=== PATIENT | female | born 1965 | race Caucasian/White ===

== ENCOUNTER → 2017-06-13 08:25 | Outpatient (CLI) | payer MEDICAID, SELFPAY ==
[2017-06-13 08:32] LABS: Mucous, Urine 0 SEEN /hpf (<or=2+)
[2017-06-13 10:33] LABS: Color, Urine Yellow (Yellow); Glucose, Dipstick Normal (Normal); Ketone-Dipstick Negative (Negative); Leukocyte Esterase-Dipstick 500 /ul (Negative); Nitrite-Dipstick Negative (Negative); Occult Blood-Urine 25 /ul (Negative); Protein-Dipstick Negative (Negative); Specific Gravity, Urine 1.015 (1.002-1.030); Urine Bilirubin Dipstick Negative (Negative); Urine Clarity Sl. Cloudy (Clear); Urine Urobilinogen Normal (Normal)
[2017-06-13 10:43] LABS: Absolute Lymphocyte Count 2.25 X10^3/ul (0.83-4.51); Absolute Neutrophil Count 2.9 X10^3/uL (2.0-7.7); Basophil# 0.07 X10^3/uL; Basophil% 1.2 % (0-1); Eosinophil# 0.21 X10^3/uL; Eosinophils% 3.6 % (0-5); Hematocrit 35.8 % (37-47); Hemoglobin 12.1 g/dl (12.0-15.0); Lymphocyte # 2.25 X10^3/ul (4.0); Lymphocyte % 38.3 % (19-41); Mean Corp Hgb Conc 33.8 g/gl (32-36); Mean Corpuscular Hgb 29.9 pg (27.0-32.0); Mean Corpuscular Volume 88.4 fL (81-99); Mean Platelet Vol. 11.2 fl (6.2-12.0); Monocyte# 0.44 X10^3/uL; Monocyte% 7.5 % (0-10); Neutrophil # 2.91 X10^3/uL (2.7-7.7); Neutrophil % 49.4 % (47-70); Platelet Count 278 K/mm3 (150-450); RBC Distribution Width CV 14.3 % (11.6-14.6); Red Blood Cells-Urine 0-5 SEEN /hpf (0-5); Red Blood Count 4.05 M/mm3 (4.2-5.4); Squamous Epithelial Cells - UA 10-25 SEEN /hpf (5-10); White Blood Cells 25-50 SEEN /hpf (0-5); White Blood Count 5.9 K/mm3 (4.4-11.0)
[2017-06-13 10:44] LABS: Bacteria 1+ /hpf (None Seen)
[2017-06-13 10:46] LABS: Hemoglobin A1c 5.4 % (4.2-6.3)
[2017-06-13 10:47] LABS: POSITIVE COUNT NO; POSITIVE DIFFERENTIAL NO; POSITIVE MORPHOLOGY NO
[2017-06-13 10:52] LABS: ALB/GLOB Ratio 0.9 RATIO (0.9-2.4); AST(SGOT) 18 U/L (15-37); Alanine Aminotransfer ALT/SGPT 22 U/L (13-56); Albumin, Serum 3.7 g/dL (3.2-5.0); Alkaline Phosphatase 131 U/L (45-117); BUN 15 mg/dL (7-18); BUN/Creat Ratio 22.2 RATIO (10-20); Calcium,Total 8.9 mg/dL (8.5-10.1); Cholesterol 195 mg/dL (200); Creatinine, Serum 0.68 mg/dL (0.55-1.02); EST Glomerular Filtration Rate 97 mL/min (>60); Est Glom Filt Rate - Afr Amer 117 mL/min (>60); Glucose 86 mg/dL (70-110); Protein, Total 7.7 g/dL (6.4-8.2)
[2017-06-13 10:53] LABS: Anion Gap 11 (5-15); Chloride 103 mmol/L (98-107); High Density Lipoprotein 48 mg/dL; Potassium 4.2 mmol/L (3.5-5.1); Sodium Level 139 mmol/L (136-145); T4 Free Direct 1.44 ng/dL (0.76-1.46); Thyroid Stim Hormone (TSH) < 0.01 uIU/mL (0.358-3.74); Triglycerides 150 mg/dL; Very Low Density Lipoprotein 30 mg/dL (5-40)
[2017-06-21 10:47] LABS: Anti-Thyroglobulin AB 8.9 IU/mL (0.0-0.9); Thyroglobulin RIA < 2.0 ng/mL (.); Thyroid Peroxidase AB 82 IU/mL (0-34)
== END ==
PROVIDERS: Family Provider Family Medicine; PCP Family Medicine; Visit Provider Family Medicine
DX: E03.9 Hypothyroidism, unspecified (principal); Z83.3 Family history of diabetes mellitus; N39.41 Urge incontinence; Z13.220 Encounter for screening for lipoid disorders; R19.8 Other specified symptoms and signs involving the digestive system and abdomen
CPT/HCPCS: 36415; 80053; 80061; 81001; 83036; 84432; 84439; 84443; 85025; 86376; 86800

== ENCOUNTER → 2017-06-16 10:45 | Outpatient (CLI) | payer MEDICAID, SELFPAY ==
[2016-04-16 13:51] VITALS: BP 95/66
[2016-05-13 10:41] VITALS: BMI 27.4
[2016-05-13 12:23] VITALS: BP 140/60
--- NOTE | 2017-06-16 10:47 | US_ITS ---
US Thyroid (eg thyroid, parathyroid, parotid) INDICATION: NODULE FELT BY DOCTORSTEPHANIE HENDERSON X 20 YEARS COMPARISON: None TECHNIQUE: Ultrasonographic grayscale and limited Doppler investigation of the thyroid gland FINDINGS: The right lobe of the thyroid measures 3.8 x 1.4 x 0.9 cm and demonstrates diffusely heterogenous echotexture. No well-circumscribed nodule is identified. The left lobe of the thyroid measures 3.2 x 1.0 x 0.6 cm and demonstrates diffusely heterogenous echogenicity. No definite nodule identified. The isthmus measures 2 mm. US/Thyroid IMPRESSION: Heterogenous echotexture of the thyroid gland. No circumscribed nodules identified. at 0057 Reported and signed by: Guillermina Hudson MD Electronically Signed: Guillermina Hudson MD at 23:55 EST Tel , Service support ,
== END ==
PROVIDERS: Family Provider Family Medicine; PCP Family Medicine; Visit Provider Family Medicine
DX: E04.1 Nontoxic single thyroid nodule (principal)
CPT/HCPCS: 76536

== ENCOUNTER 2017-07-14 05:18 | Day surgery (SDC) | payer MEDICAID, SELFPAY ==
[2017-07-14] VITALS (7 sets, daily range): BP systolic 77–113; BP diastolic 59–77; PULSE 55–64; RESP 16; TEMP 36.2–36.9; O2SAT 97–100
--- NOTE | 2017-07-14 | COLBX_PTH ---
PATIENT: HECTOR MUNSON LOC: EN U#:[id number] AGE/SX: 51/F ROOM: RE07/14/[address]: Dr. Vincent Rao MD : 1965 BED: DIS: 07/14/2017 SPEC #: [id number] RECD: 07/14/17 11:02 STATUS: BAKARI YIFAN #: [id number] AALIYAH: 07/14/17 00:[address]: Vincent Rao DEPT: SURGICAL PATHOLOGY RECD BY: Lyle Hernandez ENTERED: 07/14/17 11:52 SP TYPE: COLON BX OTHR DR: Dr. Ralph Nava MD Tissues: A - Descending colon B - Sigmoid colon biopsy Procedures: Surgery Specimen Level IV HEADER OPERATION: Colonoscopy PRE-OP DIAGNOSIS: Screening TISSUE SUBMITTED: A ? Distal descending colon polyp, B ? Mid sigmoid polyp biopsy MICROSCOPIC DIAGNOSIS A. Descending colon polyp, biopsy: Tubulovillous adenoma with focal high grade dysplasia. B. Mid sigmoid polyp, biopsy: Fragment of benign colonic mucosa. AM:bhumika 07/15/17 COMMENT Neither hyperplastic nor adenomatous change is seen. Clinical correlation is suggested. Case has been reviewed in consultation with Dr. Linares who concurs with the above diagnosis. IDC:DEVANTE MICROSCOPIC DESCRIPTION Slides are reviewed. GROSS DESCRIPTION A - Received in fixative is one container labeled with the patient's name and designated descending colon polyp. The specimen consists of a pink-red polyp measuring 1.7 x 1.2 x 1 cm. The apparent base is inked. The polyp is serially sectioned. Also present in the container are multiple pieces of johnson soft tissue measuring in aggregate 1.5 x 1 x 0.3 cm. The entire specimen is submitted in two cassettes as follows: 1 ? serially sectioned polyp, 2 ? rest of the specimen. B - Received in fixative is one container labeled with the patient's name and designated mid sigmoid polyp biopsy. The specimen consists of one irregular fragment of light johnson soft tissue that measures 0.3 x 0.3 x 0.1 cm. The specimen is totally submitted in one cassette. / DEVANTE:bhumika 07/14/17 TC:5 CPT: 50794 x2
--- NOTE | 2017-07-14 06:22 | HP.PCM_ITS ---
Problem List (1) Screening for intestinal cancer Status: Acute History of Present Illness Date of Admission: 07/14/17 The patient is a 51 year old F who presents today for screening colonoscopy. She has no family history of colon polyps or colon cancer. She otherwise enjoys good health. No bright red blood per rectum or melena. No abdominal pain. No unexpected weight loss. She has never had a previous screening colonoscopy. Past Medical History Past Medical History (Chronic Problems): Chronic Problems Hypothyroidism (Chronic) Allergies No Known Allergies Allergy (Verified 07/08/17 10:49) Home Medications: Ambulatory Orders Medication Instructions Recorded Levothyroxine [Synthroid] 125 mcg PO DAILY 10/19/15 Cetirizine HCl [Allergy Relief] 10 mg PO QHS 04/16/16 Oxybutynin [Ditropan] 5 mg PO DAILY 07/08/17 Surgical History: no surgical history Smoking Status: Former smoker - *Family History Paternal History Items: Diabetes Offspring History Items: Heart Disease, - - VSD Review of Systems Constitutional: Denies: Weight Change Eyes: Denies: Blurred vision, Vision Change HEENT: Denies: Ear Pain, Eye Pain Cardiovascular: Denies: Chest Pain, Claudication Respiratory: Denies: Cough, Shortness of Breath Gastrointestinal: Denies: Hematemesis, Hematochezia Genitourinary: Denies: Dysuria, Hematuria Musculoskeletal: Denies: Leg Pain Skin: Denies: Jaundice Neurological: Denies: Confusion Psychiatric: Denies: Depression Endocrine: Denies: Change in Body Habitus Hematologic/ Lymphatic: Denies: Easy Bleeding VTE Information - Inpt Only VTE Present on Admission: No Patient Problems: Active and Suspected Problems Screening for intestinal cancer (Acute) - Physical Exam General: Alert, Oriented x3, Cooperative, No apparent distress HEENT: Atraumatic Oral: Moist Mucosa Neck: Supple Lungs: Clear to auscultation Cardiovascular: Regular rate Abdomen: Bowel Sounds Present, Soft, Non Tender, Non-Distended, No Hepato- splenomegaly Extremities: No edema, No Calf Tenderness Skin: No rashes Neurological: Cranial nerves II-XII grossly intact Psych/Mental Status: Normal Affect Vital Signs Temp Pulse Resp BP Pulse Ox 98.5 F 55 L 16 111/62 100 07/14/17 06:07 07/14/17 06:07 07/14/17 06:07 07/14/17 06:07 07/14/17 06:07 Oxygen Delivery Method Room Air Assessment/Plan Active and Suspected Problems Screening for intestinal cancer (Acute) I have discussed with the patient the technique, benefits, risks and alternatives of screening colonoscopy with possible biopsy or polypectomy is indicated. She has had an opportunity to ask and have questions answered. She presents via our open access program. She is referred by Dr. Nava. Vincent Rao M.D., F.A.C.S.
--- NOTE | 2017-07-14 07:13 | OP.PCM_ITS ---
Problem List (1) Screening for intestinal cancer Status: Acute Report of Operation Date of Procedure: 07/14/17 Pre-Operative Diagnosis: Screening for intestinal malignancy Post-Operative Diagnosis: Large pedunculated polyp of the distal descending colon. Small sessile polyp of the mid sigmoid colon. Extensive sigmoid diverticulosis Surgery/Procedure Performed:: Colonoscopy with snare polypectomy with clip placement and colonoscopy with biopsy Description of Surgical Findings:: Timeout and informed consent was obtained. 51-year-old female was taken to the endoscopy suite. She was placed in a left lateral decubitus position. Throughout the procedure in aliquots she received total of 100 mg Demerol and 4.5 mg of Versed is intravenous sedation. Digital rectal exam performed. Some mild internal and external hemorrhoidal changes. No mass lesions. Flexible colonoscope and so the rectum advanced through a somewhat tortuous sigmoid colon then the scope was advanced through the transverse colon with transabdominal pressure the scope was nicely advanced to the cecum. The cecum ileocecal valve was nicely achieved. Bowel prep was very good. The scope was carefully withdrawn from the ascending colon transverse colon into the descending colon at approximately 60 cm and what was felt to be the distal descending colon a sizable pedunculated polyp was identified. Photographs were obtained. Snare cautery blend setting was used to resect this. 2 separate resections were required. A hemostatic clip was then placed at the base. [place] that I had good hemostasis and good closure of that site. The polyp was retrieved with a Bee net. The scope was further withdrawn and there was a 6 mm sessile polyp of the mid sigmoid colon. Photographs obtained. Cold forceps was used to sample and eradicate that lesion. There was extensive sigmoid diverticulosis. I did not see any signs of acute inflammation. The scope was withdrawn to the rectum retroflex the anorectal verge inspected mild hemorrhoidal changes noted. No evidence of active disease. The procedure was completed with patient tolerating it well. Impression Pedunculated polyp of the distal descending colon removed in piecemeal fashion with hemostatic clip placement. Sessile polyp of the mid sigmoid Extensive sigmoid diverticulosis A plain abdominal film will be obtained to identify the clip placement. The patient will be provided pathology results as they become available. Because of the sizable nature of the polyp I anticipate likely follow-up colonoscopy at 1 year. This was the patient's first colonoscopy. Cc: Dr. Schinner Medications were given at 0635. The scope was inserted 0637. The cecum was reached at 0641.42. The procedure was completed at 0706. Vincent Rao M.D., F.A.C.S. Type of Anesthesia:: IV Sedation
--- NOTE | 2017-07-14 07:37 | SUR.PHASEII ---
pt taken to radiology for xray of clip placement
--- NOTE | 2017-07-14 07:40 | RAD_ITS ---
STUDY: X-RAY - ABDOMEN/PELVIS REASON FOR EXAM: Female, 51 years old. Foreign body clip placement TECHNIQUE: Two AP supine views of the abdomen and pelvis. COMPARISON: None. FINDINGS: Normal visualized lung bases. There is an unremarkable bowel gas pattern. There appears to be metallic clip like device within the region of the left hemiabdomen. Currently, likely in small bowel. There is no demonstrated free abdominal air. The visualized liver, spleen and kidneys are grossly normal in size and morphology. Normal soft tissue structures. Normal visualized osseous structures. RAD/Abdomen Single View (Portable) IMPRESSION: Metallic clip like device in the left hemiabdomen as above. Possibly within the small bowel. Consider CT to further evaluate if indicated Electronically Signed: Tray Mixon DO at 7:59 EST Tel , Service support ,
== END 2017-07-14 08:21 | disposition home or self-care (01) ==
LOC: EN 05:18 → AC 05:20
PROVIDERS: Family Provider Family Medicine; PCP Family Medicine; Visit Provider Surgery
PROC: 0DJD8ZZ Inspection of Lower Intestinal Tract, Via Natural or Artificial Opening Endoscopic (ICD-10-PCS; CPT 45378; principal; 2017-07-14 06:25)
DX: Z12.11 Encounter for screening for malignant neoplasm of colon (principal); D12.4 Benign neoplasm of descending colon; K63.5 Polyp of colon; K57.30 Diverticulosis of large intestine without perforation or abscess without bleeding; K64.8 Other hemorrhoids; K64.4 Residual hemorrhoidal skin tags; E03.9 Hypothyroidism, unspecified; Z87.891 Personal history of nicotine dependence; Z79.899 Other long term (current) drug therapy
CPT/HCPCS: 45380; 45385; 74018; 88305; J7120

== ENCOUNTER → 2017-07-24 09:30 | Outpatient (CLI) | payer MEDICAID, SELFPAY ==
[2017-07-25 09:44] LABS: Vitamin B12 464 pg/mL (211-911); Vitamin D,25 Hydroxy 31.3 ng/mL (29.95-100.01)
== END ==
PROVIDERS: Family Provider Family Medicine; PCP Family Medicine; Visit Provider Family Medicine
DX: R53.83 Other fatigue (principal)
CPT/HCPCS: 36415; 82306; 82607

== ENCOUNTER 2017-09-03 18:31 | Emergency (ER) | payer OTHER, SELFPAY ==
[2017-09-03 18:31] VITALS: BP 141/104; PULSE 73; RESP 16; TEMP 36.7; O2SAT 98; BMI 27.4
--- NOTE | 2017-09-03 19:28 | RAD_ITS ---
STUDY: X-RAY - RIGHT FEMUR REASON FOR STUDY: Female, 52 years old. Pain of the leg after falling off a ladder. TECHNIQUE: Radiological exam, femur, minimum 2 views COMPARISON: None. FINDINGS: Normal visualized femur. Substantial soft tissue contusion lateral to the greater trochanter without underlying fracture. Mild hypertrophic degenerative changes. RAD/Femur Min 2 Views IMPRESSION: Contusion of the soft tissues lateral to the greater trochanter with no underlying fracture of the hip or femur. Electronically Signed: Diane Diaz MD at 19:57 EDT , Service support ,
--- NOTE | 2017-09-03 19:28 | RAD_ITS ---
STUDY: X-RAY - PELVIS REASON FOR EXAM: Female, 52 years old. Fell from a ladder. Pelvic pain. TECHNIQUE: One view of the pelvis was obtained. COMPARISON: None. FINDINGS: There is a non-specific bowel gas pattern. Numerous phleboliths of the pelvis. Soft tissue contusion of the right hip area lateral to the greater trochanter. Normal bilateral iliac wings, sacroiliac joints and visualized sacrum. Normal visualized bilateral superior and inferior pubic rami. Normal pubic symphysis. Normal ischial tuberosities. Normal visualized right femoral head. Normal right acetabulum. Normal right hip joint. Normal visualized left femoral head. Normal left acetabulum. Normal left hip joint. RAD/Pelvis 1 or 2 Views IMPRESSION: Negative for fracture of the pelvis. Soft tissue contusion lateral to the right greater trochanter without underlying fracture. Electronically Signed: Diane Diaz MD at 20:03 EDT , Service support ,
--- NOTE | 2017-09-03 19:29 | RAD_ITS ---
STUDY: X-RAY - RIGHT TIBIA AND FIBULA REASON FOR EXAM: Female, 52 years old. Fell off a ladder with pain of the lower leg. TECHNIQUE: 2 view(s) of the tibia and fibula were obtained. COMPARISON: None. FINDINGS: Normal visualized tibia. Acute fracture of the fibular head and neck essentially nondisplaced. Fracture related soft tissue swelling. RAD/Tibia & Fibula 2 Views IMPRESSION: Essentially nondisplaced acute fracture of the right fibular head and neck. Negative for tibial fracture. Electronically Signed: Diane Diaz MD at 20:04 EDT , Service support ,
--- NOTE | 2017-09-03 20:21 | ED.DCSUM_ITS ---
- ER Visit Summary Date of Service: 09/03/17 Chief Complaint: Right leg injury History of Present Illness: The patient is a 52 F who states that today at work she was coming down a ladder missed the last step and fell landing on the right side of her body. She notes pain and swelling over the right hip. She also notes a discomfort behind her right knee. She has been able to ambulate and was able to finish her shift. She denies any other injuries. Physical Examination: Afebrile vital signs are stable Gen: Well-nourished well-developed Head: Normocephalic atraumatic Eyes: Perrl EOMI ENT: TMs clear no rhinorrhea moist mucous membranes Neck: Supple no lymphadenopathy no JVD nontender CVS: Regular rate rhythm no murmurs normal S1-S2 Respiratory: No distress clear to auscultation bilaterally chest nontender Abdomen: Soft nontender nondistended normal bowel sounds no masses Back: Nontender Extremity: Large hematoma over the lateral aspect of the right hip. Slight pain with logroll laterally. She has tenderness over the fibular head. Neurovascularly intact distally. No obvious deformity Skin: Normal color no rash Neuro: alert orientated ?3 CN II-XII intact normal strength sensation reflexes Psych: Normal affect normal mood Test Results: Pelvis femur and tib-fib films were obtained. Hematoma is seen over the greater trochanter. There is a nondisplaced fibular head fracture. Emergency Department Course and Treatment: Patient will use crutches as needed for weightbearing. She will follow-up with orthopedics. Impression: 1. Right hip hematoma 2. Right fibular head fracture This note was generated with eTapest[employer] dictation software. It may contain incorrect words, spelling, and punctuation that were not noted in review of the chart prior to signing ED Disposition - Plan for ED Patient: Disposition: Home or Assisted Living Chief Complaint: Lower Extremity Injury Instructions: ED Fx Lower Ext, ED Hematoma Prescriptions: Hydrocodone Bitart/Apap 5-325 [[place] 5/325] 1 - 2 tab PO Q6H PRN PRN 4 Days #20 tab PRN Reason: Pain Referrals: Nadir Petersen DO [STAFF PHYSICIAN] - As soon as possible [facility]YSICIANS] - As soon as possible
[2017-09-03] MEDS: HYDROcodone Bitartrate/Apap 5/325 Tablet PO (20:52)
--- NOTE | 2017-09-03 20:55 | ED.RN ---
DISCHARGE INSTRUCTIONS GIVEN TO AND REVIEWED WITH PATIENT, PATIENT DENIES QUESTIONS OR CONCERNS AND VOICES UNDERSTANDING OF DISCHARGE INSTRUCTIONS.
== END 2017-09-03 21:09 | disposition home or self-care (01) ==
PROVIDERS: Emergency Provider Emergency Medicine; Family Provider Family Medicine; PCP Family Medicine
DX: S70.01XA Contusion of right hip, initial encounter (principal); S82.831A Other fracture of upper and lower end of right fibula, initial encounter for closed fracture; W11.XXXA Fall on and from ladder, initial encounter; Y93.9 Activity, unspecified; Y92.9 Unspecified place or not applicable; E03.9 Hypothyroidism, unspecified; Z87.891 Personal history of nicotine dependence; Z79.899 Other long term (current) drug therapy
CPT/HCPCS: 72170; 73552; 73590; 99284; A4216

== ENCOUNTER 2017-10-03 09:00 | Outpatient (RCR) | payer MEDICAID, SELFPAY | END 2017-10-03 23:59 | LOC: NS 09:00 | PROVIDERS: Family Provider Family Medicine; PCP Family Medicine; Visit Provider Family Medicine | DX: E66.3 Overweight (principal); Z68.27 Body mass index [BMI] 27.0-27.9, adult; Z71.3 Dietary counseling and surveillance | CPT/HCPCS: 97802; 97803 ==

== ENCOUNTER → 2017-10-21 09:33 | Outpatient (CLI) | payer MEDICAID, SELFPAY ==
[2017-10-21 12:46] LABS: T4 Free Direct 1.43 ng/dL (0.76-1.46); Thyroid Stim Hormone (TSH) 0.07 uIU/mL (0.358-3.74)
[2017-10-22 08:35] LABS: Vitamin D,25 Hydroxy 28.4 ng/mL (29.95-100.01)
== END ==
PROVIDERS: Family Provider Family Medicine; PCP Family Medicine; Visit Provider Family Medicine
DX: E55.9 Vitamin D deficiency, unspecified (principal); E03.8 Other specified hypothyroidism
CPT/HCPCS: 36415; 82306; 84439; 84443

== ENCOUNTER 2017-10-28 09:00 | Outpatient (RCR) | payer OTHER, SELFPAY ==
--- NOTE | 2017-09-19 10:52 | HP.PTEVAL_ITS ---
Patient's Visit Information HECTOR MUNSON is a 52 year old F referred to Physical Therapy by Nadir Petersen DO with a diagnosis of fx of upper and lower R fibula, contusion of R hip. Date of Evaluation: 09/19/17 Physical Therapist: An Clark - Visit Plan Frequency: 3x /Week Duration: 4 Weeks Plan: 3X/ week for 4 weeks for gait training, R hip, knee, and ankle strengthening, stretching with HEP and modalities of needed. - Subjective Subjective: Pt was coming down a set of steps and missed bottom step or two and landed on R side on concrete.. has a large hematoma on her hip and broke fibula. The accident happend September 03, 2017. She is WBAT with crutches or a walker. Not horrible walking on it but it is sitting and moving and trying to lift anything. Her brusie feels like a stinging sunburn all the time (the burning into the knee and lateral calf just strted) Last couple of nights she had cramping on the front part of her thigh. Not allowed to drive. Still working doing a sitting job....as much as she can. She sits mostly on the L side cause cant sit on the R. Stairs: they are rough and she has to do step 2 pattern with railing. She uses the rollator at work. She can not roll onto her R side. She returns to October 16..... Not sleeping well between the cramps - Pain R hip pain Pain Intensity (Out of 10): 8 R fibula pain Pain Intensity (Out of 10): 6 - Objective Gait: Walks with 2 crutches with decreased stance time on the R leg but heel to toe gait pattern with approx 50-75% WB. LE MMT: hip flex R 3+/5 and L 4/5, knee ext R 3-/5 and L 4+/5, R knee flex 3+/5 and L 4+/5, R hip abd 3-/5 and L NT due to not being able to lay on R side. Unable to heel and toe raise due to pain and decreased WB. Palpation: very large hematoma felt R lateral hip. R knee AROM 0 degrees to 120 degrees R knee flexion. L knee AROM 0 degrees to 140 degrees L knee flexion. Clam shell (has to have a pillow between knees or pt has too much increase pulling in the hip). ABle to do 2 X 10 but struggled to complete them. Increase pain with R ankle DF near fibula head. R hip PROM able to get to approx 90 degrees on the R. - Goals Goal 1:: I HEP Goal 2:: Increase R knee AROM 0-140 degrees without pain Goal Time Frame: 4-6 Weeks Goal 3:: Increase R LE strength by 1/2 muscle grade to promote increase ability to function with ADL's. (At time of eval:LE MMT: hip flex R 3+/5 and L 4/5, knee ext R 3-/5 and L 4+/5, R knee flex 3+/5 and L 4+/5, R hip abd 3-/5 and L NT due to not being able to lay on R side. Unable to heel and toe raise due to pain and decreased WB) Goal Time Frame: 4-6 Weeks Goal 4:: Be able to walk with a normal gait pattern without AD Goal Time Frame: 4-6 Weeks - Rehabilitation Potential Rehabilitation Potential: Good - Anticipated Interventions Thank you for the opportunity to evaluate your patient. For Medicare and Medicare HMO plans, please review the plan of care and approve it. It will need to be FAXED BACK to us at [phone] for Medicare purposes. Please let me know if there are questions or concerns regarding this plan of care. Physician Signature: Date:
--- NOTE | 2017-10-28 09:30 | HP.PTDCSUM ---
HP - PT D/C Summary It has been my pleasure to treat HECTOR MUNSON under orders from Nadir Petersen DO, for the diagnosis of fx of upper and lower R fibula, contusion of R hip for a total of 10 visit(s). Discharge Date: 10/28/17 Please see the following information for a summary of their discharge status. - Subjective Subjective: Pt reports that she is really sore today for some reason. She reports that she has been up and down ladders alot the last couple of days with carrying stuff at work. 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 She feels that she is ready to be discharged at this time. Pt reports that she is trying to break into her orthotics and she is having trouble wearing them. - Pain R hip pain Pain Intensity (Out of 10): 0 R fibula pain Pain Intensity (Out of 10): 0 - Overall Improvement % Improvement: 100 - Objective Objective/Function: R hip MMT....abd 4/5 and L 4-/5 ( but still painful to lay on R side during testing). R hip ext 4/5. R knee AROM 0-140 degrees. Gait: walks with normal gait pattern with slight decreased R ankle DF. Able to single leg toe raise (DF) X 10 with some fatigue. Able to Single leg heel raise (PF) X 10 without issue - Goals Goal 1:: I HEP Goal Progress: Goal Met Goal 2:: Increase R knee AROM 0-140 degrees without pain Goal Progress: Goal Met Goal 3:: Increase R LE strength by 1/2 muscle grade to promote increase ability to function with ADL's. (At time of eval:LE MMT: hip flex R 3+/5 and L 4/5, knee ext R 3-/5 and L 4+/5, R knee flex 3+/5 and L 4+/5, R hip abd 3-/5 and L NT due to not being able to lay on R side. Unable to heel and toe raise due to pain and decreased WB) Goal Progress: Goal Met Goal 4:: Be able to walk with a normal gait pattern without AD Goal Progress: Goal Met - Plan Plan: DC PT to HEP - D/C Information Discharge Comments: DC PT to HEP If there are questions or concerns regarding this patient's physical therapy, please feel free to call me at [phone]. Thank you for the referral of this patient. Sincerely, An Clark
== END 2017-10-28 19:00 | disposition home or self-care (01) ==
LOC: PT 09:00
PROVIDERS: Family Provider Family Medicine; PCP Family Medicine; Visit Provider Orthopaedic Surgery
DX: S82.831D Other fracture of upper and lower end of right fibula, subsequent encounter for closed fracture with routine healing (principal); S70.01XD Contusion of right hip, subsequent encounter
CPT/HCPCS: 97110; 97116; 97161; 97530

== ENCOUNTER → 2018-03-10 16:22 | Outpatient (CLI) | payer SELFPAY ==
[2018-03-10 18:09] LABS: T4 Free Direct 1.05 ng/dL (0.76-1.46); Thyroid Stim Hormone (TSH) 0.23 uIU/mL (0.358-3.74)
[2018-03-11 11:40] LABS: Vitamin D,25 Hydroxy 21.9 ng/mL (29.95-100.01)
== END ==
LOC: MFPLAB 16:23
PROVIDERS: Family Provider Family Medicine; PCP Family Medicine; Visit Provider Family Medicine
DX: E03.8 Other specified hypothyroidism (principal); E55.9 Vitamin D deficiency, unspecified
CPT/HCPCS: 36415; 82306; 84439; 84443

== ENCOUNTER 2018-03-18 20:24 | Emergency (ER) | payer SELFPAY ==
[2018-03-18 20:25] VITALS: BP 145/85; PULSE 96; RESP 20; TEMP 36.4; O2SAT 97; BMI 26.6
--- NOTE | 2018-03-18 20:35 | RAD_ITS ---
STUDY: X-RAY - LEFT ANKLE REASON FOR EXAM: Female, 52 years old. Pain status post fall. TECHNIQUE: 3 view(s) of the ankle. COMPARISON: None. FINDINGS: Bones are demineralized. There is no fracture or dislocation. Joint spaces are well-maintained. There is a moderate heel spur. Soft tissues and bony structures are otherwise unremarkable. RAD/Ankle min 3 Views IMPRESSION: No acute process. Heel spur. Electronically Signed: Ada Esparza MD at 21:05 EST Tel , Service support ,
--- NOTE | 2018-03-18 21:18 | ED.VIS.GEN ---
History of Present Illness Chief Complaint: Lower Extremity Injury Informant: Patient Onset: Today, Hours - 5 Context: Sudden Onset - trying to flatten boxes, accidentally inverted left ankle in process Timing: Continuous Quality: sore/ache Location: left ankle Current Severity: Moderate Maximum Severity: Moderate Worsened by: dorsiflexing, WBing Relieved by: rest/remaining still Associated Symptoms: none Narrative: Able to ambulate now and initially, but pain has been getting worse. No other injuries. - Past Medical History (1) Seizure Status: Chronic (2) Hypothyroidism Status: Chronic Past Medical History - Allergies and Home Meds Allergies/Adverse Reactions: Allergies No Known Allergies Allergy (Verified 03/18/18 20:28) Primary Care Physician: Ralph Nava MD [Primary Care Provider] - Surgical History: no surgical history Smoking Status: Former smoker - Family History Paternal Family History: Reports: Diabetes Offspring Family History: Reports: Heart Disease, - - VSD Review of Systems Musculoskeletal: Reports: Extremity Pain Skin: Reports: Abrasions. Denies: Rash Neurological: Denies: Weakness, Numbness Physical Exam Vital Signs/Narrative: Vital Signs Temp Pulse Resp BP Pulse Ox 03/18/18 20:25 97.6 F L 96 20 H 145/85 H 97 Inital Vital Signs reviewed: Yes General: Well nourished, Well developed Head: Normocephalic, Atraumatic Extremities: Tenderness - Along with focal swelling and a superficial abrasion without laceration over the left lateral malleolus. More tender in the soft tissues just distal and anterior. No tenderness at the medial malleolus, base of the fifth metatarsal, calcaneus, or proximal fibula. Ankle joint is stable with lateral forces. Limited range of motion secondary to pain especially with dorsiflexion. Skin: Normal color, No rash, Trauma - Superficial abrasion left lateral ankle Neurological: Alert, Oriented x3, Cranial nerves II-XII grossly intact, Normal Strength, Normal Sensation Psychological: Normal affect Diagnostic/Tx/Re-eval Clinical Impression(s) from Imaging Studies Ankle X-Ray 03/18/18 20:35 IMPRESSION: No acute process. Heel spur. Electronically Signed: Ada Esparza MD at 21:05 EST Tel , Service support , - Medical Decision Making No fractures on x-ray. Placed in Aircast, given Susan, she states she has crutches at home and we discussed using those. ED Disposition - Plan for ED Patient: Disposition: Home or Assisted Living Chief Complaint: Lower Extremity Injury Diagnosis: Left ankle sprain Instructions: ED Sprain Ankle W X Ray Referrals: Ralph Nava MD [Primary Care Provider] - 1 Week if not improving
[2018-03-18] MEDS: Naproxen 250 MG Tablet 500 MG PO (21:45)
[2018-03-18 21:48] VITALS: BP 137/80; PULSE 75; RESP 16; O2SAT 97
== END 2018-03-18 21:50 | disposition home or self-care (01) ==
PROVIDERS: Emergency Provider Emergency Medicine; Family Provider Family Medicine; PCP Family Medicine
DX: S93.402A Sprain of unspecified ligament of left ankle, initial encounter (principal); S90.512A Abrasion, left ankle, initial encounter; M77.32 Calcaneal spur, left foot; X50.1XXA Overexertion from prolonged static or awkward postures, initial encounter; Y93.9 Activity, unspecified; Y92.9 Unspecified place or not applicable; G40.909 Epilepsy, unspecified, not intractable, without status epilepticus; E03.9 Hypothyroidism, unspecified; Z79.899 Other long term (current) drug therapy; Z87.891 Personal history of nicotine dependence
CPT/HCPCS: 73610; 99283

== ENCOUNTER → 2018-09-24 | Outpatient (CLI) | payer SELFPAY ==
[2018-09-24 17:21] LABS: Thyroid Stim Hormone (TSH) 0.61 uIU/mL (0.358-3.74)
[2018-09-24 17:23] LABS: Vitamin D,25 Hydroxy 48.1 ng/mL (29.95-100.01)
== END | disposition home or self-care (01) ==
LOC: LAB 15:41
PROVIDERS: Family Provider Family Medicine; PCP Family Medicine; Referring Provider Family Medicine; Visit Provider Family Medicine
DX: E55.9 Vitamin D deficiency, unspecified (principal); E03.8 Other specified hypothyroidism
CPT/HCPCS: 36415; 82306; 84443

== ENCOUNTER 2018-09-26 12:21 | Emergency (ER) | payer SELFPAY ==
[2018-09-26 12:21] VITALS: BP 124/73; PULSE 65; RESP 16; TEMP 36.8; O2SAT 97; BMI 28.6
--- NOTE | 2018-09-26 12:36 | RAD_ITS ---
STUDY: X-RAY - LEFT FOOT CLINICAL: Female, 53 years old. Hyperextended foot TECHNIQUE: 3 view(s) of the foot. COMPARISON: None. FINDINGS: There is no evidence of fracture or dislocation. Plantar calcaneal spurring is present. A remote appearing healed fracture is present at the base of the first distal phalanx. There are no radiodense foreign bodies. RAD/Foot min 3 Views IMPRESSION: No fracture or dislocation. Plantar calcaneal spurring. Electronically Signed: Mike Daniels, at 13:08 EDT Tel , Service support ,
[2018-09-26] MEDS: Diphth,Pertuss(Acell),Tet Vac 0.5 ML Vial IM (12:50)
--- NOTE | 2018-09-26 13:54 | ED.DCSUM_ITS ---
- ER Visit Summary Date of Service: 09/26/18 Chief Complaint: Left great toe injury History of Present Illness: The patient is a 53 F who tripped and caught her left great toe underneath her. She a laceration to the top of her toe. She is unsure of her last tetanus update. Physical Examination: Vital signs unremarkable. Patient sitting upright in bed no acute distress. Left lower extreme examination was a 2 cm laceration across the proximal left great toe. No active bleeding at this time. Normal cap refill is noted. She does have mild bony tenderness. Test Results: Left foot x-rays reveal no evidence of fracture or dislocation. Emergency Department Course and Treatment: Tetanus update is provided. Wound was locally anesthetized with 1 cc of lidocaine. Wound is cleansed and irrigated. 6 simple interrupted sutures of 5-0 nylon are placed with good approximation. Dressing is placed. Treatment Plan: [] Disposition: Discharge Impression: Left great toe laceration status post suture This note was generated with [employer] dictation software. It may contain incorrect words, spelling, and punctuation that were not noted in review of the chart prior to signing ED Disposition - Plan for ED Patient: Disposition: Home or Assisted Living Instructions: ED Laceration Foot Referrals: Ralph Nava MD [Primary Care Provider] - 7 Days for suture removal
== END 2018-09-26 14:00 | disposition home or self-care (01) ==
PROVIDERS: Emergency Provider Emergency Medicine; Family Provider Family Medicine; PCP Family Medicine
DX: S91.112A Laceration without foreign body of left great toe without damage to nail, initial encounter (principal); W18.40XA Slipping, tripping and stumbling without falling, unspecified, initial encounter; Y93.9 Activity, unspecified; Y92.9 Unspecified place or not applicable; E03.9 Hypothyroidism, unspecified; Z79.899 Other long term (current) drug therapy; Z87.891 Personal history of nicotine dependence
CPT/HCPCS: 12001; 73630; 90471; 90715; 99284

== ENCOUNTER → 2018-10-29 | Outpatient (CLI) | payer SELFPAY ==
--- NOTE | 2018-10-29 15:00 | RAD_ITS ---
HISTORY: chronic cough x 3-4 months ADDITIONAL HISTORY: None provided. COMPARISON: None TECHNIQUE: Frontal and lateral chest radiographs. Number of images including paperwork: 2 FINDINGS: LUNGS AND PLEURA: No consolidation, mass or pleural effusion. Peribronchial thickening. CARDIAC SILHOUETTE: Unremarkable. MEDIASTINUM AND YG: Unremarkable. UPPER ABDOMEN: Unremarkable. SKELETON AND SOFT TISSUES: No acute findings. OTHER DEVICES AND HARDWARE: None. RAD/Chest PA and Lateral IMPRESSION: Peribronchial thickening as can be seen with bronchitis and airways disease. at [id number] Reported and signed by: Radha Harvey MD Electronically Signed: Radha Harvey MD at 4:23 EDT Tel , Service support ,
== END | disposition home or self-care (01) ==
LOC: RAD.FUTURE 14:53
PROVIDERS: Family Provider Family Medicine; PCP Family Medicine; Referring Provider Family Medicine; Visit Provider Family Medicine
DX: R05 Cough (principal)
CPT/HCPCS: 71046

== ENCOUNTER → 2019-06-30 14:16 | Outpatient (CLI) | payer SELFPAY ==
[2019-06-30 15:31] LABS: Thyroid Stim Hormone (TSH) 4.96 uIU/mL (0.358-3.74)
== END ==
LOC: LAB 14:18
PROVIDERS: PCP Family Medicine; Referring Provider Family Medicine; Visit Provider Family Medicine
DX: E06.3 Autoimmune thyroiditis (principal)
CPT/HCPCS: 36415; 84443

== ENCOUNTER → 2019-11-03 15:06 | Outpatient (CLI) | payer SELFPAY ==
[2019-11-03 16:24] LABS: Thyroid Stim Hormone (TSH) 0.15 uIU/mL (0.358-3.74)
[2019-11-03 16:35] LABS: Vitamin D,25 Hydroxy 45.8 ng/mL
== END ==
LOC: LAB 15:08
PROVIDERS: PCP Family Medicine; Referring Provider Family Medicine; Visit Provider Family Medicine
DX: E03.8 Other specified hypothyroidism (principal); E55.9 Vitamin D deficiency, unspecified
CPT/HCPCS: 36415; 82306; 84443

== ENCOUNTER 2020-01-10 05:19 | Day surgery (SDC) | payer OTHER, SELFPAY ==
[2020-01-10] VITALS (8 sets, daily range): BP systolic 96–136; BP diastolic 65–89; PULSE 53–59; RESP 16; TEMP 36.6–37.1; O2SAT 95–100
[2020-01-10] MEDS: Lactated Ringers 1,000 ML 100 ML IV (06:16)
--- NOTE | 2020-01-10 06:18 | PCM.HP.STD ---
Problem List (1) Personal history of colonic polyps Status: Acute History of Present Illness Date of Admission: 01/10/20 The patient is a 54 year old F has a personal history of colon polyp. July 2017 she had a colonoscopy with resection of a larger pedunculated polyp of the descending colon which on pathology was a tubulovillous adenoma with high-grade dysplasia. A recommendation was for her to return in 1 year. She returns now at this time. She presents via open access. She states that she has had lifelong constipation. Multiple family members have had diverticular disease. Her previous colonoscopy demonstrated severe diverticulosis. She denies bright red blood per rectum or melena. She either has problems with constipation or if she takes a fiber supplement she will get diarrhea. She has not had a weight loss. She denies chest pain or shortness of breath no cough. Past Medical History Past Medical History (Chronic Problems): Chronic Problems Seizure (Chronic) Hypothyroidism (Chronic) Allergies No Known Allergies Allergy (Verified 09/26/18 12:23) Home Medications: Ambulatory Orders Medication Instructions Recorded Levothyroxine [Synthroid] 75 mcg PO DAILY 10/19/15 Cetirizine HCl [Allergy Relief] 10 mg PO QHS 04/16/16 Oxybutynin [Ditropan] 10 mg PO DAILY 07/08/17 Surgical History: no surgical history Smoking Status: Former smoker - *Family History Paternal History Items: Diabetes Offspring History Items: Heart Disease, - - VSD Review of Systems Constitutional: Denies: Fever Cardiovascular: Denies: Chest Pain Respiratory: Denies: Cough Gastrointestinal: Reports: Constipation, Diarrhea. Denies: Abdominal Pain Endocrine: Denies: Change in Body Habitus VTE Information - Inpt Only VTE Present on Admission: No Patient Problems: Active and Suspected Problems Personal history of colonic polyps (Acute) - Physical Exam Vitals/I&O's: Vital Signs Temp Pulse Resp BP Pulse Ox 97.9 F 59 L 16 107/75 99 01/10/20 05:43 01/10/20 05:43 01/10/20 05:43 01/10/20 05:43 01/10/20 05:43 Oxygen Delivery Method Room Air Weight: 176 lb 5.917 oz Body Mass Index (BMI) 28.6 General: Alert, Oriented x3, Cooperative, No apparent distress HEENT: Atraumatic Oral: Moist Mucosa Lungs: Clear to auscultation, Normal air movement Cardiovascular: Regular rate, Regular Rhythm Abdomen: Bowel Sounds Present, Soft, Non Tender Extremities: No Calf Tenderness Neurological: - - Normal cognition Psych/Mental Status: Normal Affect Current Medications Lactated Ringer's () 1,000 mls @ 100 mls/hr IV .Q10H ROMEO Last Admin: 01/10/20 06:16 Dose: 100 mls/hr Documented by: Assessment/Plan All Active Problems Screening for intestinal cancer (Acute) Personal history of colonic polyps (Acute) Hypotension (Acute) Hypokalemia (Acute) Surveillance colonoscopy with possible biopsy or polypectomy is indicated. She is aware of the technique, benefit, risk and alternatives. She presents via open access. We will proceed as noted. She feels that her bowel prep was appropriate. Vincent Rao M.D., F.A.C.S. Procedure Criteria Procedure Type: Elective COVID Risk Discussion: The surgeon/proceduralist and patient have discussed in detail the risk of exposure to and/or potential harm posed by the COVID-19 virus with having a surgery/procedure at this time versus the risk of delaying the surgery/procedure. It is not possible to know either the risk of delaying the surgery or procedure or chance of getting an infection with perfect accuracy, but a joint decision was made between the patient and the surgeon/proceduralist to proceed at this time with the scheduled surgery/procedure as indicated on the consent form.
--- NOTE | 2020-01-10 06:52 | OP.COLON_ITS ---
Patient Name: Beverly Escobar Procedure Date: 01/10/2020 6:02 AM Date of : 1965 Age: 54 Procedure: Colonoscopy Indications: High risk colon cancer surveillance: Personal history of colonic polyps Providers: Vincent Rao MD Referring MD: Vincent Rao MD Medicines: Midazolam 3 mg IV, Meperidine 100 mg IV Patient Profile: Last Colonoscopy: July 2017. Complications: No immediate complications. Procedure: Pre-Anesthesia Assessment: - Prior to the procedure, a History and Physical was performed, and patient medications and allergies were reviewed. The patient's tolerance of previous anesthesia was also reviewed. The risks and benefits of the procedure and the sedation options and risks were discussed with the patient. All questions were answered, and informed consent was obtained. Prior Anticoagulants: The patient has taken no previous anticoagulant or antiplatelet agents. ASA Grade Assessment: II - A patient with mild systemic disease. After reviewing the risks and benefits, the patient was deemed in satisfactory condition to undergo the procedure. After I obtained informed consent, the scope was passed under direct vision. Throughout the procedure, the patient's blood pressure, pulse, and oxygen saturations were monitored continuously. The colonoscope was introduced through the anus and advanced to the cecum, identified by appendiceal orifice and ileocecal valve. The colonoscopy was somewhat difficult due to a redundant colon. The patient tolerated the procedure well. The quality of the bowel preparation was good. The ileocecal valve and the appendiceal orifice were photographed. Moderate Sedation: Moderate (conscious) sedation was personally administered by the endoscopist. The following parameters were monitored: oxygen saturation, heart rate, blood pressure, and response to care. Total physician intraservice time was 15 minutes. Scope In: 6:31:49 AM Scope Withdrawal Time 0 hours 7 minutes 40 seconds Scope Out: 6:46:39 AM Total Procedure Duration Time 0 hours 14 minutes 50 seconds Findings: Hemorrhoids were found on perianal exam. Multiple diverticula were found in the sigmoid colon and descending colon. The colon (entire examined portion) was moderately redundant. Impression: - Hemorrhoids found on perianal exam. - Diverticulosis in the sigmoid colon and in the descending colon. - Redundant colon. - No specimens collected. Recommendation: - Discharge patient to home. - Resume previous diet. - Continue present medications. - Repeat colonoscopy in 5 years for surveillance. Procedure Code(s): --- Professional --- G0105, Colorectal cancer screening; colonoscopy on individual at high risk 43630, 58, Moderate sedation services provided by the same physician or other qualified health caretaker performing the diagnostic or therapeutic service that the sedation supports, requiring the presence of an independent trained observer to assist in the monitoring of the patient's level of consciousness and physiological status; initial 15 minutes of intraservice time, patient age 5 years or older Diagnosis Code(s): --- Professional --- Z86.010, Personal history of colonic polyps K64.9, Unspecified hemorrhoids K57.30, Diverticulosis of large intestine without perforation or abscess without bleeding Q43.8, Other specified congenital malformations of intestine CPT copyright 2017 [employer]. All rights reserved. The codes documented in this report are preliminary and upon infant nanny review may be revised to meet current compliance requirements. Vincent Rao MD 01/10/2020 6:51:48 AM This report has been signed electronically. Number of Addenda: 0 Note Initiated On: 01/10/2020 6:02 AM
--- NOTE | 2020-01-10 06:52 | OP.CCLET_ITS ---
01/10/2020 Ralph Nava [address] [place] [address] Re : Colonoscopy procedure for Beverly Escobar Dear Dr. Nava This procedure was performed on Friday, January 10, 2020. My impressions and recommendations are as follows: Impressions : - Hemorrhoids found on perianal exam. - Diverticulosis in the sigmoid colon and in the descending colon. - Redundant colon. - No specimens collected. Recommendations : - Discharge patient to home. - Resume previous diet. - Continue present medications. - Repeat colonoscopy in 5 years for surveillance. My findings are described in the full procedure note, which is enclosed. If I can be of further assistance, please feel free to contact me at Doctor phone number(s): Work: . Sincerely, Vincent Rao MD 01/10/2020 6:51:48 AM This report has been signed electronically.
== END 2020-01-10 07:38 | disposition home or self-care (01) ==
LOC: EN 05:20 → AC 05:22
PROVIDERS: PCP Family Medicine; Referring Provider Surgery; Visit Provider Surgery
PROC: 0DJD8ZZ Inspection of Lower Intestinal Tract, Via Natural or Artificial Opening Endoscopic (ICD-10-PCS; CPT 45378; principal; 2020-01-10 06:25)
DX: Z12.11 Encounter for screening for malignant neoplasm of colon (principal); Z86.010 Personal history of colon polyps; K57.30 Diverticulosis of large intestine without perforation or abscess without bleeding; K64.9 Unspecified hemorrhoids; Q43.8 Other specified congenital malformations of intestine; Z11.59 Encounter for screening for other viral diseases; E03.9 Hypothyroidism, unspecified; Z79.899 Other long term (current) drug therapy; Z87.891 Personal history of nicotine dependence
CPT/HCPCS: 45378; 87635; 94799; 99152; 99153; J7120; U0003

== ENCOUNTER → 2020-01-19 16:13 | Outpatient (CLI) | payer OTHER, SELFPAY ==
--- NOTE | 2020-01-19 16:17 | RAD_ITS ---
STUDY: X-RAY CHEST REASON FOR EXAM: Female, 54 years old. SOB UPON EXERTION WITH A COUGH FOR ABOUT 1 MONTH NOW. TECHNIQUE: Frontal and lateral views of the chest. COMPARISON: 10/29/2018. FINDINGS: The lungs are clear and expanded. There is no demonstrated pleural abnormality. Normal size heart. Normal mediastinum and chelsi. Normal visualized pulmonary arteries. Normal visualized aortic arch and descending thoracic aorta. There appears to be moderate retrocardiac hiatal hernia. Normal visualized thoracic spine. Normal visualized ribs, clavicles, and shoulders. There is no demonstrated abnormality of the visualized soft tissue structures of the upper abdomen. RAD/Chest PA and Lateral IMPRESSION: No definite acute or significant abnormality seen. Electronically Signed: Harinder Ma MD at 21:35 EDT , Service support ,
[2020-01-19 19:02] LABS: Absolute Lymphocyte Count 3.06 X10^3/uL (0.83-4.51); Absolute Neutrophil Count 3.3 X10^3/uL (2.0-7.7); Basophil# 0.09 X10^3/uL; Basophil% 1.3 % (0-1); Eosinophil# 0.31 X10^3/uL; Eosinophils% 4.3 % (0-5); Hematocrit 32.9 % (37-47); Hemoglobin 10.1 g/dL (12.0-15.0); Lymphocyte # 3.06 X10^3/ul (4.0); Lymphocyte % 42.9 % (19-41); Mean Corp Hgb Conc 30.7 g/dL (32-36); Mean Corpuscular Hgb 26.1 pg (27.0-32.0); Mean Platelet Vol. 11.2 fl (6.2-12.0); Monocyte# 0.33 X10^3/uL; Monocyte% 4.6 % (0-10); NRBC Flagged by Analyzer 0 % (0-5); Neutrophil # 3.32 X10^3/uL (2.7-7.7); Neutrophil % 46.6 % (47-70); Platelet Count 314 K/mm3 (150-450); RBC Distribution Width CV 14.9 % (11.6-14.6); RBC Distribution Width SD 45.5 fl (35.1-43.9); Red Blood Count 3.87 M/mm3 (4.2-5.4); White Blood Count 7.1 K/mm3 (4.4-11.0)
[2020-01-19 19:12] LABS: Vitamin D,25 Hydroxy 34.7 ng/mL
[2020-01-19 19:47] LABS: AST(SGOT) 24 U/L (15-37); Alanine Aminotransfer ALT/SGPT 26 U/L (13-56); Albumin, Serum 4.1 g/dL (3.2-5.0); Alkaline Phosphatase 134 U/L (45-117); Anion Gap 8 (5-15); BUN 15 mg/dL (7-18); BUN/Creat Ratio 18.2 RATIO (10-20); Calcium,Total 9.2 mg/dL (8.5-10.1); Chloride 105 mmol/L (98-107); Cholesterol 268 mg/dL (200); Creatinine, Serum 0.83 mg/dL (0.55-1.02); EST Glomerular Filtration Rate 76 mL/min (>60); Est Glom Filt Rate - Afr Amer 92 mL/min (>60); Glucose 84 mg/dL (74-106); High Density Lipoprotein 53 mg/dL; Potassium 3.8 mmol/L (3.5-5.1); Protein, Total 8.1 g/dL (6.4-8.2); Sodium Level 139 mmol/L (136-145); T4 Free Direct 1.15 ng/dL (0.76-1.46); Thyroid Stim Hormone (TSH) 1.25 uIU/mL (0.358-3.74); Triglycerides 173 mg/dL; Very Low Density Lipoprotein 35 mg/dL (5-40)
== END ==
LOC: MTLAB 16:15
PROVIDERS: PCP Family Medicine; Referring Provider Family Medicine; Visit Provider Family Medicine
DX: R07.9 Chest pain, unspecified (principal)
CPT/HCPCS: 36415; 71046; 80053; 80061; 82306; 84439; 84443; 85025

== ENCOUNTER 2020-01-27 16:18 | Observation (INO) | payer BC, SELFPAY ==
[2020-01-27] VITALS (12 sets, daily range): BP systolic 103–149; BP diastolic 56–92; PULSE 56–72; RESP 15–17; TEMP 36.4–37.1; O2SAT 97–100; BMI 31.4; BMI 30.3
--- NOTE | 2020-01-27 16:28 | RAD_ITS ---
STUDY: X-RAY CHEST REASON FOR EXAM: Female, 54 years old. Chest pressure for one day. Shortness of breath. Cough. TECHNIQUE: Single AP portable view of the chest. COMPARISON: Chest, 01/19/2020. FINDINGS: The lungs are clear and expanded. There is no demonstrated pleural abnormality. Normal size heart. Normal mediastinum and chelsi. Normal visualized pulmonary arteries. Normal visualized aortic arch and descending thoracic aorta. There are diffuse degenerative changes of the visualized thoracic spine. There is degenerative osteoarthritis of the bilateral shoulders. There is a large retrocardiac hiatal hernia. RAD/Chest 1 View (Portable) IMPRESSION: Stable retrocardiac hiatal hernia. There is no acute cardiopulmonary disease. Electronically Signed: Dat Huang DO at 17:14 EDT Tel [phone], Service support ,
--- NOTE | 2020-01-27 16:28 | EKG12_ITS ---
Test Reason : CP Blood Pressure : / mmHG Vent. Rate : 065 BPM Atrial Rate : 065 BPM P-R Int : 166 ms QRS Dur : 078 ms QT Int : 430 ms P-R-T Axes : 037 009 023 degrees QTc Int : 447 ms Normal sinus rhythm Normal ECG Confirmed by KERLINE CANALES, TETE ([id number]), department editor JACK CACERES ([id number]) on 01/31/2020 1:34:14 PM Referred By: Confirmed By:TETE CHURCHILL MD
--- NOTE | 2020-01-27 16:38 | ED.VIS.GEN ---
History of Present Illness Chief Complaint: Chest Pain Informant: Patient Onset: Today Narrative: Waxing waning chest pressure with left arm pain since 10 AM this morning 6 hours ago. Reports yesterday was not feeling well today morning feeling nauseated. Dry cough since yesterday. Headache. No loss of taste or smell. No diarrhea. No sick contacts. History of hypercholesterolemia remote tobacco family history mother sides with MIs. Stress test years ago. Denies diabetes history. 2 weeks ago had pain between her shoulder blades it was transient saw her PCP has a stress test pending this Friday. No history of heart caths. Currently complains of pressure at a 5. Status post aspirin by EMS. Reviewed EMS EKG with no acute changes. Prior similar symptoms: No Past Medical History - Allergies and Home Meds Allergies/Adverse Reactions: Allergies No Known Allergies Allergy (Verified 09/26/18 12:23) Primary Care Physician: Ralph Nava MD [Primary Care Provider] - Past Medical History: - - Hypercholesterolemia, hypothyroidism Surgical History: no surgical history Smoking Status: Former smoker - Family History Paternal Family History: Reports: Diabetes Offspring Family History: Reports: Heart Disease, - - VSD Review of Systems General: Denies: Chills, Fever, Sweats Eyes: Denies: Visual changes - bilaterally, Diplopia ENT: Denies: Rhinorrhea, Sore throat Cardiovascular: Reports: Chest pain. Denies: Palpitations Respiratory: Reports: Cough. Denies: Dyspnea, Dyspnea on exertion Gastrointestinal: Denies: Abdominal pain, Nausea, Vomiting, Diarrhea, Melena, Hematochezia Genitourinary: Denies: Dysuria, Hematuria, Frequency Musculoskeletal: Denies: Back pain, Extremity Pain Skin: Denies: Rash, Wounds Neurological: Denies: Headache, Weakness, Numbness Physical Exam Vital Signs/Narrative: Vital Signs Temp Pulse Resp BP Pulse Ox 01/27/20 16:33 98.8 F 66 17 130/87 H 100 01/27/20 16:21 98.8 F 66 17 130/87 H 100 Inital Vital Signs reviewed: Yes General: Well nourished, Well developed, No Acute Distress Head: Normocephalic, Atraumatic Eyes: Perrl, EOMI ENT: Moist mucous membranes, No rhinorrhea Neck: Supple, Nontender Cardiovascular: Regular rate, Regular rhythm, No murmurs Respiratory: No distress, CTA bilaterally, Chest nontender Abdomen: Soft, Nontender, Nondistended, Normal bowel sounds Back: Nontender, Normal Inspection Extremities: Nontender, No edema Skin: Normal color, No rash Neurological: Alert, Oriented x3, Cranial nerves II-XII grossly intact, Normal Strength, Normal Sensation Psychological: Normal affect, Normal Mood Diagnostic/Tx/Re-eval Clinical Impression(s) from Imaging Studies Chest X-Ray 01/27/20 16:28 IMPRESSION: Stable retrocardiac hiatal hernia. There is no acute cardiopulmonary disease. Electronically Signed: Dat ReinaDO at 17:14 EDT Tel [phone], Service support , Abnormal Lab Results 01/27/20 01/27/20 01/27/20 16:34 16:34 16:34 WBC 7.6 RBC 3.91 L Hgb 10.1 L Hct 32.5 L MCV 83.1 MCH 25.8 L MCHC 31.1 L RDW Std Deviation 44.0 H RDW Coeff of Natalie 14.6 Plt Count 327 MPV 10.8 Immature Gran % (Auto) 0.000 Neut % (Auto) 52.5 Lymph % (Auto) 35.4 [place] % (Auto) 7.8 Eos % (Auto) 3.4 Baso % (Auto) 0.9 Absolute Neuts (auto) 4.0 Absolute Lymphs (auto) 2.68 Nucleated RBC % 0 PT 12.9 INR 1.0 APTT 26.7 Sodium 143 Potassium 3.8 Chloride 109 H Carbon Dioxide 29.0 Anion Gap 5 BUN 14 Creatinine 0.84 Estim Creat Clear Calc 65.35 Est GFR (MDRD) Af Amer 91 Est GFR (MDRD) Non-Af 75 BUN/Creatinine Ratio 16.7 Glucose 95 Calcium 9.1 Troponin I < 0.015 - EKG Initial EKG Interpretation: Sinus Rhythm - Sinus rate of 65, no ST changes. Isolated T wave inversion in leads III. Nonspecific. - Medical Decision Making Patient EKG nonspecific T wave inversion in leads III. Cardiac work-up initiated. Aspirin given by EMS. Pain-free after second nitro. Cardiac work-up with initial troponin negative. Heart score is a 4. Discussed with hospitalist Dr. Pham for admission. ED Disposition - Plan for ED Patient: Disposition: Acute Care Hospital [facility] Diagnosis: Chest pain Referrals: Ralph Nava MD [Primary Care Provider] -
[2020-01-27] MEDS: Nitroglycerin SL (ED/IMG/CATH) 0.4 MG TABLET SUBLINGUAL ×2 (16:46→16:51)
[2020-01-27] MEDS: Ondansetron 4 MG/2 ML Vial IV (16:47)
[2020-01-27] MEDS: Acetaminophen 500 MG Tablet 1000 MG PO (16:59)
[2020-01-27 17:14] LABS: Anion Gap 5 (5-15); BUN 14 mg/dL (7-18); BUN/Creat Ratio 16.7 RATIO (10-20); Calcium,Total 9.1 mg/dL (8.5-10.1); Chloride 109 mmol/L (98-107); Creatinine, Serum 0.84 mg/dL (0.55-1.02); EST Glomerular Filtration Rate 75 mL/min (>60); Est Glom Filt Rate - Afr Amer 91 mL/min (>60); Estimated Creatinine Clearance 65.35 ml/min; Glucose 95 mg/dL (74-106); Potassium 3.8 mmol/L (3.5-5.1); Sodium Level 143 mmol/L (136-145)
[2020-01-27 17:16] LABS: Absolute Lymphocyte Count 2.68 X10^3/uL (0.83-4.51); Basophil# 0.07 X10^3/uL; Basophil% 0.9 % (0-1); Eosinophil# 0.26 X10^3/uL; Eosinophils% 3.4 % (0-5); Hematocrit 32.5 % (37-47); Hemoglobin 10.1 g/dL (12.0-15.0); Lymphocyte # 2.68 X10^3/ul (4.0); Lymphocyte % 35.4 % (19-41); Mean Corp Hgb Conc 31.1 g/dL (32-36); Mean Corpuscular Hgb 25.8 pg (27.0-32.0); Mean Corpuscular Volume 83.1 fL (81-99); Mean Platelet Vol. 10.8 fl (6.2-12.0); Monocyte# 0.59 X10^3/uL; Monocyte% 7.8 % (0-10); NRBC Flagged by Analyzer 0 % (0-5); Neutrophil # 3.97 X10^3/uL (2.7-7.7); Neutrophil % 52.5 % (47-70); Platelet Count 327 K/mm3 (150-450); RBC Distribution Width CV 14.6 % (11.6-14.6); Red Blood Count 3.91 M/mm3 (4.2-5.4); White Blood Count 7.6 K/mm3 (4.4-11.0)
[2020-01-27 17:28] LABS: Prothrombin Time (Protime)PT. 12.9 SECONDS (11.7-14.9)
[2020-01-27 17:29] LABS: Partial Thromboplast Time 26.7 Seconds (24.1-36.2)
--- NOTE | 2020-01-27 18:40 | HP.PCM_ITS ---
Problem List (1) Hyperlipidemia Status: Acute (2) Anemia Status: Acute (3) Screening for intestinal cancer Status: Inactive (4) Personal history of colonic polyps Status: Chronic (5) Chest pain Status: Acute (6) Hypotension Status: Inactive (7) Hypokalemia Status: Inactive (8) Seizure Status: Inactive (9) Hypothyroidism Status: Chronic History of Present Illness Date of Admission: 01/27/20 The patient is a 54 year old F with a PMH of HPL, Hypothyroidism, Hypokalemia, Urinary Incontinence and seasonal allergies presented to the ED on 01/26 with CP. She states that she started not feeling well about a week ago and saw her PCP. An EKG and lab work were obtained an she was started on Crestor for new HPL. A stress test was also ordered for next Friday. She states she has in general not been feeling well in the last week with CP/Pressure but awoke this am with worsening CP. She went to work and called her doctor who instructed her to stop the Crestor as she thought maybe her sx were from the new med, but she persisted feeling badly and has had CP since 10 am that has been associated with fatigue, sob, and nausea. She also did have some L sided arm pain when she arrived to the ED. She was given nitro and her sx resolved. She also states that since yesterday she has had a dry cough and increased fatigue levels. She denies fever or loss of smell. She has had no known sick contacts. Her VSS. Her EKG show some non-specific t wave inversions in lead III. Her initial troponin was negative. Her Chol was done 01/18 and she has a markedly elevated LDL at 180 and Tchol of 268. TSH on that date was WNL. CXR was neg. Past Medical History Past Medical History (Chronic Problems): Chronic Problems Personal history of colonic polyps (Chronic) Hypothyroidism (Chronic) Allergies No Known Allergies Allergy (Verified 09/26/18 12:23) Home Medications: Ambulatory Orders Medication Instructions Recorded Oxybutynin [Ditropan] 10 mg PO DAILY 07/08/17 Cetirizine HCl [Zyrtec] 10 mg PO DAILY 01/27/20 Levothyroxine Sodium [Euthyrox] 88 mcg PO DAILY 01/27/20 Potassium (Otc) [Potassium Otc] 99 mg PO DAILY 01/27/20 Rosuvastatin Calcium [Crestor] 20 mg PO QHS 01/27/20 Surgical History: noncontributory Lives: Spouse/ Significant Other Smoking Status: Former smoker Tobacco Use: Cigarettes Alcohol: None Drugs: None - *Family History Paternal History Items: Diabetes Offspring History Items: Heart Disease, - - VSD Review of Systems Constitutional: Reports: Malaise, Weakness, Fatigue. Denies: Anorexia, Chills, Fever, Night Sweats, Weight Change Eyes: Denies: Blurred vision, Cataracts, Conjunctivae Inflammation, Double vision, Drainage, Eyelid Inflammation, Pain, Redness, Vision Change HEENT: Reports: Sinus Drainage. Denies: Difficulty Hearing, Difficulty Swallowing, Head Aches, Hearing Changes, Nasal bleeding, Nasal Congestion, Post Nasal Drip, Sinus Congestion, Sore Throat, Visual Changes Cardiovascular: Reports: Chest Pain, Chest Pressure, Chest Tightness. Denies: Claudication, Edema, Heaviness, Light Headedness, Orthopnea, Palpitations, Paroxysmal Noc. Dyspnea, Syncope Respiratory: Reports: Cough, Shortness of Breath, Shortness of breath at rest, Shortness of breath upon exertion. Denies: Hemoptysis, Pleuritic Pain, Sputum production, Wheezing Gastrointestinal: Denies: Abdominal Pain, Constipation, Diarrhea, Dyspepsia, Hematemesis, Hematochezia, Nausea, Melena, Vomiting Genitourinary: Reports: Frequency, Incontinence. Denies: Dysuria, Hematuria, Hesitancy, Nocturia, Retention, Urgency Musculoskeletal: Reports: Back Pain - with CP. Denies: Joint Pain, Joint stiffness, Joint swelling, Joint Tenderness, Neck Pain Skin: Denies: Dryness, Jaundice, Lesions, Pruritis, Rash, Skin Changes, Wounds Neurological: Denies: Balance problems, Blurred vision, Double vision, Change in Speech, Slurred speech, Confusion, Difficulty swallowing, Focal weakness, Headaches, Incoordination, Numbness, Tingling, Tremor, Seizures Psychiatric: Denies: Anxiety, Depression Endocrine: Denies: Change in Body Habitus, Heat/ Cold Intolerance, Polydipsia, Polyuria Hematologic/ Lymphatic: Denies: Adenopathy, Anemia, Easy Bruising, Easy Bleeding, Petechiae, Purpura VTE Information - Inpt Only VTE Present on Admission: No VTE Mechan Device Prophylaxis: None VTE Pharm Prophylaxis ordered?: No Patient Problems: Active and Suspected Problems Chest pain (Acute) Hyperlipidemia (Acute) Anemia (Acute) - Physical Exam Vitals/I&O's: Vital Signs Temp Pulse Resp BP Pulse Ox 98.3 F 56 L 16 117/87 H 99 01/27/20 18:25 01/27/20 18:25 01/27/20 18:25 01/27/20 18:25 01/27/20 18:25 Oxygen Flow Rate (L/min) 2 Oxygen Delivery Method Room Air Weight: 80.1 kg Body Mass Index (BMI) 30.3 General: Alert, Oriented x3, Cooperative, No apparent distress, Well developed, Well nourished, - - middle aged WF who appears as if she doesnt feel well but no n-toxic HEENT: Atraumatic, PERRLA, EOMI, Normocephalic, EAC Clear Oral: Moist Mucosa, No Gingival or Mucosal Lesions/ Ulcerations Neck: Supple, No JVD, Negative Carotid Bruits, Negative Hepatojugular Reflux, No Nodes, No Nuchal Rigidity, Trachea Midline, Thyroid Normal Size and Texture Lungs: Clear to auscultation, Normal air movement, No rhonchi, No wheeze, No rales Cardiovascular: Regular rate, Regular Rhythm, Normal S1, Normal S2, No murmurs, No Ectopic Activity Abdomen: Bowel Sounds Present, Soft, Non Tender, Non-Distended, Obese, No hernias noted Extremities: No clubbing, No cyanosis, No edema, Capillary Refill Less than 3 Seconds, No Calf Tenderness, Peripheral Pulses Normal Skin: No rashes, No breakdown Musculoskeletal: No Tenderness to Palpation of Joints or Extremities, No Muscle Wasting Neurological: Cranial nerves II-XII grossly intact, Deep Tendon Reflexes 2+/4 and Symmetrical, Neuro grossly intact, Motor Exam 5/5 strength throughout, Muscle tone normal, Sensory exam intact to light touch and pain, Coordination normal Psych/Mental Status: Appropriate, Flat Affect Laboratory Results 01/27/20 16:34: WBC 7.6, RBC 3.91 L, Hgb 10.1 L, Hct 32.5 L, MCV 83.1, MCH 25.8 L, MCHC 31.1 L, RDW Std Deviation 44.0 H, RDW Coeff of Natalie 14.6, Plt Count 327, MPV 10.8, Immature Gran % (Auto) 0.000, Neut % (Auto) 52.5, Lymph % (Auto) 35.4, Carson % (Auto) 7.8, Eos % (Auto) 3.4, Baso % (Auto) 0.9, Absolute Neuts (auto) 4.0, Absolute Lymphs (auto) 2.68, Nucleated RBC % 0 01/27/20 16:34: Sodium 143, Potassium 3.8, Chloride 109 H, Carbon Dioxide 29.0, Anion Gap 5, BUN 14, Creatinine 0.84, Estim Creat Clear Calc 65.35, Est GFR (MDRD) Af Amer 91, Est GFR (MDRD) Non-Af 75, BUN/Creatinine Ratio 16.7, Glucose 95, Calcium 9.1, Troponin I < 0.015 01/27/20 16:34: PT 12.9, INR 1.0, APTT 26.7 Current Medications Sodium Chloride () 10 - 40 ml IV UD PRN PRN Reason: SALINE FLUSH Assessment/Plan All Active Problems Chest pain (Acute) Hyperlipidemia (Acute) Anemia (Acute) Chest Pain -initial trop was negative -no specific EKG changes c/w ischemia -cycle enzymes -PRN Nitro -statin high dose -NPO after MN -TM stress test in am Cough/fatigue/malaise -r/o COVID -TSH done recently and WNL -may be related to above -CXR neg HPL -high dose statin -will need to maintain at d/c Anemia-chronic -appears stable -will need further w/u as outpt Hypothyroidism -continue levothyroxine Urinary incontinence -continue ditropan Seasonal Allergies -continue Zyrtec DVT prophylaxis -low risk -early ambulation Code Status -Full Inpatient E&M: 78255 Init Hosp L3
--- NOTE | 2020-01-27 18:42 | EKG12_ITS ---
Test Reason : CP ADMIT Blood Pressure : / mmHG Vent. Rate : 054 BPM Atrial Rate : 054 BPM P-R Int : 168 ms QRS Dur : 072 ms QT Int : 470 ms P-R-T Axes : 030 009 019 degrees QTc Int : 445 ms Sinus bradycardia Otherwise normal ECG When compared with ECG of 27-JAN-2020 16:26, MANUAL COMPARISON REQUIRED, DATA IS UNCONFIRMED Confirmed by KERLINE CANALES, TETE ([id number]), assignment desk editor JACK CACERES ([id number]) on 02/04/2020 1:10:05 PM Referred By: DR VILLELA Confirmed By:TETE CHURCHILL MD
[2020-01-27] MEDS: Lactated Ringers 1,000 ML 75 ML IV (21:08)
[2020-01-27] MEDS: Atorvastatin Calcium 80 MG Tablet PO (21:11)
[2020-01-28 00:19] VITALS: PULSE 58
--- NOTE | 2020-01-28 02:24 | EKG12_ITS ---
Test Reason : AM EKG Blood Pressure : / mmHG Vent. Rate : 053 BPM Atrial Rate : 053 BPM P-R Int : 170 ms QRS Dur : 072 ms QT Int : 462 ms P-R-T Axes : 032 021 025 degrees QTc Int : 433 ms Sinus bradycardia Otherwise normal ECG When compared with ECG of 27-JAN-2020 19:09, MANUAL COMPARISON REQUIRED, DATA IS UNCONFIRMED Confirmed by BOGDAN CANALES, PELON ([id number]), publishing editor JACK CACERES ([id number]) on 02/10/2020 1:08:11 PM Referred By: MANOHAR Confirmed By:RICARDO MCFADDEN MD
[2020-01-28 03:30] VITALS: BP 99/55; PULSE 52; RESP 14; TEMP 36.8; O2SAT 96
[2020-01-28 03:52] LABS: Absolute Lymphocyte Count 2.63 X10^3/uL (0.83-4.51); Absolute Neutrophil Count 3.4 X10^3/uL (2.0-7.7); Basophil# 0.09 X10^3/uL; Basophil% 1.3 % (0-1); Eosinophil# 0.36 X10^3/uL; Eosinophils% 5.3 % (0-5); Hematocrit 29.2 % (37-47); Hemoglobin 9.2 g/dL (12.0-15.0); Lymphocyte # 2.63 X10^3/ul (4.0); Lymphocyte % 38.6 % (19-41); Mean Corp Hgb Conc 31.5 g/dL (32-36); Mean Corpuscular Hgb 25.9 pg (27.0-32.0); Mean Corpuscular Volume 82.3 fL (81-99); Mean Platelet Vol. 10.7 fl (6.2-12.0); Monocyte# 0.38 X10^3/uL; Monocyte% 5.6 % (0-10); NRBC Flagged by Analyzer 0 % (0-5); Neutrophil # 3.35 X10^3/uL (2.7-7.7); Neutrophil % 49.1 % (47-70); Platelet Count 277 K/mm3 (150-450); RBC Distribution Width CV 14.8 % (11.6-14.6); RBC Distribution Width SD 44.2 fl (35.1-43.9); Red Blood Count 3.55 M/mm3 (4.2-5.4); White Blood Count 6.8 K/mm3 (4.4-11.0)
[2020-01-28 04:17] LABS: ALB/GLOB Ratio 0.9 RATIO (0.9-2.4); AST(SGOT) 17 U/L (15-37); Alanine Aminotransfer ALT/SGPT 22 U/L (13-56); Albumin, Serum 3.3 g/dL (3.2-5.0); Alkaline Phosphatase 116 U/L (45-117); Anion Gap 6 (5-15); BUN 12 mg/dL (7-18); BUN/Creat Ratio 15.1 RATIO (10-20); Calcium,Total 8.6 mg/dL (8.5-10.1); Chloride 109 mmol/L (98-107); EST Glomerular Filtration Rate 80 mL/min (>60); Est Glom Filt Rate - Afr Amer 96 mL/min (>60); Estimated Creatinine Clearance 68.61 ml/min; Globulin 3.7 g/dL (2.2-4.2); Glucose 99 mg/dL (74-106); Phosphorus 3.8 mg/dL (2.5-4.9); Potassium 3.7 mmol/L (3.5-5.1); Sodium Level 142 mmol/L (136-145)
[2020-01-28 06:00] VITALS: PULSE 57
[2020-01-28 07:00] VITALS: PULSE 57
--- NOTE | 2020-01-28 12:37 | NURSING ---
Vital signs late, pt off floor for test.
[2020-01-28 12:40] VITALS: BP 107/61; PULSE 65; RESP 18; TEMP 36.4; O2SAT 98
--- NOTE | 2020-01-28 12:50 | STRESSREP_ITS ---
Stress Test Report Exercise myocardial perfusion stress test. 54-year-old lady with a history of hyperlipidemia hypothyroidism. Patient was noted to have chest pain and anemia. Stress protocol: Resting EKG demonstrates normal sinus rhythm with a rate of 55 bpm normal intervals are noted resting blood pressure is 114/80 mmHg. The patient exercised according to regular Benoit protocol for a total duration of 7 minutes and 45 seconds. The maximum heart rate attained was 123 bpm which was 74% of max impacted heart rate the maximum workload was 9.7 metabolic equivalents. At rest there were no ST or T wave changes noted suggest ischemia at peak exercise upsloping ST changes only were noted with no meet the criteria for ischemia. No clinical angina was noted. The test was terminated due to dyspnea. The peak blood pressure was 152/70 mmHg. Myocardial perfusion protocol. 11.8 mCi of technetium 99m sestamibi was injected at rest. The patient exe rcised according to regular Benoit protocol at peak exercise 32.9 mCi of technetium 99m sestamibi was injected stress images were obtained stress and rest images were reconstructed and compared in the short axis vertical long horizontal long axis. Gated images were also obtained P Perfusion SPECT analysis: Review of the images demonstrate normal uptake of tracer noted in all areas of the myocardium the resting images similar demonstrate normal uptake of tracer noted in all areas of the myocardium. No reversibility is noted to suggest ischemia. No previous infarct is noted. Gated SPECT analysis: The gated ejection fraction is 85%. Conclusion: Normal exercise myocardial perfusion stress test at a moderate workload. Preserved ejection fraction.
--- NOTE | 2020-01-28 13:53 | PCM.DC ---
- Discharge Diagnoses Current Active Problems: Current Active and Chronic Problems Chest pain (Acute) Hyperlipidemia (Acute) Anemia (Acute) You will use the following diet at home:: Cardiac Your food should be the consistency of: Regular Your liquids should be the consistency of: Regular/Thin Discharge Activity: Return to Normal Activity Call your doctor if you observe: Fever of 101 or Higher, Shortness of breath, Dizziness, Fainting spells, Swelling in the ankles, Chest pain, Increased palpitations (irregular heartbeat) Allergies/Adverse Reactions: Allergies No Known Allergies Allergy (Verified 09/26/18 12:23) Medications to take at Discharge Oxybutynin [Ditropan] 10 mg PO DAILY 07/08/17 Cetirizine HCl [Zyrtec] 10 mg PO DAILY 01/27/20 Levothyroxine Sodium [Euthyrox] 88 mcg PO DAILY 01/27/20 Potassium (Otc) [Potassium OTC] 99 mg PO DAILY 01/27/20 Rosuvastatin Calcium [Crestor] 20 mg PO QHS 01/27/20 Aspirin E.C. [Ecotrin] 81 mg PO DAILY@0800 #30 tab 01/28/20 The following prescriptions were given: Aspirin E.C. [Ecotrin] 81 mg PO DAILY@0800 #30 tab Transmission Status: Pending to [facility] Primary Care Physician: Ralph Nava MD [Primary Care Provider] - Please follow up with your Primary Care Physician in: 3-5 days Test Results: Test results from this visit will be discussed in further detail at your follow-up appointment, if applicable.
[2020-01-28 13:54] VITALS: BP 107/61; PULSE 65; RESP 18; TEMP 36.4; O2SAT 98
--- NOTE | 2020-01-28 13:57 | PCM.DC.SUM ---
Discharge Date and Diagnosis - Problem List Patient Problems: Active and Suspected Problems Chest pain (Acute) Hyperlipidemia (Acute) Anemia (Acute) Date of Admission: 01/27/20 Date of Discharge: 01/28/20 - Primary Discharge Diagnosis Acute Problems: Active Problems Chest pain (Acute) Hyperlipidemia (Acute) Anemia (Acute) - Secondary Discharge Diagnosis Chronic Problems: Chronic Problems Personal history of colonic polyps (Chronic) Hypothyroidism (Chronic) Hospital Course and Treatment Imaging Results: 01/28/20 05:55 Nuclear Stress Test - Treadmil [NM] AM (NON MEDS) Stress Test Report Exercise myocardial perfusion stress test. 54-year-old lady with a history of hyperlipidemia hypothyroidism. Patient was noted to have chest pain and anemia. Stress protocol: Resting EKG demonstrates normal sinus rhythm with a rate of 55 bpm normal intervals are noted resting blood pressure is 114/80 mmHg. The patient exercised according to regular Benoit protocol for a total duration of 7 minutes and 45 seconds. The maximum heart rate attained was 123 bpm which was 74% of max impacted heart rate the maximum workload was 9.7 metabolic equivalents. At rest there were no ST or T wave changes noted suggest ischemia at peak exercise upsloping ST changes only were noted with no meet the criteria for ischemia. No clinical angina was noted. The test was terminated due to dyspnea. The peak blood pressure was 152/70 mmHg. Myocardial perfusion protocol. 11.8 mCi of technetium 99m sestamibi was injected at rest. The patient exercised according to regular Benoit protocol at peak exercise 32.9 mCi of technetium 99m sestamibi was injected stress images were obtained stress and rest images were reconstructed and compared in the short axis vertical long horizontal long axis. Gated images were also obtained P Perfusion SPECT analysis: Review of the images demonstrate normal uptake of tracer noted in all areas of the myocardium the resting images similar demonstrate normal uptake of tracer noted in all areas of the myocardium. No reversibility is noted to suggest ischemia. No previous infarct is noted. Gated SPECT analysis: The gated ejection fraction is 85%. Conclusion: Normal exercise myocardial perfusion stress test at a moderate workload. Preserved ejection fraction. Operations: None Procedures: Nuclear stress test Summary of Care Provided: Per HPI: The patient is a 54 year old F with a PMH of HPL, Hypothyroidism, Hypokalemia, Urinary Incontinence and seasonal allergies presented to the ED on 01/26 with CP. She states that she started not feeling well about a week ago and saw her PCP. An EKG and lab work were obtained an she was started on Crestor for new HPL. A stress test was also ordered for next Friday. She states she has in general not been feeling well in the last week with CP/Pressure but awoke this am with worsening CP. She went to work and called her doctor who instructed her to stop the Crestor as she thought maybe her sx were from the new med, but she persisted feeling badly and has had CP since 10 am that has been associated with fatigue, sob, and nausea. She also did have some L sided arm pain when she arrived to the ED. She was given nitro and her sx resolved. She also states that since yesterday she has had a dry cough and increased fatigue levels. She denies fever or loss of smell. She has had no known sick contacts. Her VSS. Her EKG show some non-specific t wave inversions in lead III. Her initial troponin was negative. Her Chol was done 01/18 and she has a markedly elevated LDL at 180 and Tchol of 268. TSH on that date was WNL. CXR was neg. Hospital Course: 1. Chest pressure/cough/fatigue/[id number]-[id number]-old female who is been getting gradually more short of breath over the last 2 to 3 months presents with chest pressure that began of the day prior to admission. She had seen her PCP for the shortness of breath and is scheduled for pulmonary function testing next week however because the chest pressure she presented to the hospital. EKG was unremarkable serial enzymes were negative and therefore she underwent a stress test today which was also negative. I did discuss with her the possibility of a pulmonary embolism however based on the Wells criteria she has a score of 0 and she does not want to take the risk of a CTA and would prefer to go home today. She understands the risk and benefits of discharge today and understands that if any symptom changes that she is to come back to the hospital for further evaluation. Because of her cough she did have a COVID down in the ER which was negative. We will continue with her home statin medications and will add an aspirin. She will need to follow-up with her PCP in 3 to 5 days. 2. Chronic anemia of unknown etiology, hypothyroidism, urinary incontinence, seasonal allergies are all chronic medical conditions which complicate her care. Her home medications can be continued where appropriate. Patient Problems: Active and Suspected Problems Chest pain (Acute) Hyperlipidemia (Acute) Anemia (Acute) - Physical Exam Vitals/I&O's: Vital Signs Temp Pulse Resp BP Pulse Ox 97.5 F L 65 18 107/61 98 01/28/20 13:54 01/28/20 13:54 01/28/20 13:54 01/28/20 13:54 01/28/20 13:54 Oxygen Flow Rate (L/min) 2 Oxygen Delivery Method Room Air Weight: 178 lb 9.191 oz Body Mass Index (BMI) 30.3 Intake and Output for Last 24 Hours 01/26/20 01/27/20 01/28/20 23:59 23:59 23:59 Intake Total 1403.75 / 1403.75 Balance 1403.75 / 1403.75 General: Alert, Oriented x3, Cooperative, No apparent distress HEENT: Atraumatic, PERRLA, EOMI, Normocephalic Oral: Moist Mucosa Neck: Supple, No JVD Lungs: Clear to auscultation, Normal air movement, No rhonchi, No wheeze, No rales Cardiovascular: Regular rate, Regular Rhythm, Normal S1, Normal S2, No murmurs Abdomen: Soft, Non Tender, Non-Distended, No Hepato-splenomegaly Extremities: No edema, Capillary Refill Less than 3 Seconds Skin: No rashes, No breakdown Neurological: Neuro grossly intact, Sensory exam intact to light touch and pain Psych/Mental Status: Normal Affect, Appropriate Laboratory Results 01/27/20 16:34: WBC 7.6, RBC 3.91 L, Hgb 10.1 L, Hct 32.5 L, MCV 83.1, MCH 25.8 L, MCHC 31.1 L, RDW Std Deviation 44.0 H, RDW Coeff of Natalie 14.6, Plt Count 327, MPV 10.8, Immature Gran % (Auto) 0.000, Neut % (Auto) 52.5, Lymph % (Auto) 35.4, Bollinger % (Auto) 7.8, Eos % (Auto) 3.4, Baso % (Auto) 0.9, Absolute Neuts (auto) 4.0, Absolute Lymphs (auto) 2.68, Nucleated RBC % 0 01/27/20 16:34: Sodium 143, Potassium 3.8, Chloride 109 H, Carbon Dioxide 29.0, Anion Gap 5, BUN 14, Creatinine 0.84, Estim Creat Clear Calc 65.35, Est GFR (MDRD) Af Amer 91, Est GFR (MDRD) Non-Af 75, BUN/Creatinine Ratio 16.7, Glucose 95, Calcium 9.1, Troponin I < 0.015 01/27/20 16:34: PT 12.9, INR 1.0, APTT 26.7 01/27/20 19:00: COVID-19 (KAILYN) Negative 01/27/20 22:20: Troponin I < 0.015 01/28/20 00:28: Troponin I < 0.015 01/28/20 03:26: WBC 6.8, RBC 3.55 L, Hgb 9.2 L, Hct 29.2 L, MCV 82.3, MCH 25.9 L, MCHC 31.5 L, RDW Std Deviation 44.2 H, RDW Coeff of Natalie 14.8 H, Plt Count 277, MPV 10.7, Immature Gran % (Auto) 0.100, Neut % (Auto) 49.1, Lymph % (Auto) 38.6, Bollinger % (Auto) 5.6, Eos % (Auto) 5.3 H, Baso % (Auto) 1.3 H, Absolute Neuts (auto) 3.4, Absolute Lymphs (auto) 2.63, Nucleated RBC % 0 01/28/20 03:26: Sodium 142, Potassium 3.7, Chloride 109 H, Carbon Dioxide 27.0, Anion Gap 6, BUN 12, Creatinine 0.80, Estim Creat Clear Calc 68.61, Est GFR (MDRD) Af Amer 96, Est GFR (MDRD) Non-Af 80, BUN/Creatinine Ratio 15.1, Glucose 99, Calcium 8.6, Phosphorus 3.8, Magnesium 2.0, Total Bilirubin 0.20, AST 17, ALT 22, Alkaline Phosphatase 116, Troponin I < 0.015, Total Protein 7.0, Albumin 3.3, Globulin 3.7, Albumin/Globulin Ratio 0.9 Current Medications Acetaminophen (Tylenol) 650 mg PO Q6H PRN PRN PRN Reason: Pain Score 1-10/Temp > 100.7 F Al Hydroxide/Mg Hydroxide (Mylanta Ii) 30 ml PO Q6H PRN PRN PRN Reason: Gastric Burning Aspirin (Ecotrin) 81 mg PO DAILY@0800 [facility] Atorvastatin Calcium (Lipitor) 80 mg PO QHS [facility] Last Admin: 01/27/20 21:11 Dose: 80 mg Documented by: Lactated Ringer's () 1,000 mls @ 75 mls/hr IV .[id number] [facility] Last Infusion: 01/28/20 12:43 Dose: 75 mls/hr Documented by: Levothyroxine Sodium (Synthroid) 88 mcg PO DAILY@0600 [facility] Last Admin: 01/28/20 07:00 Dose: Not Given Documented by: Loratadine (Claritin) 10 mg PO DAILY [facility] Melatonin (Melatonin) 3 mg PO QHS PRN PRN PRN Reason: INSOMNIA Morphine Sulfate () 2 mg IV Q3H PRN PRN PRN Reason: Pain Score 6-10/10 Nitroglycerin (Nitrostat) 0.4 mg SUBLINGUAL Q5M PRN PRN Reason: CARDIAC/CHEST PAIN Ondansetron HCl (Zofran) 4 mg IV Q8H PRN PRN PRN Reason: NAUSEA/VOMITING Oxybutynin Chloride (Ditropan) 10 mg PO DAILY [facility] Sodium Chloride () 10 - 40 ml IV UD PRN PRN Reason: SALINE FLUSH Discharge Activity: Return to Normal Activity Call your doctor if you observe: Fever of 101 or Higher, Shortness of breath, Dizziness, Fainting spells, Swelling in the ankles, Chest pain, Increased palpitations (irregular heartbeat) Home Medications: Medications to take at Discharge Oxybutynin [Ditropan] 10 mg PO DAILY 07/08/17 Cetirizine HCl [Zyrtec] 10 mg PO DAILY 01/27/20 Levothyroxine Sodium [Euthyrox] 88 mcg PO DAILY 01/27/20 Potassium (Otc) [Potassium OTC] 99 mg PO DAILY 01/27/20 Rosuvastatin Calcium [Crestor] 20 mg PO QHS 01/27/20 Aspirin E.C. [Ecotrin] 81 mg PO DAILY@0800 #30 tab 01/28/20 Following Prescriptions Were Given to Patient: Aspirin E.C. [Ecotrin] 81 mg PO DAILY@0800 #30 tab Transmission Status: Pending to [facility] Primary Care Physician: Ralph Nava MD [Primary Care Provider] - Please follow up with your Primary Care Physician in: 3-5 days Disposition: Home Minutes spent on discharge:: 35 Patient Condition:: Stable Medical Necessity - Tobacco Use Smoking Status: Former smoker Tobacco Use: Cigarettes Meaningful Use Info Meaningful Use Diagnoses (Choose all that apply): None applicable OBSV E&M: 08063 Observation care discharge
--- NOTE | 2020-01-28 14:25 | PHA.DC.MC ---
Pharmacy Service has performed discharge medication reconciliation and counseling for this patient. 1. ASPIRIN 81MG PO DAILYCM The patient's discharge medication list was reviewed for discrepancies and discrepancies were resolved. Home Medications Oxybutynin [Ditropan] 10 mg PO DAILY 07/08/17 Cetirizine HCl [Zyrtec] 10 mg PO DAILY 01/27/20 Levothyroxine Sodium [Euthyrox] 88 mcg PO DAILY 01/27/20 Potassium (Otc) [Potassium OTC] 99 mg PO DAILY 01/27/20 Rosuvastatin Calcium [Crestor] 20 mg PO QHS 01/27/20 Aspirin E.C. [Ecotrin] 81 mg PO DAILY@0800 #30 tab 01/28/20 The patient was counseled on the following discharge medications and changes in medications for homegoing were reviewed. The Reason for Use, instructions for use, and potential side effects were reviewed for all new medications. The patient's questions regarding all of their medications were answered. The patient was able to verbally demonstrate an understanding of their discharge medications. Patient counseled by hospital pharmacy director, Dominga.
== END 2020-01-28 11:26 | disposition home or self-care (01) ==
LOC: ED 17:50 → PCU 19:04
PROVIDERS: Admitting Provider Internal Medicine; Emergency Provider Emergency Medicine; PCP Family Medicine; Visit Provider Family Medicine
DX: R07.89 Other chest pain (principal); E78.5 Hyperlipidemia, unspecified; D64.9 Anemia, unspecified; E03.9 Hypothyroidism, unspecified; R32 Unspecified urinary incontinence; R06.02 Shortness of breath; Z87.891 Personal history of nicotine dependence; Z79.899 Other long term (current) drug therapy
CPT/HCPCS: 36415; 71045; 78452; 80048; 80053; 83735; 84100; 84484; 85025; 85610; 85730; 87635; 93005; 93017; 96361; 96374; 99218; 99251; 99285; A9500; J7120; A4216; G0378; G0463; J2405; U0003

== ENCOUNTER → 2020-03-06 08:29 | Outpatient (CLI) | payer BC, SELFPAY ==
[2020-01-27 18:24] VITALS: BMI 30.3
--- NOTE | 2020-03-06 08:33 | RAD_ITS ---
STUDY: X-RAY - ESOPHAGUS (BARIUM SWALLOW) WITH FLUOROSCOPY REASON FOR EXAM: Female, 54 years old. FOOD GETTING STUCK UPPER AND MID ESOPH. LIQUIDS COMING BACK UP. ON GOING FOR A FEW YEARS, GETTING WORSE TECHNIQUE: 28 view(s) of the esophagus were obtained following swallowing of barium. FLUOROSCOPY TIME (if supplied): (1:15) minutes/seconds COMPARISON: None. FINDINGS: There is no demonstrated esophageal foreign body. 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 Moderate-sized paraesophageal hiatal hernia without gastroesophageal reflux. Normal visualized aortic arch and descending thoracic aorta. Normal visualized pulmonary parenchyma. Normal visualized osseous structures of the thorax. 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 Moderate sized paraesophageal hiatal hernia without gastroesophageal reflux. Electronically Signed: Erlin Hutchinson, at 9:15 EDT , Service support ,
== END ==
LOC: RAD 08:30
PROVIDERS: PCP Family Medicine; Referring Provider Family Medicine; Visit Provider Family Medicine
DX: R13.10 Dysphagia, unspecified (principal)
CPT/HCPCS: 74220

== ENCOUNTER → 2020-03-14 12:50 | Outpatient (CLI) | payer BC, MEDICAID, SELFPAY ==
[2020-01-27 18:24] VITALS: BMI 30.3
--- NOTE | 2020-03-14 13:15 | SP.MBSS_ITS ---
Modified Barium Swallow - Patient Information Study Date: 03/14/20 Study Time: 13:15 Direct Billable Minutes: 123 Total Minutes procedure & reportin Diagnosis: dysphagia Referring Physician: Ralph Nava Reason for Referral: Evaluation of oropharyngeal/pharyngoesophageal swallow function d/t reported sensation of food sticking/trapping w/in the pharynx and esophagus w/ associated discomfort and retrograde flow of liquids. 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 Moderate sized paraesophageal hiatal hernia without gastroesophageal reflux. Medical History: anemia, chest pain, dysphagia, HLD, hypotension, hypokalemia, hx colonic polyps, hypothyroidism, seizure Surgical History: appendectomy, cholecystectomy, hysterectomy, tonsillectomy Dentition: Upper Dentures, Lower Dentures Mental Status: WNL Respiratory Status: Oxygenating on Room Air - Study Findings Consistencies: Thin Liquid, Pudding, Cookie - Penetration-Aspiration Scale Penetration-Aspiration Scale: OBJECTIVE ASSESSMENT OF SWALLOW FUNCTION (QUANTITATIVE ? PER TRIAL): PENETRATION / ASPIRATION SCALE (PIKE): 1 = does not enter airway 2 = enters airway/above vocal folds/ejected 3 = enters airway/above vocal folds/not ejected 4 = enters airway/contacts vocal folds/ejected 5 = enters airway/contacts vocal folds/not ejected 6 = enters airway/below vocal folds/ejected 7 = enters airway/below vocal folds/not ejected despite effort 8 = enters airway/below vocal folds/no effort - Penetration-Aspiration Scale Score Thin Liquid via teaspoon Result: 1= does not enter airway Thin Liquid via teaspoon Trial 2 Result: 1= does not enter airway Thin Liquid via small single sip from cup Result: 1= does not enter airway Thin Liquid via sequential sips from cup Result: 1= does not enter airway Pudding Result: 1= does not enter airway Cookie Result: 1= does not enter airway Thin Liquid via single sip from straw Result: 1= does not enter airway - Oral Phase Labial Seal: No Labial Escape Tongue Control During Bolus Hold: Posterior escape of less than half of bolus - present w/ 1st trial only Bolus Preparation/Mastication: Slow prolonged chewing/mashing with complete recollection Bolus Transport/Lingual Motion: Slowed tongue motion Oral Residue: Residue collection on oral structures - Pharyngeal Phase Initiation of Pharyngeal Swallow: Bolus head at posterior angle of ramus at first hyoid excursion Soft Palate Elevation: No bolus between soft palate and pharyngeal wall Laryngeal Elevation: Comp. Superior move thyroid cart w/comp. apprx arytenoid cart-epig pet Anterior Hyoid Excursion: Partial anterior movement Epiglottic Movement: Partial inversion Laryngeal Vestibule Closure at Height of Swallow: Complete; no air/contrast in laryngeal vestibule Pharyngeal Stripping Wave: Present - diminished Pharyngoesophageal Segment Opening: Parital distension and partial duration; parital obstruction of flow Tongue Base Retraction: Narrow column of contrast between tongue base & post. pharyngeal wall Pharyngeal Residue: Collection of residue within or on pharyngeal structures - Esophageal Phase Esophageal Clearance: Esophageal retention w/ retrograde flow below pharyngoesophageal seg. - Diagnosis/Impression Diagnosis: oropharyngeal dyspahgia, pharyngoesophageal dysphagia Impression: This patient presents w/ oropharyngeal and pharyngoesophageal dysphagia characterized by: * slowed lingual motion for oral to pharyngeal bolus transfer * oral residue retention post deglutition along the oral and pharyngeal tongue * mild reduction in posterior base of tongue retraction and posterior pharyngeal wall bulging w/ reduced pharyngeal contraction * incomplete anterior hyoid movement resulting in partial epiglottic inversion w/ vallecular residue retention pist deglutition * diminished inferior 1/2 of pharyngeal stripping wave * trace contrast lining the aryepiglottic folds, pyriform sinuses and posterior pharyngeal wall post deglutition * distention of the pharyngoesophageal segment lacked smooth appearance, 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 Mild impairments identified in oropharyngeal swallow function are likely incidental findings. If sensation of pharyngeal trapping/retention persists after esophageal phase impairments have been addressed, then would consider referral for outpatient dysphagia intervention. Images were reviewed w/ the patient immediately following MBS completion to improve comprehension of the deficits identified, importance of adherence to the recommended compensatory strategies/precautions to reduce aspiration risk and the need for follow up w/ Dr. Rao later this date. All education well received w/ the patient verbalizing understanding and agreement w/ the recommended plan of care. - Recommendations Diet: Mechanical Soft Textures, Thin Liquids Comment: moist and minced textures/regular thin liquids with the following recommended compensatory strategies: * small bites * chew thoroughly * follow beach bite w/ a liquid chaser * slow rate of intake w/ increased duration of pause between each bite to facilitate improved esophageal clearance * sit upright w/ hips flexed at 90 degrees during intake to allow for gravitational assist for esophageal clearance * remain seated upright for 30-60 minutes after intake (GERD precautions) to reduce likelihood of retrograde bolus flow through the pharyngoesophageal segment and subsequently reduce the risk for aspiration of refluxed material Recommend Repeat Modified Barium Swallow: TBD Need for Skilled Speech Therapy Services: No Recommended Referrals: GI Consult Education Completed: 1. Described result of evaluation., 2. Pt understands evaluation & agrees with goals and treatment plan. - Image Count: 1,[phone] - Status Active ST Patient: Active - Contact Information [facility] Therapy:: Deepthi Banks M.A., CCC-RUG UNDERLAY MACHINE OPERATOR [facility] Speech-Language Pathiologist [email or web address] [phone]
== END ==
PROVIDERS: PCP Family Medicine; Referring Provider Family Medicine; Visit Provider Family Medicine
DX: R13.10 Dysphagia, unspecified (principal)
CPT/HCPCS: 74230; 92611

== ENCOUNTER 2020-03-20 05:20 | Day surgery (SDC) | payer MEDICAID, SELFPAY ==
[2020-03-14 14:23] VITALS: BMI 31.6
[2020-03-20] VITALS (7 sets, daily range): BP systolic 100–119; BP diastolic 68–75; PULSE 54–60; RESP 16; TEMP 36.2–37.2; O2SAT 97–100; BMI 31.2
--- NOTE | 2020-03-20 05:49 | HP_ITS ---
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 Vincent Rao MD) Esophageal web (Acute) Paraesophageal hiatal hernia (Acute) Dysphagia (Acute) Screening for intestinal cancer (Inactive) Personal history of colonic polyps (Chronic) Chest pain (Acute) Hyperlipidemia (Acute) Anemia (Acute) Hypotension (Inactive) Hypokalemia (Inactive) Seizure (Inactive) Hypothyroidism (Chronic) Dysphagia (Acute) Surgical History (Updated 03/14/20 @ 14:22 by Maria Antonia Maria) History of appendectomy (Acute) History of cholecystectomy (Acute) History of hysterectomy (Acute) History of tonsillectomy (Acute) Family History (Updated 03/14/20 @ 14:23 by Maria Antonia Maria) Sister Cancer Thyroid cancer Daughter Thyroid disorder Mother Hypertension Father Hypertension Social History (Updated 03/14/20 @ 14:[address] Vincent Rao MD) Smoking Status: Former smoker HPI HPI HPI: HECTOR MUNSON, is a 54 F who presents to the office today for surgical discussion regarding esophageal dysphagia. The patient claims that she has food that gets stuck and sometimes regurgitates. This has been ongoing at least for a year. Peanut butter and melted cheese particular cultures trouble. Her body weight is 180 with a BMI of 31.6. December 2019 I assisted her with a colonoscopy. She had no recurrent polyps at that time. She previously July 14, 2017 had a descending colon polyp which was a tubulovillous adenoma with focal high-grade dysplasia. There is no evidence of recurrent disease. On March 06, 2020 the patient had a esophagram. There was a weblike stenosis of the origin of esophagus and there was evidence of trapping of a 12 mm tablet at that site as well as a moderate sized paraesophageal hiatal hernia without reflux. Today she had a modified barium swallow i.e. cookie swallow test. I do not see a comment regarding proximal esophageal web. She has had a previous laparoscopic cholecystectomy and a previous open appendectomy and a previous hysterectomy. She denies fever or chills or cough or shortness of breath. No current abdominal pain. No bright red blood per rectum or melena The patient is referred by Dr Ralph Nava for surgical consultation regarding esophageal dysphagia and possible esophageal web and paraesophageal hiatal hernia. A written copy of my surgical consult recommendations will be returned to him HPI HPI HPI: HECTOR MUNSON, is a 54 F who presents to the office today for ROS General General: No weight change, appetite, fatigue, colon cancer, breast cancer or weakness HEENT HEENT: Yes difficulty swallowing; no eye injury, eye surgery, swollen glands or hoarseness Endo Endocrine: Yes thyroid disease; no diabetes mellitus, thyroid cancer, Hair loss, heat intolerance or cold intolerance Skin Skin: No rash or changing moles Breast Breast: No left breast lump, right breast lump, nipple discharge, breast pain, abnormal mammogram, abnormal US or breast enlargement Musc Musculoskeletal: No back problems, arthritis, rheumatoid arthritis, gout or joint pain Cardio Cardiovascular: No murmur, pacemaker, heart disease, atrial fibrillation, high blood pressure, heart attack, heart stent, palpitations, shortness of breat with exertion or chest pain Psych Psychiatric: No depression, anxiety or hearing voices Resp Respiratory: Yes shortness of breath, No sleep apnea, No cough, No COPD, No asthma, No emphysema, No wheezing Gastro Gastrointestinal: No abdominal pain, No nausea or vomiting, Yes diarrhea, Yes constipation, No blood in stool, No acid reflux, No hemorrhoids, No ulcers, No gallbladder problem, No black,tarry stools Noe Hematologic: No blood thinners, No blood disorders, No bleeding, No anemia, No blood clots Neuro Neurologic: No system reviewed and no additional complaints, except as docu, No as per HPI, No abnormal walking, No abnormal hearing, No abnormal movements, No abnormal speech, No behavioral changes, No burning sensations, No confusion, No seizure-like activity, No unsteadiness, No dizziness, No localized weakness, No frequent falls, No headache(s), No lack of coordination, No loss of vision, No memory loss, No numbness, No other visual disturbances, No radiating pain, No restless legs, No sensory deficit, No fainting, No tingling, No tremor(s), No weakness, No other Exam Const General: cooperative, healthy appearing, comfortable, no acute distress Nutritional Appearance: obese Orientation: alert, awake HENMT Head: normal to inspection Eyes General: appearance normal, both eyes and all related structures Chest Breast Palpation: No nipple discharge Resp Effort & Inspection: normal respiratory effort Auscultation: clear to auscultation bilaterally Cardio Rate: regular rate Rhythm: regular rhythm Heart Sounds: no murmurs GI Palpation: soft, no hepatosplenomegaly Auscultation: normal bowel sounds Other: Well-healed laparoscopic cholecystectomy port sites Musc Cervical Spine: normal cervical lordosis Skin General: no rashes or lesions noted Neuro Cognition: normal cognition Extrem General: no calf tenderness Psych Affect: normal affect Assessment & Plan Problems 1. Esophageal dysphagia R13.10 2. Paraesophageal hiatal hernia K44.9 3. 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 I recommend to her a esophagogastroduodenoscopy with anticipated biopsy as well as esophageal length measurement and if need be proximal esophageal hydrostatic dilatation. Will evaluate for proximal esophageal web as well as evaluate for her paraesophageal hiatal hernia. She is very likely a candidate for a future repair of her paraesophageal hiatal hernia and I have briefly discussed this with her. She has had an opportunity to ask and have questions answered. I anticipate performing this with monitored anesthesia care. She is aware of COVID-19 and its increased incidence. We will schedule and proceed at her discretion. Copy: Dr Ralph Rao M.D., F.A.C.S. 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
--- NOTE | 2020-03-20 05:59 | PCM.HP.BLA ---
Problem List (1) Esophageal web Status: Acute (2) Paraesophageal hiatal hernia Status: Acute History and Physical Date of Admission: 03/20/20 Intake Visit Reasons: Dysphagia Chief Complaint: Dysphagia Grader Marker Required: No Is patient in pain?: No Allergies No Known Allergies Allergy (Verified 03/14/20 14:24) Medications Cetirizine HCl [Zyrtec] 10 mg PO DAILY 01/27/20 [History Confirmed 03/14/20] Levothyroxine Sodium [Euthyrox] 88 mcg PO DAILY 01/27/20 [History Confirmed 03/14/20] oxybutynin chloride 5 mg tablet 10 mg PO BID tab 03/14/20 [History Confirmed 03/14/20] [facility] Medical History (Updated 03/14/20 @ 14:[address] Vincent Rao MD) Esophageal web (Acute) Paraesophageal hiatal hernia (Acute) Dysphagia (Acute) Screening for intestinal cancer (Inactive) Personal history of colonic polyps (Chronic) Chest pain (Acute) Hyperlipidemia (Acute) Anemia (Acute) Hypotension (Inactive) Hypokalemia (Inactive) Seizure (Inactive) Hypothyroidism (Chronic) Dysphagia (Acute) Surgical History (Updated 03/14/20 @ 14:22 by Maria Antonia Maria) History of appendectomy (Acute) History of cholecystectomy (Acute) History of hysterectomy (Acute) History of tonsillectomy (Acute) Family History (Updated 03/14/20 @ 14:23 by Maria Antonia Maria) Sister Cancer Thyroid cancer Daughter Thyroid disorder Mother Hypertension Father Hypertension Social History (Updated 03/14/20 @ 14:[address] Vincent Rao MD) Smoking Status: Former smoker HPI HPI HPI: HECTOR MUNSON, is a 54 F who presents to the office today for surgical discussion regarding esophageal dysphagia. The patient claims that she has food that gets stuck and sometimes regurgitates. This has been ongoing at least for a year. Peanut butter and melted cheese particular cultures trouble. Her body weight is 180 with a BMI of 31.6. December 2019 I assisted her with a colonoscopy. She had no recurrent polyps at that time. She previously July 14, 2017 had a descending colon polyp which was a tubulovillous adenoma with focal high-grade dysplasia. There is no evidence of recurrent disease. On March 06, 2020 the patient had a esophagram. There was a weblike stenosis of the origin of esophagus and there was evidence of trapping of a 12 mm tablet at that site as well as a moderate sized paraesophageal hiatal hernia without reflux. Today she had a modified barium swallow i.e. cookie swallow test. I do not see a comment regarding proximal esophageal web. She has had a previous laparoscopic cholecystectomy and a previous open appendectomy and a previous hysterectomy. She denies fever or chills or cough or shortness of breath. No current abdominal pain. No bright red blood per rectum or melena The patient is referred by Dr Ralph Nava for surgical consultation regarding esophageal dysphagia and possible esophageal web and paraesophageal hiatal hernia. A written copy of my surgical consult recommendations will be returned to him HPI HPI HPI: HECTOR MUNSON, is a 54 F who presents to the office today for ROS General General: No weight change, appetite, fatigue, colon cancer, breast cancer or weakness HEENT HEENT: Yes difficulty swallowing; no eye injury, eye surgery, swollen glands or hoarseness Endo Endocrine: Yes thyroid disease; no diabetes mellitus, thyroid cancer, Hair loss, heat intolerance or cold intolerance Skin Skin: No rash or changing moles Breast Breast: No left breast lump, right breast lump, nipple discharge, breast pain, abnormal mammogram, abnormal US or breast enlargement Musc Musculoskeletal: No back problems, arthritis, rheumatoid arthritis, gout or joint pain Cardio Cardiovascular: No murmur, pacemaker, heart disease, atrial fibrillation, high blood pressure, heart attack, heart stent, palpitations, shortness of breat with exertion or chest pain Psych Psychiatric: No depression, anxiety or hearing voices Resp Respiratory: Yes shortness of breath, No sleep apnea, No cough, No COPD, No asthma, No emphysema, No wheezing Gastro Gastrointestinal: No abdominal pain, No nausea or vomiting, Yes diarrhea, Yes constipation, No blood in stool, No acid reflux, No hemorrhoids, No ulcers, No gallbladder problem, No black,tarry stools Noe Hematologic: No blood thinners, No blood disorders, No bleeding, No anemia, No blood clots Neuro Neurologic: No system reviewed and no additional complaints, except as docu, No as per HPI, No abnormal walking, No abnormal hearing, No abnormal movements, No abnormal speech, No behavioral changes, No burning sensations, No confusion, No seizure-like activity, No unsteadiness, No dizziness, No localized weakness, No frequent falls, No headache(s), No lack of coordination, No loss of vision, No memory loss, No numbness, No other visual disturbances, No radiating pain, No restless legs, No sensory deficit, No fainting, No tingling, No tremor(s), No weakness, No other Exam Const General: cooperative, healthy appearing, comfortable, no acute distress Nutritional Appearance: obese Orientation: alert, awake HENMT Head: normal to inspection Eyes General: appearance normal, both eyes and all related structures Chest Breast Palpation: No nipple discharge Resp Effort & Inspection: normal respiratory effort Auscultation: clear to auscultation bilaterally Cardio Rate: regular rate Rhythm: regular rhythm Heart Sounds: no murmurs GI Palpation: soft, no hepatosplenomegaly Auscultation: normal bowel sounds Other: Well-healed laparoscopic cholecystectomy port sites Musc Cervical Spine: normal cervical lordosis Skin General: no rashes or lesions noted Neuro Cognition: normal cognition Extrem General: no calf tenderness Psych Affect: normal affect Assessment & Plan Problems 1. Esophageal dysphagia R13.10 2. Paraesophageal hiatal hernia K44.9 3. 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 I recommend to her a esophagogastroduodenoscopy with anticipated biopsy as well as esophageal length measurement and if need be proximal esophageal hydrostatic dilatation. Will evaluate for proximal esophageal web as well as evaluate for her paraesophageal hiatal hernia. She is very likely a candidate for a future repair of her paraesophageal hiatal hernia and I have briefly discussed this with her. She has had an opportunity to ask and have questions answered. I anticipate performing this with monitored anesthesia care. She is aware of COVID-19 and its increased incidence. We will schedule and proceed at her discretion. Copy: Dr Ralph Rao M.D., F.A.C.S. 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 It is not possible to know either the risk of delaying the surgery or procedure or chance of getting an infection with perfect accuracy, but a joint decision was made between the patient and the surgeon/proceduralist to proceed at this time with the scheduled surgery/procedure as indicated on the consent form.
[2020-03-20] MEDS: Lactated Ringers 1,000 ML 100 ML IV (06:11)
--- NOTE | 2020-03-20 06:30 | EGD_PTH ---
PATIENT: HECTOR MUNSON LOC: EN U#:[id number] AGE/SX: 54/F ROOM: RE03/20/[address]: Dr. Vincent Rao MD : 1965 BED: DIS: 03/20/2020 SPEC #: [id number] RECD: 03/20/20 09:54 STATUS: BAKARI YIFAN #: [id number] AALIYAH: 03/20/20 06:[address]: Vincent Rao DEPT: SURGICAL PATHOLOGY RECD BY: Farideh Moreno ENTERED: 03/20/20 10:21 SP TYPE: EGD BIOPSY OT DR: Dr. Ralph Nava MD Tissues: A - Duodenum, NOS B - Gastric mucous membrane C - Gastric mucous membrane Procedures: Special Stain Group II Special Stain Group I Surgery Specimen Level IV GMS Stain (control) Alcian Blue/PAS (control) HEADER OPERATION: EGD ([facility]) PRE-OP DIAGNOSIS: Esophageal dysphagia; paraesophageal hiatal hernia TISSUE SUBMITTED: A - Duodenal biopsy, B - Antrum biopsy for histo and H. pylori, C - EG junction biopsy MICROSCOPIC DIAGNOSIS A. Duodenal biopsy: A fragment of duodenal mucosa, no pathologic diagnosis. B. Antrum, biopsy: Mild gastritis. See microscopic description and comment. C. EG junction, biopsy: Fragments of gastroesophageal mucosa with focal ulceration, fibrinous exudation and acute inflammation. Moderate chronic inflammation and changes consistent with gastroesophageal reflux disease. Intestinal metaplasia (goblet cell metaplasia) not identified. Special stain for fungi is negative for organisms; matched control is appropriate. See comment. SJ:rg 03/21/20 COMMENT B. The results of immunohistochemistry for Helicobacter pylori will be reported separately ([id number]). C. Alcian blue/PAS stain with matched control is used in the evaluation of the specimen. MICROSCOPIC DESCRIPTION Slides are reviewed. B. The specimen shows fragments of gastric mucosa with chronic inflammatory cell infiltrates in the lamina propria consisting of lymphocytes and plasma cells, consistent with mild chronic gastritis. GROSS DESCRIPTION A - Received in fixative is one container labeled with the patient's name and designated duodenum biopsy. The specimen consists of one irregular fragment of light johnson soft tissue that measures 0.4 x 0.4 x 0.1 cm. The specimen is totally submitted in one cassette. B - Received in fixative is one container labeled with the patient's name and designated antrum biopsy. The specimen consists of one irregular fragment of light johnson soft tissue that measures 0.4 x 0.2 x 0.1 cm. The specimen is totally submitted in one cassette. C - Received in fixative is one container labeled with the patient's name and designated EG junction biopsy. The specimen consists of multiple irregular fragments of light johnson soft tissue that in aggregate measure 0.5 x 0.5 x 0.1 cm. The specimen is totally submitted in one cassette. / SJ:rg 03/20/20 TC:2 CPT: 84505 x3, 19580, 20627
--- NOTE | 2020-03-20 06:30 | IMM_PTH ---
PATIENT: HECTOR MUNSON LOC: EN U#:[id number] AGE/SX: 54/F ROOM: RE03/20/[address]: Dr. Vincent Rao MD : 1965 BED: DIS: 03/20/2020 SPEC #: [id number] RECD: 03/20/20 13:57 STATUS: BAKARI RELouisa #: [id number] AALIYAH: 03/20/20 06:[address]: Vincent Rao DEPT: IMMUNOHISTOCHEMISTRY RECD BY: Dayna Welsh ENTERED: 03/20/20 13:57 SP TYPE: IMMUNO OTHR DR: Dr. Ralph Nava MD Tissues: B - Stomach, NOS Procedures: H Pylori (initial) PHYSICIAN & INSTITUTION [place] [id number] SPECIMEN INFORMATION: Tissue Source: B - Antrum biopsy Clinical Info: Esophageal dysphagia; paraesophageal hiatal hernia Specimen Number: [id number] CPT code: 92967 METHODOLOGY: Deparaffinized sections of prefer/formalin-fixed tissue or PAP/DQ stained slides are incubated with monoclonal/polyclonal antibodies/oligonucleotide probes. Localization is made via biotin free immunoperoxidase method. Appropriate controls are performed and reacted as expected. Results on target cell population are indicated in the following table: RESULTS: ANTIBODY / CLONE RESULT Block B H Pylori (polyclonal) negative These tests were developed and their performance characteristics determined by [facility]. They may not have been cleared or approved by the U.S. Food and Drug Administration. The FDA has determined that such clearance or approval is not necessary. INTERPRETATION: B. Antrum biopsy: Negative for Helicobacter pylori organisms. SJ:bhumika 03/21/20
--- NOTE | 2020-03-20 06:48 | OP.EGD_ITS ---
Patient Name: Beverly Escobar Procedure Date: 03/20/2020 6:11 AM Date of : 1965 Age: 54 Procedure: Upper GI endoscopy Indications: Suspected gastro-esophageal reflux disease Providers: Vincent Rao MD Referring MD: Ralph Nava Medicines: See the Anesthesia note for documentation of the administered medications Complications: No immediate complications. Procedure: Pre-Anesthesia Assessment: - Prior to the procedure, a History and Physical was performed, and patient medications and allergies were reviewed. The patient's tolerance of previous anesthesia was also reviewed. The risks and benefits of the procedure and the sedation options and risks were discussed with the patient. All questions were answered, and informed consent was obtained. Prior Anticoagulants: The patient has taken no previous anticoagulant or antiplatelet agents. ASA Grade Assessment: II - A patient with mild systemic disease. After reviewing the risks and benefits, the patient was deemed in satisfactory condition to undergo the procedure. After obtaining informed consent, the endoscope was passed under direct vision. Throughout the procedure, the patient's blood pressure, pulse, and oxygen saturations were monitored continuously. The gastroscope was introduced through the mouth, and advanced to the second part of duodenum. The upper GI endoscopy was accomplished without difficulty. The patient tolerated the procedure well. Scope In: 6:35:00 AM Scope Out: 6:41:38 AM Total Procedure Duration Time 0 hours 6 minutes 38 seconds Findings: The Z-line was irregular and was found 35 cm from the incisors. Biopsies were taken with a cold forceps for histology. LA Grade A (one or more mucosal breaks less than 5 mm, not extending between tops of 2 mucosal folds) esophagitis with no bleeding was found 35 cm from the incisors. A large hiatal hernia was present. The entire examined stomach was normal. Biopsies were taken with a cold forceps for histology. The examined duodenum was normal. Biopsies were taken with a cold forceps for histology. Impression: - Z-line irregular, 35 cm from the incisors. Biopsied. Inflammation with minimal narrowing. No dilatation - LA Grade A reflux esophagitis. - Large hiatal hernia. - Normal stomach. Biopsied. Bile reflux noted - Normal examined duodenum. Biopsied. Recommendation: - Discharge patient to home. - Resume previous diet. - Continue present medications. - Use sucralfate tablets 1 gram PO QID. - Return to my office in 2 weeks. Procedure Code(s): --- Professional --- 68409, Esophagogastroduodenoscopy, flexible, transoral; with biopsy, single or multiple Diagnosis Code(s): --- Professional --- K22.8, Other specified diseases of esophagus K21.0, Gastro-esophageal reflux disease with esophagitis K44.9, Diaphragmatic hernia without obstruction or gangrene CPT copyright 2017 [employer]. All rights reserved. The codes documented in this report are preliminary and upon sociology adjunct instructor review may be revised to meet current compliance requirements. Vincent Rao MD 03/20/2020 6:47:27 AM This report has been signed electronically. Number of Addenda: 0 Note Initiated On: 03/20/2020 6:11 AM
--- NOTE | 2020-03-20 06:48 | OP.CCLET_ITS ---
03/20/2020 Ralph Nava [address] [place] [address] Re : Upper GI endoscopy procedure for Beverly Escobar Dear Dr. Nava This procedure was performed on Friday, March 20, 2020. My impressions and recommendations are as follows: Impressions : - Z-line irregular, 35 cm from the incisors. Biopsied. Inflammation with minimal narrowing. No dilatation - LA Grade A reflux esophagitis. - Large hiatal hernia. - Normal stomach. Biopsied. Bile reflux noted - Normal examined duodenum. Biopsied. Recommendations : - Discharge patient to home. - Resume previous diet. - Continue present medications. - Use sucralfate tablets 1 gram PO QID. - Return to my office in 2 weeks. My findings are described in the full procedure note, which is enclosed. If I can be of further assistance, please feel free to contact me at Doctor phone number(s): Work: . Sincerely, Vincent aRo MD 03/20/2020 6:47:27 AM This report has been signed electronically.
== END 2020-03-20 08:14 | disposition home or self-care (01) ==
LOC: EN 05:22 → AC 05:22
PROVIDERS: PCP Family Medicine; Referring Provider Family Medicine; Visit Provider Surgery
PROC: 0DJ08ZZ Inspection of Upper Intestinal Tract, Via Natural or Artificial Opening Endoscopic (ICD-10-PCS; CPT 43235; principal; 2020-03-20 06:25)
DX: K29.70 Gastritis, unspecified, without bleeding (principal); K21.00 Gastro-esophageal reflux disease with esophagitis, without bleeding; K44.9 Diaphragmatic hernia without obstruction or gangrene; Q39.4 Esophageal web; Z11.59 Encounter for screening for other viral diseases; K58.9 Irritable bowel syndrome, unspecified; E78.5 Hyperlipidemia, unspecified; E03.9 Hypothyroidism, unspecified; E78.00 Pure hypercholesterolemia, unspecified; Z78.0 Asymptomatic menopausal state; Z86.2 Personal history of diseases of the blood and blood-forming organs and certain disorders involving the immune mechanism; Z90.49 Acquired absence of other specified parts of digestive tract; Z79.899 Other long term (current) drug therapy; Z87.891 Personal history of nicotine dependence
CPT/HCPCS: 43239; 87426; 88305; 88312; 88313; 88342; C9803; J7120

== ENCOUNTER → 2020-03-23 08:50 | Day surgery (SDC) | payer MEDICAID, SELFPAY ==
[2020-03-14 14:23] VITALS: BMI 31.6
[2020-03-20 05:40] VITALS: BMI 31.2
== END ==
PROVIDERS: PCP Family Medicine; Referring Provider Family Medicine; Visit Provider Surgery
PROC: F00ZJWZ Instrumental Swallowing and Oral Function Assessment using Swallowing Equipment (ICD-10-PCS; CPT 43235; principal; 2020-03-23 08:55)
DX: R13.10 Dysphagia, unspecified (principal)
CPT/HCPCS: 91010; 91013

== ENCOUNTER → 2020-05-15 07:08 | Outpatient (CLI) | payer MEDICAID, SELFPAY ==
[2020-05-15 07:23] LABS: Absolute Lymphocyte Count 2.55 X10^3/uL (0.83-4.51); Absolute Neutrophil Count 3.3 X10^3/uL (2.0-7.7); Basophil% 1.5 % (0-1); Eosinophil# 0.22 X10^3/uL; Eosinophils% 3.3 % (0-5); Hematocrit 33.1 % (37-47); Hemoglobin 9.8 g/dL (12.0-15.0); Lymphocyte # 2.55 X10^3/ul (4.0); Lymphocyte % 38.5 % (19-41); Mean Corp Hgb Conc 29.6 g/dL (32-36); Mean Corpuscular Hgb 23.7 pg (27.0-32.0); Mean Platelet Vol. 10.1 fl (6.2-12.0); Monocyte# 0.41 X10^3/uL; Monocyte% 6.2 % (0-10); NRBC Flagged by Analyzer 0 % (0-5); Neutrophil # 3.33 X10^3/uL (2.7-7.7); Neutrophil % 50.3 % (47-70); Platelet Count 331 K/mm3 (150-450); RBC Distribution Width CV 16.7 % (11.6-14.6); RBC Distribution Width SD 48.1 fl (35.1-43.9); Red Blood Count 4.14 M/mm3 (4.2-5.4); White Blood Count 6.6 K/mm3 (4.4-11.0)
[2020-05-15 07:55] LABS: Vitamin D,25 Hydroxy 23.4 ng/mL
[2020-05-15 08:00] LABS: ALB/GLOB Ratio 0.9 RATIO (0.9-2.4); AST(SGOT) 16 U/L (15-37); Alanine Aminotransfer ALT/SGPT 24 U/L (13-56); Albumin, Serum 3.6 g/dL (3.2-5.0); Alkaline Phosphatase 133 U/L (45-117); Anion Gap 6 (5-15); BUN 14 mg/dL (7-18); BUN/Creat Ratio 15.7 RATIO (10-20); Calcium,Total 8.8 mg/dL (8.5-10.1); Chloride 109 mmol/L (98-107); Creatinine, Serum 0.89 mg/dL (0.55-1.02); EST Glomerular Filtration Rate 70 mL/min (>60); Est Glom Filt Rate - Afr Amer 85 mL/min (>60); Glucose 89 mg/dL (74-106); Potassium 3.9 mmol/L (3.5-5.1); Protein, Total 7.6 g/dL (6.4-8.2); Sodium Level 139 mmol/L (136-145); T4 Free Direct 1.24 ng/dL (0.76-1.46); Thyroid Stim Hormone (TSH) 1.14 uIU/mL (0.358-3.74)
== END ==
PROVIDERS: PCP Family Medicine; Referring Provider Family Medicine; Visit Provider Family Medicine
DX: E03.8 Other specified hypothyroidism (principal); E55.9 Vitamin D deficiency, unspecified
CPT/HCPCS: 36415; 80053; 82306; 84439; 84443; 85025

== ENCOUNTER → 2020-05-16 15:26 | Outpatient (CLI) | payer MEDICAID, SELFPAY ==
--- NOTE | 2020-05-16 15:29 | RAD_ITS ---
HISTORY: left hip pain, getting worseno injury ADDITIONAL HISTORY: None provided. EXAMINATION/TECHNIQUE: XR Hip Unilateral with Pelvis when performed; 2-3 Views Left Number of images including paperwork: 3 COMPARISON: None FINDINGS: BONES: No acute fracture. JOINTS: No subluxation. Degenerative changes of the sacroiliac joints. SOFT TISSUES: No distinct foreign body. RAD/HIP, UNI W/ Pelvis 2-3 Views IMPRESSION: No acute osseous abnormality. at 0721 Reported and signed by: Radha Harvey MD Electronically Signed: Rdaha Harvey MD at 7:21 EST Tel , Service support ,
[2020-05-16 18:23] LABS: Vitamin B12 579 pg/mL (211-911)
[2020-05-16 18:43] LABS: Ferritin 5 ng/mL (8-252); Iron 18 ug/dL (50-170); Iron Binding Capacity,Total 467 ug/dL (250-450)
== END ==
PROVIDERS: PCP Family Medicine; Referring Provider Family Medicine; Visit Provider Family Medicine
DX: M25.552 Pain in left hip (principal); D64.9 Anemia, unspecified
CPT/HCPCS: 36415; 73502; 82607; 82728; 82746; 83540; 83550

== ENCOUNTER 2020-08-01 11:12 | Observation (INO) | payer MEDICAID, SELFPAY ==
[2020-07-24 14:24] VITALS: BMI 31.3
--- NOTE | 2020-07-26 16:20 | EKG12_ITS ---
Test Reason : PREOP Blood Pressure : / mmHG Vent. Rate : 063 BPM Atrial Rate : 063 BPM P-R Int : 160 ms QRS Dur : 072 ms QT Int : 412 ms P-R-T Axes : 027 011 030 degrees QTc Int : 421 ms Normal sinus rhythm Normal ECG Confirmed by KERLINE CANALES, TETE ([id number]), photo editor JACK CACERES ([id number]) on 07/27/2020 12:40:33 PM Referred By: Vincent Rao Confirmed By:TETE CHURCHILL MD
[2020-07-26 17:23] LABS: Hematocrit 32.3 % (37-47); Hemoglobin 10.3 g/dL (12.0-15.0); Mean Corp Hgb Conc 31.9 g/dL (32-36); Mean Corpuscular Hgb 25.7 pg (27.0-32.0); Mean Corpuscular Volume 80.5 fL (81-99); Mean Platelet Vol. 11.1 fl (6.2-12.0); Platelet Count 299 K/mm3 (150-450); RBC Distribution Width CV 17.9 % (11.6-14.6); RBC Distribution Width SD 53.5 fl (35.1-43.9); Red Blood Count 4.01 M/mm3 (4.2-5.4); White Blood Count 7.5 K/mm3 (4.4-11.0)
[2020-07-26 18:03] LABS: Anion Gap 4 (5-15); BUN 16 mg/dL (7-18); Calcium,Total 9.2 mg/dL (8.5-10.1); Chloride 106 mmol/L (98-107); Creatinine, Serum 0.84 mg/dL (0.55-1.02); EST Glomerular Filtration Rate 74 mL/min (>60); Est Glom Filt Rate - Afr Amer 90 mL/min (>60); Glucose 88 mg/dL (74-106); Potassium 3.7 mmol/L (3.5-5.1); Sodium Level 139 mmol/L (136-145)
[2020-07-26 18:41] LABS: Thyroid Stim Hormone (TSH) 2.71 uIU/mL (0.358-3.74)
[2020-08-01] VITALS (15 sets, daily range): BP systolic 118–162; BP diastolic 66–109; PULSE 56–82; RESP 16–22; TEMP 36.2–37.4; O2SAT 90–96; BMI 31.4
--- NOTE | 2020-08-01 06:04 | HP.PCM_ITS ---
Problem List (1) GERD with esophagitis Status: Acute Qualifiers: History and Physical Date of Admission: 08/01/20 Intake Visit Reasons: lap jelani/francy 08/01 Chief Complaint: update H&P for mohit [employer] Required: No Is patient in pain?: No Allergies No Known Allergies Allergy (Verified 07/25/20 10:31) Medications Cetirizine HCl [Zyrtec] 10 mg PO DAILY 01/27/20 [History Confirmed 07/25/20] Levothyroxine Sodium [Euthyrox] 88 mcg PO DAILY 01/27/20 [History Confirmed 07/25/20] oxybutynin chloride 5 mg tablet 5 mg PO BID tab 03/14/20 [History Confirmed 07/25/20] omeprazole 40 mg capsule,delayed release 40 mg PO DAILY #30 cap 04/10/20 [Rx Confirmed 07/25/20] cholecalciferol (vitamin D3) 50 mcg (2,000 unit) capsule 2,000 unit PO DAILY cap 07/24/20 [History Confirmed 07/25/20] soy isoflavone 56 mg-black cohosh ext 40 mg-Cissus ext 300 mg capsule 1 cap PO DAILY 07/24/20 [History Confirmed 07/25/20] Is last menstrual period known: No Post menopausal: Yes Patient : No PFSH Medical History GERD with esophagitis (Acute) Esophageal web (Acute) Paraesophageal hiatal hernia (Acute) Dysphagia (Acute) Screening for intestinal cancer (Inactive) Personal history of colonic polyps (Chronic) Chest pain (Acute) Hyperlipidemia (Acute) Anemia (Acute) Hypotension (Inactive) Hypokalemia (Inactive) Seizure (Inactive) Hypothyroidism (Chronic) Dysphagia (Acute) Surgical History History of appendectomy (Acute) History of cholecystectomy (Acute) History of hysterectomy (Acute) History of tonsillectomy (Acute) Family History Sister Cancer Thyroid cancer Daughter Thyroid disorder Mother Hypertension Father Hypertension Social History (Updated 07/25/20 @ 11:18 by Yanet MCCALL, PA-C) Smoking Status: Former smoker HPI HPI HPI: HECTOR MUNSON, is a 54 F who presents to the office today for HPI HPI Surgical H&P: Yes HPI: HECTOR MUNSON, is a 54 F who presents to the office today for an update history and physical. Patient denies any recent hospitalizations or illnesses. Patient denies current chest pain or shortness of breath. She notes omeprazole is keeping her reflux symptoms at bay right now. She denies any concerns with anesthesia with the exception of constipation. Patient's previous history per Dr. Rao: HECTOR MUNSON, is a 54 F who presents to the office today for surgical follow-up regarding her symptomatic hiatal hernia. As noted below the patient's had a esophagogastroduodenoscopy as well as esophageal manometry. The esophageal manometry demonstrates 40% normal swallows 60% weak swallows but adequate food bolus clearance. Her upper endoscopy demonstrated severe reflux esophagitis with esophageal ulceration. She has a sizable hiatal hernia. A. Duodenal biopsy:A fragment of duodenal mucosa, no pathologic diagnosis. B. Antrum, biopsy:Mild gastritis.See microscopic description and comment. C. EG junction, biopsy:Fragments of gastroesophageal mucosa with focal ulceration, fibrinous exudation and acute inflammation.Moderate chronic inflammation and changes consistent with gastroesophageal reflux disease.Intestinal metaplasia (goblet cell metaplasia) not identified.Special stain for fungi is negative for organisms; matched control is appropriate H. pylori negative [facility] Medical Records Department [address] [place] [id number] EGD Report MR#: [id number]:[id number] Name: HECTOR MUNSON ep #:[id number] : 1965 54From: Vincent Rao MD PCP:Dr. Ralph Nava MD Status:[facility] Patient Name: Hector Munson Procedure Date: 03/20/2020 6:11 AM Date of : 1965 Age: 54 Procedure: Upper GI endoscopy Indications: Suspected gastro-esophageal reflux disease Providers: Vincent Rao MD Referring MD: Ralph Nava Medicines: See the Anesthesia note for documentation of the administered medications Complications: No immediate complications. Procedure: Pre-Anesthesia Assessment: - Prior to the procedure, a History and Physical was performed, and patient medications and allergies were reviewed. The patient's tolerance of previous anesthesia was also reviewed. The risks and benefits of the procedure and the sedation options and risks were discussed with the patient. All questions were answered, and informed consent was obtained. Prior Anticoagulants: The patient has taken no previous anticoagulant or antiplatelet agents. ASA Grade Assessment: II - A patient with mild systemic disease. After reviewing the risks and benefits, the patient was deemed in satisfactory condition to undergo the procedure. After obtaining informed consent, the endoscope was passed under direct vision. Throughout the procedure, the patient's blood pressure, pulse, and oxygen saturations were monitored continuously. The gastroscope was introduced through the mouth, and advanced to the second part of duodenum. The upper GI endoscopy was accomplished without difficulty. The patient tolerated the procedure well. Scope In: 6:35:00 AM Scope Out: 6:41:38 AM Total Procedure Duration Time 0 hours 6 minutes 38 seconds Findings: The Z-line was irregular and was found 35 cm from the incisors. Biopsies were taken with a cold forceps for histology. LA Grade A (one or more mucosal breaks less than 5 mm, not extending between tops of 2 mucosal folds) esophagitis with no bleeding was found 35 cm from the incisors. A large hiatal hernia was present. The entire examined stomach was normal. Biopsies were taken with a cold forceps for histology. The examined duodenum was normal. Biopsies were taken with a cold forceps for histology. Impression: - Z-line irregular, 35 cm from the incisors. Biopsied. Inflammation with minimal narrowing. No dilatation - LA Grade A reflux esophagitis. - Large hiatal hernia. - Normal stomach. Biopsied. Bile reflux noted - Normal examined duodenum. Biopsied. Recommendation: - Discharge patient to home. - Resume previous diet. - Continue present medications. - Use sucralfate tablets 1 gram PO QID. - Return to my office in 2 weeks. Procedure Code(s): --- Professional --- 58239, Esophagogastroduodenoscopy, flexible, transoral; with biopsy, single or multiple Diagnosis Code(s): --- Professional --- K22.8, Other specified diseases of esophagus K21.0, Gastro-esophageal reflux disease with esophagitis K44.9, Diaphragmatic hernia without obstruction or gangrene CPT copyright 2017 [employer]. All rights reserved. The codes documented in this report are preliminary and upon burner shaft review may be revised to meet current compliance requirements. Vincent Rao MD 03/20/2020 6:47:27 AM This report has been signed electronically. Number of Addenda: 0 Note Initiated On: 03/20/2020 6:11 AM 03/20/20 0648 Date Vincent Rao MD ROS General General: No weight change, appetite, fatigue, colon cancer, breast cancer or weakness HEENT HEENT: Yes difficulty swallowing; no eye injury, eye surgery, swollen glands or hoarseness Endo Endocrine: Yes thyroid disease; no diabetes mellitus, thyroid cancer, Hair loss, heat intolerance or cold intolerance Skin Skin: No rash or changing moles Breast Breast: No left breast lump, right breast lump, nipple discharge, breast pain, abnormal mammogram, abnormal US or breast enlargement Musc Musculoskeletal: No back problems, arthritis, rheumatoid arthritis, gout or joint pain Cardio Cardiovascular: No murmur, pacemaker, heart disease, atrial fibrillation, high blood pressure, heart attack, heart stent, palpitations, shortness of breat with exertion or chest pain Psych Psychiatric: No depression, anxiety or hearing voices Resp Respiratory: Yes shortness of breath, No sleep apnea, No cough, No COPD, No asthma, No emphysema, No wheezing Gastro Gastrointestinal: No abdominal pain, No nausea or vomiting, Yes diarrhea, Yes constipation, No blood in stool, No acid reflux, No hemorrhoids, No ulcers, No gallbladder problem, No black,tarry stools Noe Hematologic: No blood thinners, No blood disorders, No bleeding, No anemia, No blood clots Neuro Neurologic: No system reviewed and no additional complaints, except as docu, No as per HPI, No abnormal walking, No abnormal hearing, No abnormal movements, No abnormal speech, No behavioral changes, No burning sensations, No confusion, No seizure-like activity, No unsteadiness, No dizziness, No localized weakness, No frequent falls, No headache(s), No lack of coordination, No loss of vision, No memory loss, No numbness, No other visual disturbances, No radiating pain, No restless legs, No sensory deficit, No fainting, No tingling, No tremor(s), No weakness, No other Exam Const General: cooperative, healthy appearing, comfortable, no acute distress [facility] Head: normal to inspection Eyes General: appearance normal, both eyes and all related structures Neck Neck: normal visual inspection Neck mass: No Chest Breast Palpation: No nipple discharge Resp Effort & Inspection: normal respiratory effort Auscultation: clear to auscultation bilaterally Cardio Rate: regular rate Rhythm: regular rhythm Heart Sounds: no murmurs GI Inspection: normal to inspection Palpation: soft Auscultation: normal bowel sounds Skin General: no rashes or lesions noted Neuro General: no focal motor deficits, CN's II-XI intact bilaterally Extrem General: normal to inspection Psych Appearance: grossly normal Affect: normal affect Assessment & Plan Problems 1. Gastroesophageal reflux disease with esophagitis without hemorrhage K21.00 2. Esophageal web Q39.4 3. Paraesophageal hiatal hernia K44.9 4. Esophageal dysphagia R13.[address] Rao will plan to perform a laparoscopic repair of hiatal hernia with a toupet reflux procedure. Procedures details, risks and benefits have been explained and reviewed with the patient. Patient has had the opportunity to ask and have questions answered. Patient verbally understands and agrees with the plan. Patient has been provided post-operative instructions ans diet recommendations. Coding Level of Care Code No Charge Diagnoses Gastroesophageal reflux disease with esophagitis without hemorrhage K21.00 ??Esophagitis bleeding: without hemorrhage Esophageal web Q39.4 Paraesophageal hiatal hernia K44.9 Esophageal dysphagia R13.10 ??Dysphagia type: esophageal phase I have re-examined the patient. There are no clinical changes since date of exam. Procedure Criteria Procedure Type: Elective COVID Risk Discussion: The surgeon/proceduralist and patient have discussed in detail the risk of exposure to and/or potential harm posed by the COVID-19 virus with having a surgery/procedure at this time versus the risk of delaying the surgery/procedure. It is not possible to know either the risk of delaying the surgery or procedure or chance of getting an infection with perfect accuracy, but a joint decision was made between the patient and the surgeon/proceduralist to proceed at this time with the scheduled surgery/procedure as indicated on the consent form.
[2020-08-01] MEDS: Lactated Ringers 1,000 ML 100 ML IV (06:25)
--- NOTE | 2020-08-01 07:10 | PCM.DC.GS ---
Discharge Diet: - - Diet as per preprinted [facility] postoperative instruction sheet Allergies/Adverse Reactions: Allergies No Known Allergies Allergy (Verified 07/25/20 10:31) Medications to take at Discharge Cetirizine HCl [Zyrtec] 10 mg PO DAILY 01/27/20 Levothyroxine Sodium [Euthyrox] 88 mcg PO DAILY 01/27/20 oxybutynin chloride 5 mg tablet 5 mg PO BID tab 03/14/20 omeprazole 40 mg capsule,delayed release 40 mg PO DAILY #30 cap 04/10/20 cholecalciferol (vitamin D3) 50 mcg (2,000 unit) capsule 2,000 unit PO DAILY cap 07/24/20 soy isoflavone 56 mg-black cohosh ext 40 mg-Cissus ext 300 mg capsule 1 cap PO DAILY 07/24/20 Primary Care Physician: Ralph Nava MD [Primary Care Provider] - Test Results: Test results from this visit will be discussed in further detail at your follow-up appointment, if applicable. Please Follow Up With: Vincent Rao MD - [phone] When: Call to make an appointment to be seen in about 10 days.
[2020-08-01] MEDS: Cefazolin 2 GM in 0.9% Normal Saline 100 ML IV (07:16)
--- NOTE | 2020-08-01 07:30 | HERN_PTH ---
PATIENT: HECTOR MUNSON LOC: MS3 U#:[id number] AGE/SX: 54/F ROOM: [facility] RE08/01/[address]: Dr. Vincent Rao MD : 1965 BED: 1 DIS: 08/02/2020 SPEC #: [id number] RECD: 08/01/20 12:29 STATUS: BAKARI SAHA #: [id number] AALIYAH: 08/01/20 07:[address]: Vincent Rao DEPT: SURGICAL PATHOLOGY RECD BY: Farideh Moreno ENTERED: 08/01/20 13:08 SP TYPE: Hernia OTHR DR: Dr. Ralph Nava MD Tissues: HERNIA Procedures: Surgery Specimen Level II HEADER OPERATION: Laparoscopic repair of hiatal hernia with laparoscopic toupet PRE-OP DIAGNOSIS: GERD with esophagitis TISSUE SUBMITTED: Hernia sac MICROSCOPIC DIAGNOSIS Hernia sac, herniorrhaphy: Fibrosis with mild acute and chronic inflammation. AM:bhumika 08/02/2020 MICROSCOPIC DESCRIPTION Slides are reviewed. GROSS DESCRIPTION Received in fixative is one container labeled with the patient's name and designated hernia sac. The specimen consists of a piece of soft tissue measuring 6.5 x 3.5 x 0.5 cm. No mass lesion is identified. Policeman sections are submitted in one cassette. / SJ:bhumika 08/01/20 TC:2 CPT: 65462
[2020-08-01] MEDS: Bupivacaine Mpf 0.5% 30 ML VIAL (07:54)
[2020-08-01] MEDS: Lactated Ringers 1,000 ML 70 ML IV ×2 (08:31→16:12)
[2020-08-01] MEDS: Sugammadex Sodium 200 MG/2 ML VIAL IV (10:55)
--- NOTE | 2020-08-01 10:59 | OP.PCM_ITS ---
Problem List (1) GERD with esophagitis Status: Acute Qualifiers: Report of Operation Date of Procedure: 08/01/20 Pre-Operative Diagnosis: Large sliding hiatal hernia with esophageal dysphagia and gastroesophageal reflux disease with esophagitis Post-Operative Diagnosis: Same Surgery/Procedure Performed:: Laparoscopic repair of large hiatal hernia with laparoscopic toupet procedure Description of Surgical Findings:: Timeout and informed consent was obtained. 54-year-old female was taken to the operating room. She was placed supine on the table and underwent general endotracheal intubation anesthesia. 2 g of Ancef were given intravenously. She was then placed in a low lithotomy position. The buttock was supported with wrapped blankets and a supporting cushion. Arms were wrapped with gel roll. The abdomen was then sterilely prepped and draped. Ioban draping was utilized to help and draped in place. Superior and in the right upper midline abdomen a 5 mm Visiport technology was used to gain access to the abdomen. 10 mm port was placed in the left upper mid abdomen and then 2 more 5 mm trochars in the left subcostal abdomen. Patient was placed in reverse Trendelenburg position. A Nuria retractor was placed through the 5 Negrete port site in the epigastric area and help to elevate the left lobe of the liver. There was a moderately large hiatal hernia with stomach within the sac. The stomach was grasped and reduced back into the abdomen. This allowed) OG tube to be placed. The hernia sac was incised at the right syeda initially taking care to keep peritoneum attached to the right syeda. The sac was then entered and the pneumoperitoneum helped with the dissection and the sac was inverted. Completely dissected around the diaphragmatic hiatus and then more work was rated needed on the left syeda. Much more difficult to keep the peritoneum attached with that side. The sac was inverted dissected free. Then I used harmonic scalpel to transect short gastrics to mobilize the fundus of the stomach and gain better the. It was irrigated. Blunt dissection and gain access behind the esophagus where I placed 1/2 inch Ricky drain to help elevate the esophagus. This allowed me to do careful blunt and then harmonic scalpel cessation completely fine the 8 cm of distal esophagus. [place] that I had significant mobilization I was able to get the vast majority of the stomach back into the abdomen. The posterior fat pad was also dissected free so now I had a clear view of the crura. Using Telfa pledgets did simple sutures of 0 Ethibond in a simple fashion with extracorporeal combined with intracorporeal knot tying. 4 sutures were required. PERSONAL COMPANION had trouble advancing the OG tube so I elected not to place a bougie. Because of the size of the defect I placed a nonconstricting simple suture with pledgeted sutures at the apex of the hiatus. Inspection revealed that I thought that I had adequate motion of the hiatus with good positioning. The stomach then was nicely wrapped around the esophagus. I secured the posterior aspect of the stomach to the crura with a single suture of 0 Ethibond. I then performed a 270 degree wrap incorporating the esophagus with the epiphrenic ligament and with the wrap portion of the stomach in a running fashion approximated the stomach to the esophagus with the 2-0 Ethibond. The length of this wrap was 2 to 2-1/2 cm. I performed a similar thing of the fundus side incorporating the fundus of the stomach to the epiphrenic ligament to the esophagus and then using the running 2-0 Ethibond to finish the wrap. Photographs were obtained and felt that I had a very nice 270 degree wrap. Appear to be in good position. Fluids and insufflated into the abdomen and I performed a esophagogastroduodenoscopy separately dictated through probation. Is no leaks were identified excess fluid has aspirated from the stomach and excess fluid nurse aspirated from the abdomen. All structures appear to be hemostatic. I have placed a small piece of Acular down close to the splenic dissection area that was now nicely hemostatic. It is of note that before the graft the stomach there was a reasonable sized hernia sac which I dissected free from the anterior wall of the EG junction using harmonic scalpel. That was retrieved with a Endobag. That was submitted the specimen. Estimated blood loss 100 cc. Drains none. Specimens hernia sac. The 10 mm trocar site was closed with a [id number] suture of 0 Vicryl using a GraNee needle. The abdomen is deflated of CO2. Skin edges approximated opted for Monocryl subdermal stitches. Steri-Strips Telfa OpSite dressings applied. Sponge and instrument and needle counts reported to surgically correct. Patient was taken to recovery room in satisfactory vision without apparent complication. Vincent Rao M.D., F.A.C.S. Type of Anesthesia:: General Anesthesiologist: Melissa Perez
[2020-08-01] MEDS: Lidocaine 2% (20 ml mdv) 20 ML Vial (11:00)
[2020-08-01] MEDS: Ketorolac 15 MG/ML Vial IV ×2 (16:12→22:22)
--- NOTE | 2020-08-01 16:49 | PCM.PN.SRG ---
Patient Problems: Active and Suspected Problems (Last Reviewed 07/24/20 @ 14:24 by Mone Santillan) GERD with esophagitis (Acute) Subjective: Patient notes intrascapular back pain and some epigastric discomfort. She is tolerating sips and chips. No current nausea. She is up out of bed sitting in a chair. She has been able to void since surgery - Physical Exam Vitals/I&O's: Vital Signs Temp Pulse Resp BP Pulse Ox 97.8 F 74 16 134/87 H 94 08/01/20 15:40 08/01/20 15:40 08/01/20 15:40 08/01/20 15:40 08/01/20 15:40 Oxygen Flow Rate (L/min) 2 Oxygen Delivery Method Nasal Cannula Weight: 183 lb 3.266 oz Body Mass Index (BMI) 31.4 Intake and Output for Last 24 Hours 07/30/20 07/31/20 08/01/20 23:59 23:59 23:59 Intake Total 2109 / 2109 Balance 2109 / 2109 Microbiology Past 72 Hours 07/31/20 08:45 Interface Orders SARS-CoV-2 Antigen (Rapid) - Final Current Medications Acetaminophen (Acetaminophen 325 Mg Tablet) 650 mg PO Q6H PRN PRN PRN Reason: PAIN 1-10/10 Hydrocodone Bitart/Acetaminophen (Hydrocodone Bitartrate/Apap 5/325 Tablet) 1 - 2 tablet PO Q4H PRN PRN PRN Reason: PAIN 1-10/10 Lactated Ringer's () 1,000 mls @ 70 mls/hr IV .[id number] ROMEO Last Admin: 08/01/20 16:12 Dose: 70 mls/hr Documented by: Ketorolac Tromethamine (Ketorolac 15 Mg/Ml Vial) 15 mg IV Q6H PRN PRN PRN Reason: PAIN Last Admin: 08/01/20 16:12 Dose: 15 mg Documented by: Levothyroxine Sodium (Levothyroxine 88 Mcg Tablet) 88 mcg PO DAILY@0600 ROMEO Loratadine (Loratadine 10 Mg Tablet) 10 mg PO DAILY ROMEO Morphine Sulfate (Morphine 2 Mg/Ml Syringe) 2 - 4 mg IV Q1H PRN PRN PRN Reason: PAIN 1-10/10 Morphine Sulfate (Morphine 4 Mg/Ml Syringe) 2 - 4 mg IV Q1H PRN PRN PRN Reason: PAIN 1-10 Ondansetron HCl (Ondansetron 4 Mg/2 Ml Vial) 4 mg IV Q8H PRN PRN PRN Reason: NAUSEA Oxybutynin Chloride (Oxybutynin 5 Mg Tablet) 10 mg PO HS ROMEO Pantoprazole Sodium (Pantoprazole Sodium 40 Mg Tablet) 40 mg PO DAILY ROMEO Sodium Chloride (0.9% Saline Lock 10 Ml Syringe) 10 - 40 ml IV UD PRN PRN Reason: SALINE FLUSH Medical Necessity - Tobacco Use Smoking Status: Former smoker Tobacco Use: Non-smoker Assessment/Plan All Active Problems (Last Reviewed 07/24/20 @ 14:24 by Mone Santillan) GERD with esophagitis (Acute) Esophageal web (Acute) Paraesophageal hiatal hernia (Acute) Dysphagia (Acute) Chest pain (Acute) Hyperlipidemia (Acute) Anemia (Acute) Patient appears stable. We will initiate clear liquids. The patient will ambulate as tolerated. She has been encouraged to continue to utilize incentive spirometry. Vincent Rao M.D., F.A.C.S.
[2020-08-01] MEDS: Morphine 2 MG/ML Syringe IV (17:50)
[2020-08-01] MEDS: 0.9% Saline Lock 10 ML Syringe IV (22:22)
[2020-08-02 02:00] VITALS: BP 131/80; PULSE 65; RESP 16; TEMP 37.2; O2SAT 93
[2020-08-02] MEDS: Morphine 2 MG/ML Syringe IV (02:13)
[2020-08-02] MEDS: 0.9% Saline Lock 10 ML Syringe IV ×2 (02:14→08:15)
[2020-08-02 05:08] LABS: Absolute Lymphocyte Count 2.53 X10^3/uL (0.83-4.51); Absolute Neutrophil Count 6.8 X10^3/uL (2.0-7.7); Basophil# 0.04 X10^3/uL; Basophil% 0.4 % (0-1); Eosinophil# 0.03 X10^3/uL; Eosinophils% 0.3 % (0-5); Hematocrit 30.3 % (37-47); Hemoglobin 9.5 g/dL (12.0-15.0); Lymphocyte # 2.53 X10^3/ul (4.0); Lymphocyte % 25.1 % (19-41); Mean Corp Hgb Conc 31.4 g/dL (32-36); Mean Corpuscular Hgb 26.1 pg (27.0-32.0); Mean Corpuscular Volume 83.2 fL (81-99); Mean Platelet Vol. 10.1 fl (6.2-12.0); Monocyte# 0.68 X10^3/uL; Monocyte% 6.8 % (0-10); NRBC Flagged by Analyzer 0 % (0-5); Neutrophil # 6.77 X10^3/uL (2.7-7.7); Neutrophil % 67.2 % (47-70); Platelet Count 263 K/mm3 (150-450); RBC Distribution Width CV 18.1 % (11.6-14.6); RBC Distribution Width SD 55.4 fl (35.1-43.9); Red Blood Count 3.64 M/mm3 (4.2-5.4); White Blood Count 10.1 K/mm3 (4.4-11.0)
[2020-08-02] MEDS: Levothyroxine 88 MCG Tablet PO (05:11)
[2020-08-02] MEDS: Lactated Ringers 1,000 ML 70 ML IV (05:12)
--- NOTE | 2020-08-02 06:00 | PN.SURG_ITS ---
Patient Problems: Active and Suspected Problems (Last Reviewed 07/24/20 @ 14:24 by Mone Santillan) GERD with esophagitis (Acute) Subjective: Patient has had some flatus. Sore in the epigastric incision. No current nausea. She felt that she had caffeine depletion headache last night. That is now improved. - Physical Exam Vitals/I&O's: Vital Signs Temp Pulse Resp BP Pulse Ox 98.9 F 65 16 131/80 H 93 08/02/20 02:00 08/02/20 02:00 08/02/20 02:00 08/02/20 02:00 08/02/20 02:00 Oxygen Flow Rate (L/min) 3 Oxygen Delivery Method Nasal Cannula Weight: 183 lb 3.266 oz Body Mass Index (BMI) 31.4 Intake and Output for Last 24 Hours 07/31/20 08/01/20 08/02/20 23:59 23:59 23:59 Intake Total 2110 / 2510 1310 / 1310 Output Total 850 / 850 Balance 2110 / 1660 460 / 460 General: Alert, Oriented x3, Cooperative, No apparent distress Abdomen: Soft, Distended Microbiology Past 72 Hours 07/31/20 08:45 Interface Orders SARS-CoV-2 Antigen (Rapid) - Final Laboratory Results 08/02/20 05:00: WBC 10.1, RBC 3.64 L, Hgb 9.5 L, Hct 30.3 L, MCV 83.2, MCH 26.1 L, MCHC 31.4 L, RDW Std Deviation 55.4 H, RDW Coeff of Natalie 18.1 H, Plt Count 263, MPV 10.1, Immature Gran % (Auto) 0.200, Neut % (Auto) 67.2, Lymph % (Auto) 25.1, Wheeler % (Auto) 6.8, Eos % (Auto) 0.3, Baso % (Auto) 0.4, Absolute Neuts (auto) 6.8, Absolute Lymphs (auto) 2.53, Nucleated RBC % 0 Current Medications Acetaminophen (Acetaminophen 325 Mg Tablet) 650 mg PO Q6H PRN PRN PRN Reason: PAIN 1-10/10 Hydrocodone Bitart/Acetaminophen (Hydrocodone Bitartrate/Apap 5/325 Tablet) 1 - 2 tablet PO Q4H PRN PRN PRN Reason: PAIN 1-10/10 Lactated Ringer's () 1,000 mls @ 70 mls/hr IV .[id number] [facility] Last Admin: 08/02/20 05:12 Dose: 70 mls/hr Documented by: Ketorolac Tromethamine (Ketorolac 15 Mg/Ml Vial) 15 mg IV Q6H PRN PRN PRN Reason: PAIN Last Admin: 08/01/20 22:22 Dose: 15 mg Documented by: Levothyroxine Sodium (Levothyroxine 88 Mcg Tablet) 88 mcg PO DAILY@0600 [facility] Last Admin: 08/02/20 05:11 Dose: 88 mcg Documented by: Loratadine (Loratadine 10 Mg Tablet) 10 mg PO DAILY [facility] Morphine Sulfate (Morphine 2 Mg/Ml Syringe) 2 - 4 mg IV Q1H PRN PRN PRN Reason: PAIN -02/18 Last Admin: 08/02/20 02:13 Dose: 2 mg Documented by: Morphine Sulfate (Morphine 4 Mg/Ml Syringe) 2 - 4 mg IV Q1H PRN PRN PRN Reason: PAIN -02/18 Ondansetron HCl (Ondansetron 4 Mg/2 Ml Vial) 4 mg IV Q8H PRN PRN PRN Reason: NAUSEA Oxybutynin Chloride (Oxybutynin 5 Mg Tablet) 10 mg PO HS [facility] Last Admin: 08/01/20 21:29 Dose: Not Given Documented by: Pantoprazole Sodium (Pantoprazole Sodium 40 Mg Tablet) 40 mg PO DAILY [facility] Sodium Chloride (0.9% Saline Lock 10 Ml Syringe) 10 - 40 ml IV UD PRN PRN Reason: SALINE FLUSH Last Admin: 08/02/20 02:14 Dose: 10 ml Documented by: Medical Necessity - Tobacco Use Smoking Status: Former smoker Tobacco Use: Non-smoker Assessment/Plan All Active Problems (Last Reviewed 07/24/20 @ 14:24 by Mone Santillan) GERD with esophagitis (Acute) Esophageal web (Acute) Paraesophageal hiatal hernia (Acute) Dysphagia (Acute) Chest pain (Acute) Hyperlipidemia (Acute) Anemia (Acute) Patient is mobilizing. Clear liquids. Good progress from last night. Anticipate discharge today. Vincent Rao M.D., F.A.C.S.
[2020-08-02 06:15] VITALS: BP 109/73; PULSE 75; RESP 16; TEMP 36.6; O2SAT 90
[2020-08-02] MEDS: Acetaminophen 325 MG Tablet 650 MG PO (06:48)
[2020-08-02 08:03] VITALS: RESP 18; O2SAT 94
[2020-08-02] MEDS: Pantoprazole Sodium 40 MG Tablet PO (08:16)
[2020-08-02] MEDS: Ketorolac 15 MG/ML Vial IV (08:16)
[2020-08-02] MEDS: Loratadine 10 MG Tablet PO (08:17)
[2020-08-02] MEDS: oxyCODONE 5 MG Tablet PO (09:24)
[2020-08-02 09:29] VITALS: BP 122/76; PULSE 68; RESP 18; TEMP 36.7; O2SAT 94
[2020-08-02 12:43] VITALS: BP 131/67; PULSE 80; RESP 18; TEMP 36.7; O2SAT 95
== END 2020-08-02 13:08 | disposition home or self-care (01) ==
LOC: MS3 13:17 → SDC 13:17
PROVIDERS: Anesthesiology; Admitting Provider Surgery; PCP Family Medicine; Referring Provider Surgery; Visit Provider Surgery
PROC: (CPT 43325; principal; 2020-08-01 07:10)
DX: K44.9 Diaphragmatic hernia without obstruction or gangrene (principal); K21.00 Gastro-esophageal reflux disease with esophagitis, without bleeding; E78.5 Hyperlipidemia, unspecified; E07.9 Disorder of thyroid, unspecified; Z79.899 Other long term (current) drug therapy; Z87.891 Personal history of nicotine dependence
CPT/HCPCS: 00790; 43281; 36415; 80048; 84443; 85025; 85027; 87426; 88302; 93005; 99251; C9803; J7120; A4216; G0463; J2405

== ENCOUNTER → 2020-09-06 11:28 | Outpatient (CLI) | payer MEDICAID, SELFPAY ==
[2020-08-01 13:40] VITALS: BMI 31.4
[2020-09-06 15:15] LABS: Absolute Lymphocyte Count 2.75 X10^3/uL (0.83-4.51); Absolute Neutrophil Count 2.9 X10^3/uL (2.0-7.7); Basophil% 1.5 % (0-1); Eosinophil# 0.44 X10^3/uL; Eosinophils% 6.6 % (0-5); Hematocrit 35.2 % (37-47); Hemoglobin 10.4 g/dL (12.0-15.0); Lymphocyte # 2.75 X10^3/ul (0.83-4.51); Lymphocyte % 41.5 % (19-41); Mean Corp Hgb Conc 29.5 g/dL (32-36); Mean Corpuscular Hgb 24.9 pg (27.0-32.0); Mean Corpuscular Volume 84.4 fL (81-99); Mean Platelet Vol. 11.2 fl (6.2-12.0); Monocyte# 0.47 X10^3/uL; Monocyte% 7.1 % (0-10); NRBC Flagged by Analyzer 0 % (0-5); Neutrophil # 2.86 X10^3/uL (2.7-7.7); Neutrophil % 43.1 % (47-70); Platelet Count 288 K/mm3 (150-450); RBC Distribution Width CV 17.2 % (11.6-14.6); RBC Distribution Width SD 53.7 fl (35.1-43.9); Red Blood Count 4.17 M/mm3 (4.2-5.4); White Blood Count 6.6 K/mm3 (4.4-11.0)
[2020-09-06 15:37] LABS: Vitamin D,25 Hydroxy 39.9 ng/mL
[2020-09-06 15:47] LABS: AST(SGOT) 27 U/L (15-37); Alanine Aminotransfer ALT/SGPT 36 U/L (13-56); Alkaline Phosphatase 127 U/L (45-117); Anion Gap 6 (5-15); BUN 11 mg/dL (7-18); Calcium,Total 9.4 mg/dL (8.5-10.1); Chloride 104 mmol/L (98-107); Creatinine, Serum 0.79 mg/dL (0.55-1.02); EST Glomerular Filtration Rate 80 mL/min (>60); Est Glom Filt Rate - Afr Amer 97 mL/min (>60); Globulin 4.2 g/dL (2.2-4.2); Glucose 87 mg/dL (74-106); Potassium 3.8 mmol/L (3.5-5.1); Protein, Total 8.2 g/dL (6.4-8.2); Sodium Level 136 mmol/L (136-145); T4 Free Direct 0.86 ng/dL (0.76-1.46); Thyroid Stim Hormone (TSH) 2.65 uIU/mL (0.358-3.74)
[2020-09-07 09:30] LABS: Vitamin B12 558 pg/mL (211-911)
[2020-09-07 09:34] LABS: Ferritin 8 ng/mL (8-252); Iron 50 ug/dL (50-170); Iron Binding Capacity,Total 426 ug/dL (250-450); PERCENT IRON SATURATION 11.7 % (15.0-55.0)
== END ==
PROVIDERS: PCP Family Medicine; Referring Provider Family Medicine; Visit Provider Family Medicine
DX: E03.8 Other specified hypothyroidism (principal); E55.9 Vitamin D deficiency, unspecified; D64.9 Anemia, unspecified
CPT/HCPCS: 36415; 80053; 82306; 82607; 82728; 83540; 83550; 84439; 84443; 85025

== ENCOUNTER → 2020-10-18 17:36 | Outpatient (CLI) | payer MEDICAID, SELFPAY ==
[2020-08-01 13:40] VITALS: BMI 31.4
== END ==
PROVIDERS: PCP Family Medicine; Referring Provider Family Medicine; Visit Provider Family Medicine
DX: N39.0 Urinary tract infection, site not specified (principal)
CPT/HCPCS: 87077; 87086; 87088; 87186

== ENCOUNTER → 2020-12-11 | Outpatient (CLI) | payer MEDICAID, SELFPAY ==
[2020-08-01 13:40] VITALS: BMI 31.4
[2020-12-11 13:51] LABS: Mucous, Urine 0 SEEN /hpf (<or=2+); Red Blood Cells-Urine 0 SEEN /hpf (0-5); Squamous Epithelial Cells - UA 0 SEEN /hpf (5-10)
[2020-12-11 15:22] LABS: Color, Urine Yellow (Yellow); Glucose, Dipstick Normal (Normal); Ketone-Dipstick Negative (Negative); Leukocyte Esterase-Dipstick 500 /ul (Negative); Nitrite-Dipstick Negative (Negative); Occult Blood-Urine 25 /ul (Negative); Protein-Dipstick 15 mg/dl (Negative); Urine Bilirubin Dipstick Negative (Negative); Urine Clarity Sl. Cloudy (Clear); Urine Urobilinogen Normal (Normal)
[2020-12-11 15:32] LABS: Bacteria RARE /hpf (None Seen); White Blood Cells >100 SEEN /hpf (0-5)
== END | disposition home or self-care (01) ==
LOC: LABSPEC 13:50
PROVIDERS: PCP Family Medicine; Referring Provider Family Medicine; Visit Provider Family Medicine
DX: N39.0 Urinary tract infection, site not specified (principal)
CPT/HCPCS: 81001; 87077; 87086; 87088; 87186

== ENCOUNTER → 2021-02-23 16:26 | Outpatient (CLI) | payer MEDICAID, SELFPAY ==
[2021-02-23 17:19] LABS: Absolute Lymphocyte Count 2.62 X10^3/uL (0.83-4.51); Absolute Neutrophil Count 3.4 X10^3/uL (2.0-7.7); Basophil# 0.07 X10^3/uL; Basophil% 1.1 % (0-1); Eosinophil# 0.18 X10^3/uL; Eosinophils% 2.7 % (0-5); Hematocrit 33.4 % (37-47); Hemoglobin 10.4 g/dL (12.0-15.0); Lymphocyte # 2.62 X10^3/ul (0.83-4.51); Lymphocyte % 39.3 % (19-41); Mean Corp Hgb Conc 31.1 g/dL (32-36); Mean Corpuscular Hgb 26.1 pg (27.0-32.0); Mean Corpuscular Volume 83.9 fL (81-99); Mean Platelet Vol. 10.9 fl (6.2-12.0); Monocyte# 0.34 X10^3/uL; Monocyte% 5.1 % (0-10); NRBC Flagged by Analyzer 0 % (0-5); Neutrophil # 3.44 X10^3/uL (2.7-7.7); Neutrophil % 51.6 % (47-70); Platelet Count 269 K/mm3 (150-450); RBC Distribution Width CV 16.1 % (11.6-14.6); RBC Distribution Width SD 49.6 fl (35.1-43.9); Red Blood Count 3.98 M/mm3 (4.2-5.4); White Blood Count 6.7 K/mm3 (4.4-11.0)
[2021-02-23 17:43] LABS: Vitamin B12 479 pg/mL (211-911); Vitamin D,25 Hydroxy 43.2 ng/mL
[2021-02-23 17:51] LABS: Erythrocyte Sedimentation Rate 20 mm/hr (0-30)
[2021-02-23 17:52] LABS: ALB/GLOB Ratio 0.9 RATIO (0.9-2.4); AST(SGOT) 22 U/L (15-37); Alanine Aminotransfer ALT/SGPT 21 U/L (13-56); Albumin, Serum 3.7 g/dL (3.2-5.0); Alkaline Phosphatase 110 U/L (45-117); Anion Gap 8 (5-15); BUN 18 mg/dL (7-18); BUN/Creat Ratio 17.1 RATIO (10-20); Calcium,Total 9.2 mg/dL (8.5-10.1); Chloride 105 mmol/L (98-107); Creatinine, Serum 1.05 mg/dL (0.55-1.02); EST Glomerular Filtration Rate 58 mL/min (>60); Est Glom Filt Rate - Afr Amer 70 mL/min (>60); Globulin 4.3 g/dL (2.2-4.2); Glucose 105 mg/dL (74-106); Potassium 3.6 mmol/L (3.5-5.1); Rheumatoid Factor < 10.0 IU/mL (<15); Sodium Level 138 mmol/L (136-145)
[2021-02-26 14:30] LABS: Ferritin 7 ng/mL (8-252); Iron 44 ug/dL (50-170); Iron Binding Capacity,Total 441 ug/dL (250-450)
[2021-02-27 17:08] LABS: ANTINUCLEAR ANTIBODIES DIRECT Negative (Negative)
[2021-02-28 14:18] LABS: T4 Free Direct 1.03 ng/dL (0.76-1.46); Thyroid Stim Hormone (TSH) 5.61 uIU/mL (0.358-3.74)
== END ==
PROVIDERS: PCP Family Medicine; Referring Provider Family Medicine; Visit Provider Family Medicine
DX: E03.8 Other specified hypothyroidism (principal); M25.50 Pain in unspecified joint; E55.9 Vitamin D deficiency, unspecified; R53.83 Other fatigue; D64.9 Anemia, unspecified
CPT/HCPCS: 80053; 82306; 82607; 82728; 83540; 83550; 84439; 84443; 85025; 85652; 86038; 86431

== ENCOUNTER → 2021-03-01 15:10 | Outpatient (CLI) | payer MEDICAID, SELFPAY ==
--- NOTE | 2021-03-01 15:12 | US_ITS ---
STUDY: THYROID ULTRASOUND REASON FOR EXAM: Female, 55 years old. screen for cancer, hashimotos TECHNIQUE: Ultrasound evaluation of the thyroid was performed with real-time and static sheikh-scale imaging. COMPARISON: 06/16/2017 FINDINGS: RIGHT LOBE: The right lobe of the thyroid gland measures 4.4 x 1.3 x 0.9 cm. There is a heterogeneous echotexture. Nodule 1:6 x 3 x 4 mm solid hypoechoic wider than tall ill-defined margin nodule and no echogenic foci (TR 4) in the anterior right lobe consistent with a small adenoma. LEFT LOBE: The left lobe of the thyroid gland measures 2.2 x 0.8 x 0.7 cm. There is a heterogeneous echotexture. There are no demonstrated solid, cystic or complex lesions. ISTHMUS: The isthmus measures 2 mm thick. . The regional lymph nodes are normal. US/Thyroid IMPRESSION: Thyroiditis with small adenoma in the right lobe. Electronically Signed: Lyle Warren MD at 8:32 EDT Tel , Service support ,
--- NOTE | 2021-03-01 15:12 | CT_ITS ---
HISTORY: SCREENING. TECHNIQUE: Helically acquired images were obtained of the chest without contrast. A radiation dose optimization technique was used for this scan. # of images incl. paperwork: [phone]. COMPARISON: XR 01/27/2020. FINDINGS: LARGE AIRWAYS: Clear. LUNGS: 2 mm left apical noncalcified nodule. Calcified granulomas in the bilateral, right middle, and right lower lobes. 2 mm left lower lobe nodule. PLEURA: No pleural effusion. HEART AND PERICARDIUM: Heart within normal limits in size. No pericardial effusion. VESSELS: Thoracic aorta nondilated. MEDIASTINUM AND YG: No enlarged lymph nodes. UPPER ABDOMEN: Cholecystectomy. Gastroesophageal postoperative change. Left renal cyst. BONES: Intact. CT/Low Dose CT Lung Screening IMPRESSION: Noncalcified 2 mm nodules in the left upper and lower lobes. Scattered calcified pulmonary granulomas. Lung-RADS category 2: Benign appearance. Continue annual screening with LDCT. Individualized dose optimization techniques were used for this CT. at 0821 Reported and signed by: Maday Perales MD Electronically Signed: Maday Perales MD at 8:19 EDT Tel , Service support ,
== END ==
PROVIDERS: PCP Family Medicine; Referring Provider Family Medicine; Visit Provider Family Medicine
DX: E03.8 Other specified hypothyroidism (principal); Z87.891 Personal history of nicotine dependence
CPT/HCPCS: 71271; 76536

== ENCOUNTER → 2021-03-12 16:21 | Outpatient (CLI) | payer MEDICAID, SELFPAY ==
--- NOTE | 2021-03-12 16:24 | BI_ITS ---
MAMMOGRAPHY - BILATERAL SCREENING REASON FOR EXAM: Female, 55 years old. Routine annual screening examination. PERTINENT HISTORY: Non-contributory. TECHNIQUE: Digital bilateral breast imani (3D mammographic acquisition) in the CC and MLO projections. 2-D mediolateral oblique (MLO) and craniocaudad (CC) views of both breasts were obtained. CAD: Full Field Digital Mammography with Computer Added Detection was performed. COMPARISON: Comparison is made with prior study 02/20/2017. FINDINGS: Breast Composition: There are scattered areas of fibroglandular density. There are no dominant masses or suspicious calcifications. No other significant abnormalities are identified. There has been no significant change since the prior study. BI/SCRN MAMM (CAD)W/IMANI BILAT IMPRESSION: Stable bilateral screening mammogram. Yearly follow-up mammogram recommended. (A) ASSESSMENT CATEGORY: BIRADS Category 1: Negative. A letter regarding these results will be sent to the patient by the facility within 30 days. Approximately 10% of breast cancers are not detected by mammography. A normal mammogram should not delay biopsy of a clinically suspicious abnormality. [id number] Electronically Signed: Erlin Hutchinson MD at 8:39 EDT , Service support ,
== END ==
PROVIDERS: PCP Family Medicine; Referring Provider Family Medicine; Visit Provider Family Medicine
DX: Z12.31 Encounter for screening mammogram for malignant neoplasm of breast (principal)
CPT/HCPCS: 77063; 77067

== ENCOUNTER 2021-06-05 15:08 | Outpatient (CLI) | payer MEDICAID, SELFPAY ==
[2021-06-05 17:55] LABS: Ferritin 37 ng/mL (8-252); Iron 66 ug/dL (50-170); Iron Binding Capacity,Total 376 ug/dL (250-450)
[2021-06-05 17:58] LABS: Absolute Lymphocyte Count 2.71 X10^3/uL (0.83-4.51); Absolute Neutrophil Count 3.8 X10^3/uL (2.0-7.7); Basophil# 0.08 X10^3/uL; Basophil% 1.1 % (0-1); Eosinophil# 0.27 X10^3/uL; Eosinophils% 3.7 % (0-5); Hematocrit 36.3 % (37-47); Hemoglobin 11.6 g/dL (12.0-15.0); Lymphocyte # 2.71 X10^3/ul (0.83-4.51); Lymphocyte % 36.9 % (19-41); Mean Corpuscular Volume 87.7 fL (81-99); Mean Platelet Vol. 10.7 fl (6.2-12.0); Monocyte# 0.47 X10^3/uL; Monocyte% 6.4 % (0-10); NRBC Flagged by Analyzer 0 % (0-5); Neutrophil % 51.8 % (47-70); Platelet Count 280 K/mm3 (150-450); RBC Distribution Width SD 51.7 fl (35.1-43.9); Red Blood Count 4.14 M/mm3 (4.2-5.4); White Blood Count 7.3 K/mm3 (4.4-11.0)
== END 2021-06-05 23:59 | disposition short-term general hospital (02) ==
LOC: MFPLAB 15:13
PROVIDERS: PCP Family Medicine; Referring Provider Family Medicine; Visit Provider Family Medicine
DX: D64.9 Anemia, unspecified (principal)
CPT/HCPCS: 36415; 82728; 83540; 83550; 85025

== ENCOUNTER 2021-06-20 07:59 | Outpatient (CLI) | payer MEDICAID, SELFPAY ==
--- NOTE | 2021-06-20 08:11 | RAD_ITS ---
EXAM: XR ABDOMEN, 1 VIEW : 1965 CLINICAL INDICATION: agile capsule, gastrointestinal hemorrhage TECHNIQUE: Frontal supine view of the abdomen/pelvis. This report was created using [employer] report generation technology. COMPARISON: None. FINDINGS: LOWER THORAX: No acute pathology. GASTROINTESTINAL TRACT: There is a 1.6 x 1.0 cm cylindrical radiopaque foreign body overlying the pelvis compatible with an agile capsule and may be within the sigmoid colon. Depression. Agile capsule overlying the pelvis which may be within the sigmoid colon. Non-obstructive. No bowel or stomach distention. ORGANS: Unremarkable as visualized. No organomegaly. No abnormal calcifications. BONES/JOINTS: No acute pathology. SOFT TISSUES: No acute pathology. RAD/Abdomen Single View IMPRESSION: No acute findings. at 2340 Reported and signed by: Trae Cote MD Electronically Signed: Tare Cote MD at 23:39 EST ,
== END 2021-06-20 23:59 | disposition home or self-care (01) ==
PROVIDERS: PCP Family Medicine; Referring Provider Internal Medicine Gastroenterology; Visit Provider Internal Medicine Gastroenterology
DX: K92.2 Gastrointestinal hemorrhage, unspecified (principal)
CPT/HCPCS: 74018

== ENCOUNTER 2021-06-22 08:05 | Outpatient (CLI) | payer MEDICAID, SELFPAY ==
--- NOTE | 2021-06-22 08:06 | RAD_ITS ---
EXAM: XR ABDOMEN, 1 VIEW CLINICAL INDICATION: agile capsule TECHNIQUE: Frontal supine view of the abdomen/pelvis. This report was created using [employer] report generation technology. COMPARISON: 06.20.21 FINDINGS: LOWER THORAX: No acute pathology. GASTROINTESTINAL TRACT: Unremarkable. Non-obstructive. No bowel or stomach distention. ORGANS: There are multiple metallic clips in the right upper quadrant. This is consistent for a cholecystectomy. There are calcified phleboliths in the pelvis. This makes differentiation with distal ureteral stones difficult. No organomegaly. BONES/JOINTS: Degenerative findings in the lumbar spine. SOFT TISSUES: No acute pathology. OTHER FINDINGS: The agile capsule is no longer seen. However, it is beyond the life span of the capsule. Current study is 48 hrs after the last study. The agile capsule dissolves after 30 hrs. RAD/Abdomen Single View IMPRESSION: The agile capsule is no longer seen. However, it is beyond the life span of the capsule. Current study is 48 hrs after the last study. The agile capsule dissolves after 30 hrs. Electronically Signed: Travon Cruz MD at 19:27 EST ,
== END 2021-06-22 23:59 | disposition home or self-care (01) ==
LOC: RAD 08:06
PROVIDERS: PCP Family Medicine; Referring Provider Internal Medicine Gastroenterology; Visit Provider Internal Medicine Gastroenterology
DX: K92.2 Gastrointestinal hemorrhage, unspecified (principal)
CPT/HCPCS: 74018

== ENCOUNTER 2021-07-16 09:39 | Outpatient (CLI) | payer MEDICAID, SELFPAY ==
[2021-07-16 10:20] LABS: Erythrocyte Sedimentation Rate 20 mm/hr (0-30)
[2021-07-16 10:22] LABS: Absolute Lymphocyte Count 2.37 X10^3/uL (0.83-4.51); Absolute Neutrophil Count 3.5 X10^3/uL (2.0-7.7); Basophil# 0.07 X10^3/uL; Basophil% 1.1 % (0-1); Eosinophil# 0.19 X10^3/uL; Eosinophils% 2.9 % (0-5); Hematocrit 37.1 % (37-47); Hemoglobin 12.6 g/dL (12.0-15.0); Lymphocyte # 2.37 X10^3/ul (0.83-4.51); Lymphocyte % 35.9 % (19-41); Mean Corpuscular Hgb 29.2 pg (27.0-32.0); Mean Corpuscular Volume 86.1 fL (81-99); Mean Platelet Vol. 10.3 fl (6.2-12.0); Monocyte# 0.47 X10^3/uL; Monocyte% 7.1 % (0-10); NRBC Flagged by Analyzer 0 % (0-5); Neutrophil # 3.48 X10^3/uL (2.7-7.7); Neutrophil % 52.7 % (47-70); Platelet Count 267 K/mm3 (150-450); RBC Distribution Width CV 14.1 % (11.6-14.6); RBC Distribution Width SD 44.3 fl (35.1-43.9); Red Blood Count 4.31 M/mm3 (4.2-5.4); White Blood Count 6.6 K/mm3 (4.4-11.0)
[2021-07-16 10:48] LABS: ALB/GLOB Ratio 0.8 RATIO (0.9-2.4); AST(SGOT) 28 U/L (15-37); Alanine Aminotransfer ALT/SGPT 43 U/L (13-56); Albumin, Serum 3.7 g/dL (3.2-5.0); Alkaline Phosphatase 101 U/L (45-117); Anion Gap 3 (5-15); BUN 15 mg/dL (7-18); BUN/Creat Ratio 19.9 RATIO (10-20); CRP 6.73 mg/L (0.0-3.0); Calcium,Total 9.8 mg/dL (8.5-10.1); Chloride 109 mmol/L (98-107); Creatinine, Serum 0.76 mg/dL (0.55-1.02); EST Glomerular Filtration Rate 84 mL/min (>60); Est Glom Filt Rate - Afr Amer 102 mL/min (>60); Globulin 4.4 g/dL (2.2-4.2); Glucose 79 mg/dL (74-106); Potassium 4.1 mmol/L (3.5-5.1); Protein, Total 8.1 g/dL (6.4-8.2); Sodium Level 139 mmol/L (136-145)
== END 2021-07-16 23:59 | disposition home or self-care (01) ==
PROVIDERS: PCP Family Medicine; Referring Provider Nurse Practitioner Adult Health; Visit Provider Nurse Practitioner Adult Health
DX: K63.3 Ulcer of intestine (principal)
CPT/HCPCS: 36415; 80053; 85025; 85652; 86140

== ENCOUNTER 2021-07-19 07:52 | Outpatient (CLI) | payer MEDICAID, SELFPAY ==
--- NOTE | 2021-07-19 07:53 | RAD_ITS ---
PROCEDURE: Upper GI with Small Bowel Follow Through DATE OF EXAMINATION: 07/19/2021.. INDICATION: Female, 55 years old. Gastroparesis. Abdominal pain. FLUOROSCOPY TIME (if supplied): (1:38) minutes/seconds. 27 images were obtained. TECHNIQUE: Radiographic and fluoroscopic images of the distal esophagus, stomach, and entire small intestine were obtained following the oral ingestion of barium. COMPARISON: None. FINDINGS: The wood milling machine operator film of the abdomen demonstrates a normal bowel gas pattern. There are no abnormal calcifications or organomegaly demonstrated. The visualized osseous structures are normal. The esophagus is unremarkable. No evidence of obstruction. There is circumferential narrowing of the gastroesophageal junction. Correlation with endoscopy is recommended. The remainder of the stomach and duodenum are unremarkable. A single contrast small bowel follow through exam demonstrates the small bowel to have no evidence for stricture, ulceration or mass. The transit time is normal at 95 minutes. RAD/Upper GI/w Small Bowel IMPRESSION: 1. Narrowing at the gastroesophageal junction. Endoscopic correlation is recommended. Electronically Signed: Erlin Hutchinson MD at 9:44 EST ,
== END 2021-07-19 23:59 | disposition home or self-care (01) ==
LOC: RAD 07:52
PROVIDERS: PCP Family Medicine; Referring Provider Nurse Practitioner Adult Health; Visit Provider Nurse Practitioner Adult Health
DX: K31.84 Gastroparesis (principal); K63.3 Ulcer of intestine
CPT/HCPCS: 74246; 74248

== ENCOUNTER 2021-07-26 09:11 | Outpatient (CLI) | payer MEDICAID, SELFPAY ==
[2021-07-26 10:28] LABS: Absolute Lymphocyte Count 2.02 X10^3/uL (0.83-4.51); Absolute Neutrophil Count 2.9 X10^3/uL (2.0-7.7); Basophil# 0.07 X10^3/uL; Basophil% 1.3 % (0-1); Eosinophil# 0.22 X10^3/uL; Hemoglobin 13.3 g/dL (12.0-15.0); Lymphocyte # 2.02 X10^3/ul (0.83-4.51); Lymphocyte % 36.5 % (19-41); Mean Corp Hgb Conc 34.1 g/dL (32-36); Monocyte# 0.32 X10^3/uL; Monocyte% 5.8 % (0-10); NRBC Flagged by Analyzer 0 % (0-5); Neutrophil % 52.2 % (47-70); Platelet Count 296 K/mm3 (150-450); RBC Distribution Width CV 13.9 % (11.6-14.6); RBC Distribution Width SD 44.6 fl (35.1-43.9); Red Blood Count 4.43 M/mm3 (4.2-5.4); White Blood Count 5.5 K/mm3 (4.4-11.0)
[2021-07-26 11:12] LABS: ALB/GLOB Ratio 0.9 RATIO (0.9-2.4); AST(SGOT) 33 U/L (15-37); Alanine Aminotransfer ALT/SGPT 52 U/L (13-56); Albumin, Serum 3.9 g/dL (3.2-5.0); Alkaline Phosphatase 105 U/L (45-117); Anion Gap 5 (5-15); BUN 17 mg/dL (7-18); BUN/Creat Ratio 20.2 RATIO (10-20); Calcium,Total 9.5 mg/dL (8.5-10.1); Chloride 105 mmol/L (98-107); Creatinine, Serum 0.84 mg/dL (0.55-1.02); EST Glomerular Filtration Rate 74 mL/min (>60); Est Glom Filt Rate - Afr Amer 90 mL/min (>60); Ferritin 37 ng/mL (8-252); Globulin 4.3 g/dL (2.2-4.2); Glucose 80 mg/dL (74-106); Iron 70 ug/dL (50-170); Iron Binding Capacity,Total 396 ug/dL (250-450); Protein, Total 8.2 g/dL (6.4-8.2); Sodium Level 138 mmol/L (136-145); T4 Free Direct 1.16 ng/dL (0.76-1.46); Thyroid Stim Hormone (TSH) 1.16 uIU/mL (0.358-3.74)
[2021-07-26 11:35] LABS: Vitamin D,25 Hydroxy 35.1 ng/mL
[2021-07-26 12:15] LABS: AST(SGOT) 30 U/L (15-37); Alanine Aminotransfer ALT/SGPT 52 U/L (13-56); Albumin, Serum 3.9 g/dL (3.2-5.0); Alkaline Phosphatase 104 U/L (45-117); Bilirubin, Direct 0.08 mg/dL (0.00-0.30); Globulin 3.9 g/dL (2.2-4.2); Protein, Total 7.8 g/dL (6.4-8.2)
[2021-07-27 14:10] LABS: Anti-Centromere B Ab <0.2 AI (0.0-0.9); Anti-Chromatin <0.2 AI (0.0-0.9); Anti-Jo <0.2 AI (0.0-0.9); Anti-Scleroderma-70 AB <0.2 AI (0.0-0.9); RNP Ab 0.4 AI (0.0-0.9); SJOGREN'S Anti-SS-A test < 0.2 AI (0.0-0.9); SJOGREN'S Anti-SS-B test < 0.2 AI (0.0-0.9); Smith Ab <0.2 AI (0.0-0.9)
[2021-07-27 16:07] LABS: Anti-dsDNA Ab <1 IU/mL (0-9)
[2021-07-27 16:09] LABS: Endomysial Antibody IgA Negative (Negative)
[2021-07-27 21:27] LABS: Immunoglobulin A 440 mg/dL (87-352); t-Transglutaminase IgA <2 U/mL (0-3)
== END 2021-07-26 23:59 | disposition home or self-care (01) ==
PROVIDERS: PCP Family Medicine; Visit Provider Nurse Practitioner Adult Health
DX: K50.10 Crohn's disease of large intestine without complications (principal); D64.9 Anemia, unspecified; E03.8 Other specified hypothyroidism; E55.9 Vitamin D deficiency, unspecified
CPT/HCPCS: 36415; 80053; 80076; 82306; 82728; 82784; 83516; 83540; 83550; 84439; 84443; 85025; 86225; 86235; 86255

== ENCOUNTER 2021-07-30 15:31 | Outpatient (CLI) | payer MEDICAID, SELFPAY ==
[2021-08-02 20:40] LABS: Calprotectin, Stool 59 ug/g (0-120)
== END 2021-07-30 23:59 | disposition home or self-care (01) ==
LOC: LABSPEC 15:31
PROVIDERS: Nurse Practitioner Adult Health; PCP Family Medicine; Visit Provider Internal Medicine Gastroenterology
DX: K50.10 Crohn's disease of large intestine without complications (principal)
CPT/HCPCS: 83630; 83993

== ENCOUNTER → 2021-11-02 | Outpatient (CLI) | payer MEDICAID, SELFPAY ==
[2021-11-02 17:39] LABS: CRP 8.49 mg/L (0.0-3.0)
== END | disposition home or self-care (01) ==
LOC: LAB 16:14
PROVIDERS: PCP Family Medicine; Visit Provider Nurse Practitioner Adult Health
DX: K50.00 Crohn's disease of small intestine without complications (principal)
CPT/HCPCS: 36415; 86140

== ENCOUNTER → 2022-01-11 | Outpatient (CLI) | payer MEDICAID, SELFPAY ==
--- NOTE | 2022-01-11 12:45 | RAD_ITS ---
EXAM: XR RIGHT FOOT COMPLETE, 3 OR MORE VIEWS CLINICAL INDICATION: PAIN Technologist Notes right foot pain and swelling, NKI, difficulty standing for long periods of time, foot swells inside shoe and becomes painful TECHNIQUE: Frontal, lateral and oblique views of the right foot. This report was created using [employer] report generation technology. COMPARISON: None. FINDINGS: BONES/JOINTS: There is a calcaneal spur. No acute fracture. No subluxation. Normal alignment. Preservation of the joint space. No sclerotic or destructive changes observed. SOFT TISSUES: Unremarkable. No soft tissue swelling or gas. No radiopaque foreign body. RAD/Foot min 3 Views IMPRESSION: There is a calcaneal spur. Electronically Signed: Travon Cruz MD at 17:01 EDT Reading Location ID and State: [facility] / [place] , Service support ,
[2022-01-11 15:31] LABS: Vitamin B12 772 pg/mL (211-911)
[2022-01-19 17:10] LABS: VITAMIN B6 36.1 ug/L (3.4-65.2); Vitamin B1, Thiamine 213.1 nmol/L (66.5-200.0)
== END | disposition home or self-care (01) ==
PROVIDERS: PCP Family Medicine; Referring Provider Family Medicine; Visit Provider Family Medicine
DX: M79.671 Pain in right foot (principal); G62.9 Polyneuropathy, unspecified
CPT/HCPCS: 36415; 73630; 82607; 84207; 84425

== ENCOUNTER → 2022-01-28 | Outpatient (CLI) | payer MEDICAID, SELFPAY ==
--- NOTE | 2022-01-28 14:56 | NEURO ---
NCS and/or EMG Patient Report Ordering Doctor: Yordan Savage DATE OF SERVICE: 01/28/22 Indication: Numbness in the sole of the right foot for several weeks. Lateral aspect and lesser toes are involved. History of plantar fasciitis which is recurring. Findings: Nerve conduction studies were performed in the right and left lower extremities. The right peroneal motor study recording the extensor digitorum brevis showed a normal amplitude, normal distal latency and normal conduction velocity. No conduction block or focal slowing was present across the fibular neck. The right tibial motor study recording the abductor hallucis brevis showed a normal amplitude, normal distal latency and normal conduction velocity. The right tibial motor study recording the abductor digiti quinti pedis showed a normal amplitude, normal distal latency and normal conduction velocity. The right sural sensory response showed a normal amplitude and conduction velocity. The right superficial peroneal sensory response showed a normal amplitude and conduction velocity. The right medial planter mixed response showed a normal amplitude and conduction velocity. The right lateral planter mixed response showed a reduced amplitude and normal conduction velocity. The left tibial motor study recording the abductor hallucis brevis showed a normal amplitude and normal distal latency that was symmetric with the right. The left peroneal motor study recording the extensor digitorum brevis showed a normal amplitude and was symmetric with the right. The left sural sensory response showed a normal amplitude and conduction velocity. The left superficial peroneal sensory response showed a normal amplitude and conduction velocity. The left medial planter mixed response showed a normal amplitude and conduction velocity. The left lateral planter mixed response showed a normal amplitude and conduction velocity. Needle EMG of the right lower extremity muscles was performed. No denervation was present in any muscle. Motor unit morphology, activation, and recruitment patterns were normal. Impression: This is an abnormal study. 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 There is no evidence of distal tibial neuropathy across the right tarsal tunnel or lumbosacral radiculopathy in the right lower extremity. Juaquin Rubio D.O. Multi Select Codes Neurology Neurology Interp Codes: 01537-97 Musc test done w/n test comp (interp) and 25442-56 Nrv cndj test 9-10 studies (interp)
== END | disposition home or self-care (01) ==
LOC: PSN 13:32
PROVIDERS: PCP Family Medicine; Referring Provider Podiatrist; Visit Provider Podiatrist
DX: M54.16 Radiculopathy, lumbar region (principal)
CPT/HCPCS: 95886; 95912

== ENCOUNTER → 2022-02-12 | Outpatient (CLI) | payer MEDICAID, SELFPAY ==
--- NOTE | 2022-02-12 11:09 | RAD_ITS ---
HISTORY: low back pain. TECHNIQUE: XR Spine Lumbar 2 or 3 Views. COMPARISON: None. FINDINGS: VERTEBRAE: Vertebral body heights preserved. Degenerative changes of the posterior elements. ALIGNMENT: No significant anterior or posterior subluxation. INTERVERTEBRAL DISCS: Disc spaces maintained. SOFT TISSUES: Right upper quadrant surgical clips. RAD/Lumbar Spine 2 or 3 Views IMPRESSION: No acute fracture or dislocation identified in the lumbar spine. Mild degenerative change. Electronically Signed: Maday Perales MD at 15:16 EDT ,
[2022-02-12 12:23] LABS: Erythrocyte Sedimentation Rate 13 mm/hr (0-30)
[2022-02-12 12:25] LABS: Absolute Lymphocyte Count 2.92 X10^3/uL (0.83-4.51); Absolute Neutrophil Count 10.4 X10^3/uL (2.0-7.7); Basophil# 0.05 X10^3/uL; Basophil% 0.3 % (0-1); Eosinophil# 0.06 X10^3/uL; Eosinophils% 0.4 % (0-5); Hematocrit 37.7 % (37-47); Hemoglobin 12.4 g/dL (12.0-15.0); Lymphocyte # 2.92 X10^3/ul (0.83-4.51); Lymphocyte % 20.2 % (19-41); Mean Corp Hgb Conc 32.9 g/dL (32-36); Mean Corpuscular Hgb 29.5 pg (27.0-32.0); Mean Corpuscular Volume 89.8 fL (81-99); Mean Platelet Vol. 10.7 fl (6.2-12.0); Monocyte# 0.87 X10^3/uL; NRBC Flagged by Analyzer 0 % (0-5); Neutrophil # 10.42 X10^3/uL (2.7-7.7); Neutrophil % 72.3 % (47-70); Platelet Count 352 K/mm3 (150-450); RBC Distribution Width CV 13.9 % (11.6-14.6); RBC Distribution Width SD 45.1 fl (35.1-43.9); White Blood Count 14.4 K/mm3 (4.4-11.0)
[2022-02-12 12:44] LABS: Vitamin B12 790 pg/mL (211-911); Vitamin D,25 Hydroxy 27.4 ng/mL
[2022-02-12 14:24] LABS: ALB/GLOB Ratio 0.9 RATIO (0.9-2.4); AST(SGOT) 31 U/L (15-37); Alanine Aminotransfer ALT/SGPT 55 U/L (13-56); Albumin, Serum 3.9 g/dL (3.2-5.0); Alkaline Phosphatase 99 U/L (45-117); Anion Gap 8 (5-15); BUN 16 mg/dL (7-18); BUN/Creat Ratio 22.8 RATIO (10-20); Calcium,Total 9.9 mg/dL (8.5-10.1); Chloride 105 mmol/L (98-107); EST Glomerular Filtration Rate 91 mL/min (>60); Est Glom Filt Rate - Afr Amer 111 mL/min (>60); Globulin 4.3 g/dL (2.2-4.2); Glucose 96 mg/dL (74-106); Potassium 3.8 mmol/L (3.5-5.1); Protein, Total 8.2 g/dL (6.4-8.2); Rheumatoid Factor < 10.0 IU/mL (<15); Sodium Level 138 mmol/L (136-145); T4 Free Direct 1.11 ng/dL (0.76-1.46); Thyroid Stim Hormone (TSH) 0.64 uIU/mL (0.358-3.74)
[2022-02-13 16:03] LABS: ANTINUCLEAR ANTIBODIES DIRECT Negative (Negative)
== END | disposition home or self-care (01) ==
LOC: MTLAB 11:05
PROVIDERS: PCP Family Medicine; Referring Provider Family Medicine; Visit Provider Family Medicine
DX: M25.50 Pain in unspecified joint (principal); R53.83 Other fatigue; M54.50 Low back pain, unspecified
CPT/HCPCS: 36415; 72100; 80053; 82306; 82607; 84439; 84443; 85025; 85652; 86038; 86431

== ENCOUNTER → 2022-05-17 | Outpatient (CLI) | payer MEDICAID, BC, SELFPAY ==
[2022-05-17 15:06] LABS: Absolute Lymphocyte Count 2.81 X10^3/uL (0.83-4.51); Absolute Neutrophil Count 3.7 X10^3/uL (2.0-7.7); Basophil# 0.08 X10^3/uL; Basophil% 1.1 % (0-1); Eosinophil# 0.21 X10^3/uL; Eosinophils% 2.9 % (0-5); Hematocrit 37.3 % (37-47); Hemoglobin 12.2 g/dL (12.0-15.0); Lymphocyte # 2.81 X10^3/ul (0.83-4.51); Lymphocyte % 38.5 % (19-41); Mean Corp Hgb Conc 32.7 g/dL (32-36); Mean Corpuscular Volume 88.8 fL (81-99); Mean Platelet Vol. 10.5 fl (6.2-12.0); Monocyte# 0.44 X10^3/uL; NRBC Flagged by Analyzer 0.3 % (0-5); Neutrophil # 3.74 X10^3/uL (2.7-7.7); Neutrophil % 51.4 % (47-70); Platelet Count 299 K/mm3 (150-450); RBC Distribution Width CV 13.5 % (11.6-14.6); White Blood Count 7.3 K/mm3 (4.4-11.0)
[2022-05-17 15:38] LABS: Vitamin D,25 Hydroxy 33.7 ng/mL
[2022-05-17 15:50] LABS: ALB/GLOB Ratio 1.1 RATIO (0.9-2.4); AST(SGOT) 26 U/L (15-37); Alanine Aminotransfer ALT/SGPT 53 U/L (13-56); Albumin, Serum 3.9 g/dL (3.2-5.0); Alkaline Phosphatase 98 U/L (45-117); Anion Gap 6 (5-15); BUN 13 mg/dL (7-18); Calcium,Total 9.4 mg/dL (8.5-10.1); Chloride 106 mmol/L (98-107); Cholesterol 268 mg/dL (200); Creatinine, Serum 0.72 mg/dL (0.55-1.02); EST Glomerular Filtration Rate 88 mL/min (>60); Est Glom Filt Rate - Afr Amer 107 mL/min (>60); Ferritin 32 ng/mL (8-252); Globulin 3.6 g/dL (2.2-4.2); Glucose 91 mg/dL (74-106); High Density Lipoprotein 53 mg/dL; Iron 54 ug/dL (50-170); Iron Binding Capacity,Total 374 ug/dL (250-450); Potassium 3.9 mmol/L (3.5-5.1); Protein, Total 7.5 g/dL (6.4-8.2); Sodium Level 140 mmol/L (136-145); Thyroid Stim Hormone (TSH) 0.73 uIU/mL (0.358-3.74); Triglycerides 158 mg/dL; Very Low Density Lipoprotein 32 mg/dL (5-40)
== END | disposition home or self-care (01) ==
LOC: MFPLAB 14:09
PROVIDERS: PCP Family Medicine; Visit Provider Family Medicine
DX: E03.8 Other specified hypothyroidism (principal); K50.90 Crohn's disease, unspecified, without complications; E55.9 Vitamin D deficiency, unspecified
CPT/HCPCS: 36415; 80053; 80061; 82306; 82728; 83540; 83550; 84439; 84443; 85025

== ENCOUNTER → 2022-06-24 | Outpatient (CLI) | payer OTHER, MEDICAID, SELFPAY ==
--- NOTE | 2022-06-24 15:27 | BI_ITS ---
MAMMOGRAPHY - BILATERAL SCREENING REASON FOR EXAM: Female, 56 years old. Routine annual screening examination. PERTINENT HISTORY: Non-contributory. TECHNIQUE: Digital bilateral breast imani (3D mammographic acquisition) in the CC and MLO projections. 2-D mediolateral oblique (MLO) and craniocaudad (CC) views of both breasts were obtained. CAD: Full Field Digital Mammography with Computer Added Detection was performed. COMPARISON: Comparison is made with prior study dated 03/12/2021 and 02/20/2017. FINDINGS: Breast Composition: There are scattered areas of fibroglandular density. There are no dominant masses or suspicious calcifications. No other significant abnormalities are identified. There has been no significant change since the prior study. BI/SCRN MAMM (CAD)W/IMANI BILAT IMPRESSION: Stable bilateral screening mammogram. Yearly follow-up mammogram recommended. (A) ASSESSMENT CATEGORY: BIRADS Category 1: Negative. A letter regarding these results will be sent to the patient by the facility within 30 days. Approximately 10% of breast cancers are not detected by mammography. A normal mammogram should not delay biopsy of a clinically suspicious abnormality. [id number] Electronically Signed: Erlin Hutchinson MD at 8:30 EST ,
== END | disposition home or self-care (01) ==
PROVIDERS: PCP Family Medicine; Referring Provider Family Medicine; Visit Provider Family Medicine
DX: Z12.31 Encounter for screening mammogram for malignant neoplasm of breast (principal); Z12.39 Encounter for other screening for malignant neoplasm of breast
CPT/HCPCS: 77063; 77067

== ENCOUNTER → 2022-08-29 | Outpatient (CLI) | payer OTHER, MEDICAID, SELFPAY ==
[2022-08-29 17:49] LABS: Absolute Lymphocyte Count 3.13 X10^3/uL (0.83-4.51); Absolute Neutrophil Count 4.4 X10^3/uL (2.0-7.7); Basophil# 0.09 X10^3/uL; Basophil% 1.1 % (0-1); Eosinophil# 0.31 X10^3/uL; Eosinophils% 3.7 % (0-5); Hematocrit 37.7 % (37-47); Lymphocyte # 3.13 X10^3/ul (0.83-4.51); Lymphocyte % 36.9 % (19-41); Mean Corp Hgb Conc 31.8 g/dL (32-36); Mean Corpuscular Hgb 29.1 pg (27.0-32.0); Mean Corpuscular Volume 91.3 fL (81-99); Monocyte# 0.57 X10^3/uL; Monocyte% 6.7 % (0-10); NRBC Flagged by Analyzer 0 % (0-5); Neutrophil # 4.36 X10^3/uL (2.7-7.7); Neutrophil % 51.4 % (47-70); Platelet Count 297 K/mm3 (150-450); RBC Distribution Width CV 13.9 % (11.6-14.6); RBC Distribution Width SD 46.7 fl (35.1-43.9); Red Blood Count 4.13 M/mm3 (4.2-5.4); White Blood Count 8.5 K/mm3 (4.4-11.0)
[2022-08-29 18:09] LABS: Vitamin D,25 Hydroxy 33.6 ng/mL
[2022-08-29 18:10] LABS: ALB/GLOB Ratio 0.9 RATIO (0.9-2.4); AST(SGOT) 38 U/L (15-37); Alanine Aminotransfer ALT/SGPT 70 U/L (13-56); Albumin, Serum 3.6 g/dL (3.2-5.0); Alkaline Phosphatase 103 U/L (45-117); Anion Gap 4 (5-15); BUN 16 mg/dL (7-18); BUN/Creat Ratio 23.6 RATIO (10-20); Calcium,Total 9.1 mg/dL (8.5-10.1); Chloride 108 mmol/L (98-107); Creatinine, Serum 0.68 mg/dL (0.55-1.02); EST Glomerular Filtration Rate 95 mL/min (>60); Est Glom Filt Rate - Afr Amer 115 mL/min (>60); Globulin 4.1 g/dL (2.2-4.2); Glucose 95 mg/dL (74-106); Potassium 3.9 mmol/L (3.5-5.1); Protein, Total 7.7 g/dL (6.4-8.2); Sodium Level 137 mmol/L (136-145); T4 Free Direct 1.01 ng/dL (0.76-1.46); Thyroid Stim Hormone (TSH) 2.22 uIU/mL (0.358-3.74)
== END | disposition home or self-care (01) ==
PROVIDERS: PCP Family Medicine; Visit Provider Family Medicine
DX: E03.8 Other specified hypothyroidism (principal); E55.9 Vitamin D deficiency, unspecified
CPT/HCPCS: 36415; 80053; 82306; 84439; 84443; 85025

== ENCOUNTER 2022-09-02 17:00 | Outpatient (RCR) | payer OTHER, MEDICAID, SELFPAY ==
--- NOTE | 2022-08-26 16:06 | HP.PTEVAL ---
Patient's Visit Information HECTOR MUNSON is a 57 year old F referred to Physical Therapy by Dr. Nataliya Encarnacion MD with a diagnosis of MIXED INCONTINENCE and OVER-ACTIVE BLADDER. Date of Evaluation: 08/26/22 Physical Therapist: Maggie Shoemaker PT, Cert MDT - Visit Plan Frequency: 1x/Week Duration: 8-12 WKS Plan: INTERNAL VAGINAL PF STENGTH AND ENDURANCE TESTING NEEDED/AGREED TO BY PATIENT. PELVIC FLOOR STRENGTHENING. URINARY RETENTION, URGE AND FREQUENCY EDUCATION. HEALTHY BLADDER HABIT EDUCATION. TRAINING IN COORDINATION OF PELVIC FLOOR MUSCULATURE WITH HIP AND CORE (TRANSVERSE ABDOMINUS) MUSCULATURE. POSTURE CORRECTION/STRENGTHENING. CORE STRENGTHENING. ILYA LE ROM, STRETCHING AND STRENGTHENING. TRAINING IN ABDOMINAL CAVITY PRESSURE MGMT WITH ADL'S. 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 MOSTLY SITTING. CAN STAND NEEDED. Present symptoms: URINE LEAKAGE. ONLY HAS ABOUT 30 SEC TO GET FROM BED TO BATHROOM IN THE MORING. INTERMITTENT PELVIC PAIN BUT NOT DAILY. Present since: YEARS AGO. Pain Scale: WORST 3/10, LEAST 0/10. Currently: 0/10. Is it getting better, worse or staying the same: GETTING WORSE WITH COUGHING OR SNEEZING BUT FREQUENCY AND URGENCY HAS IMPROVED A LITTLE BIT SINCE STARTING GEMTESA. Commenced as a result of: NO APPARENT REASON. Worse: SNEEZING, COUGHING, LAUGHING, EXERCISING, JUMPING. Better: NO. Disturbed sleep: GETTING UP TO URINATE AT NIGHT ONCE A NIGHT OR LESS. Previous history/Previous treatment: UNREMARKABLE. Treatment this episode: MEDICINE BY DR. BEASLEY (HELPED FOR AWHILE) AND NEW MED PRESCRIBED BY DR. ENCARNACION JUN 2022 - G[facility] - PLANS TO CONTINUE. Coughing/sneezing/straining: POSITIVE FOR LEAKING. Gait: Can't walk for exercise due to leaking. How long can you delay the need to urinate: ABOUT 30 MIN MAX. Prolapse (Falling out feeling): NO. Frequency of Urination: ABOUT EVERY 2 HOURS TODAY. Ability to stop urine flow: DO NOT KNOW. Ability to initiate urine stream: NO. Dyspareunia: Occasionally. Bowel Incontinence: ONCE IN A GREAT WHILE - UNDER THE CARE OF [facility] Specialists. Accidents: No. Unexplained weight loss: No. Imaging: NO RECENT IMAGING OF BACK, HIPS OR PELVIS BUT HAS REGULAR CT'S OF ABDOMEN AND OTHER BOWEL TESTS. PMH/Recent major surgery: Iman's Dz with severe constipation. THYROID DZ. OTHER: PATIENT REPORTS DR. ENCARNACION DISCUSSED THE POSSIBLE NEED FOR SURGERY WITH HER. - Objective Sitting/Standing Posture: POOR. REDUCED LUMBAR LORDOSIS BUT NO RELEVANT LATERAL SHIFT. Other Observations: INDEP GAIT AND TRANSFERS. Sensory deficit: ILYA LE LIGHT TOUCH SENSATION GROSSLY INTACT AND SYMMETRICAL. ROM deficit: TIGHTNESS ILYA HS'S AND GASTROC SOLEUS COMPLEX'S. ILYA HIP ADDUCTION TIGHTNESS. ILYA PIRIFORMIS TIGHTNESS. Motor deficit: ILYA LE'S GROSSLY 5/5 WITH MMT'ING EXCEPT HIPS 4/5. SUBJECTIVELY COMMUNICATES POOR PF STRENGTH AND ENDURANCE. Reflexes: UNABLE TO ELICIT ILYA LE DTR'S. Dural Signs: POSITIVE RIGHT LE. Lumbar mvmt loss: flex - MIN. ext - TELMA. R SG - MOD. L SG - MOD. Core strength: POOR. Palpation: TENDERNESS WITH LIGHT PALPATION OF THE L345 REGIONS. PATIENT DENIES HISTORY OF LOW BACK PROBLEMS. OTHER: PATIENT COMMUNICATES A GOOD UNDERSTANDING OF WHAT A PF CONTRACTION IS. FUNCTIONAL SCREEN: Incontinence Impact Questionnaire Score: 7. Urogenital Distress Inventory Score: 7 - Goals Goal 1:: DECREASE URINARY LEAKAGE EPISODES TO ONE OR LESS PER DAY Goal Time Frame: 8-12 Weeks Goal 2:: PATIENT WILL SUCCESSFULLY DELAY VOIDING FOR 30 MINUTES WHEN URGENCY OCCURS Goal Time Frame: 2-4 Weeks Goal 3:: PATIENT WILL HAVE INCREASED PELVIC FLOOR MUSCLE STRENGTH GRADE TO 5/5 Goal Time Frame: 6-8 Weeks Goal 4:: PATIENT WILL DEMONSTRATE/COMMUNICATE 10 CONSISTENT AND CONSECUTIVE 10 SECOND PELVIC FLOOR MUSCLE CONTRACTIONS TO DEMONSTRATE IMPROVED PELVIC FLOOR ENDURANCE. Goal Time Frame: 8-12 Weeks Goal 5:: DEVELOP HEALTHY FLUID INTAKE HABITS WITH FLUID INTAKE OF ? BODY WEIGHT IN OUNCES PER DAY AND 2/3 BEING WATER. NORMALIZE VOIDING FREQUENCEY TO EVERY 3-4 HOURS. Goal Time Frame: 4-6 Weeks Goal 6:: PATIENT WILL BE INDEP WITH A HEP/HOME INSTRUCTIONS FOR CONTINUED IMPROVEMENT ONCE FORMAL PHYSICAL THERAPY CONCLUDES. Goal Time Frame: 8-12 Weeks - Anticipated Interventions Patient/Client Instruction: Educate patient on: Condition, Plan of Care, Risk Factors For the Purpose of:: To improve self management Therapeutic Exercise to Include: Strength training, Endurance training, Coordination, Body mechanics, Postural training, Flexibilty training, Neuromotor development For the Purpose of:: To increase ROM, To improve muscle performance and motor function, To improve performance and independence with ADL's, To improve ability of physical actions for home/community/work/leisure Manual Therapy Techniques to Include: Trigger point massage, Soft tissue mobilization, Other Comment: STM, TRIGGER POINT RELEASE AND BIOFEEDBACK NEEDED. For the Purpose of:: To decrease pain, To increase ROM, To improve muscle performance and motor function Thank you for the opportunity to evaluate your patient. For Medicare and Medicare HMO plans, please review the plan of care and approve it. It will need to be FAXED BACK to us at [phone] for Medicare purposes. For Medicare only, by signing this I certify the plan of care. Please let me know if there are questions or concerns regarding this plan of care. Physician Signature: Date:
--- NOTE | 2022-11-04 09:58 | HP.PT.NRP ---
HECTOR MUNSON was seen in my office for initial evaluation on 08/26/22. The following Plan of Care was established for this patient: Initial Frequency: 1x/Week Initial Duration: 8-12 WKS Patient/Client Instruction: Educate patient on: Condition, Plan of Care, Risk Factors For the Purpose of:: To improve self management Therapeutic Exercise to Include: Strength training, Endurance training, Coordination, Body mechanics, Postural training, Flexibilty training, Neuromotor development For the Purpose of:: To increase ROM, To improve muscle performance and motor function, To improve performance and independence with ADL's, To improve ability of physical actions for home/community/work/leisure Manual Therapy Techniques to Include: Trigger point massage, Soft tissue mobilization, Other Comment: STM, TRIGGER POINT RELEASE AND BIOFEEDBACK NEEDED. For the Purpose of:: To decrease pain, To increase ROM, To improve muscle performance and motor function This patient was last seen in our office 08/26/22. Pertinent comments regarding their Physical therapy will appear below: This patient has not returned to Physical Therapy and is appropriate to return to MD for further follow-up as needed. At this point I will be discontinuing this patient from physical therapy. I would be happy to see this patient again in the future if found appropriate by the physician. Thank you! Maggie Shoemaker, PT, Cert MDT
== END 2022-09-02 19:00 | disposition home or self-care (01) ==
LOC: PT 17:00
PROVIDERS: PCP Family Medicine; Referring Provider Urology; Visit Provider Urology
DX: N39.46 Mixed incontinence (principal); N32.81 Overactive bladder
CPT/HCPCS: 97162; 97530

== ENCOUNTER → 2022-09-20 | Outpatient (CLI) | payer OTHER, MEDICAID, SELFPAY ==
--- NOTE | 2022-09-20 | CYSPIN_PTH ---
PATIENT: HECTOR MUNSON LOC: [facility] U#:[id number] AGE/SX: 57/F ROOM: RE09/20/[address]: Dr. Nataliya Encarnacion MD : 1965 BED: DIS: 09/20/2022 SPEC #: [id number] RECD: 09/20/22 13:17 STATUS: BAKARI SAHA #: [id number] AALIYAH: 09/20/22 00:[address]: Nataliya Encarnacion DEPT: CYTOLOGY RECD BY: Farideh Moreno ENTERED: 09/20/22 13:18 SP TYPE: CYSPIN FL OTHR DR: Dr. Ralph Nava MD Tissues: Urine Procedures: Pap Stain (control) Special Stain Group II Cytospin Fluid HEADER OPERATION: Not noted PRE-OP DIAGNOSIS: Gross hematuria TISSUE SUBMITTED: Urine for cytology DIAGNOSIS CYTOLOGY Urine for cytology (cytospin): Negative for high-grade urothelial carcinoma (AKGUC), Padmini System Category II. Acute inflammation. See comment. SJ:bhumika 09/20/2022 COMMENT The Padmini System for urine cytology diagnostic categorization was used in the evaluation of this case. CYTOLOGY STUDY Slides are reviewed. CYTOLOGY GROSS Received is 70 ml of yellow cloudy fluid labeled with the patient's name and and designated per the requisition as urine. Submitted for cytology preparation. / bhumika 09/20/2022 TC:2 CPT: 22966
[2022-09-20 12:16] LABS: Cytology, Body Fluid / CSF SEE PATHOLOGY REPORT
== END | disposition home or self-care (01) ==
LOC: LABSPEC 11:19
PROVIDERS: PCP Family Medicine; Referring Provider Urology; Visit Provider Urology
DX: R31.0 Gross hematuria (principal)
CPT/HCPCS: 88108; 88313

== ENCOUNTER → 2022-09-26 | Outpatient (CLI) | payer OTHER, MEDICAID, SELFPAY | END | disposition home or self-care (01) | LOC: SL 10:25 | PROVIDERS: PCP Family Medicine; Referring Provider Internal Medicine; Visit Provider Internal Medicine | DX: G47.33 Obstructive sleep apnea (adult) (pediatric) (principal) | CPT/HCPCS: 95806 ==

== ENCOUNTER → 2022-10-01 | Outpatient (CLI) | payer OTHER, MEDICAID, SELFPAY ==
--- NOTE | 2022-10-01 17:24 | CT_ITS ---
STUDY: CT ABDOMEN AND PELVIS WITH AND WITHOUT CONTRAST REASON FOR EXAM: Female, 57 years old. HEMATURIA RADIATION DOSAGE (If Supplied By Facility): CTDIvol = ( 26.06 ) mGy, DLP = ( 3816.56 ) mGycm TECHNIQUE: Transaxial images were obtained from the dome of the diaphragm to the symphysis pubis without oral contrast. IV 100mL Isovue-370 was administered. Sagittal and coronal images were reconstructed. Individualized dose optimization techniques were used for this CT. COMPARISON: None. FINDINGS: The visualized lung bases are unremarkable. The visualized portions of the heart are within normal limits. There is decreased attenuation of the liver consistent with steatosis. There is hepatomegaly. There are surgical clips in the gallbladder fossa consistent with a prior cholecystectomy. Normal spleen. Normal pancreas. Normal bilateral adrenal glands. Normal right kidney. Normal left kidney. Evaluation of the GI tract is limited by absence of oral contrast. Cannot exclude stomach wall thickening. No dilated loops of bowel or evidence for obstruction. Cannot exclude segmental thickening of the bauman of the small or large bowel. Cannot exclude enteritis or colitis. Moderate diffuse fecal retention. Diverticulosis without definite diverticulitis. Appendix within normal limits. There is diffuse atherosclerotic calcification of the abdominal aorta, without a demonstrated aneurysm. Normal inferior vena cava. Normal retroperitoneum. Normal urinary bladder. There is absence of the uterus consistent with a prior hysterectomy. Normal abdominal wall. There are diffuse degenerative changes of the visualized lumbar spine. There is a compression fracture which appears chronic. CT/CT Abd/Pelvis W/WO Contrast IMPRESSION: No definite acute or significant abnormality seen. Electronically Signed: Harinder Ma MD at 20:31 EDT ,
== END | disposition home or self-care (01) ==
LOC: CT 17:20
PROVIDERS: PCP Family Medicine; Referring Provider Urology; Visit Provider Urology
DX: R31.0 Gross hematuria (principal)
CPT/HCPCS: 74178; Q9967

== ENCOUNTER → 2022-10-15 | Outpatient (CLI) | payer OTHER, MEDICAID, SELFPAY ==
--- NOTE | 2022-10-15 15:58 | RAD_ITS ---
EXAM: XR CHEST, 2 VIEWS CLINICAL INDICATION: bronchitis TECHNIQUE: Frontal and lateral views of the chest. COMPARISON: January 27, 2020 FINDINGS: LUNGS AND PLEURAL SPACES: Unremarkable. No consolidation or edema. No pneumothorax. No effusion. HEART: Unremarkable. Cardiac silhouette not enlarged. MEDIASTINUM: Central airways and mediastinal contour are unremarkable. BONES/JOINTS: Unremarkable. SOFT TISSUES: Cholecystectomy clips. Previously seen hiatal hernia is no longer apparent. RAD/Chest PA and Lateral IMPRESSION: No radiographic evidence of acute cardiopulmonary disease. Electronically Signed: Parris Schmitz MD at 8:42 EDT ,
== END | disposition home or self-care (01) ==
LOC: MTRAD 15:58
PROVIDERS: PCP Family Medicine; Referring Provider Family Medicine; Visit Provider Family Medicine
DX: J20.9 Acute bronchitis, unspecified (principal)
CPT/HCPCS: 71046

== ENCOUNTER → 2022-10-21 | Outpatient (CLI) | payer OTHER, MEDICAID, SELFPAY ==
--- NOTE | 2022-10-21 08:27 | CT_ITS ---
STUDY: LOW DOSE CT LUNG CANCER SCREENING REASON FOR EXAM: Female, 57 years old. 33 pack-year history of smoking, quit 11 years ago RADIATION DOSAGE (If Supplied By Facility): CTDIvol = ( 3.02 ) mGy, DLP = ( 81.96 ) mGycm TECHNIQUE: No contrast was administered. Low dose technique was utilized (average mAS-38 and kVp 120). 1.25 mm axial source images with a slice interval of 1.25-mm were reconstructed in lung windows. 2.5 mm axial source images with a slice interval of 2.5-mm were reconstructed in lung windows. 5.0 mm axial source images with a slice interval of 5.0-mm were reconstructed in soft tissue windows. COMPARISON: 03/01/2021 Findings: Lung windows show lungs to be normally expanded. No suspicious noncalcified mass or nodule noted. Previously identified noncalcified 2 mm nodules in the upper lobes not seen on current study perhaps due to differences in technique. There are some subtle patchy airspace opacifications in both lower lung chisholm suggesting multifocal pneumonitis. No organized infiltrate or effusion. The limited soft tissue windows show a normal-appearing thyroid gland. No suspicious axillary, mediastinal, or perihilar adenopathy. No calcified coronary vessels are noted. Limited cuts to the upper abdomen do not show a suspicious abnormality. There has been a previous cholecystectomy. Bony structures show degenerative change CT/Low Dose CT Lung Screening IMPRESSION: Lung-RADS category 2 - Continue annual screening with LDCT in 12 months. IMPORTANT NOTES FOR USE: ACR Lung-RADS Version 1.1 Assessment Categories Release Date: 2018 Category: Coded 0-4 bases on nodule(s) with highest degree of suspicion. Negative screen is defined as categories 1 and 2; a positive screen is defined as categories 3 and 4. Category 3 and 4A nodules that are unchanged on interval CT should be coded as category 2, and individuals returned to screening in 12 months. Category 4X: Category 3 or 4 nodules with additional imaging findings that increase the suspicion of lung cancer, such as spiculation, GGN that doubles in size in 1 year, enlarged lymph notes, etc. Category Modifiers: S (significant finding unrelated to lung cancer) Electronically Signed: Herbert Alvarenga MD at 9:03 EDT ,
== END | disposition home or self-care (01) ==
LOC: CT 08:22
PROVIDERS: PCP Family Medicine; Referring Provider Family Medicine; Visit Provider Family Medicine
DX: Z87.891 Personal history of nicotine dependence (principal)
CPT/HCPCS: 71271

== ENCOUNTER → 2022-12-03 | Outpatient (CLI) | payer OTHER, MEDICAID, SELFPAY ==
--- NOTE | 2022-12-03 11:10 | RAD_ITS ---
ACR Level 3 findings have been noted. An addendum which confirms receipt of the report will follow. INDICATION: pain EXAMINATION/TECHNIQUE: X-RAY - RIGHT XR Knee Complete 4 Views or More 4 VIEWS COMPARISON: FINDINGS: SOFT TISSUES: No soft tissue swelling or gas. No radiopaque foreign body. BONES/JOINTS: No acute fracture or subluxation.. Normal alignment There is moderate medial and mild lateral patellofemoral joint space narrowing. There is a small suprapatellar joint effusion. There is nonspecific cortical thickening in the proximal shaft of the fibula. RAD/Knee 4 or More Views IMPRESSION: Degenerative changes. Joint effusion. There is nonspecific cortical thickening in the proximal shaft of the fibula. MRI may be helpful for further characterization. Electronically Signed: Yordan Lan, at 12:01 EDT ,
--- NOTE | 2022-12-03 11:10 | RAD_ITS ---
INDICATION: pain EXAMINATION/TECHNIQUE: X-RAY - RIGHT XR Forearm 2 Views 2 VIEWS COMPARISON: FINDINGS: SOFT TISSUES: No soft tissue swelling or gas. No radiopaque foreign body. BONES/JOINTS: No acute fracture or subluxation.. Normal alignment. Preservation of the joint space.. No sclerotic or destructive changes observed. RAD/Forearm 2 Views IMPRESSION: Negative. Electronically Signed: Yordan Lan, at 11:59 EDT ,
--- NOTE | 2022-12-03 11:12 | RAD_ITS ---
INDICATION: pain EXAMINATION/TECHNIQUE: X-RAY - RIGHT XR Shoulder Min 2 Views 4 VIEWS COMPARISON: No relevant prior comparison study available FINDINGS: SOFT TISSUES: No soft tissue swelling or gas. No radiopaque foreign body. BONES/JOINTS: No acute fracture or subluxation.. Normal alignment. Mild degenerative changes of the glenohumeral and acromioclavicular joints.. No sclerotic or destructive changes observed. RAD/Shoulder min 2 Views IMPRESSION: No acute abnormalities. 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 Electronically Signed: Juaquin Noriega MD at 22:20 EDT ,
== END | disposition home or self-care (01) ==
LOC: MTRAD 11:07
PROVIDERS: PCP Family Medicine; Referring Provider Family Medicine; Visit Provider Family Medicine
DX: S49.91XA Unspecified injury of right shoulder and upper arm, initial encounter (principal); J20.9 Acute bronchitis, unspecified; S89.91XA Unspecified injury of right lower leg, initial encounter; S59.911A Unspecified injury of right forearm, initial encounter
CPT/HCPCS: 73030; 73090; 73564

== ENCOUNTER → 2022-12-04 | Outpatient (CLI) | payer OTHER, MEDICAID, SELFPAY ==
--- NOTE | 2022-12-04 15:20 | CT_ITS ---
STUDY: CT BRAIN WITHOUT CONTRAST REASON FOR EXAM: Female, 57 years old. TBI, nausea, [place] RADIATION DOSAGE (If Supplied By Facility): CTDIvol = ( 47.06 ) mGy, DLP = ( 872.68 ) mGycm TECHNIQUE: Transaxial CT imaging of the brain was performed without administration of intravenous contrast material. Individualized dose optimization techniques were used for this CT. COMPARISON: Comparison is made with prior study dated April 15, 2016. FINDINGS: Normal soft tissue structures. Normal calvarium. Normal size ventricles and extra-axial spaces for the patient''s age. Normal white matter tracts of the cerebral hemispheres. Normal basal ganglia and thalami. Normal brainstem. Normal cerebellum. There is no intracranial hemorrhage. There are no findings of an acute ischemic infarction. Normal visualized paranasal sinuses. CT/Brain/Head without Contrast IMPRESSION: Normal unenhanced CT scan of the brain. Electronically Signed: Erlin Hutchinson MD at 15:42 EDT ,
== END | disposition home or self-care (01) ==
LOC: CT 15:20
PROVIDERS: PCP Family Medicine; Referring Provider Family Medicine; Visit Provider Family Medicine
DX: S06.9XAA Unspecified intracranial injury with loss of consciousness status unknown, initial encounter (principal)
CPT/HCPCS: 70450

== ENCOUNTER → 2023-01-02 | Outpatient (CLI) | payer OTHER, MEDICAID, SELFPAY ==
[2023-01-02 07:12] LABS: Absolute Lymphocyte Count 1.58 X10^3/uL (0.83-4.51); Absolute Neutrophil Count 3.8 X10^3/uL (2.0-7.7); Basophil# 0.06 X10^3/uL; Eosinophil# 0.21 X10^3/uL; Eosinophils% 3.5 % (0-5); Hematocrit 38.1 % (37-47); Hemoglobin 12.6 g/dL (12.0-15.0); Lymphocyte # 1.58 X10^3/ul (0.83-4.51); Lymphocyte % 26.3 % (19-41); Mean Corp Hgb Conc 33.1 g/dL (32-36); Mean Corpuscular Hgb 29.7 pg (27.0-32.0); Mean Corpuscular Volume 89.9 fL (81-99); Mean Platelet Vol. 10.4 fl (6.2-12.0); Monocyte# 0.36 X10^3/uL; NRBC Flagged by Analyzer 0 % (0-5); Neutrophil # 3.79 X10^3/uL (2.7-7.7); Platelet Count 234 K/mm3 (150-450); RBC Distribution Width CV 14.1 % (11.6-14.6); RBC Distribution Width SD 46.6 fl (35.1-43.9); Red Blood Count 4.24 M/mm3 (4.2-5.4)
[2023-01-02 07:41] LABS: ALB/GLOB Ratio 0.9 RATIO (0.9-2.4); AST(SGOT) 30 U/L (15-37); Alanine Aminotransfer ALT/SGPT 48 U/L (13-56); Albumin, Serum 3.6 g/dL (3.2-5.0); Alkaline Phosphatase 122 U/L (45-117); Anion Gap 8 (5-15); BUN 16 mg/dL (7-18); BUN/Creat Ratio 19.6 RATIO (10-20); Calcium,Total 8.8 mg/dL (8.5-10.1); Chloride 109 mmol/L (98-107); Cholesterol 212 mg/dL (200); Creatinine, Serum 0.82 mg/dL (0.55-1.02); EST Glomerular Filtration Rate 76 mL/min (>60); Est Glom Filt Rate - Afr Amer 93 mL/min (>60); Globulin 3.8 g/dL (2.2-4.2); Glucose 101 mg/dL (74-106); High Density Lipoprotein 45 mg/dL; Potassium 3.7 mmol/L (3.5-5.1); Protein, Total 7.4 g/dL (6.4-8.2); Sodium Level 142 mmol/L (136-145); Triglycerides 141 mg/dL; Very Low Density Lipoprotein 28 mg/dL (5-40)
[2023-01-02 07:53] LABS: Thyroid Stim Hormone (TSH) 3.11 uIU/mL (0.358-3.74)
[2023-01-02 08:02] LABS: Vitamin D,25 Hydroxy 34.2 ng/mL
== END | disposition home or self-care (01) ==
LOC: PAT 01-30 15:19
PROVIDERS: Anesthesiology; PCP Family Medicine; Referring Provider Urology; Visit Provider Urology
DX: Z01.818 Encounter for other preprocedural examination (principal); E03.8 Other specified hypothyroidism; E55.9 Vitamin D deficiency, unspecified
CPT/HCPCS: 36415; 80053; 80061; 82306; 84439; 84443; 85025; 93005

== ENCOUNTER → 2023-03-25 | Outpatient (CLI) | payer OTHER, SELFPAY ==
--- NOTE | 2023-03-25 16:53 | RAD_ITS ---
INDICATION: PAIN EXAMINATION/TECHNIQUE: X-RAY - RIGHT XR Shoulder Min 2 Views COMPARISON: XR right shoulder December 03, 2022 FINDINGS: 2 views of the right shoulder were obtained. No acute fracture is identified. No dislocation. Moderate degenerative changes of the acromioclavicular joint. RAD/Shoulder min 2 Views IMPRESSION: No acute fracture or dislocation identified. Electronically Signed: Samir Jackson MD at 21:06 EST ,
--- NOTE | 2023-03-25 16:53 | RAD_ITS ---
INDICATION: LOW BACK PAIN EXAMINATION/TECHNIQUE: X-RAY - XR Spine Lumbar 2 or 3 Views COMPARISON: XR lumbar spine February 12, 2022 FINDINGS: 3 views of the lumbar spine were obtained. No acute fracture identified. Mild degenerative changes. RAD/Lumbar Spine 2 or 3 Views IMPRESSION: No acute fracture identified. Electronically Signed: Samir Jackson MD at 0:50 EST ,
--- NOTE | 2023-03-25 16:53 | RAD_ITS ---
INDICATION: NECK PAIN EXAMINATION/TECHNIQUE: X-RAY - XR Spine Cervical 5 Views COMPARISON: None. LIMITATIONS: The C7-T1 level is not well visualized on the lateral and oblique views. FINDINGS: 5 views of the cervical spine were obtained. The C7-T1 level is not well visualized on the lateral and oblique views. No prevertebral soft tissue swelling. No acute fracture identified. Mild degenerative change. Mild left neural foraminal narrowing at C4-5. RAD/Cerv Spine 4 or 5 Views IMPRESSION: No acute fracture identified. Mild degenerative changes. The C7-T1 level is not well evaluated. Electronically Signed: Samir Jackson MD at 0:35 EST ,
--- NOTE | 2023-03-25 17:00 | RAD_ITS ---
INDICATION: PAIN EXAMINATION/TECHNIQUE: X-RAY - LEFT XR Shoulder 2 Views COMPARISON: None. FINDINGS: 2 views of the left shoulder were obtained. No acute fracture is identified. No dislocation. Mild degenerative changes of the acromioclavicular joint. RAD/Shoulder min 2 Views IMPRESSION: No acute fracture or dislocation identified. Electronically Signed: Samir Jackson MD at 0:56 EST ,
[2023-03-25 17:53] LABS: Erythrocyte Sedimentation Rate 17 mm/hr (0-30)
[2023-03-25 18:14] LABS: ALB/GLOB Ratio 0.9 RATIO (0.9-2.4); AST(SGOT) 27 U/L (15-37); Alanine Aminotransfer ALT/SGPT 44 U/L (13-56); Albumin, Serum 3.6 g/dL (3.2-5.0); Alkaline Phosphatase 107 U/L (45-117); Anion Gap 8 (5-15); BUN 14 mg/dL (7-18); BUN/Creat Ratio 17.2 RATIO (10-20); CPK Total, Creatine Kinase 127 U/L (26-192); Chloride 105 mmol/L (98-107); Creatinine, Serum 0.81 mg/dL (0.55-1.02); EST Glomerular Filtration Rate 77 mL/min (>60); Est Glom Filt Rate - Afr Amer 93 mL/min (>60); Ferritin 47 ng/mL (8-252); Globulin 4.2 g/dL (2.2-4.2); Glucose 83 mg/dL (74-106); Magnesium 2.1 mg/dL (1.6-2.6); Potassium 3.6 mmol/L (3.5-5.1); Protein, Total 7.8 g/dL (6.4-8.2); Sodium Level 140 mmol/L (136-145); Thyroid Stim Hormone (TSH) 1.54 uIU/mL (0.358-3.74)
[2023-03-27 12:09] LABS: ANTINUCLEAR ANTIBODIES DIRECT Negative (Negative)
== END | disposition home or self-care (01) ==
PROVIDERS: PCP Family Medicine; Referring Provider Family Medicine; Visit Provider Family Medicine
DX: M54.2 Cervicalgia (principal); M25.519 Pain in unspecified shoulder; M54.50 Low back pain, unspecified
CPT/HCPCS: 36415; 72050; 72100; 73030; 80053; 82550; 82728; 83735; 84443; 85652; 86038

== ENCOUNTER → 2023-07-03 | Outpatient (CLI) | payer OTHER, SELFPAY ==
[2023-07-03 11:21] LABS: Erythrocyte Sedimentation Rate 9 mm/hr (0-30)
[2023-07-03 12:26] LABS: ALB/GLOB Ratio 0.9 RATIO (0.9-2.4); AST(SGOT) 31 U/L (15-37); Alanine Aminotransfer ALT/SGPT 48 U/L (13-56); Albumin, Serum 3.7 g/dL (3.2-5.0); Alkaline Phosphatase 108 U/L (45-117); Anion Gap 6 (5-15); BUN 19 mg/dL (7-18); BUN/Creat Ratio 22.9 RATIO (10-20); CRP 7.16 mg/L (0.0-3.0); Calcium,Total 9.2 mg/dL (8.5-10.1); Chloride 108 mmol/L (98-107); Creatinine, Serum 0.83 mg/dL (0.55-1.02); EST Glomerular Filtration Rate 75 mL/min (>60); Est Glom Filt Rate - Afr Amer 91 mL/min (>60); Globulin 4.1 g/dL (2.2-4.2); Glucose 92 mg/dL (74-106); Potassium 3.9 mmol/L (3.5-5.1); Protein, Total 7.8 g/dL (6.4-8.2); Sodium Level 141 mmol/L (136-145); T4 Free Direct 1.14 ng/dL (0.76-1.46); Thyroid Stim Hormone (TSH) 2.33 uIU/mL (0.358-3.74)
[2023-07-08 02:07] LABS: Endomysial Antibody IgA Negative (Negative); Immunoglobulin A 400 mg/dL (87-352); Immunoglobulin E 3 IU/mL (6-495); Immunoglobulin G 1202 mg/dL (586-1602); Immunoglobulin M 126 mg/dL (26-217); t-Transglutaminase IgA <2 U/mL (0-3)
[2023-07-08 11:09] LABS: Beef <0.10 kU/L (Class 0); Chocolate <0.10 kU/L (Class 0); Codfish <0.10 kU/L (Class 0); Corn <0.10 kU/L (Class 0); Egg, Whole <0.10 kU/L (Class 0); Milk (Cow) <0.10 kU/L (Class 0); Mussels <0.10 kU/L (Class 0); Peanut <0.10 kU/L (Class 0); Pork <0.10 kU/L (Class 0); Salmon <0.10 kU/L (Class 0); Shrimp <0.10 kU/L (Class 0); Soybean <0.10 kU/L (Class 0); Tuna <0.10 kU/L (Class 0); Wheat <0.10 kU/L (Class 0)
== END | disposition home or self-care (01) ==
PROVIDERS: PCP Family Medicine; Referring Provider Internal Medicine Gastroenterology; Visit Provider Internal Medicine Gastroenterology
DX: K50.90 Crohn's disease, unspecified, without complications (principal)
CPT/HCPCS: 36415; 80053; 82784; 82785; 83516; 84439; 84443; 85652; 86003; 86005; 86140; 86255

== ENCOUNTER → 2023-09-03 | Outpatient (CLI) | payer OTHER, SELFPAY ==
--- NOTE | 2023-09-03 09:34 | RAD_ITS ---
STUDY: X-RAY CHEST REASON FOR EXAM: Female, 58 years old. cough TECHNIQUE: PA and lateral views of the chest. COMPARISON: 10/15/2022 FINDINGS: The lungs are clear and expanded. There is no demonstrated pleural abnormality. Normal size heart. Normal mediastinum and chelsi. Normal visualized pulmonary arteries. Normal visualized aortic arch and descending thoracic aorta. Normal visualized thoracic spine. Normal visualized ribs, clavicles, and shoulders. There is no demonstrated abnormality of the visualized soft tissue structures of the upper abdomen. RAD/Chest PA and Lateral IMPRESSION: Normal x-ray examination of the chest. Electronically Signed: Lyle Warren MD at 23:33 EDT ,
== END | disposition home or self-care (01) ==
PROVIDERS: PCP Family Medicine; Referring Provider Family Medicine; Visit Provider Family Medicine
DX: J20.9 Acute bronchitis, unspecified (principal)
CPT/HCPCS: 71046

== ENCOUNTER → 2024-02-17 | Outpatient (CLI) | payer OTHER, SELFPAY ==
[2024-02-17 17:26] LABS: Absolute Lymphocyte Count 3.12 X10^3/uL (0.83-4.51); Absolute Neutrophil Count 3.6 X10^3/uL (2.0-7.7); Basophil# 0.09 X10^3/uL; Basophil% 1.2 % (0-1); Eosinophil# 0.28 X10^3/uL; Eosinophils% 3.7 % (0-5); Hematocrit 38.7 % (37-47); Hemoglobin 12.6 g/dL (12.0-15.0); Lymphocyte # 3.12 X10^3/ul (0.83-4.51); Lymphocyte % 41.4 % (19-41); Mean Corp Hgb Conc 32.6 g/dL (32-36); Mean Corpuscular Hgb 28.2 pg (27.0-32.0); Mean Corpuscular Volume 86.6 fL (81-99); Mean Platelet Vol. 11.6 fl (6.2-12.0); Monocyte% 5.3 % (0-10); NRBC Flagged by Analyzer 0 % (0-5); Neutrophil # 3.63 X10^3/uL (2.7-7.7); Neutrophil % 48.1 % (47-70); Platelet Count 235 K/mm3 (150-450); RBC Distribution Width CV 14.3 % (11.6-14.6); Red Blood Count 4.47 M/mm3 (4.2-5.4); White Blood Count 7.5 K/mm3 (4.4-11.0)
[2024-02-17 18:13] LABS: Vitamin B12 > 2000 pg/mL (211-911); Vitamin D,25 Hydroxy 26.6 ng/mL
[2024-02-17 18:18] LABS: ALB/GLOB Ratio 0.9 RATIO (0.9-2.4); AST(SGOT) 28 U/L (15-37); Alanine Aminotransfer ALT/SGPT 34 U/L (13-56); Albumin, Serum 3.9 g/dL (3.2-5.0); Alkaline Phosphatase 113 U/L (45-117); Anion Gap 6 (5-15); BUN 18 mg/dL (7-18); BUN/Creat Ratio 23.2 RATIO (10-20); Calcium,Total 9.5 mg/dL (8.5-10.1); Chloride 104 mmol/L (98-107); Cholesterol 253 mg/dL (200); Creatinine, Serum 0.78 mg/dL (0.55-1.02); EST Glomerular Filtration Rate 81 mL/min (>60); Est Glom Filt Rate - Afr Amer 98 mL/min (>60); Globulin 4.2 g/dL (2.2-4.2); Glucose 123 mg/dL (74-106); High Density Lipoprotein 48 mg/dL; Potassium 3.6 mmol/L (3.5-5.1); Protein, Total 8.1 g/dL (6.4-8.2); Sodium Level 137 mmol/L (136-145); T4 Free Direct 0.99 ng/dL (0.76-1.46); Thyroid Stim Hormone (TSH) 0.582 uIU/mL (0.358-3.740); Triglycerides 168 mg/dL; Very Low Density Lipoprotein 34 mg/dL (5-40)
[2024-02-21 12:06] LABS: Hemoglobin A1c 5.8 % (3.8-5.6)
== END | disposition home or self-care (01) ==
LOC: MFPLAB 16:48
PROVIDERS: PCP Family Medicine; Visit Provider Family Medicine
DX: E03.8 Other specified hypothyroidism (principal); R53.83 Other fatigue; R73.9 Hyperglycemia, unspecified; E55.9 Vitamin D deficiency, unspecified
CPT/HCPCS: 36415; 80053; 80061; 82306; 82607; 83036; 84439; 84443; 85025

== ENCOUNTER → 2024-06-16 | Outpatient (CLI) | payer OTHER, SELFPAY ==
[2024-06-16 17:50] LABS: Absolute Lymphocyte Count 3.56 X10^3/uL (0.83-4.51); Absolute Neutrophil Count 3.4 X10^3/uL (2.0-7.7); Basophil# 0.09 X10^3/uL; Basophil% 1.1 % (0-1); Eosinophil# 0.36 X10^3/uL; Eosinophils% 4.5 % (0-5); Hematocrit 37.2 % (37-47); Hemoglobin 12.3 g/dL (12.0-15.0); Lymphocyte # 3.56 X10^3/ul (0.83-4.51); Lymphocyte % 44.8 % (19-41); Mean Corp Hgb Conc 33.1 g/dL (32-36); Mean Corpuscular Hgb 29.4 pg (27.0-32.0); Mean Corpuscular Volume 88.8 fL (81-99); Mean Platelet Vol. 11.1 fl (6.2-12.0); Monocyte# 0.51 X10^3/uL; Monocyte% 6.4 % (0-10); NRBC Flagged by Analyzer 0 % (0-5); Neutrophil # 3.41 X10^3/uL (2.7-7.7); Neutrophil % 43.1 % (47-70); Platelet Count 272 K/mm3 (150-450); RBC Distribution Width CV 13.6 % (11.6-14.6); RBC Distribution Width SD 44.1 fl (35.1-43.9); Red Blood Count 4.19 M/mm3 (4.2-5.4); White Blood Count 7.9 K/mm3 (4.4-11.0)
[2024-06-16 18:41] LABS: ALB/GLOB Ratio 0.9 RATIO (0.9-2.4); AST(SGOT) 27 U/L (15-37); Alanine Aminotransfer ALT/SGPT 39 U/L (13-56); Albumin, Serum 3.7 g/dL (3.2-5.0); Alkaline Phosphatase 110 U/L (45-117); Anion Gap 6 (5-15); BUN 19 mg/dL (7-18); BUN/Creat Ratio 22.9 RATIO (10-20); Calcium,Total 9.8 mg/dL (8.5-10.1); Chloride 105 mmol/L (98-107); Cholesterol 226 mg/dL (200); Creatinine, Serum 0.83 mg/dL (0.55-1.02); EST Glomerular Filtration Rate 75 mL/min (>60); Est Glom Filt Rate - Afr Amer 91 mL/min (>60); Globulin 4.2 g/dL (2.2-4.2); Glucose 83 mg/dL (74-106); High Density Lipoprotein 50 mg/dL; Potassium 3.8 mmol/L (3.5-5.1); Protein, Total 7.9 g/dL (6.4-8.2); Sodium Level 140 mmol/L (136-145); T4 Free Direct 1.08 ng/dL (0.76-1.46); Triglycerides 154 mg/dL; Very Low Density Lipoprotein 31 mg/dL (5-40)
[2024-06-16 19:30] LABS: Hemoglobin A1c 5.2 % (3.8-5.6)
== END | disposition home or self-care (01) ==
LOC: MTLAB 16:35
PROVIDERS: PCP Family Medicine; Referring Provider Family Medicine; Visit Provider Family Medicine
DX: R73.02 Impaired glucose tolerance (oral) (principal); E03.8 Other specified hypothyroidism; E55.9 Vitamin D deficiency, unspecified; E78.00 Pure hypercholesterolemia, unspecified
CPT/HCPCS: 36415; 80053; 80061; 82306; 83036; 84439; 84443; 85025

== ENCOUNTER → 2024-09-28 | Outpatient (CLI) | payer OTHER, SELFPAY ==
[2024-09-28 18:05] LABS: Absolute Lymphocyte Count 3.44 X10^3/uL (0.83-4.51); Absolute Neutrophil Count 2.9 X10^3/uL (2.0-7.7); Basophil# 0.08 X10^3/uL; Basophil% 1.1 % (0-1); Eosinophil# 0.21 X10^3/uL; Hematocrit 37.3 % (37-47); Hemoglobin 12.6 g/dL (12.0-15.0); Lymphocyte # 3.44 X10^3/ul (0.83-4.51); Lymphocyte % 48.6 % (19-41); Mean Corp Hgb Conc 33.8 g/dL (32-36); Mean Corpuscular Hgb 29.7 pg (27.0-32.0); Monocyte# 0.43 X10^3/uL; Monocyte% 6.1 % (0-10); NRBC Flagged by Analyzer 0 % (0-5); Neutrophil # 2.91 X10^3/uL (2.7-7.7); Neutrophil % 41.1 % (47-70); Platelet Count 261 K/mm3 (150-450); RBC Distribution Width CV 13.5 % (11.6-14.6); RBC Distribution Width SD 43.6 fl (35.1-43.9); Red Blood Count 4.24 M/mm3 (4.2-5.4); White Blood Count 7.1 K/mm3 (4.4-11.0)
[2024-09-28 18:12] LABS: Hemoglobin A1c 5.7 % (<=5.6)
[2024-09-28 18:32] LABS: ALB/GLOB Ratio 1.3 RATIO (0.9-2.4); AST(SGOT) 27 U/L (<=31); Alanine Aminotransfer ALT/SGPT 25 U/L (<=34); Albumin, Serum 4.2 g/dL (3.4-4.8); Alkaline Phosphatase 119 U/L (35-104); Anion Gap 12 (5-15); BUN 20 mg/dL (4-19); BUN/Creat Ratio 20.5 RATIO (10-20); Calcium,Total 9.5 mg/dL (7.6-11.0); Carbon Dioxide 25.2 mmol/L (21.0-32.0); Chloride 104 mmol/L (98-108); Cholesterol 232 mg/dL (<=200); Creatinine, Serum 0.95 mg/dL (0.70-1.20); EST Glomerular Filtration Rate 69 (>60); Globulin 3.2 g/dL (2.2-4.2); Glucose 107 mg/dL (70-99); High Density Lipoprotein 45 mg/dL; Low Density Lipoprotein Calc. 147 mg/dL; Protein, Total 7.4 g/dL (5.9-8.4); Sodium Level 141 mmol/L (133-145); Thyroid Stim Hormone (TSH) 0.729 uIU/mL (0.300-4.200); Total Bilirubin 0.27 mg/dL (0.00-1.30); Triglycerides 200 mg/dL; Very Low Density Lipoprotein 40 mg/dL (5-40); Vitamin D,25 Hydroxy 38.5 ng/mL (30-100); cholesterol:hdl ratio screen 5.19
== END | disposition home or self-care (01) ==
LOC: MFPLAB 16:59
PROVIDERS: PCP Family Medicine; Referring Provider Family Medicine; Visit Provider Family Medicine
DX: E03.8 Other specified hypothyroidism (principal); R73.02 Impaired glucose tolerance (oral); E78.00 Pure hypercholesterolemia, unspecified; E55.9 Vitamin D deficiency, unspecified
CPT/HCPCS: 36415; 80053; 80061; 82306; 83036; 84439; 84443; 85025

== ENCOUNTER 2025-01-26 14:37 | Outpatient (RCR) | payer OTHER, SELFPAY | END 2025-02-08 23:59 | LOC: NS 14:37 | PROVIDERS: PCP Family Medicine; Referring Provider Family Medicine; Visit Provider Family Medicine | DX: Z71.3 Dietary counseling and surveillance (principal); R73.02 Impaired glucose tolerance (oral); E66.9 Obesity, unspecified; Z68.34 Body mass index [BMI] 34.0-34.9, adult | CPT/HCPCS: 97802 ==

== ENCOUNTER 2025-01-27 16:26 | Outpatient (CLI) | payer OTHER, SELFPAY ==
[2025-01-27 17:41] LABS: Hematocrit 36.5 % (37-47); Hemoglobin 12.1 g/dL (12.0-15.0); Immature Granulocytes Count 0.020 X10^3/uL (0.0-0.0); Mean Corp Hgb Conc 33.2 g/dL (32-36); Mean Corpuscular Volume 88.6 fL (81-99); Mean Platelet Vol. 11.0 fl (6.2-12.0); NRBC Flagged by Analyzer 0 % (0-5); Platelet Count 261 K/mm3 (150-450); RBC Distribution Width CV 13.6 % (11.6-14.6); RBC Distribution Width SD 44.1 fl (35.1-43.9); Red Blood Count 4.12 M/mm3 (4.2-5.4); White Blood Count 7.8 K/mm3 (4.4-11.0)
[2025-01-27 18:28] LABS: AST(SGOT) 28 U/L (<=31); Alanine Aminotransfer ALT/SGPT 29 U/L (<=34); Albumin, Serum 4.3 g/dL (3.4-4.8); Alkaline Phosphatase 101 U/L (35-104); Anion Gap 12 (5-15); BUN 22 mg/dL (4-19); BUN/Creat Ratio 30.7 RATIO (10-20); Calcium,Total 9.5 mg/dL (7.6-11.0); Carbon Dioxide 23.7 mmol/L (21.0-32.0); Chloride 105 mmol/L (98-108); Cholesterol 243 mg/dL (<=200); Globulin 3.2 g/dL (2.2-4.2); Glucose 90 mg/dL (70-99); Low Density Lipoprotein Calc. 157 mg/dL; Potassium 4.2 mmol/L (3.3-5.1); Triglycerides 167 mg/dL; Very Low Density Lipoprotein 33 mg/dL (5-40); Vitamin D,25 Hydroxy 34.9 ng/mL (30-100); cholesterol:hdl ratio screen 4.64
--- OUTSIDE RECORDS SUMMARY | 2025-01-27 19:02 | XMS RPT_ITS | CCD ---
Author Organization [facility] Care Team Providers Care Supply Person Name Role Phone Rod Burch Unavailable Unavailable UNKNOWN, PROVIDER Unavailable Unavailable Rod Burch Unavailable Unavailable Dr. Ralph Nava Primary Care Provider Dr. Ralph Nava Referring Provider Florecita ORACLE DATABASE MANAGER, ORACLE DATABASE MANAGER-C Ladonna Puga Attending Provider [phone] Dr. Ralph Nava Primary Care Provider Dr. Ralph Nava Referring Provider Florecita RHOADES, ORACLE DATABASE MANAGER-C Ladonna Puga Attending Provider [phone] Dr. Yordan Savage Referring Provider [phone] Yordan Savage Other Provider Dr. Gurmeet Rubio Attending Provider Dr. Ralph Nava Primary Care Provider [phone] Dr. Yordan Savage Referring Provider Dr. Yordan Savage Other Provider Dr. Gurmeet Rubio Attending Provider Dr. Ralph Nava Referring Provider STEFANY Michel Attending Provider Florecita RHOADES NP-Monika Puga Attending Provider [phone] Dr. Ralph Nava Primary Care Provider Dr. Ralph Nava Referring Provider Dr. Ralph Nava Primary Care Provider Dr. Ralph Nava Referring Provider Florecita ORACLE DATABASE MANAGER, ORACLE DATABASE MANAGER-C Ladonna Puga Attending Provider Dr. Ankit Paulino Attending Provider Dr. Ralph Nava Primary Care Provider Dr. Ralph Nava Referring Provider Florecita ORACLE DATABASE MANAGER, ORACLE DATABASE MANAGER-C Ladonna Puga Attending Provider Dr. Ralph Nava Primary Care Provider Dr. Ralph Nava Referring Provider Dr. Ankit Paulino Attending Provider Dr. Costa Bee Attending Provider Dr. Nataliya Encarnacion Referring Provider Dr. Сергей Gutierrez Attending Provider [phone] Ralph Nava Primary Care Provider Dr. Costa Bee Attending Provider Dr. Nataliya Encarnacion Referring Provider Dr. Ralph Nava Referring Provider Dr. Сергей Gutierrez Attending Provider [phone] Ralph Nava Primary Care Provider Dr. Ralph Nava Referring Provider Dr. Сергей Gutierrez Attending Provider [phone] Ralph Nava MD Primary Care Provider Dr. Ralph Nava MD Referring Provider Dr. Сергей Gutierrez DO Attending Provider Dr. Ralph Nava MD Attending Provider Ralph Nava Primary Care Unavailable Ralph Nava Attending Unavailable Ralph Nava Primary Care Unavailable Сергей Gutierrez Attending Unavailable Ralph Nava Referring Unavailable Ralph Nava Primary Care Unavailable Ralph Nava Attending Unavailable Ralph Nava Referring Unavailable Ralph Nava Primary Care Unavailable Assessment, Health Risk Attending UnavailRalph Palomino Primary Care Unavailable Holden Negro Attending Unavailable Ralph Nava Primary Care Unavailable Ralph Nava Attending Unavailable Ralph Nava Referring Unavailable Ralph Nava Primary Care Unavailable FriendСергей Attending Unavailable Ralph Nava Referring Unavailable Medications Current Medications Medication Drug Class(es) Dates Sig (Normalized) Sig (Original) biotin 5 mg oral capsule (4 sources) Start: 01-01-2023 take 1 capsule by mouth once daily Biotin 5 mg capsule Active 5 mg PO DAILY January 01, 2023 12:00am cetirizine hydrochloride 10 mg oral tablet (13 sources) Histamine-1 Receptor Antagonist Start: 01-27-2020 take 1 tablet by mouth once daily Cetirizine 10 MG tablet Active 10 mg PO DAILY January 27, 2020 12:00am cholecalciferol 0.05 mg oral capsule (9 sources) Vitamin D Start: 07-24-2020 take 2000 [IU] by mouth once daily Cholecalciferol (Vitamin D3) Active 2000 UNIT PO DAILY July 24, 2020 12:00am levothyroxine sodium 0.088 mg oral tablet (14 sources) l-Thyroxine Start: 09-29-2024 take 1 tablet by mouth once daily Levothyroxine 88 mcg tablet Active 88 ug PO DAILY September 29, 2024 3:10pm Start: 01-27-2020 End: 09-29-2024 Levothyroxine 88 mcg tablet Discontinued 100 ug PO DAILY January 27, 2020 12:00am September 29, 2024 3:10pm Start: 01-27-2020 take 100 ug by mouth once daily Levothyroxine Active 100 MCG PO DAILY January 27, 2020 12:00am Start: 01-27-2020 take 88 ug by mouth once daily Levothyroxine Active 88 MCG PO DAILY January 27, 2020 12:00am linaclotide 0.072 mg oral capsule (20 sources) Guanylate Cyclase-C Agonist Start: 10-27-2023 End: 12-31-2023 take 1 capsule by mouth once daily Linaclotide (Linzess) 72 mcg capsule Active 72 ug PO DAILY December 31, 2023 5:18pm Start: 11-02-2021 End: 11-02-2021 take 1 capsule by mouth once daily in the morning Linaclotide (Linzess) 72 mcg capsule Discontinued 72 ug PO EVERY MORNING November 02, 2021 12:00am November 02, 2021 4:07pm Start: 08-13-2021 End: 11-02-2021 take 1 capsule by mouth once daily in the morning Linaclotide 145 mcg capsule Discontinued 145 ug PO EVERY MORNING August 13, 2021 12:00am November 02, 2021 4:06pm meloxicam 15 mg oral tablet (4 sources) Nonsteroidal Anti-inflammatory Drug Start: 01-01-2023 take 1 tablet by mouth once daily Meloxicam 15 mg tablet Active 15 mg PO DAILY January 01, 2023 12:00am mesalamine (20 sources) Aminosalicylate Start: 06-05-2022 take 1000 mg by mouth twice daily Mesalamine Active 1000 MG PO TWICE A DAY June 05, 2022 1:35pm Start: 06-05-2022 take 1000 mg by mout h twice daily Mesalamine Active 1000 MG PO TWICE A DAY June 05, 2022 12:35pm Start: 08-13-2021 End: 06-05-2022 take 2 capsules by mouth twice daily Mesalamine 500 mg capsule, extended release Discontinued 1000 mg PO TWICE A DAY August 13, 2021 8:30am June 05, 2022 1:35pm Start: 08-13-2021 End: 06-05-2022 take 1000 mg by mouth twice daily Mesalamine Discontinued 1000 MG PO TWICE A DAY August 13, 2021 8:30am June 05, 2022 1:35pm 24 hr mirabegron 25 mg extended release oral tablet (1 source) beta3-Adrenergic Agonist Start: 12-29-2023 take 1 tablet by mouth once daily Mirabegron (Myrbetriq) 25 mg tablet extended release 24 hr Active 25 mg PO DAILY December 29, 2023 12:00am Soy Efazgap-Blqbksj-Q issus Govind ([employer]) 56-40-300 mg capsule (9 sources) Start: 07-24-2020 take 1 capsule by mouth once daily Soy Vqxdrfq-Dnnzcpf-K issus Govind ([employer] Weight [employer]) 56-40-300 mg capsule Active 1 CAP PO DAILY July 23, 2020 11:00pm Start: 07-24-2020 take 1 capsule by mo [facility] once daily Soy Zbkckwq-Vaczrig-Nxmizi Govind ([employer] Weight [employer]) 56-40-300 mg capsule Active 1 CAP PO DAILY July 24, 2020 12:00am Vitamin B Complex (B Complex-Vitamin B12) tablet (13 sources) Start: 08-13-2021 Vitamin B Comp carlos (B Complex-Vitamin B12) tablet Active 1 {tbl} PO DAILY August 13, 2021 12:00am Start: 08-13-2021 take 1 tablet by severo th once daily Vitamin B Complex (B Complex-Vitamin B12) tablet Active 1 TABLET PO DAILY August 12, 2021 11:00pm Start: 08-13-2021 take 1 tablet by severo th once daily Vitamin B Complex (B Complex-Vitamin B12) tablet Active 1 TABLET PO DAILY August 13, 2021 12:00am zinc acetate 25 mg oral capsule (1 source) Start: 06-14-2024 take 1 capsule by mouth once daily Zinc Acetate 25 mg (zinc) capsule Active 25 mg PO daily June 14, 2024 1:00am Completed/Discontinued Medications Medication Drug Class(es) Dates Sig (Normalized) Sig (Original) aspirin 81 mg delayed release oral tablet (13 sources) Platelet Aggregation Inhibitor, Nonsteroidal Anti-inflammatory Drug Start: 01-28-2020 End: 03-14-2020 take 1 tablet by mouth once daily Aspirin 81 MG tablet Discontinued 81 mg PO DAILY@0800 30 January 28, 2020 12:00am March 14, 2020 3:24pm lactulose 667 mg/ml oral solution (16 sources) Osmotic Laxative Start: 01-01-2023 End: 12-29-2023 take 30 g by mouth once daily Lactulose 20 gram/30 mL solution Discontinued 30 g PO DAILY 2999February 18, 2023 9:44am December 29, 2023 3:16pm Start: 03-21-2022 End: 01-01-2023 take 20 g by mouth once daily Lactulose 20 gram/30 mL solution Discontinued 20 g PO DAILY 1199March 21, 2022 1:00am January 01, 2023 12:57pm lubiprostone 0.008 mg oral capsule (20 sources) Chloride Channel Activator Start: 01-07-2023 End: 12-29-2023 take 1 capsule by mouth twice daily Lubiprostone (Amitiza) 8 mcg capsule Discontinued 8 ug PO TWICE A DAY 60 January 07, 2023 12:00am December 29, 2023 3:16pm Start: 04-12-2022 End: 06-04-2022 take 1 capsule by mouth twice daily Lubiprostone 8 mcg capsule Discontinued 8 ug PO TWICE A DAY 180 April 12, 2022 1:00am June 04, 2022 4:44pm Start: 11-13-2021 End: 03-21-2022 take 1 capsule by mouth twice daily Lubiprostone (Amitiza) 8 mcg capsule Discontinued 8 ug PO TWICE A DAY 60 November 13, 2021 5:02pm March 21, 2022 5:34pm omeprazole 40 mg delayed release oral capsule (20 sources) Proton Pump Inhibitor Start: 03-20-2020 End: 04-10-2020 Omeprazole 40 MG capsule,delayed release(DR/EC) Discontinued 0 mg PO DAILY 90 March 20, 2020 1:00am April 10, 2020 3:24pm oxybutynin chloride 5 mg oral tablet (20 sources) Cholinergic Muscarinic Antagonist Start: 03-14-2020 End: 08-14-2022 take 1 tablet by mouth twice daily Oxybutynin Chloride 5 mg tablet Discontinued 5 mg PO TWICE A DAY March 14, 2020 3:25pm August 14, 2022 2:04pm Start: 07-08-2017 End: 03-14-2020 take 2 tablets by mouth once daily Oxybutynin Chloride 5 MG tablet Discontinued 10 mg PO DAILY July 08, 2017 1:00am March 14, 2020 3:25pm Start: 07-08-2017 End: 03-14-2020 take 10 mg by mouth once daily Oxybutynin Chloride Dis continued 10 MG PO DAILY July 08, 2017 1:00am March 14, 2020 3:25pm oxyCODONE hydrochloride 5 mg oral tablet (13 sources) Opioid Agonist Start: 08-02-2020 End: 08-05-2020 take 1-10 tablets by mouth every six hours as needed for pain Oxycodone 5 MG tablet Discontinued 5 mg PO EVERY 6 HOURS NEEDED as needed for Pain 1-10 Or Fever 9 3 August 02, 2020 August 04, 2020 12:00am August 05, 2020 12:04am potassium 99 mg extended release oral tablet (13 sources) Start: 01-27-2020 End: 03-14-2020 take 1 tablet by mouth once daily Potassium (Otc) (Potassium Otc) 99 MG tablet Discontinued 99 mg PO DAILY January 27, 2020 12:00am March 14, 2020 3:25pm prucalopride 2 mg oral tablet (4 sources) Start: 01-08-2023 End: 02-07-2023 take 1 tablet by mouth once daily Prucalopride (Motegrity) 2 mg tablet Discontinued 2 mg PO DAILY January 08, 2023 12:00am February 06, 2023 12:00am February 07, 2023 12:04am rosuvastatin calcium 20 mg oral tablet (13 sources) HMG-CoA Reductase Inhibitor Start: 01-27-2020 End: 03-14-2020 take 1 tablet by mouth at bedtime Rosuvastatin 20 MG tablet Discontinued 20 mg PO AT BEDTIME January 27, 2020 12:00am March 14, 2020 3:25pm Vibegron (6 sources) Start: 10-24-2022 End: 12-29-2023 take 1 tablet by mouth once daily Vibegron (Gemtesa) 75 mg tablet Discontinued 75 mg PO DAILY October 24, 2022 12:00am December 29, 2023 3:16pm Start: 10-24-2022 take 1 tablet by severo th once daily Vibegron (Gemtesa) 75 mg tablet Active 75 MG PO DAILY October 23, 2022 11:00pm Start: 10-24-2022 take 1 tablet by severo th once daily Vibegron (Gemtesa) 75 mg tablet Active 75 MG PO DAILY October 24, 2022 12:00am Problems Problem Classification Problem Date Documented Da te Episodic/Chronic Abdominal hernia (13 sources) Paraesophageal hernia; Translations: [Diaphragmatic hernia without obstruction or gangrene] 03-14-2020 Episodic Administrative/social admission (1 source) Dietary counseling and surveillance; Translations: [Dietary counseling and surveillance] Onset: Episodic Deficiency and other anemia (13 sources) Anemia; Translations: [Anemia, unspecified] 03-20-2020 Episodic Diabetes mellitus without complication (2 sources) Impaired glucose tolerance (oral); Translations: [Impaired glucose tolerance (oral)] Onset: Episodic Digestive congenital anomalies (13 sources) Esophageal web; Translations: [Esophageal web] 03-14-2020 Chronic Disorders of lipid metabolism (13 sources) Hyperlipidemia; Translations: [Hyperlipidemia, unspecified] 03-20-2020 Chronic Epilepsy; convulsions (13 sources) Seizure; Translations: [Unspecified convulsions] 03-14-2020 Episodic Comment on above: SINGLE SEIZURE, STEPH RED BY NEUROLOGY Esophageal disorders (13 sources) Gastro-esophageal reflux disease with esophagitis; Translations: [Gastroesophageal reflux disease with esophagitis] 08-01-2020 Chronic Fluid and electrolyte disorders (13 sources) Hypokalemia; Translations: [Hypokalemia] 03-14-2020 Episodic Gastrointestinal hemorrhage (13 sources) Gastrointestinal hemorrhage; Translations: [Gastrointestinal hemorrhage, unspecified] 04-12-2021 Episodic Immunizations and screening for infectious disease (13 sources) Contact with or exposure to other viral diseases; Translations: [Exposure to COVID-19 virus] 03-22-2021 Episodic Nausea and vomiting (14 sources) Nausea; Translations: [Nausea] Episodic Nonspecific chest pain (13 sources) Chest pain; Translations: [Chest pain, unspecified] 03-14-2020 Episodic Other and unspecified benign neoplasm (13 sources) History of polyp of colon; Translations: [Personal history of colonic polyps] 03-14-2020 Episodic Other circulatory disease (13 sources) Low blood pressure; Translations: [Hypotension, unspecified] 03-14-2020 Episodic Other disorders of stomach and duodenum (13 sources) Gastroparesis syndrome; Translations: [Gastroparesis] 07-16-2021 Episodic Other disorders of stomach and duodenum (1 source) Gastroparesis; Translations: [Gastroparesis] Episodic Other gastrointestinal disorders (14 sources) Irritable bowel syndrome characterized by constipation; Translations: [Irritable bowel syndrome with constipation] 08-13-2021 Chronic Other gastrointestinal disorders (13 sources) Irritable bowel syndrome with constipation; Translations: [Irritable bowel syndrome] Chronic Other gastrointestinal disorders (20 sources) Dysphagia; Translations: [Dysphagia, unspecified] 08-10-2020 Episodic Other gastrointestinal disorders (13 sources) Ulceration of small intestine; Translations: [Ulcer of intestine] 07-16-2021 Episodic Other gastrointestinal disorders (13 sources) Constipation; Translations: [Constipation, unspecified] 06-18-2021 Episodic Other gastrointestinal disorders (3 sources) Constipation, unspecified; Translations: [Constipation, unspecified] Episodic Other gastrointestinal disorders (1 source) Ulcer of intestine; Translations: [Ulceration of intestine] Episodic Other lower respiratory disease (16 sources) Cough; Translations: [Cough] 04-01-2021 Episodic Comment on above: No change in treatme nt today. Other lower respiratory disease (1 source) Snoring; Translations: [Snoring] 08-14-2022 Episodic Other lower respiratory disease (1 source) Snoring; Translations: [Other respiratory abnormalities] 08-14-2022 Episodic Other non-traumatic joint disorders (7 sources) Joint pain; Translations: [Pain in unspecified joint] 08-30-2022 Episodic Other nutritional; endocrine; and metabolic disorders (3 sources) Body mass index (BMI) 34.0-34.9, adult; Translations: [Body Mass Index 34.0-34.9, adult] 08-14-2022 Chronic Other screening for suspected conditions (not mental disorders or infectious disease) (13 sources) Patient encounter status; Translations: [Encounter for screening for malignant neoplasm of intestinal tract, unspecified] 03-14-2020 Episodic Regional enteritis and ulcerative colitis (20 sources) Crohn's disease of terminal ileum; Translations: [Crohn's disease of small intestine without complications] Chronic Residual codes; unclassified (6 sources) Obstructive sleep apnea (adult) (pediatric); Translations: [Obstructive sleep apnea (adult)(pediatric)] 08-14-2022 Chronic Residual codes; unclassified (6 sources) Obstructive sleep apnea syndrome; Translations: [Obstructive sleep apnea (adult) (pediatric)] 10-24-2022 Chronic Comment on above: The patient has mild obstructive sleep apnea, which appears much worse during REM sleep associated with significant oxygen desaturation as low as 78%.The risks of untreated sleep apnea with significant hypoxemia were discussed with her today. She has fatigue, with her [place] score of 9 at the borderline of excessive daytime sleepiness. I believe she would unbalance feel better on effective CPAP. - AutoPap 5 to 15 cm nightly today. Requested a nasal mask since she is a mouth breather. She will have a chinstrap and a humidifier. - We discussed various DME's, initially selected [facility] but her insurance would only cover [employer]. - CPAP download before the next visit - Mask cleaning, initiation, tips to help get acclimated to CPAP, and the need for continued follow-up and download to assure that the treatment is meeting goals of care. - We need to reinforce mask cleaning and equipment replacement next visit, plus do any troubleshooting that would help her compliance and comfort. - Follow-up in 3 months, she can see our nurse practitioner Cielo Serra ORACLE DATABASE MANAGER Residual codes; unclassified (13 sources) History of fundoplication; Translations: [Other specified postprocedural states] 08-10-2020 Episodic Comment on above: 08/02/20 Sprains and strains (13 sources) Sprain of ankle; Translations: [Sprain of unspecified ligament of left ankle, initial encounter] 03-19-2018 Episodic Thyroid disorders (14 sources) Hypothyroidism; Translations: [Hypothyroidism, unspecified] Onset: 4 03-14-2020 Chronic Comment on above: ON MED Results Test Name Value Interpretation Reference Range Facility Glucoseon 12-16-2024 Glucose [Mass/Vol] 93 mg/dL Normal 70-99 [facility] Comment on above: Performed By: #### L 100.0100, L501.9520, L506.1000, L500.4100, L500.4050 #### [facility] [address] [place], [address] Lipid Profileon 12-16-2024 CHOL:HDL 5.86 Normal [facility] Comment on above: Performed By: #### L 100.0100, L501.9520, L506.1000, L500.4100, L500.4050 #### [facility] [address] [place], [address] Cholesterol [Mass/Vol] 292 mg/dL High <=200 [facility] Comment on above: Result Comment: Chol esterol level, Desirable <200 mg/dL Borderline high cholesterol 200-239 mg/dL High cholesterol >=240 mg/dL Recommendations of the NCEP Adult Treatment Panel for the following risk-cutoff thresholds for the [place] population. Performed By: #### L 100.0100, L501.9520, L506.1000, L500.4100, L500.4050 #### [facility] [address] [place], [address] Cholesterol in HDL [Mass/Vol] 50 mg/dL Normal [facility] Comment on above: Result Comment: [place] onal Cholesterol Education Program (NCEP) guidelines: <40 mg/dL: Low HDL-cholesterol (major risk factor for CHD) >= 60 mg/dL: High HDL-cholesterol (negative risk factor for CHD) HDL-cholesterol is affected by a number of factors, e.g. smoking, exercise, hormones, sex and age. Performed By: #### L 100.0100, L501.9520, L506.1000, L500.4100, L500.4050 #### [facility] [address] [place], [address] Cholesterol in LDL [Mass/Vol] 215 mg/dL Normal [facility] Comment on above: Result Comment: Bord icoxic=881-225 mg/dL Higher Kzqj=793 mg/dL or greater Friedwald Equation for LDL-C Performed By: #### L 100.0100, L501.9520, L506.1000, L500.4100, L500.4050 #### [facility] [address] [place], [address] Cholesterol in VLDL [Mass/Vol] 27 mg/dL Normal 5-40 [facility] Comment on above: Performed By: #### L 100.0100, L501.9520, L506.1000, L500.4100, L500.4050 #### [facility] [address] [place], [address] Triglyceride [Mass/Vol] 136 mg/dL Normal [facility] Comment on above: Result Comment: The drugs N-Acetylcysteine and Metamizole may falsely depress this assay. Normal range: <150 mg/dL Borderline High: 150-199 mg/dL High: 200-499 mg/dL Very High: >500 mg/dL Performed By: #### L 100.0100, L501.9520, L506.1000, L500.4100, L500.4050 #### [facility] [address] [place], [address] CHOL Normal <=200 [facility] Comment on above: Result Comment: DUPL ICATE Performed By: #### L 100.0100, L501.9520, L506.1000, L500.4100, L500.4050 #### [facility] [address] [place], [address] CHOL:HDL Normal [facility] Comment on above: Result Comment: DUPL ICATE Performed By: #### L 100.0100, L501.9520, L506.1000, L500.4100, L500.4050 #### [facility] [address] [place], [address] CLDL Normal [facility] Comment on above: Result Comment: DUPL ICATE Performed By: #### L 100.0100, L501.9520, L506.1000, L500.4100, L500.4050 #### [facility] [address] [place], [address] HDL Normal [facility] Comment on above: Result Comment: DUPL ICATE Performed By: #### L 100.0100, L501.9520, L506.1000, L500.4100, L500.4050 #### [facility] [address] [place], [address] TRIG Normal [facility] Comment on above: Result Comment: DUPL ICATE Performed By: #### L 100.0100, L501.9520, L506.1000, L500.4100, L500.4050 #### [facility] [address] [place], [address] VLDL Normal 5-40 [facility] Comment on above: Result Comment: DUPL ICATE Performed By: #### L 100.0100, L501.9520, L506.1000, L500.4100, L500.4050 #### [facility] [address] [place], [address] Lipid Profileon 12-02-2024 CHOL Normal <=200 [facility] Comment on above: Result Comment: NO S HOW Performed By: #### L 100.0100, L501.9520, L506.1000, L500.4100, L500.4050 #### [facility] [address] [place], [address] CHOL:HDL Normal [facility] Comment on above: Result Comment: NO S HOW Performed By: #### L 100.0100, L501.9520, L506.1000, L500.4100, L500.4050 #### [facility] [address] [place], [address] CLDL Normal [facility] Comment on above: Result Comment: NO S HOW Performed By: #### L 100.0100, L501.9520, L506.1000, L500.4100, L500.4050 #### [facility] [address] [place], [address] HDL Normal [facility] Comment on above: Result Comment: NO S HOW Performed By: #### L 100.0100, L501.9520, L506.1000, L500.4100, L500.4050 #### [facility] [address] [place], [address] TRIG Normal [facility] Comment on above: Result Comment: NO S HOW Performed By: #### L 100.0100, L501.9520, L506.1000, L500.4100, L500.4050 #### [facility] [address] [place], [address] VLDL Normal 5-40 [facility] Comment on above: Result Comment: NO S HOW Performed By: #### L 100.0100, L501.9520, L506.1000, L500.4100, L500.4050 #### [facility] [address] [place], [address] Gastroenterology Visit Repor ton 09-29-2024 Gastroenterology Visit Report [facility] [address] [place] [address] OFFICE VISIT Date of Service: 09/29/24 MR#: [id number] Acct: [id number] Name: BEVERLY MUNSON Rep #: [id number] : 1965 Provider: Сергей Gutierrez DO Age/Sex: 59/F Location: [facility] Status: Signed Intake Vital Signs 10/24/22 13:11 Height 5 ft 4 in Intake Visit Reasons: 4 M FU Allergies No Known Allergies Allergy (Verified 01/01/23 12:54) Medications ???Medication ???Instructions ???Recorded ???Confirmed ???Type cetirizine 10 mg tablet 10 mg PO DAILY allergies 01/27/20 09/29/24 History vitamin B complex (B 1 tab PO DAILY 08/13/21 09/29/24 H istory Complex-Vitamin B12 tablet) biotin 5 mg capsule 5 mg PO DAILY 01/01/23 09/29/24 Hi story meloxicam 15 mg tablet 15 mg PO DAILY 01/01/23 09/29/24 H istory mirabegron 25 mg tablet,extended 25 mg PO DAILY 12/29/23 09/29/24 H istory release 24 hr (Myrbetriq) linaclotide 72 mcg capsule 72 mcg PO DAILY #30 caps 12/31/23 09/29/24 Rx (Linzess) zinc acetate 25 mg (zinc) capsule 25 mg PO QDAY 06/14/24 09/29/24 H istory levothyroxine 88 mcg tablet 88 mcg PO DAILY thyroid 09/29/24 0 09/29/24 History PFSH Medical History (Updated 07/03/23 @ 10:23 by Radha Rodgers) Wears glasses Wears dentures Thyroid disease High cholesterol History of Crohn's disease Former smoker CPAP (continuous positive airway pressure) dependence Sleep apnea Leg cramps History of edema History of stress test Obstructive sleep apnea on CPAP Irritable bowel syndrome with constipation Crohn's disease involving terminal ileum Constipation GERD with esophagitis Esophageal web Paraesophageal hiatal hernia Dysphagia Dysphagia Anemia Hyperlipidemia Chest pain Personal history of colonic polyps Screening for intestinal cancer Hypotension Hypokalemia Seizure Hypothyroidism Surgical History History of [place] fundoplication History of tonsillectomy History of cholecystectomy History of appendectomy History of hysterectomy Family History Sister Cancer Thyroid cancer Daughter Thyroid disorder Mother Hypertension Father Hypertension Social History Smoking Status: Former smoker HPI HPI Details: BEVERLY MUNSON, is a 59 F who presents to the office today for follow up. WSA previously established for management of GERD ? Colonoscopy 01.10.20 hemorrhoids; diverticulosis; redundant colon. No specimens collected. ? EGD 03.20.20 irregular Zline 35cm; LA grade A esophagitis; large hiatal hernia. ? Laparoscopic toupet procedure 08.01.20 for management of large sliding hiatal hernia *BGI established 06.18.21 with anemia and worsening constipation with BRBPR likely secondary to hemorrhoids r/t straining for BM. ? Sitz Markers Day one no rings visualized ? Capsule endoscopy 07.05.21 possible gastroparesis; distal small bowel inflammation; TI ulceration OV 07.16.21 continued constipation, start MiraLAX and/or juice/oil. ? Biochemical CBC, ESR, CMP, ferritin, iron, TIBC, T4, TSH, Vit D, ADRIANA comp, celiac, infliximab, TPMT without pertinent abnormality. ? CRP H6.73, Crohns + ? Stool calprotectin, lactoferrin WNL ? Upper GI SBFT 07.19.21 suspect agile capsule in pelvis. OV 08.13.21 with newly diagnosed Crohn???s disease. Start mesalamine 1,000mg BID, Linzess 145mcg. Rheumatology referred 08.30.21 for management of arthralgias, did not pursue referral. OV 11.02.22 Linzess 145 too strong, Start Linzess 72mcg; Continue mesalamine ? Biochemical 11.02.21 CRP H8.49 ? Biochemical 02.12.22 (PCP) CBC, ESR, CMP, RF, T4, TSH, Vit B12, Vit D25 without pertinent abnormality OV 03.04.22 Start turlance versus lactulose. Continue pentasa for Crohn???s. ? Biochemical 05.17.22 (PCP) CBC, CMP, ferritin, iron, TIBC, T4, TSH, Vit D25 without pertinent abnormality ? Cholesterol H268 OV 06.04.22 continues to have constipation difficulty with ineffective use of medications; Start aloe vera pills. Pentasa therapy interruption r/t insurance coverage; resume pentasa, possible azathioprine. OV 08.23.22 Continue lactulose. Mesalamine stopped per pa (more content not included)... Normal [facility] Absolute lymphocyte countOrd ered By: Ralph Nava on 09-28-2024 Lymphocytes Auto (Unsp spec) [#/Vol] 3.44 10*3/uL 0.83-4.51 [facility] Absolute neutrophil countOrd ered By: Ralph Nava on 09-28-2024 Neutrophils (Bld) [#/Vol] 2.9 10*3/uL 2.0-7.7 [facility] Anion gap in Serum or Plasma Ordered By: Ralph Nava on 09-28-2024 Anion gap [Moles/Vol] 12 mmol/L 5-15 [facility] Automated lymphocyte count a s percentage of total leukocytesOrdered By: Ralph Nava on 09-28-2024 Lymphocytes/100 WBC Auto (Unsp spec) 48.6 % High 19-41 [facility] BUN/creatinine ratioOrdered By: Ralph Nava on 09-28-2024 Urea nitrogen/Creatinine [Mass ratio] 20.5 mg/mg High 10- [facility] Basophil percentageOrdered B y: Ralph Nava on 09-28-2024 Basophils/100 WBC (Bld) 1.1 % High 0-1 [facility] Bilirubin, totalOrdered By: Ralph Nava on 09-28-2024 Bilirubin [Mass/Vol] 0.27 mg/dL 0.00-1.30 [facility] CBC W/Diff, Automatedon 05-2 0-2024 Absolute Lymph 3.44 X10 3/uL Normal 0.83-4.51 [facility] Comment on above: Order Comment: Order Date: 09/28/24 Order Info: 0184-1 - CBCD Performed By: #### L 501.9520, L100.0100, L500.4050, L500.4100, L506.0400, L501.9985 #### [facility] [address] [place], [address] Absolute Neut 2.9 X10 3/uL Normal 2.0-7.7 [facility] Comment on above: Order Comment: Order Date: 09/28/24 Order Info: 0184-1 - CBCD Performed By: #### L 501.9520, L100.0100, L500.4050, L500.4100, L506.0400, L501.9985 #### [facility] [address] [place], [address] Basophils/100 WBC (Bld) 1.1 % High 0-1 [facility] Comment on above: Order Comment: Order Date: 09/28/24 Order Info: 0184-1 - CBCD Performed By: #### L 501.9520, L100.0100, L500.4050, L500.4100, L506.0400, L501.9985 #### [facility] [address] [place], [address] Eosinophils/100 WBC (Bld) 3.0 % Normal 0-5 [facility] Comment on above: Order Comment: Order Date: 09/28/24 Order Info: 0184-1 - CBCD Performed By: #### L 501.9520, L100.0100, L500.4050, L500.4100, L506.0400, L501.9985 #### [facility] [address] [place], [place], [id number] Erythrocyte distribution width (RBC) [Ratio] 13.5 % Normal 11.6-14.6 [facility] Comment on above: Order Comment: Order Date: 09/28/24 Order Info: 0184-1 - CBCD Performed By: #### L 501.9520, L100.0100, L500.4050, L500.4100, L506.0400, L501.9985 #### [facility] [address] [place], [place], [phone] Hematocrit (Bld) [Volume fraction] 37.3 % Normal 37-47 [facility] Comment on above: Order Comment: Order Date: 09/28/24 Order Info: 0184-1 - CBCD Performed By: #### L 501.9520, L100.0100, L500.4050, L500.4100, L506.0400, L501.9985 #### [facility] [address] [place], [place], [phone] Hemoglobin (Bld) [Mass/Vol] 12.6 g/dL Normal 12.0-15.0 [facility] Comment on above: Order Comment: Order Date: 09/28/24 Order Info: 0184-1 - CBCD Performed By: #### L 501.9520, L100.0100, L500.4050, L500.4100, L506.0400, L501.9985 #### [facility] [address] [place], [place], [id number] IG% 0.100 Normal 0.0-0.9 [facility] Comment on above: Order Comment: Order Date: 09/28/24 Order Info: 0184-1 - CBCD Result Comment: IG% - Immature Granulocytes (promyelocytes, myelocytes and metamyelocytes) > 1% indicates that a LEFT SHIFT is Present. Performed By: #### L 501.9520, L100.0100, L500.4050, L500.4100, L506.0400, L501.9985 #### [facility] [address], [address] Lymphocytes/100 WBC (Bld) 48.6 % High 19-41 [facility] Comment on above: Order Comment: Order Date: 09/28/24 Order Info: 0184-1 - CBCD Performed By: #### L 501.9520, L100.0100, L500.4050, L500.4100, L506.0400, L501.9985 #### [facility] [address] [place], [address] MCH (RBC) [Entitic mass] 29.7 pg Normal 27.0-32.0 [facility] Comment on above: Order Comment: Order Date: 09/28/24 Order Info: 0184-1 - CBCD Performed By: #### L 501.9520, L100.0100, L500.4050, L500.4100, L506.0400, L501.9985 #### [facility] [address] [place], [address] MCHC (RBC) [Mass/Vol] 33.8 g/dL Normal 32-36 [facility] Comment on above: Order Comment: Order Date: 09/28/24 Order Info: 0184-1 - CBCD Performed By: #### L 501.9520, L100.0100, L500.4050, L500.4100, L506.0400, L501.9985 #### [facility] [address] [place], [address] MCV (RBC) [Entitic vol] 88.0 fL Normal 81-99 [facility] Comment on above: Order Comment: Order Date: 09/28/24 Order Info: 0184-1 - CBCD Performed By: #### L 501.9520, L100.0100, L500.4050, L500.4100, L506.0400, L501.9985 #### [facility] [address] [place], [address] Monocytes/100 WBC (Bld) 6.1 % Normal 0-10 [facility] Comment on above: Order Comment: Order Date: 09/28/24 Order Info: 0184-1 - CBCD Performed By: #### L 501.9520, L100.0100, L500.4050, L500.4100, L506.0400, L501.9985 #### [facility] [address] [place], [address] Neutrophils/100 WBC (Bld) 41.1 % Low 47-70 [facility] Comment on above: Order Comment: Order Date: 09/28/24 Order Info: 0184-1 - CBCD Performed By: #### L 501.9520, L100.0100, L500.4050, L500.4100, L506.0400, L501.9985 #### [facility] [address] [place], [place], [phone] (759) Nucleated RBC (Bld) [#/Vol] 0 10*3/uL Normal 0-5 [facility] Comment on above: Order Comment: Order Date: 09/28/24 Order Info: 0184-1 - CBCD Performed By: #### L 501.9520, L100.0100, L500.4050, L500.4100, L506.0400, L501.9985 #### [facility] [address] [place], [place], [phone] (238) Platelet mean volume (Bld) [Entitic vol] 11.0 fL Normal 6.2-12.0 [facility] Comment on above: Order Comment: Order Date: 09/28/24 Order Info: 0184-1 - CBCD Performed By: #### L 501.9520, L100.0100, L500.4050, L500.4100, L506.0400, L501.9985 #### [facility] [address] [place], [place], [phone] (102) Platelets (Bld) [#/Vol] 261 10*3/uL Normal 150-450 [facility] Comment on above: Order Comment: Order Date: 09/28/24 Order Info: 0184-1 - CBCD Performed By: #### L 501.9520, L100.0100, L500.4050, L500.4100, L506.0400, L501.9985 #### [facility] [address] [place], [place], [address] (267) RBC (Bld) [#/Vol] 4.24 10*6/uL Normal 4.2-5.4 [facility] Comment on above: Order Comment: Order Date: 09/28/24 Order Info: 0184-1 - CBCD Performed By: #### L 501.9520, L100.0100, L500.4050, L500.4100, L506.0400, L501.9985 #### [facility] [address] [place], [place], [phone] RDW SD 43.6 fl Normal 35.1-43.9 [facility] Comment on above: Order Comment: Order Date: 09/28/24 Order Info: 0184-1 - CBCD Performed By: #### L 501.9520, L100.0100, L500.4050, L500.4100, L506.0400, L501.9985 #### [facility] [address] [place], [place], [phone] WBC (Bld) [#/Vol] 7.1 10*3/uL Normal 4.4-11.0 [facility] Comment on above: Order Comment: Order Date: 09/28/24 Order Info: 0184-1 - CBCD Performed By: #### L 501.9520, L100.0100, L500.4050, L500.4100, L506.0400, L501.9985 #### [facility] [address] [place], [place], [phone] Calculated very low density lipoprotein (VLDL) cholesterol measurementOrdered By: Ralph Nava on 09-28-2024 Calculated very low density lipoprotein (VLDL) cholesterol measurement 40 mg/dL 5-40 [facility] Carbon dioxide, total [Moles /volume] in Central venous bloodOrdered By: Ralph Nava on 09-28-2024 CO2 [Moles/Vol] 25.2 mmol/L 21.0-32.0 [facility] Chloride assayOrdered By: Aurora Nava on 09-28-2024 Chloride [Moles/Vol] 104 mmol/L 98-108 [facility] Comprehensive Metabolic Prof ilon 09-28-2024 Albumin [Mass/Vol] 4.2 g/dL Normal 3.4-4.8 [facility] Comment on above: Order Comment: Order Date: 09/28/24 Order Info: 0786- - CMP Order Info: - LIPID Order Info: 3 - TSH Order Info: 7 - T4F Performed By: #### L 501.9520, L100.0100, L500.4050, L500.4100, L506.0400, L501.9985 #### [facility] [address] [place], [place], [phone] Albumin/Globulin [Mass ratio] 1.3 {ratio} Normal 0.9-2.4 [facility] Comment on above: Order Comment: Order Date: 09/28/24 Order Info: 07 - CMP Order Info: - LIPID Order Info: 3 - TSH Order Info: 7 - T4F Performed By: #### L 501.9520, L100.0100, L500.4050, L500.4100, L506.0400, L501.9985 #### [facility] [address] [place], [address] ALK PHOS 119 U/L High 35-104 [facility] Comment on above: Order Comment: Order Date: 09/28/24 Order Info: 0786 - CMP Order Info: [id number] - LIPID Order Info: 3 - TSH Order Info: 3024-7 - T4F Performed By: #### L 501.9520, L100.0100, L500.4050, L500.4100, L506.0400, L501.9985 #### [facility] [address] [place], [address] ALT [Catalytic activity/Vol] 25 U/L Normal <=34 [facility] Comment on above: Order Comment: Order Date: 09/28/24 Order Info: 0786-1 - CMP Order Info: [id number] - LIPID Order Info: 3 - TSH Order Info: 7 - T4F Performed By: #### L 501.9520, L100.0100, L500.4050, L500.4100, L506.0400, L501.9985 #### [facility] [address] [place], [place], [phone] AST [Catalytic activity/Vol] 27 U/L Normal <=31 [facility] Comment on above: Order Comment: Order Date: 09/28/24 Order Info: 785-1 - CMP Order Info: [id number] - LIPID Order Info: 3 - TSH Order Info: 7 - T4F Performed By: #### L 501.9520, L100.0100, L500.4050, L500.4100, L506.0400, L501.9985 #### [facility] [address] [place], [address] Bilirubin [Mass/Vol] 0.27 mg/dL Normal 0.00-1.30 [facility] Comment on above: Order Comment: Order Date: 09/28/24 Order Info: 0786-1 - CMP Order Info: [id number] - LIPID Order Info: [id number] - TSH Order Info: 3024-7 - T4F Performed By: #### L 501.9520, L100.0100, L500.4050, L500.4100, L506.0400, L501.9985 #### [facility] [address] [place], [address] BUN/CRE 20.5 RATIO High 10-20 [facility] Comment on above: Order Comment: Order Date: 09/28/24 Order Info: 0786-1 - CMP Order Info: [id number] - LIPID Order Info: [id number] - TSH Order Info: 3024-7 - T4F Performed By: #### L 501.9520, L100.0100, L500.4050, L500.4100, L506.0400, L501.9985 #### [facility] [address] [place], [address] Calcium [Mass/Vol] 9.5 mg/dL Normal 7.6-11.0 [facility] Comment on above: Order Comment: Order Date: 09/28/24 Order Info: 07-1 - CMP Order Info: - LIPID Order Info: 3 - TSH Order Info: 3024-7 - T4F Performed By: #### L 501.9520, L100.0100, L500.4050, L500.4100, L506.0400, L501.9985 #### [facility] [address] [place], [address] Chloride [Moles/Vol] 104 mmol/L Normal 98-108 [facility] Comment on above: Order Comment: Order Date: 09/28/24 Order Info: 0786-1 - CMP Order Info: [id number] - LIPID Order Info: 301-3 - TSH Order Info: 3024-7 - T4F Performed By: #### L 501.9520, L100.0100, L500.4050, L500.4100, L506.0400, L501.9985 #### [facility] [address] [place], [address] CO2 [Moles/Vol] 25.2 mmol/L Normal 21.0-32.0 [facility] Comment on above: Order Comment: Order Date: 09/28/24 Order Info: 0786-1 - CMP Order Info: - LIPID Order Info: [id number] - TSH Order Info: 7 - T4F Performed By: #### L 501.9520, L100.0100, L500.4050, L500.4100, L506.0400, L501.9985 #### [facility] [address] [place], [place], [address] Creatinine [Mass/Vol] 0.95 mg/dL Normal 0.70-1.20 [facility] Comment on above: Order Comment: Order Date: 09/28/24 Order Info: 785-05 - CMP Order Info: - LIPID Order Info: [id number] - TSH Order Info: 3023-11 - T4F Performed By: #### L 501.9520, L100.0100, L500.4050, L500.4100, L506.0400, L501.9985 #### [facility] [address] [place], [place], [phone] GAP 12 Normal 5-15 [facility] Comment on above: Order Comment: Order Date: 09/28/24 Order Info: 785-05 - CMP Order Info: - LIPID Order Info: [id number] - TSH Order Info: 3023-11 - T4F Performed By: #### L 501.9520, L100.0100, L500.4050, L500.4100, L506.0400, L501.9985 #### [facility] [address] [place], [place], [phone] GFR/1.73 sq M.predicted among non-blacks MDRD (S/P/Bld) [Vol rate/Area] 69 mL/min/{1.73_m2} Normal >60 [facility] Comment on above: Order Comment: Order Date: 09/28/24 Order Info: 07-1 - CMP Order Info: [id number] - LIPID Order Info: 3015-07 - TSH Order Info: 7 - T4F Result Comment: mL/m in/1.73m2 CKD-EPI Creatinine Equation (2020) Performed By: #### L 501.9520, L100.0100, L500.4050, L500.4100, L506.0400, L501.9985 #### [facility] [address] [place], [address] Globulin (S) [Mass/Vol] 3.2 g/dL Normal 2.2-4.2 [facility] Comment on above: Order Comment: Order Date: 09/28/24 Order Info: 86-1 - CMP Order Info: [id number] - LIPID Order Info: 3 - TSH Order Info: 7 - T4F Performed By: #### L 501.9520, L100.0100, L500.4050, L500.4100, L506.0400, L501.9985 #### [facility] [address] [place], [place], [phone] Glucose [Mass/Vol] 107 mg/dL High 70-99 [facility] Comment on above: Order Comment: Order Date: 09/28/24 Order Info: 785-05 - CMP Order Info: [id number] - LIPID Order Info: 3 - TSH Order Info: 3027 - T4F Performed By: #### L 501.9520, L100.0100, L500.4050, L500.4100, L506.0400, L501.9985 #### [facility] [address] [place], [address] Potassium [Moles/Vol] 4.0 mmol/L Normal 3.3-5.1 [facility] Comment on above: Order Comment: Order Date: 09/28/24 Order Info: 86-1 - CMP Order Info: [id number] - LIPID Order Info: [id number] - TSH Order Info: 3024-7 - T4F Performed By: #### L 501.9520, L100.0100, L500.4050, L500.4100, L506.0400, L501.9985 #### [facility] [address] [place], [address] Sodium [Moles/Vol] 141 mmol/L Normal 133-145 [facility] Comment on above: Order Comment: Order Date: 09/28/24 Order Info: 0786-1 - CMP Order Info: [id number] - LIPID Order Info: [id number] - TSH Order Info: 3024-7 - T4F Performed By: #### L 501.9520, L100.0100, L500.4050, L500.4100, L506.0400, L501.9985 #### [facility] [address] [place], [address] T PROT 7.4 g/dL Normal 5.9-8.4 [facility] Comment on above: Order Comment: Order Date: 09/28/24 Order Info: 0786-1 - CMP Order Info: - LIPID Order Info: 3 - TSH Order Info: 3024-7 - T4F Performed By: #### L 501.9520, L100.0100, L500.4050, L500.4100, L506.0400, L501.9985 #### [facility] [address] [place], [address] Urea nitrogen [Mass/Vol] 20 mg/dL High 4-19 [facility] Comment on above: Order Comment: Order Date: 09/28/24 Order Info: 0786-1 - CMP Order Info: [id number] - LIPID Order Info: [id number] - TSH Order Info: 3024-7 - T4F Performed By: #### L 501.9520, L100.0100, L500.4050, L500.4100, L506.0400, L501.9985 #### [facility] [address] [place], [address] Eosinophil percentageOrdered By: Ralph Nava on 09-28-2024 Eosinophils/100 WBC (Bld) 3.0 % 0-5 [facility] Erythrocyte distribution wid th ratioOrdered By: Ralph Nava on 09-28-2024 Erythrocyte distribution width (RBC) [Ratio] 13.5 % 11.6-14.6 [facility] Erythrocyte distribution wid th standard deviationOrdered By: Ralph Nava on 09-28-2024 Erythrocyte distribution width (RBC) [Ratio] 43.6 fl 35.1-43.9 [facility] Glomerular filtration rate ( GFR) estimation/1.73 sq m using serum, plasma, or whole bOrdered By: Ralph Nava on 09-28-2024 GFR/1.73 sq M.predicted among non-blacks MDRD (S/P/Bld) [Vol rate/Area] 69 mL/min/{1.73_m2} >60 [facility] Comment on above: mL/min/1.73m2 CKD-EP I Creatinine Equation (2020) Hematocrit Auto (Bld) [Volum e fraction]Ordered By: Ralph Nava on 09-28-2024 Hematocrit (Bld) [Volume fraction] 37.3 % 37-47 [facility] Hemoglobin A1con 09-28-2024 HbA1c (Bld) [Mass fraction] 5.7 % Normal <=5.6 [facility] Comment on above: Order Comment: Order Date: 09/28/24 Order Info: [id number] - A1C Result Comment: Norm al < 5.7 % Prediabetic 5.7 - 6.4 % Diabetic >or= 6.5 % Please note range changes. Performed By: #### L 501.9520, L100.0100, L500.4050, L500.4100, L506.0400, L501.9985 #### [facility] [address] [place], [place], [phone] Hemoglobin A1c percentageOrd ered By: Ralph Nava on 09-28-2024 HbA1c (Bld) [Mass fraction] 5.7 % <5.7 [facility] Comment on above: Normal < 5.7 % Predi abetic 5.7 - 6.4 % Diabetic >or= 6.5 % Please note range changes. Hemoglobin measurementOrdere d By: Ralph Nava on 09-28-2024 Hemoglobin (Bld) [Mass/Vol] 12.6 g/dL 12.0-15.0 [facility] Immature granulocytes/100 WB C Auto (Bld)Ordered By: Ralph Nava on 09-28-2024 Immature granulocytes/100 WBC (Bld) 0.100 % 0.0-0.9 [facility] Comment on above: IG% - Immature Granu locytes (promyelocytes, myelocytes and metamyelocytes) > 1% indicates that a LEFT SHIFT is Present. LDL calc ser/plasOrdered By: Ralph Nava on 09-28-2024 Cholesterol in LDL [Mass/Vol] 147 mg/dL [facility] Comment on above: Ambxmrswpq=986-069 m g/dL & Higher Bqck=812 mg/dL or greater Laboratory - Chemistry and C hemistry - challengeOrdered By: Ralph Nava on 09-28-2024 AST [Catalytic activity/Vol] 27 U/L <32 [facility] Lipid Profileon 09-28-2024 CHOL:HDL 5.19 Normal [facility] Comment on above: Order Comment: Order Date: 02/17/24 Order Info: 2132-9 - B12 Order Info: [id number] - VITD25 Performed By: #### L 100.0100, L501.9520, L506.1000, L500.4100, L500.4050 #### [facility] [address] [place], [address] Cholesterol [Mass/Vol] 232 mg/dL High <=200 [facility] Comment on above: Order Comment: Order Date: 02/17/24 Order Info: 2132-9 - B12 Order Info: [id number] - VITD25 Result Comment: Chol esterol level, Desirable <200 mg/dL Borderline high cholesterol 200-239 mg/dL High cholesterol >=240 mg/dL Recommendations of the NCEP Adult Treatment Panel for the following risk-cutoff thresholds for the [place] population. Performed By: #### L 100.0100, L501.9520, L506.1000, L500.4100, L500.4050 #### [facility] [address] [place], [address] Cholesterol in HDL [Mass/Vol] 45 mg/dL Normal [facility] Comment on above: Order Comment: Order Date: 02/17/24 Order Info: 2132-01 Order Info: [id number] - VITD25 Result Comment: [place] Cholesterol Education Program (NCEP) guidelines: <40 mg/dL: Low HDL-cholesterol (major risk factor for CHD) >= 60 mg/dL: High HDL-cholesterol (negative risk factor for CHD) HDL-cholesterol is affected by a number of factors, e.g. smoking, exercise, hormones, sex and age. Performed By: #### L 100.0100, L501.9520, L506.1000, L500.4100, L500.4050 #### [facility] [address] [place], [address] Cholesterol in LDL [Mass/Vol] 147 mg/dL Normal [facility] Comment on above: Order Comment: Order Date: 02/17/24 Order Info: 2132-01 Order Info: [id number] - VITD25 Result Comment: Bord mkhpwi=183-411 mg/dL Higher Dnmn=664 mg/dL or greater Performed By: #### L 100.0100, L501.9520, L506.1000, L500.4100, L500.4050 #### [facility] [address] [place], [address] Cholesterol in VLDL [Mass/Vol] 40 mg/dL Normal 5-40 [facility] Comment on above: Order Comment: Order Date: 02/17/24 Order Info: 2132-01 Order Info: [id number] - VITD25 Performed By: #### L 100.0100, L501.9520, L506.1000, L500.4100, L500.4050 #### [facility] [address] [place], [address] Triglyceride [Mass/Vol] 200 mg/dL High [facility] Comment on above: Order Comment: Order Date: 02/17/24 Order Info: 2132-01 Order Info: [id number] - VITD25 Result Comment: The drugs N-Acetylcysteine and Metamizole may falsely depress this assay. Normal range: <150 mg/dL Borderline High: 150-199 mg/dL High: 200-499 mg/dL Very High: >500 mg/dL Performed By: #### L 100.0100, L501.9520, L506.1000, L500.4100, L500.4050 #### [facility] [place], [address] MCV (mean corpuscular volume ) determinationOrdered By: Ralph Nava on 09-28-2024 MCV (RBC) [Entitic vol] 88.0 fL 81-99 [facility] Mean corpuscular hemoglobin (MCH) determinationOrdered By: Ralph Nava on 09-28-2024 MCH (RBC) [Entitic mass] 29.7 pg 27.0-32.0 [facility] Mean corpuscular hemoglobin concentration (MCHC) determinationOrdered By: Ralph Nava on 09-28-2024 MCHC (RBC) [Mass/Vol] 33.8 g/dL 32-36 [facility] Mean platelet volume determi nationOrdered By: Ralph Nava on 09-28-2024 Platelet mean volume (Bld) [Entitic vol] 11.0 fL 6.2-12.0 [facility] Monocyte percentageOrdered B y: Ralph Nava on 09-28-2024 Monocytes/100 WBC (Bld) 6.1 % 0-10 [facility] Neutrophil percentageOrdered By: Ralph Nava on 09-28-2024 Neutrophils/100 WBC (Bld) 41.1 % Low 47-70 [facility] Nucleated red blood cell per centageOrdered By: Ralph Nava on 09-28-2024 Nucleated RBC/100 WBC (Bld) [Ratio] 0 % 0-5 [facility] Platelet countOrdered By: Aurora Nava on 09-28-2024 Platelets (Bld) [#/Vol] 261 10*3/uL 150-450 [facility] Potassium measurement (mass/ volume)Ordered By: Ralph Nava on 09-28-2024 Potassium (Unsp spec) [Mass/Vol] 4.0 mmol/L 3.3-5.1 [facility] RBC Auto (Bld) [#/Vol]Ordere d By: Ralph Nvaa on 09-28-2024 RBC (Bld) [#/Vol] 4.24 10*6/uL 4.2-5.4 [facility] Screening total cholesterol/ high density lipoprotein (HDL) cholesterol ratioOrdered By: Ralph Nava on 09-28-2024 Cholesterol.total/Desi sterol in HDL [Mass ratio] 5.19 {ratio} [facility] Serum creatinine measurement (mass/volume)Ordered By: Ralph Nava on 09-28-2024 Creatinine [Mass/Vol] 0.95 mg/dL 0.70-1.20 [facility] Serum globulin measurementOr dered By: Ralph Nava on 09-28-2024 Globulin (S) [Mass/Vol] 3.2 g/dL 2.2-4.2 [facility] Serum glucose measurement (m ass/volume)Ordered By: Ralph Nava on 09-28-2024 Glucose [Mass/Vol] 107 mg/dL High 70-99 [facility] Serum or plasma alanine flores otransferase (ALT) measurementOrdered By: Ralph Nava on 09-28-2024 ALT [Catalytic activity/Vol] 25 U/L <35 [facility] Serum or plasma albumin fabi urement (mass/volume)Ordered By: Ralph Nava on 09-28-2024 Albumin [Mass/Vol] 4.2 g/dL 3.4-4.8 [facility] Serum or plasma albumin/glob ulin mass ratioOrdered By: Ralph Nava on 09-28-2024 Albumin/Globulin [Mass ratio] 1.3 {ratio} 0.9-2.4 [facility] Serum or plasma alkaline guy sphatase measurementOrdered By: Ralph Nava on 09-28-2024 ALP [Catalytic activity/Vol] 119 U/L High 35-104 [facility] Serum or plasma calcium fabi urement (mass/volume)Ordered By: Ralph Nava on 09-28-2024 Calcium [Mass/Vol] 9.5 mg/dL 7.6-11.0 [facility] Serum or plasma cholesterol in HDL measurement (mass/volume)Ordered By: Ralph Nava on 09-28-2024 Cholesterol in HDL [Mass/Vol] 45 mg/dL >40 [facility] Comment on above: National Cholesterol Education Program (NCEP) guidelines:<40 mg/dL: Low HDL-cholesterol (major risk factor for CHD)>= 60 mg/dL: High HDL-cholesterol (negative risk factor for CHD)HDL-cholesterol is affected by a number of factors, e.g. smoking, exercise, hormones, sex and age. Serum or plasma cholesterol measurement (mass/volume)Ordered By: Ralph Nava on 09-28-2024 Cholesterol [Mass/Vol] 232 mg/dL High <201 [facility] Comment on above: Cholesterol level, D esirable <200 mg/dLBorderline high cholesterol 200-239 mg/dLHigh cholesterol >=240 mg/dLRecommendations of the NCEP Adult Treatment Panel for the following risk-cutoff thresholds for the [place] Vincent[place] population. Serum or plasma urea nitroge n measurement (mass/volume)Ordered By: Ralph Nava on 09-28-2024 Urea nitrogen [Mass/Vol] 20 mg/dL High 4-19 [facility] Sodium levelOrdered By: Ralph Nava on 09-28-2024 Sodium [Moles/Vol] 141 mmol/L 133-145 [facility] T4 Free Directon 09-28-2024 T4 FREE DIRECT 1.50 ng/dL High 0.76-1.46 [facility] Comment on above: Order Comment: Order Date: 02/17/24 Order Info: 2132-9 - B12 Order Info: [id number] - VITD25 Performed By: #### L 100.0100, L501.9520, L506.1000, L500.4100, L500.4050 #### [facility] [place], [address] T4 freeOrdered By: Ralph armas on 09-28-2024 Free T4 [Mass/Vol] 1.50 ng/dL High 0.76-1.46 [facility] TSH DL <= 0.005 mIU/L QnOrde red By: Ralph Nava on 09-28-2024 TSH Qn 0.729 uIU/mL 0.300-4.200 [facility] Thyroid Stim Hormone (TSH)on 09-28-2024 TSH 0.729 uIU/mL Normal 0.300-4.200 [facility] Comment on above: Order Comment: Order Date: 02/17/24 Order Info: 2132-9 - B12 Order Info: [id number] - VITD25 Performed By: #### L 100.0100, L501.9520, L506.1000, L500.4100, L500.4050 #### [facility] [address] [place], [place], [id number] Total proteinOrdered By: Justyn Nava on 09-28-2024 Protein [Mass/Vol] 7.4 g/dL 5.9-8.4 [facility] Triglycerides measurementOrd ered By: Ralph Nava on 09-28-2024 Triglyceride [Mass/Vol] 200 mg/dL High <199 [facility] Comment on above: The drugs N-Acetylcy steine and Metamizole may falsely depress this assay. Normal range: <150 mg/dLBorderline High: 150-199 mg/dLHigh: 200-499 mg/dLVery High: >500 mg/dL Vitamin D,25 Hydroxyon 09-28 Vitamin D 25-OH 38.5 ng/mL Normal 30-100 [facility] Comment on above: Order Comment: Order Date: 02/17/24 Order Info: 9 - B12 Order Info: [id number] - VITD25 Result Comment: Jeaneth min D Status Deficiency: <20 ng/mL (50nmol/L) Insufficiency: 20-30 ng/mL (50-75 nmol/L) Sufficiency: 30-100 ng/mL (75-250 nmol/L) Toxicity: >100 ng/mL (>250 nmol/L) Performed By: #### L 100.0100, L501.9520, L506.1000, L500.4100, L500.4050 #### [facility] [address] [place], [place], [id number] White blood cell (WBC) count Ordered By: Ralph Nava on 09-28-2024 WBC (Bld) [#/Vol] 7.1 10*3/uL 4.4-11.0 [facility] Absolute lymphocyte countOrd ered By: Ralph Nava on 06-16-2024 Lymphocytes Auto (Unsp spec) [#/Vol] 3.56 10*3/uL 0.83-4.51 [facility] Absolute neutrophil countOrd ered By: Ralph Nava on 06-16-2024 Neutrophils (Bld) [#/Vol] 3.4 10*3/uL 2.0-7.7 [facility] Albumin to globulin ratioOrd ered By: Ralph Nava on 06-16-2024 Albumin/Globulin [Mass ratio] 0.9 {ratio} 0.9-2.4 [facility] Automated lymphocyte count a s percentage of total leukocytesOrdered By: Ralph Nava on 06-16-2024 Lymphocytes/100 WBC Auto (Unsp spec) 44.8 % High 19-41 [facility] Basophil percentageOrdered B y: Ralph Nava on 06-16-2024 Basophils/100 WBC (Bld) 1.1 % High 0-1 [facility] Bilirubin, totalOrdered By: Ralph Nava on 06-16-2024 Bilirubin [Mass/Vol] 0.20 mg/dL 0.20-1.00 [facility] Comment on above: For patients on eltr ombopag therapy, use of Dimension Headrick TBIL is not recommended. Blood urea nitrogen (BUN)/cr eatinine ratioOrdered By: Ralph Nava on 06-16-2024 Urea nitrogen/Creatinine [Mass ratio] 22.9 mg/mg High 10-20 [facility] CBC W/Diff, Automatedon Absolute Lymph 3.56 X10 3/uL Normal 0.83-4.51 [facility] Comment on above: Order Comment: Order Date: 02/17/24 Order Info: 2132-9 - B12 Order Info: [id number] - VITD25 Performed By: #### L 100.0100, L501.9520, L506.1000, L500.4100, L500.4050 #### [facility] [address] [place], [address] Absolute Neut 3.4 X10 3/uL Normal 2.0-7.7 [facility] Comment on above: Order Comment: Order Date: 02/17/24 Order Info: 2132-01 Order Info: [id number] - VITD25 Performed By: #### L 100.0100, L501.9520, L506.1000, L500.4100, L500.4050 #### [facility] [address] [place], [address] Basophils/100 WBC (Bld) 1.1 % High 0-1 [facility] Comment on above: Order Comment: Order Date: 02/17/24 Order Info: 2132-01 Order Info: 14083-8 - VITD25 Performed By: #### L 100.0100, L501.9520, L506.1000, L500.4100, L500.4050 #### [facility] [address] [place], [address] Eosinophils/100 WBC (Bld) 4.5 % Normal 0-5 [facility] Comment on above: Order Comment: Order Date: 02/17/24 Order Info: 2132-01 Order Info: [id number] - VITD25 Performed By: #### L 100.0100, L501.9520, L506.1000, L500.4100, L500.4050 #### [facility] [address] [place], [address] Erythrocyte distribution width (RBC) [Ratio] 13.6 % Normal 11.6-14.6 [facility] Comment on above: Order Comment: Order Date: 02/17/24 Order Info: 2132-01 Order Info: 79905-9 - VITD25 Performed By: #### L 100.0100, L501.9520, L506.1000, L500.4100, L500.4050 #### [facility] [address] [place], [address] Hematocrit (Bld) [Volume fraction] 37.2 % Normal 37-47 [facility] Comment on above: Order Comment: Order Date: 02/17/24 Order Info: 2132-01 - B12 Order Info: [id number] - VITD25 Performed By: #### L 100.0100, L501.9520, L506.1000, L500.4100, L500.4050 #### [facility] [address] [place], [address] Hemoglobin (Bld) [Mass/Vol] 12.3 g/dL Normal 12.0-15.0 [facility] Comment on above: Order Comment: Order Date: 02/17/24 Order Info: 2132-01 B12 Order Info: 09221-0 - VITD25 Performed By: #### L 100.0100, L501.9520, L506.1000, L500.4100, L500.4050 #### [facility] [address] [place], [address] IG% 0.100 Normal 0.0-0.9 [facility] Comment on above: Order Comment: Order Date: 02/17/24 Order Info: 2132-01 B12 Order Info: 26673-1 - VITD25 Result Comment: IG% - Immature Granulocytes (promyelocytes, myelocytes and metamyelocytes) > 1% indicates that a LEFT SHIFT is Present. Performed By: #### L 100.0100, L501.9520, L506.1000, L500.4100, L500.4050 #### [facility] [address] [place], [address] Lymphocytes/100 WBC (Bld) 44.8 % High 19-41 [facility] Comment on above: Order Comment: Order Date: 02/17/24 Order Info: 2132-01 B12 Order Info: 13459-5 - VITD25 Performed By: #### L 100.0100, L501.9520, L506.1000, L500.4100, L500.4050 #### [facility] [address] [place], [address] MCH (RBC) [Entitic mass] 29.4 pg Normal 27.0-32.0 [facility] Comment on above: Order Comment: Order Date: 02/17/24 Order Info: 2132-01 - B12 Order Info: [id number] - VITD25 Performed By: #### L 100.0100, L501.9520, L506.1000, L500.4100, L500.4050 #### [facility] [address] [place], [address] MCHC (RBC) [Mass/Vol] 33.1 g/dL Normal 32-36 [facility] Comment on above: Order Comment: Order Date: 02/17/24 Order Info: 2132-01 B12 Order Info: 36424-5 - VITD25 Performed By: #### L 100.0100, L501.9520, L506.1000, L500.4100, L500.4050 #### [facility] [address] [place], [address] MCV (RBC) [Entitic vol] 88.8 fL Normal 81-99 [facility] Comment on above: Order Comment: Order Date: 02/17/24 Order Info: 2132-01 B12 Order Info: 74916-8 - VITD25 Performed By: #### L 100.0100, L501.9520, L506.1000, L500.4100, L500.4050 #### [facility] [address] [place], [address] Monocytes/100 WBC (Bld) 6.4 % Normal 0-10 [facility] Comment on above: Order Comment: Order Date: 02/17/24 Order Info: 2132-01 - B12 Order Info: 24480-9 - VITD25 Performed By: #### L 100.0100, L501.9520, L506.1000, L500.4100, L500.4050 #### [facility] [address] [place], [address] Neutrophils/100 WBC (Bld) 43.1 % Low 47-70 [facility] Comment on above: Order Comment: Order Date: 02/17/24 Order Info: 2132-01 Order Info: [id number] - VITD25 Performed By: #### L 100.0100, L501.9520, L506.1000, L500.4100, L500.4050 #### [facility] [address] [place], [address] Nucleated RBC (Bld) [#/Vol] 0 10*3/uL Normal 0-5 [facility] Comment on above: Order Comment: Order Date: 02/17/24 Order Info: 2132-01 Order Info: 98414-0 - VITD25 Performed By: #### L 100.0100, L501.9520, L506.1000, L500.4100, L500.4050 #### [facility] [address] [place], [address] Platelet mean volume (Bld) [Entitic vol] 11.1 fL Normal 6.2-12.0 [facility] Comment on above: Order Comment: Order Date: 02/17/24 Order Info: 2132-01 Order Info: [id number] - VITD25 Performed By: #### L 100.0100, L501.9520, L506.1000, L500.4100, L500.4050 #### [facility] [address] [place], [address] Platelets (Bld) [#/Vol] 272 10*3/uL Normal 150-450 [facility] Comment on above: Order Comment: Order Date: 02/17/24 Order Info: 2132-01 Order Info: 03737-1 - VITD25 Performed By: #### L 100.0100, L501.9520, L506.1000, L500.4100, L500.4050 #### [facility] [address] [place], [address] RBC (Bld) [#/Vol] 4.19 10*6/uL Low 4.2-5.4 [facility] Comment on above: Order Comment: Order Date: 02/17/24 Order Info: 9 - B12 Order Info: [id number] - VITD25 Performed By: #### L 100.0100, L501.9520, L506.1000, L500.4100, L500.4050 #### [facility] [address] [place], [address] RDW SD 44.1 fl High 35.1-43.9 [facility] Comment on above: Order Comment: Order Date: 02/17/24 Order Info: 9 - B12 Order Info: 31245-2 - VITD25 Performed By: #### L 100.0100, L501.9520, L506.1000, L500.4100, L500.4050 #### [facility] [address] [place], [address] WBC (Bld) [#/Vol] 7.9 10*3/uL Normal 4.4-11.0 [facility] Comment on above: Order Comment: Order Date: 02/17/24 Order Info: 9 - B12 Order Info: 05835-3 - VITD25 Performed By: #### L 100.0100, L501.9520, L506.1000, L500.4100, L500.4050 #### [facility] [address] [place], [place], [address] Carbon dioxide measurementOr dered By: Ralph Nava on 06-16-2024 CO2 [Moles/Vol] 30.0 mmol/L 21.0-32.0 [facility] Chloride measurementOrdered By: Ralph Nava on 06-16-2024 Chloride [Moles/Vol] 105 mmol/L 98-107 [facility] Comprehensive Metabolic Prof ilon 06-16-2024 Albumin [Mass/Vol] 3.7 g/dL Normal 3.2-5.0 [facility] Comment on above: Order Comment: Order Date: 02/17/24 Order Info: 2131-9 - B12 Order Info: 90181-1 - VITD25 Performed By: #### L 100.0100, L501.9520, L506.1000, L500.4100, L500.4050 #### [facility] [address] [place], [address] Albumin/Globulin [Mass ratio] 0.9 {ratio} Normal 0.9-2.4 [facility] Comment on above: Order Comment: Order Date: 02/17/24 Order Info: 2132-01 - B12 Order Info: [id number] - VITD25 Performed By: #### L 100.0100, L501.9520, L506.1000, L500.4100, L500.4050 #### [facility] [address] [place], [address] ALK P 110 U/L Normal 45-117 [facility] Comment on above: Order Comment: Order Date: 02/17/24 Order Info: 2132-01 - B12 Order Info: [id number] - VITD25 Performed By: #### L 100.0100, L501.9520, L506.1000, L500.4100, L500.4050 #### [facility] [address] [place], [address] ALT [Catalytic activity/Vol] 39 U/L Normal 13-56 [facility] Comment on above: Order Comment: Order Date: 02/17/24 Order Info: 9 - B12 Order Info: [id number] - VITD25 Performed By: #### L 100.0100, L501.9520, L506.1000, L500.4100, L500.4050 #### [facility] [address] [place], [address] AST [Catalytic activity/Vol] 27 U/L Normal 15-37 [facility] Comment on above: Order Comment: Order Date: 02/17/24 Order Info: 9 - B12 Order Info: 35589-2 - VITD25 Performed By: #### L 100.0100, L501.9520, L506.1000, L500.4100, L500.4050 #### [facility] [address] [place], [address] Bilirubin [Mass/Vol] 0.20 mg/dL Normal 0.20-1.00 [facility] Comment on above: Order Comment: Order Date: 02/17/24 Order Info: 2132-01 - B12 Order Info: [id number] - VITD25 Result Comment: For patients on eltrombopag therapy, use of Dimension [place]rick TBIL is not recommended. Performed By: #### L 100.0100, L501.9520, L506.1000, L500.4100, L500.4050 #### [facility] [address] [place], [address] BUN/CRE 22.9 RATIO High 10-20 [facility] Comment on above: Order Comment: Order Date: 02/17/24 Order Info: 2132-01 - B12 Order Info: [id number] - VITD25 Performed By: #### L 100.0100, L501.9520, L506.1000, L500.4100, L500.4050 #### [facility] [address] [place], [address] CA,Total 9.8 mg/dL Normal 8.5-10.1 [facility] Comment on above: Order Comment: Order Date: 02/17/24 Order Info: 2132-01 B12 Order Info: 83915-0 - VITD25 Performed By: #### L 100.0100, L501.9520, L506.1000, L500.4100, L500.4050 #### [facility] [address] [place], [address] Chloride [Moles/Vol] 105 mmol/L Normal 98-107 [facility] Comment on above: Order Comment: Order Date: 02/17/24 Order Info: 2132-01 B12 Order Info: 80025-1 - VITD25 Performed By: #### L 100.0100, L501.9520, L506.1000, L500.4100, L500.4050 #### [facility] [address] [place], [address] CO2 [Moles/Vol] 30.0 mmol/L Normal 21.0-32.0 [facility] Comment on above: Order Comment: Order Date: 02/17/24 Order Info: 2132-01 B12 Order Info: 21259-3 - VITD25 Performed By: #### L 100.0100, L501.9520, L506.1000, L500.4100, L500.4050 #### [facility] [address] [place], [address] Creatinine [Mass/Vol] 0.83 mg/dL Normal 0.55-1.02 [facility] Comment on above: Order Comment: Order Date: 02/17/24 Order Info: 2132-01 Order Info: [id number] - VITD25 Result Comment: The validity of the calculated GFR GFRAA in patients over 70 years has not been determined. Clinical correlation is essential. Performed By: #### L 100.0100, L501.9520, L506.1000, L500.4100, L500.4050 #### [facility] [address] [place], [address] EST GFR - AA 91 mL/min Normal >60 [facility] Comment on above: Order Comment: Order Date: 02/17/24 Order Info: 2132-01 B12 Order Info: 24334-1 - VITD25 Result Comment: Afri can Vincentian GFR Calc Performed By: #### L 100.0100, L501.9520, L506.1000, L500.4100, L500.4050 #### [facility] [address] [place], [address] GAP 6 Normal 5-15 [facility] Comment on above: Order Comment: Order Date: 02/17/24 Order Info: 2132-01 - B12 Order Info: 62275-6 - VITD25 Performed By: #### L 100.0100, L501.9520, L506.1000, L500.4100, L500.4050 #### [facility] [address] [place], [address] GFR/1.73 sq M.predicted among non-blacks MDRD (S/P/Bld) [Vol rate/Area] 75 mL/min/{1.73_m2} Normal >60 [facility] Comment on above: Order Comment: Order Date: 02/17/24 Order Info: 2132-01 - B12 Order Info: [id number] - VITD25 Result Comment: Non- GFR Calc Performed By: #### L 100.0100, L501.9520, L506.1000, L500.4100, L500.4050 #### [facility] [address] [place], [address] Globulin (S) [Mass/Vol] 4.2 g/dL Normal 2.2-4.2 [facility] Comment on above: Order Comment: Order Date: 02/17/24 Order Info: 2132-01 - B12 Order Info: 99091-0 - VITD25 Performed By: #### L 100.0100, L501.9520, L506.1000, L500.4100, L500.4050 #### [facility] [address] [place], [address] Glucose [Mass/Vol] 83 mg/dL Normal 74-106 [facility] Comment on above: Order Comment: Order Date: 02/17/24 Order Info: 2132-01 - B12 Order Info: 77583-4 - VITD25 Performed By: #### L 100.0100, L501.9520, L506.1000, L500.4100, L500.4050 #### [facility] [address] [place], [address] Potassium [Moles/Vol] 3.8 mmol/L Normal 3.5-5.1 [facility] Comment on above: Order Comment: Order Date: 02/17/24 Order Info: 2132-01 - B12 Order Info: 84586-7 - VITD25 Performed By: #### L 100.0100, L501.9520, L506.1000, L500.4100, L500.4050 #### [facility] [address] [place], [address] Sodium [Moles/Vol] 140 mmol/L Normal 136-145 [facility] Comment on above: Order Comment: Order Date: 02/17/24 Order Info: 2132-01 - B12 Order Info: 78830-9 - VITD25 Performed By: #### L 100.0100, L501.9520, L506.1000, L500.4100, L500.4050 #### [facility] [address] [place], [address] T PROT 7.9 g/dL Normal 6.4-8.2 [facility] Comment on above: Order Comment: Order Date: 02/17/24 Order Info: 2132-01 - B12 Order Info: 48885-7 - VITD25 Performed By: #### L 100.0100, L501.9520, L506.1000, L500.4100, L500.4050 #### [facility] [address] [place], [address] Urea nitrogen [Mass/Vol] 19 mg/dL High 7-18 [facility] Comment on above: Order Comment: Order Date: 02/17/24 Order Info: 2132-01 - B12 Order Info: 84470-5 - VITD25 Performed By: #### L 100.0100, L501.9520, L506.1000, L500.4100, L500.4050 #### [facility] [place], [address] Direct serum free thyroxine (FT4) measurementOrdered By: Ralph Nava on 06-16-2024 Free T4 [Mass/Vol] 1.08 ng/dL 0.76-1.46 [facility] Eosinophil percentageOrdered By: Ralph Nava on 06-16-2024 Eosinophils/100 WBC (Bld) 4.5 % 0-5 [facility] Erythrocyte distribution wid th ratioOrdered By: Ralph Nava on 06-16-2024 Erythrocyte distribution width (RBC) [Ratio] 13.6 % 11.6-14.6 [facility] Erythrocyte distribution wid th standard deviationOrdered By: Ralph Nava on 06-16-2024 Erythrocyte distribution width (RBC) [Ratio] 44.1 fl High 35.1-43.9 [facility] Glomerular filtration rate ( GFR) estimationOrdered By: Ralph Nava on 06-16-2024 GFR/1.73 sq M.predicted among non-blacks MDRD (S/P/Bld) [Vol rate/Area] 75 mL/min/{1.73_m2} >60 [facility] Comment on above: Non- GFR Calc Glucose measurementOrdered B y: Ralph Nava on 06-16-2024 Glucose [Mass/Vol] 83 mg/dL 74-106 [facility] Hematocrit Auto (Bld) [Volum e fraction]Ordered By: Ralph Nava on 06-16-2024 Hematocrit (Bld) [Volume fraction] 37.2 % 37-47 [facility] Hemoglobin A1con 06-16-2024 HbA1c (Bld) [Mass fraction] 5.2 % Normal 3.8-5.6 [facility] Comment on above: Order Comment: Order Date: 02/17/24 Order Info: [id number] - CMP Order Info: [id number] - LIPID Order Info: [id number] - TSH Order Info: [id number] - T4F Result Comment: Norm al < 5.7 % Prediabetic 5.7 - 6.4 % Diabetic >or= 6.5 % Please note range changes. Performed By: #### L 100.0100, L501.9520, L506.1000, L500.4100, L500.4050 #### [facility] [address] [place], [address] Hemoglobin A1c percentageOrd ered By: Ralph Nava on 06-16-2024 HbA1c (Bld) [Mass fraction] 5.2 % 3.8-5.6 [facility] Comment on above: Normal < 5.7 % Predi abetic 5.7 - 6.4 % Diabetic >or= 6.5 % Please note range changes. Hemoglobin measurementOrdere d By: Ralph Nava on 06-16-2024 Hemoglobin (Bld) [Mass/Vol] 12.3 g/dL 12.0-15.0 [facility] High density lipoprotein (HD L) measurementOrdered By: Ralph Nava on 06-16-2024 Cholesterol in HDL [Mass/Vol] 50 mg/dL >40 [facility] Comment on above: The drugs N-Acetylcy steine and Metamizole may falsely depress this assay. Reference Range HDL <40 mg/dL Low HDL Cholesterol HDL >or= 60 mg/dL High HDL Cholesterol Immature granulocytes/100 WB C Auto (Bld)Ordered By: Ralph Nava on 06-16-2024 Immature granulocytes/100 WBC (Bld) 0.100 % 0.0-0.9 [facility] Comment on above: IG% - Immature Granu locytes (promyelocytes, myelocytes and metamyelocytes) > 1% indicates that a LEFT SHIFT is Present. Laboratory - Chemistry and C hemistry - challengeOrdered By: Ralph Nava on 06-16-2024 AST [Catalytic activity/Vol] 27 U/L 15-37 [facility] Lipid Profileon 06-16-2024 Cholesterol [Mass/Vol] 226 mg/dL High 200 [facility] Comment on above: Order Comment: Order Date: 02/17/24 Order Info: [id number] - CMP Order Info: [id number] - LIPID Order Info: [id number] - TSH Order Info: [id number] - T4F Result Comment: <200 mg/dL Desirable 200-240 mg/dL Borderline >240 mg/dL High Risk Performed By: #### L 100.0100, L501.9520, L506.1000, L500.4100, L500.4050 #### [facility] [address] [place], [address] Cholesterol in HDL [Mass/Vol] 50 mg/dL Normal [facility] Comment on above: Order Comment: Order Date: 02/17/24 Order Info: [id number] - CMP Order Info: - LIPID Order Info: [id number] - TSH Order Info: [id number] - T4F Result Comment: The drugs N-Acetylcysteine and Metamizole may falsely depress this assay. Reference Range HDL <40 mg/dL Low HDL Cholesterol HDL >or= 60 mg/dL High HDL Cholesterol Performed By: #### L 100.0100, L501.9520, L506.1000, L500.4100, L500.4050 #### [facility] [address] [place], [address] Cholesterol in LDL [Mass/Vol] 145 mg/dL High 0-130 [facility] Comment on above: Order Comment: Order Date: 02/17/24 Order Info: [id number] - CMP Order Info: - LIPID Order Info: [id number] - TSH Order Info: [id number] - T4F Performed By: #### L 100.0100, L501.9520, L506.1000, L500.4100, L500.4050 #### [facility] [address] [place], [address] Cholesterol in VLDL [Mass/Vol] 31 mg/dL Normal 5-40 [facility] Comment on above: Order Comment: Order Date: 02/17/24 Order Info: [id number] - CMP Order Info: - LIPID Order Info: [id number] - TSH Order Info: 7 - T4F Performed By: #### L 100.0100, L501.9520, L506.1000, L500.4100, L500.4050 #### [facility] [address] [place], [place], [address] Triglyceride [Mass/Vol] 154 mg/dL Normal [facility] Comment on above: Order Comment: Order Date: 02/17/24 Order Info: [id number] - CMP Order Info: [id number] - LIPID Order Info: [id number] - TSH Order Info: [id number] - T4F Result Comment: The drugs N-Acetylcysteine and Metamizole may falsely depress this assay. Serum Triglycerides Reference Interval Normal <150 mg/dL Borderline high 150 - 199 mg/dL High 200 - 499 mg/dL Very High > or = 500 mg/dL Performed By: #### L 100.0100, L501.9520, L506.1000, L500.4100, L500.4050 #### [facility] [address] [place], [address] Low density lipoprotein (LDL ) cholesterol measurementOrdered By: Ralph Nava on 06-16-2024 Cholesterol in LDL [Mass/Vol] 145 mg/dL High 0-130 [facility] MCV (mean corpuscular volume ) determinationOrdered By: Ralph Nava on 06-16-2024 MCV (RBC) [Entitic vol] 88.8 fL 81-99 [facility] Mean corpuscular hemoglobin (MCH) determinationOrdered By: Ralph Nava on 06-16-2024 MCH (RBC) [Entitic mass] 29.4 pg 27.0-32.0 [facility] Mean corpuscular hemoglobin concentration (MCHC) determinationOrdered By: Ralph Nava on 06-16-2024 MCHC (RBC) [Mass/Vol] 33.1 g/dL 32-36 [facility] Mean platelet volume determi nationOrdered By: Ralph Nava on 06-16-2024 Platelet mean volume (Bld) [Entitic vol] 11.1 fL 6.2-12.0 [facility] Monocyte percentageOrdered B y: Ralph Nava on 06-16-2024 Monocytes/100 WBC (Bld) 6.4 % 0-10 [facility] Neutrophil percentageOrdered By: Ralph Nava on 06-16-2024 Neutrophils/100 WBC (Bld) 43.1 % Low 47-70 [facility] Nucleated red blood cell per centageOrdered By: Ralph Nava on 06-16-2024 Nucleated RBC/100 WBC (Bld) [Ratio] 0 % 0-5 [facility] Platelet countOrdered By: Aurora Nava on 06-16-2024 Platelets (Bld) [#/Vol] 272 10*3/uL 150-450 [facility] Potassium measurementOrdered By: Ralph Nava on 06-16-2024 Potassium [Moles/Vol] 3.8 mmol/L 3.5-5.1 [facility] RBC Auto (Bld) [#/Vol]Ordere d By: Ralph Nava on 06-16-2024 RBC (Bld) [#/Vol] 4.19 10*6/uL Low 4.2-5.4 [facility] Serum anion gap measurementO rdered By: Ralph Nava on 06-16-2024 Anion gap [Moles/Vol] 6 mmol/L 5-15 [facility] Serum globulin measurementOr dered By: Ralph Nava on 06-16-2024 Globulin (S) [Mass/Vol] 4.2 g/dL 2.2-4.2 [facility] Serum or plasma alanine flores otransferase (ALT) measurementOrdered By: Ralph Nava on 06-16-2024 ALT [Catalytic activity/Vol] 39 U/L 13-56 [facility] Serum or plasma albumin fabi urement (mass/volume)Ordered By: Ralph Nava on 06-16-2024 Albumin [Mass/Vol] 3.7 g/dL 3.2-5.0 [facility] Serum or plasma alkaline guy sphatase measurementOrdered By: Ralph Nava on 06-16-2024 ALP [Catalytic activity/Vol] 110 U/L 45-117 [facility] Serum or plasma calcium fabi urement (mass/volume)Ordered By: Ralph Nava on 06-16-2024 Calcium [Mass/Vol] 9.8 mg/dL 8.5-10.1 [facility] Serum or plasma cholesterol measurement (mass/volume)Ordered By: Ralph Nava on 06-16-2024 Cholesterol [Mass/Vol] 226 mg/dL High <200 [facility] Comment on above: <200 mg/dL Desirable 200-240 mg/dL Borderline >240 mg/dL High Risk Serum or plasma creatinine m easurement (mass/volume)Ordered By: Ralph Nava on 06-16-2024 Creatinine [Mass/Vol] 0.83 mg/dL 0.55-1.02 [facility] Comment on above: The validity of the calculated GFR & GFRAA in patients over 70 years has not been determined. Clinical correlation is essential. Serum or plasma thyroid stim ulating hormone (TSH) measurement (units/volume)Ordered By: Ralph Nava on 06-16-2024 TSH Qn 1.210 uIU/mL 0.358-3.740 [facility] Serum or plasma urea nitroge n measurement (mass/volume)Ordered By: Ralph Nava on 06-16-2024 Urea nitrogen [Mass/Vol] 19 mg/dL High 7-18 [facility] Sodium levelOrdered By: Ralph Nava on 06-16-2024 Sodium [Moles/Vol] 140 mmol/L 136-145 [facility] T4 Free Directon 06-16-2024 T4 FREE DIRECT 1.08 ng/dL Normal 0.76-1.46 [facility] Comment on above: Order Comment: Order Date: 02/17/24 Order Info: [id number] - CMP Order Info: [id number] - LIPID Order Info: [id number] - TSH Order Info: 7 - T4F Performed By: #### L 100.0100, L501.9520, L506.1000, L500.4100, L500.4050 #### [facility] [address] [place], [place], [id number] Thyroid Stim Hormone (TSH)on 06-16-2024 TSH 1.210 uIU/mL Normal 0.358-3.740 [facility] Comment on above: Order Comment: Order Date: 02/17/24 Order Info: [id number] - CMP Order Info: [id number] - LIPID Order Info: [id number] - TSH Order Info: [id number] - T4F Performed By: #### L 100.0100, L501.9520, L506.1000, L500.4100, L500.4050 #### [facility] [address] [place], [place], [address] Total proteinOrdered By: Justyn Nava on 06-16-2024 Protein [Mass/Vol] 7.9 g/dL 6.4-8.2 [facility] Triglycerides measurementOrd ered By: Ralph Nava on 06-16-2024 Triglyceride [Mass/Vol] 154 mg/dL <199 [facility] Comment on above: The drugs N-Acetylcy steine and Metamizole may falsely depress this assay.Serum Triglycerides Reference Interval Normal <150 mg/dL Borderline high 150 - 199 mg/dL High 200 - 499 mg/dL Very High > or = 500 mg/dL Very low density lipoprotein (VLDL) cholesterol measurementOrdered By: Ralph Nava on 06-16-2024 Very low density lipoprotein (VLDL) cholesterol measurement 31 mg/dL 5-40 [facility] Vitamin D,25 Hydroxyon 06-16 Vitamin D 25-OH 40.0 ng/mL Normal [facility] Comment on above: Order Comment: Order Date: 02/17/24 Order Info: [id number] - B12 Order Info: [id number] - VITD25 Result Comment: Jeaneth min D 25(OH) Status Range Deficiency <20 ng/mL (50nmol/L) Insufficiency 20 - 30 ng/mL (50 - 75 nmol/L) Sufficiency 30 - 100 ng/mL (75 - 250 nmol/L) Toxicity >100 ng/mL (>250 nmol/L) Performed By: #### L 100.0100, L501.9520, L506.1000, L500.4100, L500.4050 #### [facility] [address] [place], [address] White blood cell (WBC) count Ordered By: Ralph Nava on 06-16-2024 WBC (Bld) [#/Vol] 7.9 10*3/uL 4.4-11.0 [facility] Gastroenterology Visit Repor ton 02-03-2025 Gastroenterology Visit Report [facility] Gastroenterology [address] [place] [address] OFFICE VISIT Date of Service: 06/14/24 MR#: [id number] Acct: [id number] Name: BEVERLY MUNSON Rep #: [id number] : 1965 Provider: Сергей Gutierrez DO Age/Sex: 58/F Location: [facility] Status: Signed Intake Vital Signs 10/24/22 13:11 Height 5 ft 4 in Intake Visit Reasons: 6 Month f/u Allergies No Known Allergies Allergy (Verified 01/01/23 12:54) Medications ???Medication ???Instructions ???Recorded ???Confirmed ???Type cetirizine 10 mg tablet 10 mg PO DAILY allergies 01/27/20 06/14/24 History levothyroxine 88 mcg tablet 100 mcg PO DAILY thyroid 01/27/20 06/14/24 History vitamin B complex (B 1 tab PO DAILY 08/13/21 06/14/24 H istory Complex-Vitamin B12 tablet) biotin 5 mg capsule 5 mg PO DAILY 01/01/23 06/14/24 Hi story meloxicam 15 mg tablet 15 mg PO DAILY 01/01/23 06/14/24 H istory mirabegron 25 mg tablet,extended 25 mg PO DAILY 12/29/23 06/14/24 H istory release 24 hr (Myrbetriq) linaclotide 72 mcg capsule 72 mcg PO DAILY #30 caps 12/31/23 06/14/24 Rx (Linzess) zinc acetate 25 mg (zinc) capsule 25 mg PO QDAY 06/14/24 06/14/24 H ist[facility] Medical History (Updated 07/03/23 @ 10:23 by Radha Rodgers) Wears glasses Wears dentures Thyroid disease High cholesterol History of Crohn's disease Former smoker CPAP (continuous positive airway pressure) dependence Sleep apnea Leg cramps History of edema History of stress test Obstructive sleep apnea on CPAP Irritable bowel syndrome with constipation Crohn's disease involving terminal ileum Constipation GERD with esophagitis Esophageal web Paraesophageal hiatal hernia Dysphagia Dysphagia Anemia Hyperlipidemia Chest pain Personal history of colonic polyps Screening for intestinal cancer Hypotension Hypokalemia Seizure Hypothyroidism Surgical History History of [place] fundoplication History of tonsillectomy History of cholecystectomy History of appendectomy History of hysterectomy Family History Sister Cancer Thyroid cancer Daughter Thyroid disorder Mother Hypertension Father Hypertension Social History Smoking Status: Former smoker HPI HPI Details: BEVERLY MUNSON, is a 58 F who presents to the office today for follow up. WSA previously established for management of GERD ? Colonoscopy 01.10.20 hemorrhoids; diverticulosis; redundant colon. No specimens collected. ? EGD 03.20.20 irregular Zline 35cm; LA grade A esophagitis; large hiatal hernia. ? Laparoscopic toupet procedure 08.01.20 for management of large sliding hiatal hernia *BGI established 06.18.21 with anemia and worsening constipation with BRBPR likely secondary to hemorrhoids r/t straining for BM. ? Sitz Markers Day one no rings visualized ? Capsule endoscopy 07.05.21 possible gastroparesis; distal small bowel inflammation; TI ulceration OV 07.16.21 continued constipation, start MiraLAX and/or juice/oil. ? Biochemical CBC, ESR, CMP, ferritin, iron, TIBC, T4, TSH, Vit D, ADRIANA comp, celiac, infliximab, TPMT without pertinent abnormality. ? CRP H6.73, Crohns + ? Stool calprotectin, lactoferrin WNL ? Upper GI SBFT 07.19.21 suspect agile capsule in pelvis. OV 08.13.21 with newly diagnosed Crohn???s disease. Start mesalamine 1,000mg BID, Linzess 145mcg. Rheumatology referred 08.30.21 for management of arthralgias, did not pursue referral. OV 11.02.22 Linzess 145 too strong, Start Linzess 72mcg; Continue mesalamine ? Biochemical 11.02.21 CRP H8.49 ? Biochemical 02.12.22 (PCP) CBC, ESR, CMP, RF, T4, TSH, Vit B12, Vit D25 without pertinent abnormality OV 03.04.22 Start turlance versus lactulose. Continue pentasa for Crohn???s. ? Biochemical 05.17.22 (PCP) CBC, CMP, ferritin, iron, TIBC, T4, TSH, Vit D25 without pertinent abnormality ? Cholesterol H268 OV 06.04.22 continues to have constipation difficulty with ineffective use of medications; Start aloe vera pills. Pentasa therapy interruption r/t insurance coverage; resume pentasa, possible azathioprine. OV 08.23.22 Continue lactulose. Mesalamine stopped p (more content not included)... Normal [facility] Hemoglobin A1con 02-21-2024 HbA1c (Bld) [Mass fraction] 5.8 % High 3.8-5.6 [facility] Comment on above: Order Comment: Order Date: 02/17/24 Order Info: [id number] - B12 Order Info: [id number] - VITD25 Result Comment: Norm al < 5.7 % Prediabetic 5.7 - 6.4 % Diabetic >or= 6.5 % Please note range changes. Performed By: #### L 100.0100, L501.9520, L506.1000, L500.4100, L500.4050 #### [facility] [address] [place], [place], [address] CBC W/Diff, Automatedon Absolute Lymph 3.12 X10 3/uL Normal 0.83-4.51 [facility] Comment on above: Order Comment: Order Date: 02/17/24 Order Info: [id number] - CBCD Performed By: #### L 100.0100, L501.9520, L506.1000, L500.4100, L500.4050 #### [facility] [address] [place], [address] Absolute Neut 3.6 X10 3/uL Normal 2.0-7.7 [facility] Comment on above: Order Comment: Order Date: 02/17/24 Order Info: [id number] - CBCD Performed By: #### L 100.0100, L501.9520, L506.1000, L500.4100, L500.4050 #### [facility] [address] [place], [address] Basophils/100 WBC (Bld) 1.2 % High 0-1 [facility] Comment on above: Order Comment: Order Date: 02/17/24 Order Info: 0184-1 - CBCD Performed By: #### L 100.0100, L501.9520, L506.1000, L500.4100, L500.4050 #### [facility] [address] [place], [address] Eosinophils/100 WBC (Bld) 3.7 % Normal 0-5 [facility] Comment on above: Order Comment: Order Date: 02/17/24 Order Info: 0184- - CBCD Performed By: #### L 100.0100, L501.9520, L506.1000, L500.4100, L500.4050 #### [facility] [address] [place], [address] Erythrocyte distribution width (RBC) [Ratio] 14.3 % Normal 11.6-14.6 [facility] Comment on above: Order Comment: Order Date: 02/17/24 Order Info: 0184- - CBCD Performed By: #### L 100.0100, L501.9520, L506.1000, L500.4100, L500.4050 #### [facility] [address] [place], [address] Hematocrit (Bld) [Volume fraction] 38.7 % Normal 37-47 [facility] Comment on above: Order Comment: Order Date: 02/17/24 Order Info: 0184-1 - CBCD Performed By: #### L 100.0100, L501.9520, L506.1000, L500.4100, L500.4050 #### [facility] [address] [place], [address] Hemoglobin (Bld) [Mass/Vol] 12.6 g/dL Normal 12.0-15.0 [facility] Comment on above: Order Comment: Order Date: 02/17/24 Order Info: 0184-1 - CBCD Performed By: #### L 100.0100, L501.9520, L506.1000, L500.4100, L500.4050 #### [facility] [address] [place], [address] IG% 0.300 Normal 0.0-0.9 [facility] Comment on above: Order Comment: Order Date: 02/17/24 Order Info: 0184- - CBCD Result Comment: IG% - Immature Granulocytes (promyelocytes, myelocytes and metamyelocytes) > 1% indicates that a LEFT SHIFT is Present. Performed By: #### L 100.0100, L501.9520, L506.1000, L500.4100, L500.4050 #### [facility] [address] [place], [address] Lymphocytes/100 WBC (Bld) 41.4 % High 19-41 [facility] Comment on above: Order Comment: Order Date: 02/17/24 Order Info: 0184-1 - CBCD Performed By: #### L 100.0100, L501.9520, L506.1000, L500.4100, L500.4050 #### [facility] [address] [place], [address] MCH (RBC) [Entitic mass] 28.2 pg Normal 27.0-32.0 [facility] Comment on above: Order Comment: Order Date: 02/17/24 Order Info: 0184-1 - CBCD Performed By: #### L 100.0100, L501.9520, L506.1000, L500.4100, L500.4050 #### [facility] [address] [place], [address] MCHC (RBC) [Mass/Vol] 32.6 g/dL Normal 32-36 [facility] Comment on above: Order Comment: Order Date: 02/17/24 Order Info: 0184-1 - CBCD Performed By: #### L 100.0100, L501.9520, L506.1000, L500.4100, L500.4050 #### [facility] [address] [place], [address] MCV (RBC) [Entitic vol] 86.6 fL Normal 81-99 [facility] Comment on above: Order Comment: Order Date: 02/17/24 Order Info: 018- - CBCD Performed By: #### L 100.0100, L501.9520, L506.1000, L500.4100, L500.4050 #### [facility] [address] [place], [address] Monocytes/100 WBC (Bld) 5.3 % Normal 0-10 [facility] Comment on above: Order Comment: Order Date: 02/17/24 Order Info: 018- - CBCD Performed By: #### L 100.0100, L501.9520, L506.1000, L500.4100, L500.4050 #### [facility] [address] [place], [address] Neutrophils/100 WBC (Bld) 48.1 % Normal 47-70 [facility] Comment on above: Order Comment: Order Date: 02/17/24 Order Info: 018- - CBCD Performed By: #### L 100.0100, L501.9520, L506.1000, L500.4100, L500.4050 #### [facility] [address] [place], [address] Nucleated RBC (Bld) [#/Vol] 0 10*3/uL Normal 0-5 [facility] Comment on above: Order Comment: Order Date: 02/17/24 Order Info: 0184-1 - CBCD Performed By: #### L 100.0100, L501.9520, L506.1000, L500.4100, L500.4050 #### [facility] [address] [place], [address] Platelet mean volume (Bld) [Entitic vol] 11.6 fL Normal 6.2-12.0 [facility] Comment on above: Order Comment: Order Date: 02/17/24 Order Info: 0184-1 - CBCD Performed By: #### L 100.0100, L501.9520, L506.1000, L500.4100, L500.4050 #### [facility] [address] [place], [address] Platelets (Bld) [#/Vol] 235 10*3/uL Normal 150-450 [facility] Comment on above: Order Comment: Order Date: 02/17/24 Order Info: 0184- - CBCD Performed By: #### L 100.0100, L501.9520, L506.1000, L500.4100, L500.4050 #### [facility] [address] [place], [address] RBC (Bld) [#/Vol] 4.47 10*6/uL Normal 4.2-5.4 [facility] Comment on above: Order Comment: Order Date: 02/17/24 Order Info: 0184- - CBCD Performed By: #### L 100.0100, L501.9520, L506.1000, L500.4100, L500.4050 #### [facility] [address] [place], [address] RDW SD 45.0 fl High 35.1-43.9 [facility] Comment on above: Order Comment: Order Date: 02/17/24 Order Info: 0184- - CBCD Performed By: #### L 100.0100, L501.9520, L506.1000, L500.4100, L500.4050 #### [facility] [address] [place], [address] WBC (Bld) [#/Vol] 7.5 10*3/uL Normal 4.4-11.0 [facility] Comment on above: Order Comment: Order Date: 02/17/24 Order Info: 0184-1 - CBCD Performed By: #### L 100.0100, L501.9520, L506.1000, L500.4100, L500.4050 #### [facility] [address] [place], [address] Comprehensive Metabolic Prof ilon 02-17-2024 Albumin [Mass/Vol] 3.9 g/dL Normal 3.2-5.0 [facility] Comment on above: Order Comment: Order Date: 02/17/24 Order Info: 0786- - CMP Order Info: [id number] - LIPID Order Info: [id number] - TSH Order Info: 3027 - T4F Performed By: #### L 100.0100, L501.9520, L506.1000, L500.4100, L500.4050 #### [facility] [address] [place], [address] Albumin/Globulin [Mass ratio] 0.9 {ratio} Normal 0.9-2.4 [facility] Comment on above: Order Comment: Order Date: 02/17/24 Order Info: 0786- - CMP Order Info: [id number] - LIPID Order Info: [id number] - TSH Order Info: 3024-7 - T4F Performed By: #### L 100.0100, L501.9520, L506.1000, L500.4100, L500.4050 #### [facility] [address] [place], [address] ALK P 113 U/L Normal 45-117 [facility] Comment on above: Order Comment: Order Date: 02/17/24 Order Info: [id number] - CMP Order Info: [id number] - LIPID Order Info: [id number] - TSH Order Info: [id number] - T4F Performed By: #### L 100.0100, L501.9520, L506.1000, L500.4100, L500.4050 #### [facility] [address] [place], [address] ALT [Catalytic activity/Vol] 34 U/L Normal 13-56 [facility] Comment on above: Order Comment: Order Date: 02/17/24 Order Info: 86-1 - CMP Order Info: [id number] - LIPID Order Info: [id number] - TSH Order Info: 3024-7 - T4F Performed By: #### L 100.0100, L501.9520, L506.1000, L500.4100, L500.4050 #### [facility] [address] [place], [address] AST [Catalytic activity/Vol] 28 U/L Normal 15-37 [facility] Comment on above: Order Comment: Order Date: 02/17/24 Order Info: [id number] - CMP Order Info: [id number] - LIPID Order Info: 3 - TSH Order Info: 302-7 - T4F Performed By: #### L 100.0100, L501.9520, L506.1000, L500.4100, L500.4050 #### [facility] [address] [place], [address] Bilirubin [Mass/Vol] 0.30 mg/dL Normal 0.20-1.00 [facility] Comment on above: Order Comment: Order Date: 02/17/24 Order Info: [id number] - CMP Order Info: [id number] - LIPID Order Info: [id number] - TSH Order Info: [id number] - T4F Result Comment: For patients on eltrombopag therapy, use of Dimension [place] TBIL is not recommended. Performed By: #### L 100.0100, L501.9520, L506.1000, L500.4100, L500.4050 #### [facility] [address] [place], [address] BUN/CRE 23.2 RATIO High 10-20 [facility] Comment on above: Order Comment: Order Date: 02/17/24 Order Info: [id number] - CMP Order Info: [id number] - LIPID Order Info: 3 - TSH Order Info: [id number] - T4F Performed By: #### L 100.0100, L501.9520, L506.1000, L500.4100, L500.4050 #### [facility] [address] [place], [address] CA,Total 9.5 mg/dL Normal 8.5-10.1 [facility] Comment on above: Order Comment: Order Date: 02/17/24 Order Info: 785- - CMP Order Info: - LIPID Order Info: 3 - TSH Order Info: [id number] - T4F Performed By: #### L 100.0100, L501.9520, L506.1000, L500.4100, L500.4050 #### [facility] [address] [place], [address] Chloride [Moles/Vol] 104 mmol/L Normal 98-107 [facility] Comment on above: Order Comment: Order Date: 02/17/24 Order Info: [id number] - CMP Order Info: [id number] - LIPID Order Info: 3 - TSH Order Info: [id number] - T4F Performed By: #### L 100.0100, L501.9520, L506.1000, L500.4100, L500.4050 #### [facility] [address] [place], [address] CO2 [Moles/Vol] 27.0 mmol/L Normal 21.0-32.0 [facility] Comment on above: Order Comment: Order Date: 02/17/24 Order Info: 86-1 - CMP Order Info: [id number] - LIPID Order Info: [id number] - TSH Order Info: 3024-7 - T4F Performed By: #### L 100.0100, L501.9520, L506.1000, L500.4100, L500.4050 #### [facility] [address] [place], [address] Creatinine [Mass/Vol] 0.78 mg/dL Normal 0.55-1.02 [facility] Comment on above: Order Comment: Order Date: 02/17/24 Order Info: 86-1 - CMP Order Info: [id number] - LIPID Order Info: [id number] - TSH Order Info: 3027 - T4F Result Comment: The validity of the calculated GFR GFRAA in patients over 70 years has not been determined. Clinical correlation is essential. Performed By: #### L 100.0100, L501.9520, L506.1000, L500.4100, L500.4050 #### [facility] [address] [place], [address] EST GFR - AA 98 mL/min Normal >60 [facility] Comment on above: Order Comment: Order Date: 02/17/24 Order Info: [id number] - CMP Order Info: [id number] - LIPID Order Info: 3 - TSH Order Info: 7 - T4F Result Comment: Afri can Vincentian GFR Calc Performed By: #### L 100.0100, L501.9520, L506.1000, L500.4100, L500.4050 #### [facility] [address] [place], [address] GAP 6 Normal 5-15 [facility] Comment on above: Order Comment: Order Date: 02/17/24 Order Info: 785- - CMP Order Info: [id number] - LIPID Order Info: 63 - TSH Order Info: 7 - T4F Performed By: #### L 100.0100, L501.9520, L506.1000, L500.4100, L500.4050 #### [facility] [address] [place], [address] GFR/1.73 sq M.predicted among non-blacks MDRD (S/P/Bld) [Vol rate/Area] 81 mL/min/{1.73_m2} Normal >60 [facility] Comment on above: Order Comment: Order Date: 02/17/24 Order Info: 785- - CMP Order Info: [id number] - LIPID Order Info: 3 - TSH Order Info: [id number] - T4F Result Comment: Non- GFR Calc Performed By: #### L 100.0100, L501.9520, L506.1000, L500.4100, L500.4050 #### [facility] [address] [place], [address] Globulin (S) [Mass/Vol] 4.2 g/dL Normal 2.2-4.2 [facility] Comment on above: Order Comment: Order Date: 02/17/24 Order Info: [id number] - CMP Order Info: - LIPID Order Info: [id number] - TSH Order Info: 7 - T4F Performed By: #### L 100.0100, L501.9520, L506.1000, L500.4100, L500.4050 #### [facility] [address] [place], [address] Glucose [Mass/Vol] 123 mg/dL High 74-106 [facility] Comment on above: Order Comment: Order Date: 02/17/24 Order Info: 86 - CMP Order Info: [id number] - LIPID Order Info: 3 - TSH Order Info: [id number] - T4F Result Comment: Fast ing Glucose result from 100 to 125 mg/dL suggests IMPAIRED HOMEOSTASIS per A.D.A. criteria. Performed By: #### L 100.0100, L501.9520, L506.1000, L500.4100, L500.4050 #### [facility] [address] [place], [address] Potassium [Moles/Vol] 3.6 mmol/L Normal 3.5-5.1 [facility] Comment on above: Order Comment: Order Date: 02/17/24 Order Info: 785- - CMP Order Info: [id number] - LIPID Order Info: 3 - TSH Order Info: 7 - T4F Performed By: #### L 100.0100, L501.9520, L506.1000, L500.4100, L500.4050 #### [facility] [address] [place], [address] Sodium [Moles/Vol] 137 mmol/L Normal 136-145 [facility] Comment on above: Order Comment: Order Date: 02/17/24 Order Info: [id number] - CMP Order Info: - LIPID Order Info: [id number] - TSH Order Info: 7 - T4F Performed By: #### L 100.0100, L501.9520, L506.1000, L500.4100, L500.4050 #### [facility] [address] [place], [address] T PROT 8.1 g/dL Normal 6.4-8.2 [facility] Comment on above: Order Comment: Order Date: 02/17/24 Order Info: [id number] - CMP Order Info: - LIPID Order Info: [id number] - TSH Order Info: 3027 - T4F Performed By: #### L 100.0100, L501.9520, L506.1000, L500.4100, L500.4050 #### [facility] [address] [place], [address] Urea nitrogen [Mass/Vol] 18 mg/dL Normal 7-18 [facility] Comment on above: Order Comment: Order Date: 02/17/24 Order Info: 785- - CMP Order Info: [id number] - LIPID Order Info: 3 - TSH Order Info: [id number] - T4F Performed By: #### L 100.0100, L501.9520, L506.1000, L500.4100, L500.4050 #### [facility] [address] [place], [address] Lipid Profileon 02-17-2024 Cholesterol [Mass/Vol] 253 mg/dL High 200 [facility] Comment on above: Order Comment: Order Date: 02/17/24 Order Info: 785-1 - CMP Order Info: [id number] - LIPID Order Info: 3 - TSH Order Info: 7 - T4F Result Comment: <200 mg/dL Desirable 200-240 mg/dL Borderline >240 mg/dL High Risk Performed By: #### L 100.0100, L501.9520, L506.1000, L500.4100, L500.4050 #### [facility] [address] [place], [address] Cholesterol in HDL [Mass/Vol] 48 mg/dL Normal [facility] Comment on above: Order Comment: Order Date: 02/17/24 Order Info: [id number] - CMP Order Info: - LIPID Order Info: [id number] - TSH Order Info: [id number] - T4F Result Comment: The drugs N-Acetylcysteine and Metamizole may falsely depress this assay. Reference Range HDL <40 mg/dL Low HDL Cholesterol HDL >or= 60 mg/dL High HDL Cholesterol Performed By: #### L 100.0100, L501.9520, L506.1000, L500.4100, L500.4050 #### [facility] [address] [place], [address] Cholesterol in LDL [Mass/Vol] 171 mg/dL High 0-130 [facility] Comment on above: Order Comment: Order Date: 02/17/24 Order Info: [id number] - CMP Order Info: - LIPID Order Info: 3 - TSH Order Info: [id number] - T4F Performed By: #### L 100.0100, L501.9520, L506.1000, L500.4100, L500.4050 #### [facility] [address] [place], [address] Cholesterol in VLDL [Mass/Vol] 34 mg/dL Normal 5-40 [facility] Comment on above: Order Comment: Order Date: 02/17/24 Order Info: [id number] - CMP Order Info: [id number] - LIPID Order Info: [id number] - TSH Order Info: 7 - T4F Performed By: #### L 100.0100, L501.9520, L506.1000, L500.4100, L500.4050 #### [facility] [address] [place], [address] Triglyceride [Mass/Vol] 168 mg/dL Normal [facility] Comment on above: Order Comment: Order Date: 02/17/24 Order Info: [id number] - CMP Order Info: [id number] - LIPID Order Info: 3 - TSH Order Info: 7 - T4F Result Comment: The drugs N-Acetylcysteine and Metamizole may falsely depress this assay. Serum Triglycerides Reference Interval Normal <150 mg/dL Borderline high 150 - 199 mg/dL High 200 - 499 mg/dL Very High > or = 500 mg/dL Performed By: #### L 100.0100, L501.9520, L506.1000, L500.4100, L500.4050 #### [facility] [address] [place], [address] T4 Free Directon 02-17-2024 T4 FREE DIRECT 0.99 ng/dL Normal 0.76-1.46 [facility] Comment on above: Order Comment: Order Date: 02/17/24 Order Info: [id number] - B12 Order Info: [id number] - VITD25 Performed By: #### L 100.0100, L501.9520, L506.1000, L500.4100, L500.4050 #### [facility] [address] [place], [address] Thyroid Stim Hormone (TSH)on 02-17-2024 TSH 0.582 uIU/mL Normal 0.358-3.740 [facility] Comment on above: Order Comment: Order Date: 02/17/24 Order Info: [id number] - CMP Order Info: [id number] - LIPID Order Info: [id number] - TSH Order Info: 3024-7 - T4F Performed By: #### L 100.0100, L501.9520, L506.1000, L500.4100, L500.4050 #### [facility] [address] [place], [place], [id number] Vitamin B12on 02-17-2024 Cobalamin (Vitamin B12) [Mass/Vol] pg/mL High 211-911 [facility] Comment on above: Order Comment: Order Date: 02/17/24 Order Info: [id number] - B12 Order Info: [id number] - VITD25 Performed By: #### L 100.0100, L501.9520, L506.1000, L500.4100, L500.4050 #### [facility] [address] [place], [place], [id number] Vitamin D,25 Hydroxyon 02-16 Vitamin D 25-OH 26.6 ng/mL Normal [facility] Comment on above: Order Comment: Order Date: 02/17/24 Order Info: [id number] - B12 Order Info: [id number] - VITD25 Result Comment: Jeaneth min D 25(OH) Status Range Deficiency <20 ng/mL (50nmol/L) Insufficiency 20 - 30 ng/mL (50 - 75 nmol/L) Sufficiency 30 - 100 ng/mL (75 - 250 nmol/L) Toxicity >100 ng/mL (>250 nmol/L) Performed By: #### L 100.0100, L501.9520, L506.1000, L500.4100, L500.4050 #### [facility] [address] [place], [address] Basophil percentageOrdered B y: Сергей Gutierrez on 07-03-2023 Bilirubin [Mass/Vol] 0.40 mg/dL 0.20-1.00 [facility] Comment on above: For patients on eltr ombopag therapy, use of Dimension [place] TBIL is not recommended. Chloride [Moles/Vol] 108 mmol/L 98-107 [facility] Glucose [Mass/Vol] 92 mg/dL 74-106 [facility] Potassium [Moles/Vol] 3.9 mmol/L 3.5-5.1 [facility] Protein [Mass/Vol] 7.8 g/dL 6.4-8.2 [facility] Sodium [Moles/Vol] 141 mmol/L 136-145 [facility] Chocolate IgE serumOrdered B y: Сергей Gutierrez on 07-03-2023 Chocolate IgE Qn (S) <0.10 kU/L Class 0 [facility] Erythrocyte sedimentation ra teOrdered By: Сергей Gutierrez on 07-03-2023 ESR (Bld) [Velocity] 9 mm/h 0-30 [facility] - Chemistry and C hemistry - challengeOrdered By: Сергей Gutierrez on 07-03-2023 Albumin/Globulin [Mass ratio] 0.9 {ratio} 0.9-2.4 [facility] ALP [Catalytic activity/Vol] 108 U/L 45-117 [facility] ALT [Catalytic activity/Vol] 48 U/L 13-56 [facility] CO2 [Moles/Vol] 27.0 mmol/L 21.0-32.0 [facility] Globulin (S) [Mass/Vol] 4.1 g/dL 2.2-4.2 [facility] Urea nitrogen/Creatinine [Mass ratio] 22.9 mg/mg 10-20 [facility] - Miscellaneous t estsOrdered By: Сергей Gutierrez on 07-03-2023 Service comment (Unsp spec) [Interp] Comment . [facility] Comment on above: Levels of Specific I gE Class Description of Class ----- < 0.10 0 Negative 0.10 - 0.31 0/I Equivocal/Low 0.32 - 0.55 I Low 0.56 - 1.40 II Moderate 1.41 - 3.90 III High 3.91 - 19.00 IV Very High 19.01 - 100.00 V Very High >100.00 Very High No Panel InformationOrdered By: Сергей Gutierrez on 07-03-2023 C-Reactive Protein Extended Range 7.16 mg/L 0.0-3.0 [facility] Comment on above: C-Reactive Protein ( CRP) provides useful information for thediagnosis, therapy and monitoring of inflammatory processesand associated diseases. For the evaluation of Relative Riskfor Cardiovascular Disease, a High Sensitivity CRP (HSCRP)should be ordered. Endomysial IgA Antibody Negative Negative [facility] Estimated GFR (MDRD) Amer 91 mL/min >60 [facility] Comment on above: GFR Calc Estimated GFR (MDRD) Non-Af Amer 75 mL/min >60 [facility] Comment on above: Non- GFR Calc Immunoglobulin E 3 IU/mL 6-495 [facility] Comment on above: Performed at: [address] [id number] Director: Filemon Lockhart PhD, Phone: [phone] at: - [facility] [id number] Director: Francisco Gamez MD, Phone: [phone] Immunoglobulin M 126 mg/dL 26 [facility] Mussel Allergen IgE Antibody <0.10 kU/L Class 0 [facility] Shrimp Allergen <0.10 kU/L Class 0 [facility] Serum beef IgE antibody assa y (units/volume)Ordered By: Сергей Gutierrez on 07-03-2023 Beef IgE Qn (S) <0.10 kU/L Class 0 [facility] Serum codfish IgE antibody a ssay (units/volume)Ordered By: Сергей Gutierrez on 07-03-2023 Codfish IgE Qn (S) <0.10 kU/L Class 0 [facility] Serum corn IgE antibody assa y (units/volume)Ordered By: Сергей Gutierrez on 07-03-2023 [place] IgE Qn (S) <0.10 kU/L Class 0 [facility] Serum cow milk IgE antibody assay (units/volume)Ordered By: Сергей Gutierrez on 07-03-2023 Cow milk IgE Qn (S) <0.10 kU/L Class 0 [facility] Serum or plasma IgA measurem ent (mass/volume)Ordered By: Сергей Gutierrez on 07-03-2023 IgA [Mass/Vol] 400 mg/dL 87-352 [facility] Serum or plasma IgG measurem ent (mass/volume)Ordered By: Сергей Gutierrez on 07-03-2023 IgG [Mass/Vol] 1202 mg/dL [id number] [facility] Serum or plasma calcium fabi urement (mass/volume)Ordered By: Сергей Gutierrez on 07-03-2023 Calcium [Mass/Vol] 9.2 mg/dL 8.5-10.1 [facility] Serum or plasma creatinine m easurement (mass/volume)Ordered By: Сергей Gutierrez on 07-03-2023 Creatinine [Mass/Vol] 0.83 mg/dL 0.55-1.02 [facility] Comment on above: The validity of the calculated GFR & GFRAA in patients over 70 years has not been determined. Clinical correlation is essential. Serum or plasma thyroid stim ulating hormone (TSH) measurement (units/volume)Ordered By: Сергей Gutierrez on 07-03-2023 TSH Qn 2.33 uIU/mL 0.358-3.74 [facility] Serum or plasma urea nitroge n measurement (mass/volume)Ordered By: Сергей Gutierrez on 07-03-2023 Urea nitrogen [Mass/Vol] 19 mg/dL 7-18 [facility] Serum peanut IgE antibody as say (units/volume)Ordered By: Сергей Gutierrez on 07-03-2023 Peanut IgE Qn (S) <0.10 kU/L Class 0 [facility] Serum pork IgE antibody assa y (units/volume)Ordered By: Сергей Gutierrez on 07-03-2023 Pork IgE Qn (S) <0.10 kU/L Class 0 [facility] Serum salmon IgE antibody as say (units/volume)Ordered By: Сергей Gutierrez on 07-03-2023 [place] IgE Qn (S) <0.10 kU/L Class 0 [facility] Serum soybean IgE antibody a ssay (units/volume)Ordered By: Сергей Gutierrez on 07-03-2023 Soybean IgE Qn (S) <0.10 kU/L Class 0 [facility] Serum tissue transglutaminas e IgA antibody assay (units/volume)Ordered By: Сергей Gutierrez on 07-03-2023 tTG IgA Qn (S) <2 U/mL 0-3 [facility] Comment on above: Negative 0 - 3 Weak Positive 4 - 10 Positive >10 Tissue Transglutaminase (tTG) has been identified as the endomysial antigen. Studies have demonstr- ated that endomysial IgA antibodies have over 99% specificity for gluten sensitive enteropathy. Serum tuna IgE antibody assa y (units/volume)Ordered By: Сергей Gutierrez on 07-03-2023 Tuna IgE Qn (S) <0.10 kU/L Class 0 [facility] Serum wheat IgE antibody ass ay (units/volume)Ordered By: Сергей Gutierrez on 07-03-2023 Wheat IgE Qn (S) <0.10 kU/L Class 0 [facility] Serum whole egg IgE antibody assay (units/volume)Ordered By: Сергей Gutierrez on 07-03-2023 Whole Egg IgE Qn (S) <0.10 kU/L [facility] 0 [facility] Comment on above: Performed at: [address] [id number] Director: Francisco Gamez MD, Phone: [phone] Thin prep Papanicolaou smear with manual screeningOrdered By: Сергей Gutierrez on 07-03-2023 Thin prep Papanicolaou smear with manual screening 3.7 g/dL 3.2-5.0 [facility] Thin prep Papanicolaou smear with manual screening 31 U/L 15-37 [facility] Thin prep Papanicolaou smear with manual screening 6 5-15 [facility] Thin prep Papanicolaou smear with manual screening 1.14 ng/dL 0.76-1.46 [facility] Basophil percentageOrdered B y: Ralph Nava on 03-25-2023 Bilirubin [Mass/Vol] 0.20 mg/dL 0.20-1.00 [facility] Comment on above: For patients on eltr ombopag therapy, use of Dimension [place] TBIL is not recommended. Chloride [Moles/Vol] 105 mmol/L 98-107 [facility] Glucose [Mass/Vol] 83 mg/dL 74-106 [facility] Potassium [Moles/Vol] 3.6 mmol/L 3.5-5.1 [facility] Protein [Mass/Vol] 7.8 g/dL 6.4-8.2 [facility] Sodium [Moles/Vol] 140 mmol/L 136-145 [facility] Erythrocyte sedimentation ra teOrdered By: Ralph Nava on 03-25-2023 ESR (Bld) [Velocity] 17 mm/h 0-30 [facility] - Chemistry and C hemistry - challengeOrdered By: Ralph Nava on 03-25-2023 ALP [Catalytic activity/Vol] 107 U/L 45-117 [facility] ALT [Catalytic activity/Vol] 44 U/L 13-56 [facility] CK [Catalytic activity/Vol] 127 U/L 26-192 [facility] CO2 [Moles/Vol] 27.0 mmol/L 21.0-32.0 [facility] Globulin (S) [Mass/Vol] 4.2 g/dL 2.2-4.2 [facility] Magnesium [Mass/Vol] 2.1 mg/dL 1.6-2.6 [facility] Urea nitrogen/Creatinine [Mass ratio] 17.2 mg/mg 10-20 [facility] No Panel InformationOrdered By: Ralph Nava on 03-25-2023 Anti-Nuclear Antibody Screen Negative Negative [facility] Comment on above: Performed at: [employer] [facility] [employer] [address] [id number] Director: Filemon Lockhart PhD, Phone: [phone] Estimated GFR (MDRD) Amer 93 mL/min >60 [facility] Comment on above: GFR Calc Estimated GFR (MDRD) Non-Af Amer 77 mL/min >60 [facility] Comment on above: Non- GFR Calc Thyroid Stimulating Hormone (TSH) 1.54 uIU/mL 0.358-3.74 [facility] Serum or plasma albumin fabi urement (mass/volume)Ordered By: Ralph Nava on 03-25-2023 Albumin [Mass/Vol] 3.6 g/dL 3.2-5.0 [facility] Serum or plasma albumin/glob ulin mass ratioOrdered By: Ralph Nava on 03-25-2023 Albumin/Globulin [Mass ratio] 0.9 {ratio} 0.9-2.4 [facility] Serum or plasma calcium fabi urement (mass/volume)Ordered By: Ralph Nava on 03-25-2023 Calcium [Mass/Vol] 9.0 mg/dL 8.5-10.1 [facility] Serum or plasma creatinine m easurement (mass/volume)Ordered By: Ralph Nava on 03-25-2023 Creatinine [Mass/Vol] 0.81 mg/dL 0.55-1.02 [facility] Comment on above: The validity of the calculated GFR & GFRAA in patients over 70 years has not been determined. Clinical correlation is essential. Serum or plasma ferritin kelsea surement (mass/volume)Ordered By: Ralph Nava on 03-25-2023 Ferritin [Mass/Vol] 47 ng/mL 8-252 [facility] Serum or plasma urea nitroge n measurement (mass/volume)Ordered By: Ralph Nava on 03-25-2023 Urea nitrogen [Mass/Vol] 14 mg/dL 7-18 [facility] Thin prep Papanicolaou smear with manual screeningOrdered By: Ralph Nava on 03-25-2023 Thin prep Papanicolaou smear with manual screening 27 U/L 15-37 [facility] Thin prep Papanicolaou smear with manual screening 8 5-15 [facility] Absolute lymphocyte countOrd ered By: Ralph Nava on 01-02-2023 Lymphocytes Auto (Unsp spec) [#/Vol] 1.58 10*3/uL 0.83-4.51 [facility] Basophil percentageOrdered B y: Ralph Nava on 01-02-2023 Basophils/100 WBC (Bld) 1.0 % 0-1 [facility] Bilirubin [Mass/Vol] 0.30 mg/dL 0.20-1.00 [facility] Comment on above: For patients on eltr ombopag therapy, use of Dimension [place] TBIL is not recommended. Chloride [Moles/Vol] 109 mmol/L 98-107 [facility] Cholesterol [Mass/Vol] 212 mg/dL <200 [facility] Comment on above: <200 mg/dL Desirable 200-240 mg/dL Borderline >240 mg/dL High Risk Eosinophils/100 WBC (Bld) 3.5 % 0-5 [facility] Glucose [Mass/Vol] 101 mg/dL 74-106 [facility] Comment on above: Fasting Glucose resu lt from 100 to 125 mg/dL suggests IMPAIRED HOMEOSTASIS per A.D.A. criteria. Neutrophils (Bld) [#/Vol] 3.8 10*3/uL 2.0-7.7 [facility] Neutrophils/100 WBC (Bld) 63.0 % 47-70 [facility] Potassium [Moles/Vol] 3.7 mmol/L 3.5-5.1 [facility] Protein [Mass/Vol] 7.4 g/dL 6.4-8.2 [facility] Sodium [Moles/Vol] 142 mmol/L 136-145 [facility] Triglyceride [Mass/Vol] 141 mg/dL <199 [facility] Comment on above: The drugs N-Acetylcy steine and Metamizole may falsely depress this assay.Serum Triglycerides Reference Interval Normal <150 mg/dL Borderline high 150 - 199 mg/dL High 200 - 499 mg/dL Very High > or = 500 mg/dL WBC (Bld) [#/Vol] 6.0 10*3/uL 4.4-11.0 [facility] Blood erythrocytes count (nu mber/volume)Ordered By: Ralph Nava on 01-02-2023 RBC (Bld) [#/Vol] 4.24 10*6/uL 4.2-5.4 [facility] Blood hemoglobin measurement (mass/volume)Ordered By: Ralph Nava on 01-02-2023 Hemoglobin (Bld) [Mass/Vol] 12.6 g/dL 12.0-15.0 [facility] Blood lymphocytes/100 leukoc ytesOrdered By: Ralph Nava on 01-02-2023 Lymphocytes/100 WBC (Bld) 26.3 % 19-41 [facility] Blood monocytes/100 leukocyt esOrdered By: Ralph Nava on 01-02-2023 Monocytes/100 WBC (Bld) 6.0 % 0-10 [facility] Blood platelet mean volumeOr dered By: Ralph Nava on 01-02-2023 Platelet mean volume (Bld) [Entitic vol] 10.4 fL 6.2-12.0 [facility] Determination of erythrocyte mean corpuscular volume (MCV)Ordered By: Ralph Nava on 01-02-2023 MCV (RBC) [Entitic vol] 89.9 fL 81-99 [facility] Hematocrit Auto (Bld) [Volum e fraction]Ordered By: Ralph Nava on 01-02-2023 Hematocrit (Bld) [Volume fraction] 38.1 % 37-47 [facility] - Chemistry and C hemistry - challengeOrdered By: Ralph Nava on 01-02-2023 ALP [Catalytic activity/Vol] 122 U/L 45-117 [facility] ALT [Catalytic activity/Vol] 48 U/L 13-56 [facility] CO2 [Moles/Vol] 25.0 mmol/L 21.0-32.0 [facility] Free T4 [Mass/Vol] 1.00 ng/dL 0.76-1.46 [facility] Globulin (S) [Mass/Vol] 3.8 g/dL 2.2-4.2 [facility] Urea nitrogen/Creatinine [Mass ratio] 19.6 mg/mg 10-20 [facility] - Hematology and Cell countsOrdered By: Ralph Nava on 01-02-2023 Erythrocyte distribution width (RBC) [Entitic vol] 46.6 fL 35.1-43.9 [facility] Erythrocyte distribution width (RBC) [Ratio] 14.1 % 11.6-14.6 [facility] Immature granulocytes/100 WBC (Bld) 0.200 % 0.0-0.9 [facility] Comment on above: IG% - Immature Granu locytes (promyelocytes, myelocytes and metamyelocytes) > 1% indicates that a LEFT SHIFT is Present. MCH (RBC) [Entitic mass] 29.7 pg 27.0-32.0 [facility] Nucleated RBC/100 WBC (Bld) [Ratio] 0 % 0-5 [facility] MCHC Auto (RBC) [Mass/Vol]Or dered By: Ralph Nava on 01-02-2023 MCHC (RBC) [Mass/Vol] 33.1 g/dL 32-36 [facility] No Panel InformationOrdered By: Ralph Nava on 01-02-2023 Estimated GFR (MDRD) Amer 93 mL/min >60 [facility] Comment on above: GFR Calc Estimated GFR (MDRD) Non-Af Amer 76 mL/min >60 [facility] Comment on above: Non- GFR Calc Vitamin D 25-Hydroxy 34.2 ng/mL [facility] Comment on above: Vitamin D 25(OH) Sta tus Range Deficiency <20 ng/mL (50nmol/L) Insufficiency 20 - 30 ng/mL (50 - 75 nmol/L) Sufficiency 30 - 100 ng/mL (75 - 250 nmol/L) Toxicity >100 ng/mL (>250 nmol/L) No Panel InformationOrdered By: Benny Ornelas on 01-02-2023 Thyroid Stimulating Hormone (TSH) 3.11 uIU/mL 0.358-3.74 [facility] Platelets bldOrdered By: Justyn Nava on 01-02-2023 Platelets (Bld) [#/Vol] 234 10*3/uL 150-450 [facility] Serum or plasma albumin fabi urement (mass/volume)Ordered By: Ralph Nava on 01-02-2023 Albumin [Mass/Vol] 3.6 g/dL 3.2-5.0 [facility] Serum or plasma albumin/glob ulin mass ratioOrdered By: Ralph Nava on 01-02-2023 Albumin/Globulin [Mass ratio] 0.9 {ratio} 0.9-2.4 [facility] Serum or plasma calcium fabi urement (mass/volume)Ordered By: Ralph Nava on 01-02-2023 Calcium [Mass/Vol] 8.8 mg/dL 8.5-10.1 [facility] Serum or plasma cholesterol in HDL measurement (mass/volume)Ordered By: Ralph Nava on 01-02-2023 Cholesterol in HDL [Mass/Vol] 45 mg/dL >40 [facility] Comment on above: The drugs N-Acetylcy steine and Metamizole may falsely depress this assay. Reference Range HDL <40 mg/dL Low HDL Cholesterol HDL >or= 60 mg/dL High HDL Cholesterol Serum or plasma cholesterol in VLDL measurement (mass/volume)Ordered By: Ralph Nava on 01-02-2023 Cholesterol in VLDL [Mass/Vol] 28 mg/dL 5-40 [facility] Serum or plasma creatinine m easurement (mass/volume)Ordered By: Ralph Nava on 01-02-2023 Creatinine [Mass/Vol] 0.82 mg/dL 0.55-1.02 [facility] Comment on above: The validity of the calculated GFR & GFRAA in patients over 70 years has not been determined. Clinical correlation is essential. Serum or plasma low density lipoprotein (LDL) cholesterol measurement (mass/volume)Ordered By: Ralph Nava on 01-02-2023 Cholesterol in LDL [Mass/Vol] 139 mg/dL 0-130 [facility] Serum or plasma urea nitroge n measurement (mass/volume)Ordered By: Ralph Nava on 01-02-2023 Urea nitrogen [Mass/Vol] 16 mg/dL 7-18 [facility] Thin prep Papanicolaou smear with manual screeningOrdered By: Ralph Nava on 01-02-2023 Thin prep Papanicolaou smear with manual screening 30 U/L 15-37 [facility] Thin prep Papanicolaou smear with manual screening 8 5-15 [facility] Basophil percentageOrdered B y: HEALTH ASSESSMENT on 11-07-2022 Cholesterol [Mass/Vol] 252 mg/dL <200 [facility] Comment on above: <200 mg/dL Desirable 200-240 mg/dL Borderline >240 mg/dL High Risk Glucose [Mass/Vol] 101 mg/dL 74-106 [facility] Comment on above: Fasting Glucose resu lt from 100 to 125 mg/dL suggests IMPAIRED HOMEOSTASIS per A.D.A. criteria. Triglyceride [Mass/Vol] 143 mg/dL <199 [facility] Comment on above: The drugs N-Acetylcy steine and Metamizole may falsely depress this assay.Serum Triglycerides Reference Interval Normal <150 mg/dL Borderline high 150 - 199 mg/dL High 200 - 499 mg/dL Very High > or = 500 mg/dL Serum or plasma cholesterol in HDL measurement (mass/volume)Ordered By: HEALTH ASSESSMENT on 11-07-2022 Cholesterol in HDL [Mass/Vol] 48 mg/dL >40 [facility] Comment on above: The drugs N-Acetylcy steine and Metamizole may falsely depress this assay. Reference Range HDL <40 mg/dL Low HDL Cholesterol HDL >or= 60 mg/dL High HDL Cholesterol Serum or plasma cholesterol in VLDL measurement (mass/volume)Ordered By: HEALTH ASSESSMENT on 11-07-2022 Cholesterol in VLDL [Mass/Vol] 29 mg/dL 5-40 [facility] Serum or plasma low density lipoprotein (LDL) cholesterol measurement (mass/volume)Ordered By: HEALTH ASSESSMENT on 11-07-2022 Cholesterol in LDL [Mass/Vol] 175 mg/dL 0-130 [facility] Cytology report of Body flui d Cyto stainOrdered By: Nataliya Encarnacion on 09-20-2022 Cytology report Cyto stain Doc (Body fld) SEE PATHOLOGY REPORT [facility] Comment on above: Specimen submitted t o Anatomical Pathology Department for testing. Absolute lymphocyte countOrd ered By: Dr. Nava on 08-29-2022 Lymphocytes Auto (Unsp spec) [#/Vol] 3.13 10*3/uL 0.83-4.51 [facility] Basophil percentageOrdered B y: Dr. Nava on 08-29-2022 Basophils/100 WBC (Bld) 1.1 % 0-1 [facility] Bilirubin [Mass/Vol] 0.20 mg/dL 0.20-1.00 [facility] Comment on above: For patients on eltr ombopag therapy, use of Dimension [place]rick TBIL is not recommended. Chloride [Moles/Vol] 108 mmol/L 98-107 [facility] Eosinophils/100 WBC (Bld) 3.7 % 0-5 [facility] Glucose [Mass/Vol] 95 mg/dL 74-106 [facility] Neutrophils (Bld) [#/Vol] 4.4 10*3/uL 2.0-7.7 [facility] Neutrophils/100 WBC (Bld) 51.4 % 47-70 [facility] Potassium [Moles/Vol] 3.9 mmol/L 3.5-5.1 [facility] Protein [Mass/Vol] 7.7 g/dL 6.4-8.2 [facility] Sodium [Moles/Vol] 137 mmol/L 136-145 [facility] WBC (Bld) [#/Vol] 8.5 10*3/uL 4.4-11.0 [facility] Blood erythrocytes count (nu mber/volume)Ordered By: Dr. Nava on 08-29-2022 RBC (Bld) [#/Vol] 4.13 10*6/uL 4.2-5.4 [facility] Blood hemoglobin measurement (mass/volume)Ordered By: Dr. Nava on 08-29-2022 Hemoglobin (Bld) [Mass/Vol] 12.0 g/dL 12.0-15.0 [facility] Blood lymphocytes/100 leukoc ytesOrdered By: Dr. Nava on 08-29-2022 Lymphocytes/100 WBC (Bld) 36.9 % 19-41 [facility] Blood monocytes/100 leukocyt esOrdered By: Dr. Nava on 08-29-2022 Monocytes/100 WBC (Bld) 6.7 % 0-10 [facility] Blood platelet mean volumeOr dered By: Dr. Nava on 08-29-2022 Platelet mean volume (Bld) [Entitic vol] 11.0 fL 6.2-12.0 [facility] Determination of erythrocyte mean corpuscular volume (MCV)Ordered By: Dr. Nava on 08-29-2022 MCV (RBC) [Entitic vol] 91.3 fL 81-99 [facility] Hematocrit Auto (Bld) [Volum e fraction]Ordered By: Dr. Nava on 08-29-2022 Hematocrit (Bld) [Volume fraction] 37.7 % 37-47 [facility] Laboratory - Chemistry and C hemistry - challengeOrdered By: Dr. Nava on 08-29-2022 ALP [Catalytic activity/Vol] 103 U/L 45-117 [facility] ALT [Catalytic activity/Vol] 70 U/L 13-56 [facility] CO2 [Moles/Vol] 25.0 mmol/L 21.0-32.0 [facility] Free T4 [Mass/Vol] 1.01 ng/dL 0.76-1.46 [facility] Globulin (S) [Mass/Vol] 4.1 g/dL 2.2-4.2 [facility] Urea nitrogen/Creatinine [Mass ratio] 23.6 mg/mg 10-20 [facility] Laboratory - Hematology and Cell countsOrdered By: Dr. Nava on 08-29-2022 Erythrocyte distribution width (RBC) [Entitic vol] 46.7 fL 35.1-43.9 [facility] Erythrocyte distribution width (RBC) [Ratio] 13.9 % 11.6-14.6 [facility] Immature granulocytes/100 WBC (Bld) 0.200 % 0.0-0.9 [facility] Comment on above: IG% - Immature Granu locytes (promyelocytes, myelocytes and metamyelocytes) > 1% indicates that a LEFT SHIFT is Present. MCH (RBC) [Entitic mass] 29.1 pg 27.0-32.0 [facility] Nucleated RBC/100 WBC (Bld) [Ratio] 0 % 0-5 [facility] MCHC Auto (RBC) [Mass/Vol]Or dered By: Dr. Nava on 08-29-2022 MCHC (RBC) [Mass/Vol] 31.8 g/dL 32-36 [facility] No Panel InformationOrdered By: Dr. Nava on 08-29-2022 Estimated GFR (MDRD) Amer 115 mL/min >60 [facility] Comment on above: GFR Calc Estimated GFR (MDRD) Non-Af Amer 95 mL/min >60 [facility] Comment on above: Non- GFR Calc Thyroid Stimulating Hormone (TSH) 2.22 uIU/mL 0.358-3.74 [facility] Vitamin D 25-Hydroxy 33.6 ng/mL [facility] Comment on above: Vitamin D 25(OH) Sta tus Range Deficiency <20 ng/mL (50nmol/L) Insufficiency 20 - 30 ng/mL (50 - 75 nmol/L) Sufficiency 30 - 100 ng/mL (75 - 250 nmol/L) Toxicity >100 ng/mL (>250 nmol/L) Platelets bldOrdered By: Dr. Nava on 08-29-2022 Platelets (Bld) [#/Vol] 297 10*3/uL 150-450 [facility] Serum or plasma albumin fabi urement (mass/volume)Ordered By: Dr. Nava on 08-29-2022 Albumin [Mass/Vol] 3.6 g/dL 3.2-5.0 [facility] Serum or plasma albumin/glob ulin mass ratioOrdered By: Dr. Nava on 08-29-2022 Albumin/Globulin [Mass ratio] 0.9 {ratio} 0.9-2.4 [facility] Serum or plasma calcium fabi urement (mass/volume)Ordered By: Dr. Nava on 08-29-2022 Calcium [Mass/Vol] 9.1 mg/dL 8.5-10.1 [facility] Serum or plasma creatinine m easurement (mass/volume)Ordered By: Dr. Nava on 08-29-2022 Creatinine [Mass/Vol] 0.68 mg/dL 0.55-1.02 [facility] Comment on above: The validity of the calculated GFR & GFRAA in patients over 70 years has not been determined. Clinical correlation is essential. Serum or plasma urea nitroge n measurement (mass/volume)Ordered By: Dr. Nava on 08-29-2022 Urea nitrogen [Mass/Vol] 16 mg/dL 7-18 [facility] Thin prep Papanicolaou smear with manual screeningOrdered By: Dr. Nava on 08-29-2022 Thin prep Papanicolaou smear with manual screening 38 U/L 15-37 [facility] Thin prep Papanicolaou smear with manual screening 4 5-15 [facility] Absolute lymphocyte countOrd ered By: Dr. Nava on 05-17-2022 Lymphocytes Auto (Unsp spec) [#/Vol] 2.81 10*3/uL 0.83-4.51 [facility] Basophil percentageOrdered B y: Dr. Nava on 05-17-2022 Basophils/100 WBC (Bld) 1.1 % 0-1 [facility] Bilirubin [Mass/Vol] 0.30 mg/dL 0.20-1.00 [facility] Comment on above: For patients on eltr ombopag therapy, use of Dimension [place] TBIL is not recommended. Chloride [Moles/Vol] 106 mmol/L 98-107 [facility] Cholesterol [Mass/Vol] 268 mg/dL <200 [facility] Comment on above: <200 mg/dL Desirable 200-240 mg/dL Borderline >240 mg/dL High Risk Eosinophils/100 WBC (Bld) 2.9 % 0-5 [facility] Glucose [Mass/Vol] 91 mg/dL 74-106 [facility] Neutrophils (Bld) [#/Vol] 3.7 10*3/uL 2.0-7.7 [facility] Neutrophils/100 WBC (Bld) 51.4 % 47-70 [facility] Potassium [Moles/Vol] 3.9 mmol/L 3.5-5.1 [facility] Protein [Mass/Vol] 7.5 g/dL 6.4-8.2 [facility] Sodium [Moles/Vol] 140 mmol/L 136-145 [facility] Triglyceride [Mass/Vol] 158 mg/dL <199 [facility] Comment on above: The drugs N-Acetylcy steine and Metamizole may falsely depress this assay.Serum Triglycerides Reference Interval Normal <150 mg/dL Borderline high 150 - 199 mg/dL High 200 - 499 mg/dL Very High > or = 500 mg/dL WBC (Bld) [#/Vol] 7.3 10*3/uL 4.4-11.0 [facility] Blood erythrocytes count (nu mber/volume)Ordered By: Dr. Nava on 05-17-2022 RBC (Bld) [#/Vol] 4.20 10*6/uL 4.2-5.4 [facility] Blood hemoglobin measurement (mass/volume)Ordered By: Dr. Nava on 05-17-2022 Hemoglobin (Bld) [Mass/Vol] 12.2 g/dL 12.0-15.0 [facility] Blood lymphocytes/100 leukoc ytesOrdered By: Dr. Nava on 05-17-2022 Lymphocytes/100 WBC (Bld) 38.5 % 19-41 [facility] Blood monocytes/100 leukocyt esOrdered By: Dr. Nava on 05-17-2022 Monocytes/100 WBC (Bld) 6.0 % 0-10 [facility] Blood platelet mean volumeOr dered By: Dr. Nava on 05-17-2022 Platelet mean volume (Bld) [Entitic vol] 10.5 fL 6.2-12.0 [facility] Determination of erythrocyte mean corpuscular volume (MCV)Ordered By: Dr. Nava on 05-17-2022 MCV (RBC) [Entitic vol] 88.8 fL 81-99 [facility] Hematocrit Auto (Bld) [Volum e fraction]Ordered By: Dr. Nava on 05-17-2022 Hematocrit (Bld) [Volume fraction] 37.3 % 37-47 [facility] Iron measurement (mass/mass) Ordered By: Dr. Nava on 05-17-2022 Iron (Unsp spec) [Mass/Mass] 54 ug/dL 50-170 [facility] Laboratory - Chemistry and C hemistry - challengeOrdered By: Dr. Nava on 05-17-2022 ALP [Catalytic activity/Vol] 98 U/L 45-117 [facility] ALT [Catalytic activity/Vol] 53 U/L 13-56 [facility] CO2 [Moles/Vol] 28.0 mmol/L 21.0-32.0 [facility] Free T4 [Mass/Vol] 1.10 ng/dL 0.76-1.46 [facility] Globulin (S) [Mass/Vol] 3.6 g/dL 2.2-4.2 [facility] Urea nitrogen/Creatinine [Mass ratio] 18.0 mg/mg 10-20 [facility] Laboratory - Hematology and Cell countsOrdered By: Dr. Nava on 05-17-2022 Erythrocyte distribution width (RBC) [Entitic vol] 44.0 fL 35.1-43.9 [facility] Erythrocyte distribution width (RBC) [Ratio] 13.5 % 11.6-14.6 [facility] Immature granulocytes/100 WBC (Bld) 0.100 % 0.0-0.9 [facility] Comment on above: IG% - Immature Granu locytes (promyelocytes, myelocytes and metamyelocytes) > 1% indicates that a LEFT SHIFT is Present. MCH (RBC) [Entitic mass] 29.0 pg 27.0-32.0 [facility] Nucleated RBC/100 WBC (Bld) [Ratio] 0.3 % 0-5 [facility] MCHC Auto (RBC) [Mass/Vol]Or dered By: Dr. Nava on 05-17-2022 MCHC (RBC) [Mass/Vol] 32.7 g/dL 32-36 [facility] No Panel InformationOrdered By: Dr. Nava on 05-17-2022 Estimated GFR (MDRD) Amer 107 mL/min >60 [facility] Comment on above: GFR Calc Estimated GFR (MDRD) Non-Af Amer 88 mL/min >60 [facility] Comment on above: Non- GFR Calc Thyroid Stimulating Hormone (TSH) 0.73 uIU/mL 0.358-3.74 [facility] Total Iron Binding Capacity 374 ug/dL 250-450 [facility] Vitamin D 25-Hydroxy 33.7 ng/mL [facility] Comment on above: Vitamin D 25(OH) Sta tus Range Deficiency <20 ng/mL (50nmol/L) Insufficiency 20 - 30 ng/mL (50 - 75 nmol/L) Sufficiency 30 - 100 ng/mL (75 - 250 nmol/L) Toxicity >100 ng/mL (>250 nmol/L) Platelets bldOrdered By: Dr. Nava on 05-17-2022 Platelets (Bld) [#/Vol] 299 10*3/uL 150-450 [facility] Serum or plasma albumin fabi urement (mass/volume)Ordered By: Dr. Nava on 05-17-2022 Albumin [Mass/Vol] 3.9 g/dL 3.2-5.0 [facility] Serum or plasma albumin/glob ulin mass ratioOrdered By: Dr. Nava on 05-17-2022 Albumin/Globulin [Mass ratio] 1.1 {ratio} 0.9-2.4 [facility] Serum or plasma calcium fabi urement (mass/volume)Ordered By: Dr. Nava on 05-17-2022 Calcium [Mass/Vol] 9.4 mg/dL 8.5-10.1 [facility] Serum or plasma cholesterol in HDL measurement (mass/volume)Ordered By: Dr. Nava on 05-17-2022 Cholesterol in HDL [Mass/Vol] 53 mg/dL >40 [facility] Comment on above: The drugs N-Acetylcy steine and Metamizole may falsely depress this assay. Reference Range HDL <40 mg/dL Low HDL Cholesterol HDL >or= 60 mg/dL High HDL Cholesterol Serum or plasma cholesterol in VLDL measurement (mass/volume)Ordered By: Dr. Nava on 05-17-2022 Cholesterol in VLDL [Mass/Vol] 32 mg/dL 5-40 [facility] Serum or plasma creatinine m easurement (mass/volume)Ordered By: Dr. Nava on 05-17-2022 Creatinine [Mass/Vol] 0.72 mg/dL 0.55-1.02 [facility] Comment on above: The validity of the calculated GFR & GFRAA in patients over 70 years has not been determined. Clinical correlation is essential. Serum or plasma ferritin kelsea surement (mass/volume)Ordered By: Dr. Nava on 05-17-2022 Ferritin [Mass/Vol] 32 ng/mL 8-252 [facility] Serum or plasma low density lipoprotein (LDL) cholesterol measurement (mass/volume)Ordered By: Dr. Nava on 05-17-2022 Cholesterol in LDL [Mass/Vol] 183 mg/dL 0-130 [facility] Serum or plasma urea nitroge n measurement (mass/volume)Ordered By: Dr. Nava on 05-17-2022 Urea nitrogen [Mass/Vol] 13 mg/dL 7-18 [facility] Thin prep Papanicolaou smear with manual screeningOrdered By: Dr. Nava on 05-17-2022 Thin prep Papanicolaou smear with manual screening 26 U/L 15-37 [facility] Thin prep Papanicolaou smear with manual screening 6 5-15 [facility] Absolute lymphocyte counton 02-12-2022 Lymphocytes Auto (Unsp spec) [#/Vol] 2.92 10*3/uL 0.83-4.51 [facility] Work Phone: Basophil percentageon 2021 Basophils/100 WBC (Bld) 0.3 % 0-1 [facility] Work Phone: Bilirubin [Mass/Vol] 0.20 mg/dL 0.20-1.00 [facility] Work Phone: Comment on above: For patients on eltr ombopag therapy, use of Dimension [place] TBIL is not recommended. Chloride [Moles/Vol] 105 mmol/L 98-107 [facility] Work Phone: Eosinophils/100 WBC (Bld) 0.4 % 0-5 [facility] Work Phone: Glucose [Mass/Vol] 96 mg/dL 74-106 [facility] Work Phone: [phone] Neutrophils (Bld) [#/Vol] 10.4 10*3/uL 2.0-7.7 [facility] Work Phone: [phone] Neutrophils/100 WBC (Bld) 72.3 % 47-70 [facility] Work Phone: [phone] Potassium [Moles/Vol] 3.8 mmol/L 3.5-5.1 [facility] Work Phone: Protein [Mass/Vol] 8.2 g/dL 6.4-8.2 [facility] Work Phone: Sodium [Moles/Vol] 138 mmol/L 136-145 [facility] Work Phone: [phone] WBC (Bld) [#/Vol] 14.4 10*3/uL 4.4-11.0 [facility] Work Phone: [phone] Blood erythrocytes count (nu mber/volume)on 02-12-2022 RBC (Bld) [#/Vol] 4.20 10*6/uL 4.2-5.4 [facility] Work Phone: [phone] Blood hemoglobin measurement (mass/volume)on 02-12-2022 Hemoglobin (Bld) [Mass/Vol] 12.4 g/dL 12.0-15.0 [facility] Work Phone: [phone] Blood lymphocytes/100 leukoc yteson 10-04-2022 Lymphocytes/100 WBC (Bld) 20.2 % 19-41 [facility] Work Phone: Blood monocytes/100 leukocyt eson 02-12-2022 Monocytes/100 WBC (Bld) 6.0 % 0-10 [facility] Work Phone: Blood platelet mean volumeon 02-12-2022 Platelet mean volume (Bld) [Entitic vol] 10.7 fL 6.2-12.0 [facility] Work Phone: Determination of erythrocyte mean corpuscular volume (MCV)on 02-12-2022 MCV (RBC) [Entitic vol] 89.8 fL 81-99 [facility] Work Phone: Erythrocyte sedimentation ra vitaly 02-12-2022 ESR (Bld) [Velocity] 13 mm/h 0-30 [facility] Work Phone: Hematocrit Auto (Bld) [Volum e fraction]on 02-12-2022 Hematocrit (Bld) [Volume fraction] 37.7 % 37-47 [facility] Work Phone: Laboratory - Chemistry and C hemistry - challengeon 02-12-2022 ALP [Catalytic activity/Vol] 99 U/L 45-117 [facility] Work Phone: ALT [Catalytic activity/Vol] 55 U/L 13-56 [facility] Work Phone: CO2 [Moles/Vol] 25.0 mmol/L 21.0-32.0 [facility] Work Phone: Cobalamin (Vitamin B12) [Mass/Vol] 790 pg/mL 211-911 [facility] Work Phone: Free T4 [Mass/Vol] 1.11 ng/dL 0.76-1.46 [facility] Work Phone: Globulin (S) [Mass/Vol] 4.3 g/dL 2.2-4.2 [facility] Work Phone: Urea nitrogen/Creatinine [Mass ratio] 22.8 mg/mg 10-20 [facility] Work Phone: Laboratory - Hematology and Cell countson 02-12-2022 Erythrocyte distribution width (RBC) [Entitic vol] 45.1 fL 35.1-43.9 [facility] Work Phone: Erythrocyte distribution width (RBC) [Ratio] 13.9 % 11.6-14.6 [facility] Work Phone: Immature granulocytes/100 WBC (Bld) 0.800 % 0.0-0.9 [facility] Work Phone: Comment on above: IG% - Immature Granu locytes (promyelocytes, myelocytes and metamyelocytes) > 1% indicates that a LEFT SHIFT is Present. MCH (RBC) [Entitic mass] 29.5 pg 27.0-32.0 [facility] Work Phone: Nucleated RBC/100 WBC (Bld) [Ratio] 0 % 0-5 [facility] Work Phone: MCHC Auto (RBC) [Mass/Vol]on 02-12-2022 MCHC (RBC) [Mass/Vol] 32.9 g/dL 32-36 [facility] Work Phone: No Panel Informationon 02-12 Anti-Nuclear Antibody Screen Negative Negative [facility] Work Phone: Comment on above: Performed at: [address] [id number] Director: Filemon Lockhart PhD, Phone: [phone] Estimated GFR (MDRD) Amer 111 mL/min >60 [facility] Work Phone: Comment on above: GFR Calc Estimated GFR (MDRD) Non-Af Amer 91 mL/min >60 [facility] Work Phone: Comment on above: Non- GFR Calc Thyroid Stimulating Hormone (TSH) 0.64 uIU/mL 0.358-3.74 [facility] Work Phone: Vitamin D 25-Hydroxy 27.4 ng/mL [facility] Work Phone: Comment on above: Vitamin D 25(OH) Sta tus Range Deficiency <20 ng/mL (50nmol/L) Insufficiency 20 - 30 ng/mL (50 - 75 nmol/L) Sufficiency 30 - 100 ng/mL (75 - 250 nmol/L) Toxicity >100 ng/mL (>250 nmol/L) Platelets bldon 02-12-2022 Platelets (Bld) [#/Vol] 352 10*3/uL 150-450 [facility] Work Phone: Serum or plasma albumin fabi urement (mass/volume)on 02-12-2022 Albumin [Mass/Vol] 3.9 g/dL 3.2-5.0 [facility] Work Phone: Serum or plasma albumin/glob ulin mass ratioon 02-12-2022 Albumin/Globulin [Mass ratio] 0.9 {ratio} 0.9-2.4 [facility] Work Phone: Serum or plasma calcium fabi urement (mass/volume)on 02-12-2022 Calcium [Mass/Vol] 9.9 mg/dL 8.5-10.1 [facility] Work Phone: Serum or plasma creatinine m easurement (mass/volume)on 02-12-2022 Creatinine [Mass/Vol] 0.70 mg/dL 0.55-1.02 [facility] Work Phone: Comment on above: The validity of the calculated GFR & GFRAA in patients over 70 years has not been determined. Clinical correlation is essential. Serum or plasma urea nitroge n measurement (mass/volume)on 02-12-2022 Urea nitrogen [Mass/Vol] 16 mg/dL 7-18 [facility] Work Phone: Serum rheumatoid factor dete ctionon 02-12-2022 Rheumatoid factor Ql (S) < 10.0 IU/mL <15 [facility] Work Phone: Thin prep Papanicolaou smear with manual screeningon 02-12-2022 Thin prep Papanicolaou smear with manual screening 31 U/L 15-37 [facility] Work Phone: Thin prep Papanicolaou smear with manual screening 8 5-15 [facility] Work Phone: Laboratory - Chemistry and C hemistry - challengeon 01-11-2022 Cobalamin (Vitamin B12) [Mass/Vol] 772 pg/mL 211-911 [facility] Work Phone: No Panel Informationon 01-11 Vitamin B6 Level 36.1 ug/L 3.4-65.2 [facility] Work Phone: Comment on above: Deficiency: <3.4 Mar ginal: 3.4 - 5.1 Adequate: >5.1 Whole Blood Vitamin B1 Level 213.1 nmol/L 66.5-200.0 [facility] Work Phone: Comment on above: Performed at: [facility] [address] [id number] Director: Francisco Gamez MD, Phone: [phone] Serum or plasma C reactive p rotein measurement (mass/volume)on 11-02-2021 CRP [Mass/Vol] 8.49 mg/L 0.0-3.0 [facility] Work Phone: Comment on above: C-Reactive Protein ( CRP) provides useful information for thediagnosis, therapy and monitoring of inflammatory processesand associated diseases. For the evaluation of Relative Riskfor Cardiovascular Disease, a High Sensitivity CRP (HSCRP)should be ordered. No Panel Informationon 07-30 Stool Calprotectin 59 ug/g 0-120 [facility] Work Phone: Comment on above: Concentration Interp retation Follow-Up<16 - 50 ug/g Normal None>50 -120 ug/g Borderline Re-evaluate in 4-6 weeks >120 ug/g Abnormal Repeat as clinically indicatedPerformed at: [facility] [id number] [id number] Director: Francisco Gamez MD, Phone: [phone] Absolute lymphocyte counton 07-26-2021 Lymphocytes Auto (Unsp spec) [#/Vol] 2.02 10*3/uL 0.83-4.51 [facility] Work Phone: Basophil percentageon 2021 Basophil percentage < 0.2 AI 0.0-0.9 [facility] Work Phone: Basophils/100 WBC (Bld) 1.3 % 0-1 [facility] Work Phone: Bilirubin [Mass/Vol] 0.30 mg/dL 0.20-1.00 [facility] Work Phone: Comment on above: For patients on eltr ombopag therapy, use of Dimension Headrick TBIL is not recommended. Chloride [Moles/Vol] 105 mmol/L 98-107 [facility] Work Phone: Eosinophils/100 WBC (Bld) 4.0 % 0-5 [facility] Work Phone: Glucose [Mass/Vol] 80 mg/dL 74-106 [facility] Work Phone: Neutrophils (Bld) [#/Vol] 2.9 10*3/uL 2.0-7.7 [facility] Work Phone: Neutrophils/100 WBC (Bld) 52.2 % 47-70 [facility] Work Phone: Potassium [Moles/Vol] 4.0 mmol/L 3.5-5.1 [facility] Work Phone: Protein [Mass/Vol] 7.8 g/dL 6.4-8.2 [facility] Work Phone: Sodium [Moles/Vol] 138 mmol/L 136-145 [facility] Work Phone: WBC (Bld) [#/Vol] 5.5 10*3/uL 4.4-11.0 [facility] Work Phone: Blood erythrocytes count (nu mber/volume)on 07-26-2021 RBC (Bld) [#/Vol] 4.43 10*6/uL 4.2-5.4 [facility] Work Phone: Blood hemoglobin measurement (mass/volume)on 07-26-2021 Hemoglobin (Bld) [Mass/Vol] 13.3 g/dL 12.0-15.0 [facility] Work Phone: Blood lymphocytes/100 leukoc yteson 07-26-2021 Lymphocytes/100 WBC (Bld) 36.5 % 19-41 [facility] Work Phone: Blood monocytes/100 leukocyt eson 07-26-2021 Monocytes/100 WBC (Bld) 5.8 % 0-10 [facility] Work Phone: Blood platelet mean volumeon 07-26-2021 Platelet mean volume (Bld) [Entitic vol] 11.0 fL 6.2-12.0 [facility] Work Phone: Determination of erythrocyte mean corpuscular volume (MCV)on 07-26-2021 MCV (RBC) [Entitic vol] 88.0 fL 81-99 [facility] Work Phone: Direct bilirubinon 2 Bilirubin.direct [Mass/Vol] 0.08 mg/dL 0.00-0.30 [facility] Work Phone: Hematocrit Auto (Bld) [Volum e fraction]on 07-26-2021 Hematocrit (Bld) [Volume fraction] 39.0 % 37-47 [facility] Work Phone: Iron measurement (mass/mass) on 07-26-2021 Iron (Unsp spec) [Mass/Mass] 70 ug/dL 50-170 [facility] Work Phone: Laboratory - Chemistry and C hemistry - challengeon 07-26-2021 ALP [Catalytic activity/Vol] 104 U/L 45-117 [facility] Work Phone: ALT [Catalytic activity/Vol] 52 U/L 13-56 [facility] Work Phone: CO2 [Moles/Vol] 28.0 mmol/L 21.0-32.0 [facility] Work Phone: Free T4 [Mass/Vol] 1.16 ng/dL 0.76-1.46 [facility] Work Phone: Globulin (S) [Mass/Vol] 3.9 g/dL 2.2-4.2 [facility] Work Phone: Urea nitrogen/Creatinine [Mass ratio] 20.2 mg/mg 10-20 [facility] Work Phone: Laboratory - Hematology and Cell countson 07-26-2021 Erythrocyte distribution width (RBC) [Entitic vol] 44.6 fL 35.1-43.9 [facility] Work Phone: Erythrocyte distribution width (RBC) [Ratio] 13.9 % 11.6-14.6 [facility] Work Phone: Immature granulocytes/100 WBC (Bld) 0.200 % 0.0-0.9 [facility] Work Phone: Comment on above: IG% - Immature Granu locytes (promyelocytes, myelocytes and metamyelocytes) > 1% indicates that a LEFT SHIFT is Present. MCH (RBC) [Entitic mass] 30.0 pg 27.0-32.0 [facility] Work Phone: Nucleated RBC/100 WBC (Bld) [Ratio] 0 % 0-5 [facility] Work Phone: MCHC Auto (RBC) [Mass/Vol]on 07-26-2021 MCHC (RBC) [Mass/Vol] 34.1 g/dL 32-36 [facility] Work Phone: No Panel Informationon 07-26 Centromere B Antibody <0.2 AI 0.0-0.9 [facility] Work Phone: Endomysial IgA Antibody Negative Negative [facility] Work Phone: Estimated GFR (MDRD) Amer 90 mL/min >60 [facility] Work Phone: Comment on above: GFR Calc Estimated GFR (MDRD) Non-Af Amer 74 mL/min >60 [facility] Work Phone: Comment on above: Non- GFR Calc Miscellaneous Test See comment [facility] Work Phone: Comment on above: Scanned image report available in EMR SURVEY CHIEF Antibody 0.4 AI 0.0-0.9 [facility] Work Phone: Thyroid Stimulating Hormone (TSH) 1.16 uIU/mL 0.358-3.74 [facility] Work Phone: Total Iron Binding Capacity 396 ug/dL 250-450 [facility] Work Phone: Vitamin D 25-Hydroxy 35.1 ng/mL [facility] Work Phone: Comment on above: Vitamin D 25(OH) Sta tus Range Deficiency <20 ng/mL (50nmol/L) Insufficiency 20 - 30 ng/mL (50 - 75 nmol/L) Sufficiency 30 - 100 ng/mL (75 - 250 nmol/L) Toxicity >100 ng/mL (>250 nmol/L) Platelets bldon 07-26-2021 Platelets (Bld) [#/Vol] 296 10*3/uL 150-450 [facility] Work Phone: Serum DNA double strand anti body assay (units/volume)on 07-26-2021 DNA double strand Ab Qn (S) [IU]/mL 0-9 [facility] Work Phone: Comment on above: Negative <5 Equivoca l 5 - 9 Positive >9 Serum Aurora-1 antibody assay (u nits/volume)on 07-26-2021 Aurora-1 extractable nuclear Ab Qn (S) <0.2 AI 0.0-0.9 [facility] Work Phone: Serum Scl-70 extractable nuc lear antibody assay (units/volume)on 07-26-2021 SCL-70 extractable nuclear Ab Qn (S) <0.2 AI 0.0-0.9 [facility] Work Phone: Serum Leiva extractable nucl ear antibody detectionon 07-26-2021 Leiva extractable nuclear Ab Ql (S) <0.2 AI 0.0-0.9 [facility] Work Phone: Serum or plasma IgA measurem ent (mass/volume)on 07-26-2021 IgA [Mass/Vol] 440 mg/dL 87-352 [facility] Work Phone: Comment on above: Performed at: [address] [id number] Director: Filemon Lockhart PhD, Phone: [phone] Serum or plasma albumin fabi urement (mass/volume)on 07-26-2021 Albumin [Mass/Vol] 3.9 g/dL 3.2-5.0 [facility] Work Phone: Serum or plasma albumin/glob ulin mass ratioon 07-26-2021 Albumin/Globulin [Mass ratio] 0.9 {ratio} 0.9-2.4 [facility] Work Phone: Serum or plasma calcium fabi urement (mass/volume)on 07-26-2021 Calcium [Mass/Vol] 9.5 mg/dL 8.5-10.1 [facility] Work Phone: Serum or plasma creatinine m easurement (mass/volume)on 07-26-2021 Creatinine [Mass/Vol] 0.84 mg/dL 0.55-1.02 [facility] Work Phone: Comment on above: The validity of the calculated GFR & GFRAA in patients over 70 years has not been determined. Clinical correlation is essential. Serum or plasma ferritin kelsea surement (mass/volume)on 07-26-2021 Ferritin [Mass/Vol] 37 ng/mL 8-252 [facility] Work Phone: Serum or plasma urea nitroge n measurement (mass/volume)on 07-26-2021 Urea nitrogen [Mass/Vol] 17 mg/dL 7-18 [facility] Work Phone: Serum tissue transglutaminas e IgA antibody assay (units/volume)on 07-26-2021 tTG IgA Qn (S) <2 U/mL 0-3 [facility] Work Phone: Comment on above: Negative 0 - 3 Weak Positive 4 - 10 Positive >10 Tissue Transglutaminase (tTG) has been identified as the endomysial antigen. Studies have demonstr- ated that endomysial IgA antibodies have over 99% specificity for gluten sensitive enteropathy. Thin prep Papanicolaou smear with manual screeningon 07-26-2021 Thin prep Papanicolaou smear with manual screening 30 U/L 15-37 [facility] Work Phone: Thin prep Papanicolaou smear with manual screening 5 5-15 [facility] Work Phone: Absolute lymphocyte counton 07-16-2021 Lymphocytes Auto (Unsp spec) [#/Vol] 2.37 10*3/uL 0.83-4.51 [facility] Work Phone: Basophil percentageon 2021 Basophils/100 WBC (Bld) 1.1 % 0-1 [facility] Work Phone: Bilirubin [Mass/Vol] 0.30 mg/dL 0.20-1.00 [facility] Work Phone: Comment on above: For patients on eltr ombopag therapy, use of Dimension Headrick TBIL is not recommended. Chloride [Moles/Vol] 109 mmol/L 98-107 [facility] Work Phone: Eosinophils/100 WBC (Bld) 2.9 % 0-5 [facility] Work Phone: Glucose [Mass/Vol] 79 mg/dL 74-106 [facility] Work Phone: Neutrophils (Bld) [#/Vol] 3.5 10*3/uL 2.0-7.7 [facility] Work Phone: Neutrophils/100 WBC (Bld) 52.7 % 47-70 [facility] Work Phone: Potassium [Moles/Vol] 4.1 mmol/L 3.5-5.1 [facility] Work Phone: Protein [Mass/Vol] 8.1 g/dL 6.4-8.2 [facility] Work Phone: Sodium [Moles/Vol] 139 mmol/L 136-145 [facility] Work Phone: WBC (Bld) [#/Vol] 6.6 10*3/uL 4.4-11.0 [facility] Work Phone: Blood erythrocytes count (nu mber/volume)on 07-16-2021 RBC (Bld) [#/Vol] 4.31 10*6/uL 4.2-5.4 [facility] Work Phone: Blood hemoglobin measurement (mass/volume)on 07-16-2021 Hemoglobin (Bld) [Mass/Vol] 12.6 g/dL 12.0-15.0 [facility] Work Phone: Blood lymphocytes/100 leukoc yteson 07-16-2021 Lymphocytes/100 WBC (Bld) 35.9 % 19-41 [facility] Work Phone: Blood monocytes/100 leukocyt eson 07-16-2021 Monocytes/100 WBC (Bld) 7.1 % 0-10 [facility] Work Phone: Blood platelet mean volumeon 07-16-2021 Platelet mean volume (Bld) [Entitic vol] 10.3 fL 6.2-12.0 [facility] Work Phone: Determination of erythrocyte mean corpuscular volume (MCV)on 07-16-2021 MCV (RBC) [Entitic vol] 86.1 fL 81-99 [facility] Work Phone: Erythrocyte sedimentation ra vitaly 07-16-2021 ESR (Bld) [Velocity] 20 mm/h 0-30 [facility] Work Phone: Hematocrit Auto (Bld) [Volum e fraction]on 07-16-2021 Hematocrit (Bld) [Volume fraction] 37.1 % 37-47 [facility] Work Phone: Laboratory - Chemistry and C hemistry - challengeon 07-16-2021 ALP [Catalytic activity/Vol] 101 U/L 45-117 [facility] Work Phone: ALT [Catalytic activity/Vol] 43 U/L 13-56 [facility] Work Phone: CO2 [Moles/Vol] 27.0 mmol/L 21.0-32.0 [facility] Work Phone: Globulin (S) [Mass/Vol] 4.4 g/dL 2.2-4.2 [facility] Work Phone: Urea nitrogen/Creatinine [Mass ratio] 19.9 mg/mg 10-20 [facility] Work Phone: Laboratory - Hematology and Cell countson 07-16-2021 Erythrocyte distribution width (RBC) [Entitic vol] 44.3 fL 35.1-43.9 [facility] Work Phone: Erythrocyte distribution width (RBC) [Ratio] 14.1 % 11.6-14.6 [facility] Work Phone: Immature granulocytes/100 WBC (Bld) 0.300 % 0.0-0.9 [facility] Work Phone: Comment on above: IG% - Immature Granu locytes (promyelocytes, myelocytes and metamyelocytes) > 1% indicates that a LEFT SHIFT is Present. MCH (RBC) [Entitic mass] 29.2 pg 27.0-32.0 [facility] Work Phone: Nucleated RBC/100 WBC (Bld) [Ratio] 0 % 0-5 [facility] Work Phone: MCHC Auto (RBC) [Mass/Vol]on 07-16-2021 MCHC (RBC) [Mass/Vol] 34.0 g/dL 32-36 [facility] Work Phone: No Panel Informationon 07-16 Estimated GFR (MDRD) Amer 102 mL/min >60 [facility] Work Phone: Comment on above: GFR Calc Estimated GFR (MDRD) Non-Af Amer 84 mL/min >60 [facility] Work Phone: Comment on above: Non- GFR Calc Miscellaneous Test See comment [facility] Work Phone: Comment on above: Scanned image report available in EMR Platelets bldon 07-16-2021 Platelets (Bld) [#/Vol] 267 10*3/uL 150-450 [facility] Work Phone: Serum or plasma C reactive p rotein measurement (mass/volume)on 07-16-2021 CRP [Mass/Vol] 6.73 mg/L 0.0-3.0 [facility] Work Phone: Comment on above: C-Reactive Protein ( CRP) provides useful information for thediagnosis, therapy and monitoring of inflammatory processesand associated diseases. For the evaluation of Relative Riskfor Cardiovascular Disease, a High Sensitivity CRP (HSCRP)should be ordered. Serum or plasma albumin fabi urement (mass/volume)on 07-16-2021 Albumin [Mass/Vol] 3.7 g/dL 3.2-5.0 [facility] Work Phone: Serum or plasma albumin/glob ulin mass ratioon 07-16-2021 Albumin/Globulin [Mass ratio] 0.8 {ratio} 0.9-2.4 [facility] Work Phone: Serum or plasma calcium fabi urement (mass/volume)on 07-16-2021 Calcium [Mass/Vol] 9.8 mg/dL 8.5-10.1 [facility] Work Phone: Serum or plasma creatinine m easurement (mass/volume)on 07-16-2021 Creatinine [Mass/Vol] 0.76 mg/dL 0.55-1.02 [facility] Work Phone: Comment on above: The validity of the calculated GFR & GFRAA in patients over 70 years has not been determined. Clinical correlation is essential. Serum or plasma urea nitroge n measurement (mass/volume)on 07-16-2021 Urea nitrogen [Mass/Vol] 15 mg/dL 7-18 [facility] Work Phone: Thin prep Papanicolaou smear with manual screeningon 07-16-2021 Thin prep Papanicolaou smear with manual screening 28 U/L 15-37 [facility] Work Phone: Thin prep Papanicolaou smear with manual screening 3 5-15 [facility] Work Phone: CNOVon 06-04-2017 CNOV Office Visit (UCWSTR) BEVERLY MUNSON ([id number]) 1965 FDate Time Provider Department06/04/17 7:00 PM BELLA GREEN (INDU) WSTR During your visit today, we recorded the following information about you: Temperature Pulse Respiration Blood pressure 97.7 degrees 78/minute 16/minute 122/76 Weight 72.1 kgBella Green CNP 06/04/2017 7:25 PM SignedThe history is provided by the patient. No theatrical rigger was used.HPI Beverly Munson is a 51 year old female who presents today for CC of burningwith urinat This started 2 days ago She is also having suprapubic discomfort Symptoms are worsened by voiding She has tried no treatment or medications.Risk factors change soap PMH UTI in past, no sugeries on bladderBP 122/76 Pulse 78 Temp 36.5 ?C (97.7 ?F) (Tympanic) Resp 16 Wt 72.1 kg(159 lb)ALLERGIESNo Known AllergiesThere is no problem list on file for this patient.No family history on file.Social History Marital status: Spouse name: Years of education: Number of children:Social History Main Topics Smoking status: Former Smoker Packs/day: 0.00 Years: 0.00 Smokeless status: Never UsedReview of SystemsConstitutional: Negative for chills, fever and malaise/fatigue.Gastro intestinal: Positive for abdominal pain (suprapubic).Genitouri nary: Positive for dysuria, frequency and urgency. Negative for flankpain and hematuria.Skin: Negative for rash.Neurological: Negative for headaches.Physical ExamConstitutional: She is oriented to person, place, and time and well-developed,well-no urished, and in no distress.HENT:Head: Normocephalic and atraumatic.Eyes: Conjunctivae and EOM are normal. Pupils are equal, round, and reactive tolight.Neck: Normal range of motion. Neck supple.Pulmonary/Chest : Effort normal.Abdominal: Soft. Normal appearance and bowel sounds are normal. There is nohepatosplenomegaly. There is tenderness in the suprapubic area. There is norigidity, no rebound, no guarding and no CVA tenderness.Neurologica l: She is alert and oriented to person, place, and time.Skin: Skin is warm.Psychiatric: Affect normal.Nursing note and vitals reviewed.Urine Dip Result:Leukocytes: largeNitrates: NegativeUrobilinogen: normalProtein: negativepH: 5.0Blood: hemolyzed traceSpecific [place]: 1,005Ketones: negativeBilirubin: negativeGlucose: negativeASSESSMENT/TAY N:1. Pain with urination - ICD9: 788.1, ICD10: R30.9 (primary diagnosis)acute- UA positive for trini esterase and hematuria- Send urine for culture- Begin treatment with Macrobid 100 mg BID for 7 days- Patient education for prevention given- UA DIP B/O- URINE CULTURE2. Acute cystitis with hematuria - ICD9: 595.0, ICD10: N30.01Urinary tract infection (UTI)We will send the urine for culture, which shows us what organism, if any, weare treating.If we need to change the antibiotic coverage, you will receive a call in 48-72hours.* Seek medical care immediately, call 911, or go to ER if you have high fevers,severe flank or low back pain, blood in your urine.* Follow up with primary care provider if symptoms persist or worsen.-Avoid alcohol and caffeine as these are bladder irritants and may makesymptoms worse.-You can take OTC AZO if needed for painful urination but not for longer then 2days.-Follow up with PCP or return to clinic if symptoms not improving in 3 days orif you develop any new (or worsening) symptoms such as fever, chills or backpain.- NITROFURANTOIN MONOHYDRATE ANDamp; MACROCRYSTAL 100 MG ORAL CAPDiagnosis and treatment plan were discussed and questions were answered to thepatient's satisfaction. Pt acknowledged understanding of concepts and follow upplan.Specific signs and symptoms that would indicate the need for higher level ofcare were discussed in detail warranting prompt ER evaluation.Shreya Grayson CNP 06/04/2017 7:23 PM SignedASSESSMENT/PLAN: 1. Pain with urination - ICD9: 788.1, ICD10: R30.9 (primary diagnosis)acute- UA positive for trini esterase and hematuria- Send urine for culture- Begin treatment with Macrobid 100 mg BID for 7 days- Patient education for prevention given- UA DIP B/O- URINE CULTURE2. Acute cystitis with hematuria - ICD9: 595.0, ICD10: N30.01Urinary tract infection (UTI)We will send the urine for culture, which shows us what organism, if any, weare treating.If we need to change the antibiotic coverage, you will receive a call in 48-72hours.* Seek medical care immediately, call 911, or go to ER if you have high fevers,severe flank or low back pain, blood in your urine.* Follow up with primary care provider if symptoms persist or worsen.-Avoid alcohol and caffeine as these are bladder irritants and may makesymptoms worse.-You can take OTC AZO if needed for painful urination but not for longer then 2days.-Follow up with PCP or return to clinic if symptoms not improving in 3 days orif you develop any new (or worsening) symptoms such as fever, chills or backpain.- NITROFURANTOIN MONOHYDRATE ANDamp; MACROCRYSTAL 100 MG ORAL CAPReferring Provider: SELF [[id number]]Allergies As of Date: 06/04/2017(No Known Allergies)Date Reviewed: 06/04/2017Reviewed by: So Rodriguez Ma - Fully AssessedReason for Visit: Urinary Problem [252] Cmt: pain with urination x 2 daysReason For Visit History RecordedPrimary Visit Diagnosis:Pain with urination [R30.9] Other Visit Diagnosis:Acute cystitis with hematuria [N30.01]Order(s):UA DIP B/O [[id number]] Order #: [id number] URINE CULTURE [SQURCUL] Order #: [id number] nitrofurantoin monohydrate and macrocrystal (MACROBID) 100 mg capsuleTake 1 capsule by mouth twice daily with meals for 7 days.Disp: 14 capsuleRfl: 0Prescriptions as of 06/04/2017 Sig: OXYBUTYNIN CHLORIDE 5 MG TABL* Take 5 mg by mouth three time* LEVOTHYROXINE 150 MCG TABLET Take 150 mcg by mouth daily b* NITROFURANTOIN MONOHYDRATE AND * Take 1 capsule by mouth twice*Problem List As Of Date: 06/04/2017(None) Other instructions from your clinician: ASSESSMENT/PLAN: 1. Pain with urination - ICD9: 788.1, ICD10: R30.9 (primary diagnosis) acute - UA positive for trini esterase and hematuria - Send urine for culture - Begin treatment with Macrobid 100 mg BID for 7 days - Patient education for prevention given - UA DIP B/O - URINE CULTURE 2. Acute cystitis with hematuria - ICD9: 595.0, ICD10: N30.01 Urinary tract infection (UTI) We will send the urine for culture, which shows us what organism, if any, we are treating. If we need to change the antibiotic coverage, you will receive a call in 48-72 hours. * Seek medical care immediately, call 911, or go to ER if you have high fevers, severe flank or low back pain, blood in your urine. * Follow up with primary care provider if symptoms persist or worsen. -Avoid alcohol and caffeine as these are bladder irritants and may make symptoms worse. -You can take OTC AZO if needed for painful urination but not for longer then 2 days. -Follow up with PCP or return to clinic if symptoms not improving in 3 days or if you develop any new (or worsening) symptoms such as fever, chills or back pain. - NITROFURANTOIN MONOHYDRATE AND MACROCRYSTAL 100 MG ORAL CAPPrescriptions ordered this encounter Disp Refills Start End NITROFURANTOIN MONOHYDRATE AND MACROCR* 14 c* 0 06/04/2017 06/11/2017 Route: ORAL Sig: Take 1 capsule by mouth twice daily with meals for 7 days. Status:Closed by BELLA GREEN CNP on 06/04/17 Normal [facility] PROGRESSon 06-04-2017 PROGRESS HNO ID: [id number]: Blela (Indu) HumphreykService: (none)Author Type: Nurse PractitionerType: Progress NotesFiled: 06/04/2017 7:25 PMNote Text:The history is provided by the patient. No theatrical rigger was used.HPI Beverly Munson is a 51 year old female who presents today for CC ofburning with urinat This started 2 days ago She is also havingsuprapubic discomfort Symptoms are worsened by voiding She has tried notreatment or medications. Risk factors change soap PMH UTI in past, nosugeries on bladderBP 122/76 Pulse 78 Temp 36.5 ?C (97.7 ?F) (Tympanic) Resp 16 Wt72.1 kg (159 lb)ALLERGIESNo Known AllergiesThere is no problem list on file for this patient.No family history on file.Social History Marital status: Spouse name: Years of education: Number of children:Social History Main Topics Smoking status: Former Smoker Packs/day: 0.00 Years: 0.00 Smokeless status: Never UsedReview of SystemsConstitutional: Negative for chills, fever and malaise/fatigue.Gastro intestinal: Positive for abdominal pain (suprapubic).Genitouri nary: Positive for dysuria, frequency and urgency. Negative forflank pain and hematuria.Skin: Negative for rash.Neurological: Negative for headaches.Physical ExamConstitutional: She is oriented to person, place, and time andwell-developed, well-nourished, and in no distress.HENT:Head: Normocephalic and atraumatic.Eyes: Conjunctivae and EOM are normal. Pupils are equal, round, andreactive to light.Neck: Normal range of motion. Neck supple.Pulmonary/Chest : Effort normal.Abdominal: Soft. Normal appearance and bowel sounds are normal. There isno hepatosplenomegaly. There is tenderness in the suprapubic area. Thereis no rigidity, no rebound, no guarding and no CVA tenderness.Neurologica l: She is alert and oriented to person, place, and time.Skin: Skin is warm.Psychiatric: Affect normal.Nursing note and vitals reviewed.Urine Dip Result:Leukocytes: largeNitrates: NegativeUrobilinogen: normalProtein: negativepH: 5.0Blood: hemolyzed traceSpecific [place]: 1,005Ketones: negativeBilirubin: negativeGlucose: negativeASSESSMENT/TAY N:1. Pain with urination - ICD9: 788.1, ICD10: R30.9 (primary diagnosis)acute- UA positive for trini esterase and hematuria- Send urine for culture- Begin treatment with Macrobid 100 mg BID for 7 days- Patient education for prevention given- UA DIP B/O- URINE CULTURE2. Acute cystitis with hematuria - ICD9: 595.0, ICD10: N30.01Urinary tract infection (UTI)We will send the urine for culture, which shows us what organism, if any,we are treating.If we need to change the antibiotic coverage, you will receive a call in48-72 hours.* Seek medical care immediately, call 911, or go to ER if you have highfevers, severe flank or low back pain, blood in your urine.* Follow up with primary care provider if symptoms persist or worsen.-Avoid alcohol and caffeine as these are bladder irritants and may makesymptoms worse.-You can take OTC AZO if needed for painful urination but not for longerthen 2 days.-Follow up with PCP or return to clinic if symptoms not improving in 3days or if you develop any new (or worsening) symptoms such as fever,chills or back pain.- NITROFURANTOIN MONOHYDRATE AND MACROCRYSTAL 100 MG ORAL CAPDiagnosis and treatment plan were discussed and questions were answered tothe patient's satisfaction. Pt acknowledged understanding of concepts andfollow up plan.Specific signs and symptoms that would indicate the need for higher levelof care were discussed in detail warranting prompt ER evaluation.Bella Green CNP Normal [facility] Urine Cultureon 06-04-2017 Urine culture, bacteria Sp. Request/Comm ent: - Specimen received in preservativeCulture Result - >=100,000 CFU/ml Escherichia coli --> ABNORMAL ALERTORGANISM: Escherichia coliMETHOD: Minimum inhibitory concentration(Vitek)An tibiotic Interp CHARAN StatusAmpicillin RESISTANT >=32 FGentamicin SUSCEPTIBLE <=1 FTrimeth sulfameth RESISTANT >=320 FCefazolin SUSCEPTIBLE <=4 FCLSI breakpoints for therapy of uncomplicated UTI's due to E.coli, K.pneumoniae, and P.mirabilis were applied and may be used to predict the activity of oral agents(cefaclor, cefdinir, cefpodoxime, cefprozil, cefuroxime, cephalexin, loracarbef).Ciprofloxa yanet RESISTANT >=4 FNitrofurantoin SUSCEPTIBLE <=16 FCefepime SUSCEPTIBLE <=1 FPiperacillin/Tazobac SUSCEPTIBLE <=4 FAmpicillin Sulbact INTERMEDIATE 16 FCeftriaxone SUSCEPTIBLE <=1 FMeropenem SUSCEPTIBLE <=0.25 FErtapenem SUSCEPTIBLE <=0.5 F Critically abnormal [facility] Comment on above: Performed By: #### U RCUL ####[facility] [id number] [place], [place] [id number] Vital Signs Date Time Vital Sign Value Performing Clinician Jono cordero 10-24-2022 13:11-0400 Body height 162.[address] Ralph Nava Work Phone: [facility] 10-24-2022 13:08-0400 Body mass index (BMI) [Ratio] 34.4 kg/m2 Dr. Ralph Nava Work Phone: [facility] 10-24-2022 13:08-0400 Body weight 91.[address] Ralph Nava Work Phone: [facility] 10-24-2022 13:08-0400 Diastolic blood pressure 81 mm[Hg] Dr. Ralph Nava Work Phone: [facility] 10-24-2022 13:08-0400 Heart rate 62 /min Dr. Ralph Nava Work Phone: [facility] 10-24-2022 13:08-0400 Respiratory rate 18 /min Dr. Ralph Nava Work Phone: [facility] 10-24-2022 13:08-0400 SaO2% (BldA) [Mass fraction] 93 % Dr. Ralph Nava Work Phone: [facility] 10-24-2022 13:08-0400 Systolic blood pressure 120 mm[Hg] Dr. Ralph Nava Work Phone: [facility] 08-14-2022 14:00-0400 Body height 162.[address] Ralph Nava Work Phone: [facility] 08-14-2022 14:00-0400 Body mass index (BMI) [Ratio] 34.1 kg/m2 Dr. Ralph Nava Work Phone: [facility] 08-14-2022 14:00-0400 Body temperature 97.4 [degF] Dr. Ralph Nava Work Phone: [facility] 08-14-2022 14:00-0400 Body weight 90.[address] Ralph Nava Work Phone: [facility] 08-14-2022 14:00-0400 Diastolic blood pressure 83 mm[Hg] Dr. Ralph Nava Work Phone: [facility] 08-14-2022 14:00-0400 Heart rate 73 /min Dr. Ralph Nava Work Phone: [facility] 08-14-2022 14:00-0400 Respiratory rate 18 /min Dr. Ralph Nava Work Phone: [facility] 08-14-2022 14:00-0400 SaO2% (BldA) [Mass fraction] 95 % Dr. Ralph Nava Work Phone: [facility] 08-14-2022 14:00-0400 Systolic blood pressure 121 mm[Hg] Dr. Ralph Nava Work Phone: [facility] 06-04-2022 14:54-0500 Body height 162.[address] Ralph Nava Work Phone: [facility] 06-04-2022 14:54-0500 Body mass index (BMI) [Ratio] 32.8 kg/m2 Dr. Ralph Nava Work Phone: [facility] 06-04-2022 14:54-0500 Body weight 86.[address] Ralph Nava Work Phone: [facility] 03-04-2022 15:25-0400 Body height 162.[address] Ralph Nava Work Phone: [facility] Work Phone: 03-04-2022 15:25-0400 Body mass index (BMI) [Ratio] 31.6 kg/m2 Dr. Ralph Nava Work Phone: [facility] 03-04-2022 15:25-0400 Body weight 83.[address] Ralph Nava Work Phone: [facility] 03-04-2022 15:25-0400 Diastolic blood pressure 86 mm[Hg] Dr. Ralph Nava Work Phone: [facility] 03-04-2022 15:25-0400 Heart rate 59 /min Dr. Ralph Nava Work Phone: [facility] 03-04-2022 15:25-0400 SaO2% (BldA) [Mass fraction] 93 % Dr. Ralph Nava Work Phone: [facility] 03-04-2022 15:25-0400 Systolic blood pressure 146 mm[Hg] Dr. Ralph Nava Work Phone: [facility] 08-13-2021 08:02-0400 Body height 162.[address] Ralph Nava Work Phone: [facility] Work Phone: 08-13-2021 08:02-0400 Body mass index (BMI) [Ratio] 31.7 kg/m2 Dr. Ralph Nava Work Phone: [facility] Work Phone: 08-13-2021 08:02-0400 Body weight 83.[address] Ralph Nava Work Phone: [facility] Work Phone: 08-13-2021 08:02-0400 Diastolic blood pressure 84 mm[Hg] Dr. Ralph Nava Work Phone: [facility] Work Phone: 08-13-2021 08:02-0400 Heart rate 74 /min Dr. Ralph Nava Work Phone: [facility] Work Phone: 08-13-2021 08:02-0400 SaO2% (BldA) [Mass fraction] 99 % Dr. Ralph Nava Work Phone: [facility] Work Phone: 08-13-2021 08:02-0400 Systolic blood pressure 124 mm[Hg] Dr. Ralph Nava Work Phone: [facility] Work Phone: Encounters Encounter Date Encounter Type Care Provider Facility Start: 01-26-2025 ambulatory Ralph Gamble y:[facility] Start: 12-16-2024 ambulatory Ralph Nava Facilit y:[facility] Start: 09-29-2024 End: 09-29-2024 Patient encounter procedure Сергей Gutierrez -[facility] Work Phone: Start: 09-29-2024 End: 09-29-[address] Ralph Nava MD Work Phone: [facility] Work Phone: Start: 09-28-[address] Ralph Nava MD -Laboratory [facility] Start: 09-28-2024 ambulatory Ralph Gamble y:[facility] Start: 06-16-2024 End: 06-16-[address] Ralph Nava MD -Laboratory [place] Work Phone: Start: 06-16-2024 End: 06-16-2024 ambulatory Ralph Nava Facility:[facility] Start: 06-14-2024 End: 06-14-2024 Patient encounter procedure Сергей Gutierrez [facility] Work Phone: Start: 06-14-2024 End: 06-14-2024 ambulatory Ralph Nava Facility:[facility] Start: 02-17-2024 End: 02-17-2024 ambulatory Ralph Nava Facility:[facility] Start: 09-03-2023 End: 09-03-[address] Ralph Nava Work Phone: [facility] Work Phone: Start: 09-03-2023 End: 09-03-[address] Ralph Nava Work Phone: [facility] Work Phone: Start: 07-03-2023 End: 07-03-[address] Ralph Nava Work Phone: [facility] Work Phone: Start: 03-25-2023 End: 03-25-[address] Ralph Nava Work Phone: [facility] Work Phone: Start: 03-25-2023 End: 03-25-[address] Ralph Nava Work Phone: [facility] Start: 01-07-2023 End: 01-07-[address] Ralph Nava Work Phone: [facility] Work Phone: Start: 01-02-2023 End: 01-02-[address] Ralph Nava Work Phone: [facility] Work Phone: Start: 01-02-2023 End: 01-02-[address] Ralph Nava Work Phone: [facility]-Pre-Admission Testing Work Phone: Start: 01-02-2023 End: 01-02-2023 Non-patient / Non-visit Dr. Ralph Nava Work Phone: [facility] Work Phone: Start: 12-04-2022 End: 12-04-[address] Ralph Nava Work Phone: [facility] Work Phone: Start: 12-04-2022 End: 12-04-[address] Ralph Nava Work Phone: [facility] [place] Work Phone: Start: 12-03-2022 End: 12-03-[address] Ralph Nava [facility] Phone[facility] Work [facility] Start: 11-07-[address] Ralph baum Work Phone: [facility]-Health & Wellness Work Phone: Start: 10-24-2022 End: 10-24-[address] Ralph Nava Work Phone: [facility]-Pulmonary Medicine [facility] Work Phone: Start: 10-21-2022 End: 10-21-[address] Ralph Nava Work Phone: [facility] [place] Work Phone: Start: 10-15-2022 End: 10-15-[address] Ralph Nava Work Phone[facility] Work Phone: Start: 10-01-2022 End: 10-01-[address] Ralph Nava Work Phone: [facility] Scan, [facility] Work Phone: Start: 09-26-2022 End: 09-26-[address] Ralph Nava Work Phone: [facility]-Sleep Lab Work Phone: Start: 09-20-2022 End: 09-20-[address] Ralph Nava Work Phone: [facility]-Laboratory, Specimen Work Phone: Start: 09-02-2022 End: 09-02-[address] Ralph Nava Work Phone: [facility] Work Phone: Start: 09-02-2022 End: 09-02-[address] Ralph Nava Work Phone: [facility]-Physical Therapy Work Phone: Start: 09-02-[address] Ralph Nava Work Phone: [facility]-Physical Therapy Start: 08-29-2022 End: 08-29-[address] Ralph Nava Work Phone: [facility] Work Phone: Start: 08-29-2022 End: 08-29-[address] Ralph Nava [facility] Start: 08-23-2022 End: 08-23-[address] Ralph Nava Work Phone: [facility] Start: 08-14-2022 End: 08-14-[address] Ralph Nava Work Phone: [facility]-Pulmonary Medicine [facility] Start: 06-24-2022 End: 06-24-[address] Ralph Nava Work Phone: [facility] Work Phone: Start: 06-24-2022 End: 06-24-[address] Ralph Nava Work Phone: [facility]-Outpatient Breast Imaging Start: 06-04-2022 End: 06-04-[address] Ralph Nava Work Phone: [facility] Start: 05-17-2022 End: 05-17-[address] Ralph Nava Work Phone: [facility] Work Phone: Start: 05-17-2022 End: 05-17-[address] Ralph Nava Work Phone: [facility] Start: 03-04-2022 End: 03-04-[address] Ralph Nava Work Phone: [facility] Start: 02-18-2022 End: 02-18-[address] Ralph Nava Work Phone: [facility] Start: 02-12-2022 End: 02-12-[address] Ralph Nava Work Phone: [facility] Work Phone: Start: 02-12-2022 End: 02-12-[address] Ralph Nava Work Phone: [facility] Start: 01-28-2022 Non-patient / Non-visit Dr. Ralph Nava Work Phone: [facility] Start: 01-28-2022 End: 01-28-[address] Ralph Nava Work Phone: [facility] Work Phone: Start: 01-28-2022 End: 01-28-[address] Ralph Nava Work Phone: [facility]-Pulmonary Services/Neurology Start: 01-11-2022 End: 01-11-[address] Ralph Nava Work Phone: [facility] Work Phone: Start: 01-11-2022 End: 01-11-[address] [facility] Start: 11-02-2021 End: 11-02-[address] [facility] Start: 11-02-2021 End: 11-02-[address] Ralph Nava Work Phone: [facility] Start: 08-13-2021 End: 08-13-[address] Ralph Nava Work Phone: [facility] Start: 07-30-2021 End: 07-30-[address] [facility] Start: 07-26-2021 End: 07-26-[address] [facility] Start: 07-19-2021 End: 07-19-[address] Ralph Nava Work Phone: [facility]-Radiology, [facility] Start: 07-16-2021 End: 07-16-[address] [facility] Start: 06-04-2017 End: 06-30-2017 Ambulatory [facility] Start: 02-11-2017 Ambulatory [facility] Procedures Date Procedure Procedure Detail Performing Clinician Start: 09-28-2024 Vitamin D, 25-hydrox y measurement Dr. Ralph Nava MD Work Phone: Comment on above: Vitamin D StatusDefi ciency: <20 ng/mL (50nmol/L)Insufficiency: 20-30 ng/mL (50-75 nmol/L)Sufficiency: 30-100 ng/mL (75-250 nmol/L)Toxicity: >100 ng/mL (>250 nmol/L) Start: 06-16-2024 Measurement of renal function Dr. Ralph Nava MD Work Phone: Comment on above: GFR Calc Start: 06-16-2024 Vitamin D, 25-hydrox y measurement Dr. Ralph Nava MD Work Phone: Comment on above: Vitamin D 25(OH) Sta tus Range Deficiency <20 ng/mL (50nmol/L) Insufficiency 20 - 30 ng/mL (50 - 75 nmol/L) Sufficiency 30 - 100 ng/mL (75 - 250 nmol/L) Toxicity >100 ng/mL (>250 nmol/L) Start: 09-03-2023 Plain chest X-ray Dr. Santos Nava Work Phone: Start: 07-03-2023 Cl[address]ium diffic[address] e detection Dr. Ralph Nava Work Phone: Start: 03-25-2023 End: 03-25-2023 Plain X-ray of shoulder Dr. Ralph olivares Work Phone: Start: 03-25-2023 X-ray of cervical spine Dr. Ralph Nava Work Phone: Start: 03-25-2023 X-ray of lumbar spin e, two or three views Dr. Ralph Nava Work Phone: Start: 12-04-2022 CT of head without contrast Dr. Ralph Nava Work Phone: Start: 12-03-2022 Plain X-ray of shoulder Dr. Ralph Nava Work Phone: Start: 12-03-2022 Radiologic examinati on of knee Dr. Ralph Nava Work Phone: Start: 12-03-2022 X-ray of radius and ulna Dr. Ralph Nava Work Phone: Start: 10-21-[address] Ralph baum Work Phone: Start: 10-15-2022 Plain chest X-ray Dr. Santos Nava Work Phone: Start: 10-01-2022 Computed tomography of abdomen and pelvis with contrast Dr. Ralph Nava Work Phone: Start: 06-24-2022 Screening mammography [place] Nava Work Phone: Start: 02-12-2022 X-ray of lumbar spin e, two or three views Dr. Ralph Nava Work Phone: Start: 01-11-2022 X-ray of both feet Dr. Ralph Nava Work Phone: Start: 07-19-2021 Radiologic examinati on of upper gastrointestinal tract and small bowel with serial films Dr. Ralph Nava Work Phone: H/O: hysterectomy History of hysterectomy Dr. Ralph Nava Work Phone: History of appendectomy History of append ectomy Dr. Ralph Nava Work Phone: History of cholecystectomy History of cholecystectomy Dr. Ralph Nava Work Phone: History of tonsillectomy History of tonsi llectomy Dr. Ralph Nava Work Phone: Lactoferrin measurement Dr. Ralph Nava Work Phone: Plan of Treatment Date Care Activity Detail Author Start: 01-11-2022 Thiamine measurement [facility] Work Phone: Start: 01-11-2022 Vitamin B6 measurement [facility] Work Phone: Electrocardiographic procedure [facility] Patient referral [facility] Work Phone: Thiamine measurement [facility] Work Phone: Vitamin B6 measurement [facility] Work Phone: Immunizations Immunization Date Immunization Notes Care Provider Fa cili 09-26-2018 tetanus toxoid, redu estefany diphtheria toxoid, and acellular pertussis vaccine, adsorbed Dr. Ralph Nava Work Phone: [facility] Payers Date Payer Category Payer Self-pay [id number] 2023 Unknown [id number] Medicaid [id number] Unknown Unknown [id number] Unknown [id number] Unknown [id number] [id number] Unknown [id number] 2.16.8 [id number] Unknown [id number] 2.16.8 [id number] Unknown [id number] 2.16.8 [id number] Unknown [id number] 2.16.8 [id number] Unknown [id number] 2.16.8 [id number] Unknown [id number] 2.16.8 [id number] Social History Date Type Detail Facility Start: 11-02-2021 End: 07-03-2023 Tobacco smoking status MTIS Unknown if ever smoked [facility] Start: 01-27-2020 None [facility] Start: 01-27-2020 Spouse/ Signif icant Other [facility] Start: 07-25-2020 Non-smoker [facility] Start: 1965 Sex Assigned At Female [facility] Start: 07-03-2023 Tobacco smoking status NHIS Ex-smoker (finding) [facility] Medical Equipment Procedure Code Equipment Code Equipment Original Text Equipment Identifier Dates Kimberlyn fundoplication DRESSING,F IBRILLA R 1X2 1960 FDA Start: 08-01-2020 Kimberlyn fundoplication PLEDGET,SO FT 8x8x1.6mm FDA Start: 08-01-2020 Kimberlyn fundoplication PLEDGET,SO FT 8x8x1.6mm FDA Start: 08-01-2020 Kimberlyn fundoplication PLEDGET,SO FT 8x8x1.6mm FDA Start: 08-01-2020 Kimberlyn fundoplication DRESSING,F IBRILLA R 1X2 1960 FDA Start: 08-01-2020 Kimberlyn fundoplication PLEDGET,SO FT 8x8x1.6mm FDA Start: 08-01-2020 Kimberlyn fundoplication PLEDGET,SO FT 8x8x1.6mm FDA Start: 08-01-2020 Kimberlyn fundoplication PLEDGET,SO FT 8x8x1.6mm FDA Start: 08-01-2020 Kimberlyn fundoplication DRESSING,F IBRILLA R 1X2 1960 FDA Start: 08-01-2020 Kimberlyn fundoplication PLEDGET,SO FT 8x8x1.6mm FDA Start: 08-01-2020 Kimberlyn fundoplication PLEDGET,SO FT 8x8x1.6mm FDA Start: 08-01-2020 Kimberlyn fundoplication PLEDGET,SO FT 8x8x1.6mm FDA Start: 08-01-2020 Kimberlyn fundoplication DRESSING,F IBRILLA R 1X2 1960 FDA Start: 08-01-2020 Kimberlyn fundoplication PLEDGET,SO FT 8x8x1.6mm FDA Start: 08-01-2020 Kimberlyn fundoplication PLEDGET,SO FT 8x8x1.6mm FDA Start: 08-01-2020 Kimberlyn fundoplication PLEDGET,SO FT 8x8x1.6mm FDA Start: 08-01-2020 Kimberlyn fundoplication DRESSING,F IBRILLA R 1X2 1960 FDA Start: 08-01-2020 Kimberlyn fundoplication PLEDGET,SO FT 8x8x1.6mm FDA Start: 08-01-2020 Kimberlyn fundoplication PLEDGET,SO FT 8x8x1.6mm FDA Start: 08-01-2020 Kimberlyn fundoplication PLEDGET,SO FT 8x8x1.6mm FDA Start: 08-01-2020 Kimberlyn fundoplication DRESSING,F IBRILLA R 1X2 1960 FDA Start: 08-01-2020 Kimberlyn fundoplication PLEDGET,SO FT 8x8x1.6mm FDA Start: 08-01-2020 Kimberlyn fundoplication PLEDGET,SO FT 8x8x1.6mm FDA Start: 08-01-2020 Kimberlyn fundoplication PLEDGET,SO FT 8x8x1.6mm FDA Start: 08-01-2020 Kimberlyn fundoplication DRESSING,F IBRILLA R 1X2 1960 FDA Start: 08-01-2020 Kimberlyn fundoplication PLEDGET,SO FT 8x8x1.6mm FDA Start: 08-01-2020 Kimberlyn fundoplication PLEDGET,SO FT 8x8x1.6mm FDA Start: 08-01-2020 Kimberlyn fundoplication PLEDGET,SO FT 8x8x1.6mm FDA Start: 08-01-2020 Kimberlyn fundoplication DRESSING,F IBRILLA R 1X2 1960 FDA Start: 08-01-2020 Kimberlyn fundoplication PLEDGET,SO FT 8x8x1.6mm FDA Start: 08-01-2020 Kimberlyn fundoplication PLEDGET,SO FT 8x8x1.6mm FDA Start: 08-01-2020 Kimberlyn fundoplication PLEDGET,SO FT 8x8x1.6mm FDA Start: 08-01-2020 Kimberlyn fundoplication DRESSING,F IBRILLA R 1X2 1960 FDA Start: 08-01-2020 Kimberlyn fundoplication PLEDGET,SO FT 8x8x1.6mm FDA Start: 08-01-2020 Kimberlyn fundoplication PLEDGET,SO FT 8x8x1.6mm FDA Start: 08-01-2020 Kimberlyn fundoplication PLEDGET,SO FT 8x8x1.6mm FDA Start: 08-01-2020 Kimberlyn fundoplication DRESSING,F IBRILLA R 1X2 1960 FDA Start: 08-01-2020 Kimberlyn fundoplication PLEDGET,SO FT 8x8x1.6mm FDA Start: 08-01-2020 Kimberlyn fundoplication PLEDGET,SO FT 8x8x1.6mm FDA Start: 08-01-2020 Kimberlyn fundoplication PLEDGET,SO FT 8x8x1.6mm FDA Start: 08-01-2020 Kimberlyn fundoplication DRESSING,F IBRILLA R 1X2 1960 FDA Start: 08-01-2020 Kimberlyn fundoplication PLEDGET,SO FT 8x8x1.6mm FDA Start: 08-01-2020 Kimberlyn fundoplication PLEDGET,SO FT 8x8x1.6mm FDA Start: 08-01-2020 Kimberlyn fundoplication PLEDGET,SO FT 8x8x1.6mm FDA Start: 08-01-2020 Kimberlyn fundoplication DRESSING,F IBRILLA R 1X2 1960 FDA Start: 08-01-2020 Kimberlyn fundoplication PLEDGET,SO FT 8x8x1.6mm FDA Start: 08-01-2020 Kimberlyn fundoplication PLEDGET,SO FT 8x8x1.6mm FDA Start: 08-01-2020 Kimberlyn fundoplication PLEDGET,SO FT 8x8x1.6mm FDA Start: 08-01-2020 Kimberlyn fundoplication DRESSING,F IBRILLA R 1X2 1960 FDA Start: 08-01-2020 Kimberlyn fundoplication PLEDGET,SO FT 8x8x1.6mm FDA Start: 08-01-2020 Kimberlyn fundoplication PLEDGET,SO FT 8x8x1.6mm FDA Start: 08-01-2020 Kimberlyn fundoplication PLEDGET,SO FT 8x8x1.6mm FDA Start: 08-01-2020 Clinical Notes 11-04-2022 to 06-14-2024 Note Date & Type Note Facility 06-14-2024 Evaluation note Diagnosis Onset Date Resolution Crohn's disease chronic June 14, 2024 2:42pm Irritable bowel syndrome with constipation chronic June 14 2:42pm [facility] Work Phone: [phone] 776-244406-26-2023 Discharge summary Author Maggie Shoemaker [facility] November 04, 2022 9:59am Note Date/Time November 04, 2022 9:59 am [facility] Physical Therapy [facility] [address] [place] [address] / REHABILITATION SERVICES DISCHARGE SUMMARY MR#: [id number] Acct: [id number] Name: BEVERLY MUNSON Rep #: [id number] : 1965 57 From: Maggie Shoemaker PT Cert. MDT Referring Dr.: Dr. Nataliya Encarnacion MD Status: REG RCR Insurance: [place] [id number] [place] [employer] BEVERLY MUNSON was seen in my office for initial evaluation on 08/26/22. The following Plan of Care was established for this patient: Initial Frequency: 1x/Week Initial Duration: 8-12 WKS Patient/Client Instruction: Educate patient on: Condition, Plan of Care, Risk Factors For the Purpose of:: To improve self management Therapeutic Exercise to Include: Strength training, Endurance training, Coordination, Body mechanics, Postural training, Flexibilty training, Neuromotordevelopment For the Purpose of:: To increase ROM, To improve muscle performance and motor function, To improve performance and independence with ADL's, To improve abilityof physical actions for home/community/work/leisure Manual Therapy Techniques to Include: Trigger point massage, Soft tissue mobilization, Other Comment: STM, TRIGGER POINT RELEASE AND BIOFEEDBACK NEEDED. For the Purpose of:: To decrease pain, To increase ROM, To improve muscle performance and motor function This patient was last seen in our office 08/26/22. Pertinent comments regardingtheir Physical therapy will appear below: This patient has not returned to Physical Therapy and is appropriate to return to MD for further follow-up as needed. At this point I will be discontinuing this patient from physical therapy. I would be happy to see this patient again in the future if found appropriate by the physician. Thank you! Maggie Shoemaker PT, Cert MDT <Electronically signed by Maggie Shoemaker PT Cert. MDT> 11/04/22 0959 CC: Dr. Nataliya Encarnacion MD; Dr. Ralph Nava MD ~ [facility] Work Phone: Evaluation note* Diagnosis Onset Date Resolution Status Constipation acute Gastroparesis acute Nausea acute Ulcer of small intestine acu te Crohn's disease involving terminal ileum acute Irritable bowel syndrome with constipation acute Crohn's disease involving terminal ileum acute Irritable bowel syndrome with constipation [facility] Work Phone: Evaluation note* Diagnosis Onset Date Resolution Status Crohn's disease involving terminal ileum acute Irritable bowel syndrome with constipation acute [facility] Work Phone: Evaluation note* Diagnosis Onset Date Resolution Status Crohn's disease involving terminal ileum acute Irritable bowel syndrome with constipation acute Constipation acute Crohn's disease involving terminal ileum acute [facility] Work Phone: Evaluation note* Diagnosis Onset Date Resolution Status Constipation acute Crohn's disease involving terminal ileum chronic Primary snoring acute Obstructive Sleep Apnea-Hypopnea Syndrome noneactive BMI 34.0-34.9,adult noneacti ve Crohn's disease involving terminal ileum chronic Irritable bowel syndrome with constipation [facility] Work Phone: Evaluation note* Diagnosis Onset Date Resolution Status Obstructive Sleep Apnea-Hypopnea Syndrome noneactive BMI 34.0-34.9,adult noneacti ve Crohn's disease involving terminal ileum chronic Irritable bowel syndrome with constipation chronic Cough acute Obstructive sleep apnea on CPAP [facility] Work Phone: Evaluation note* Diagnosis Onset Date Resolution Status Cough acute Obstructive sleep apnea on CPAP acute Crohn's disease acute Irritable bowel syndrome with constipation [facility] Work Phone: Evaluation note* Diagnosis Onset Date Resolution Status Crohn's disease acute Irritable bowel syndrome with constipation [facility] Work Phone: Evaluation note* Diagnosis Onset Date Resolution Status Crohn's disease chronic Irritable bowel syndrome with constipation [facility] Work Phone: Reason for referral (narrative)No reason [facility] Summary Purpose Family History No Family History Records Found Relationship Condition Age at Onset Recorded Date/T eldon sister Malignant neoplasm Unknown daughter Disorder of thyroid Unknown mother Hypertension Unknown father Hypertension Unknown Advance Directives No Advanced Directives Records Found Advance Directive Response Recorded Date/ Time Advance Directives No April 16, 2016 1:04am Living Will No August 01, 2020 1:40pm Power of News Camera Person No August 01 1:40pm Advance Directive Response Recorded Date/ Time Advance Directives No April 16, 2016 12:04am Living Will No August 01, 2020 12:40pm Power of News Camera Person No August 01 12:40pm Advance Directive Response Recorded Date/ Time Advance Directives No April 16, 2016 1:04am Living Will No January 01 12:57pm Power of News Camera Person No January 01, 2 023 12:57pm Advance Directive Response Recorded Date/ Time Advance Directives No April 16, 2016 12:04am Living Will No January 01 3 11:57am Power of News Camera Person No January 01 2 023 11:57am Advance Directive Response Recorded Date/ Time Living Will No January 01 3 12:57pm Do you have a [facility] Power of News Camera Person? No January 01, 2023 12:57pm Advance Directives No April 16, 2016 1:04am Chief Complaint and Reason for Visit Chief Complaint FU PAT CAP E ORDERS GASTROPARESIS, ULCERS SMALL BOWEL 1 MO FU 1 MO FU E ORDER Reason for Visit Constipation Gastroparesis Nausea Ulcer of small intestine Crohn's disease involving terminal ileum Irritable bowel syndrome with constipation Crohn's disease involving terminal ileum Irritable bowel syndrome with constipation Chief Complaint 1 MO FU E ORDER XRAYS AT MT- FOOT PAIN Reason for Visit Crohn's disease invo lving terminal ileum Irritable bowel syndrome with constipation Chief Complaint 1 MO FU E ORDER XRAYS AT MT- FOOT PAIN M54.16 Radiculopathy, lumbar region M54.16 Radiculopathy, lumbar region Reason for Visit Crohn's disease invo lving terminal ileum Irritable bowel syndrome with constipation Chief Complaint 1 MO FU E ORDER XRAYS AT MT- FOOT PAIN M54.16 Radiculopathy, lumbar region M54.16 Radiculopathy, lumbar region LABS AND XRAY- BACK PAIN, JOINT PAIN, FATIGUE Reason for Visit Crohn's disease invo lving terminal ileum Irritable bowel syndrome with constipation Chief Complaint M54.16 Radiculopathy , lumbar region M54.16 Radiculopathy, lumbar region LABS AND XRAY- BACK PAIN, JOINT PAIN, FATIGUE PE DRUG SCREEN/PRC-S[place] 4 MO FU Reason for Visit Crohn's disease invo lving terminal ileum Irritable bowel syndrome with constipation Chief Complaint 4 MO FU 3 m fu SCREENING Reason for Visit Crohn's disease invo lving terminal ileum Irritable bowel syndrome with constipation Constipation Crohn's disease involving terminal ileum Chief Complaint 3 m fu SCREENING Sleep apnea 3 M FU MIXED INCONTINENCE,UI/RX HERE Reason for Visit Constipation Crohn's disease involving terminal ileum Primary snoring Obstructive Sleep Apnea-Hypopnea Syndrome BMI 34.0-34.9,adult Crohn's disease involving terminal ileum Irritable bowel syndrome with constipation Chief Complaint Sleep apnea 3 M FU MIXED INCONTINENCE,UI/RX HERE ELIESER GROSS HEMATURIA EORDER- CXR- bronchitis FORMER SMOKER 2 M FU Reason for Visit Obstructive Sleep Ap rhonda-Hypopnea Syndrome BMI 34.0-34.9,adult Crohn's disease involving terminal ileum Irritable bowel syndrome with constipation Cough Obstructive sleep apnea on CPAP Chief Complaint Sleep apnea 3 M FU MIXED INCONTINENCE,UI/RX HERE ELIESER GROSS HEMATURIA EORDER- CXR- bronchitis FORMER SMOKER 2 M FU EORDERS- R FOREARM, R SHOULDER, R KNEE TBI, NAUSEA, MA Reason for Visit Obstructive Sleep Ap rhonda-Hypopnea Syndrome BMI 34.0-34.9,adult Crohn's disease involving terminal ileum Irritable bowel syndrome with constipation Cough Obstructive sleep apnea on CPAP Chief Complaint EORDER- CXR- bronchi tis FORMER SMOKER 2 M FU EORDERS- R FOREARM, R SHOULDER, R KNEE TBI, NAUSEA, MA PREOP MIDURETHRAL SLING, CYSTO 3 MO FU Reason for Visit Cough Obstructive sleep apnea on CPAP Crohn's disease Irritable bowel syndrome with constipation Chief Complaint EORDERS- R FOREARM, R SHOULDER, R KNEE TBI, NAUSEA, MA PREOP MIDURETHRAL SLING, CYSTO 3 MO FU ADD XRAYS-SHOULDER,NECK,LUMBER SPINE Reason for Visit Crohn's disease Irritable bowel syndrome with constipation Chief Complaint 6 MO FU E ORDER Reason for Visit Crohn's disease Irritable bowel syndrome with constipation Chief Complaint Admit Date 6 Month f/u June 14, 2024 2 :42pm EORDERS June 16, 2024 4 :33pm 4 M FU September 29, 2024 2:55p m Reason for Visit Admit Date Crohn's disease June 14, 2024 2 :42pm Irritable bowel syndrome with constipati on June 14, 2024 2:42pm Additional Source Comments INFORMATION SOURCE (unrecogn ized section and content) DATE CREATED AUTHOR 10/31/2017 [facility] DATE CREATED AUTHOR AUTHOR'S ORGANIZ ATION 11/07/2017 [facility] DATE CREATED AUTHOR AUTHOR'S ORGANIZ ATION 01/08/2025 [facility] Goals (unrecognized section and content) Goals may be documented in a n alternate sectionGoals may be documented in an alternate sectionGoals may be documented in an alternate sectionGoals may be documented in an alternate sectionGoals may be documented in an alternate sectionGoals may be documented in an alternate sectionGoals may be documented in an alternate sectionGoals may be documented in an alternate sectionGoals may be documented in an alternate sectionGoals may be documented in an alternate sectionGoals may be documented in an alternate sectionGoals may be documented in an alternate sectionGoals may be documented in an alternate section Care Teams (unrecognized sec tion and content) Team Status: Active Member Role Status Dates Dr. Ralph Nava MD Family Provider Active Dr. Ralph Nava MD Primary Care Provider Active Team Status: Inactive Member Role Status Dates Dr. Ralph Nava MD Primary Care Provider, Referr ing Provider Active Ladonna Bernabe [employer]GER, [employer] DAT[employer]ASE MANAGER-C Attending Provider Active Team Status: Inactive Member Role Status Dates Dr. Ralph Nava MD Primary Care Provider, Attend ing Provider Active Team Status: Inactive Member Role Status Dates Dr. Ralph Nava MD Primary Care Pr ovider, Attending Provider, Referring Provider Active Team Status: Inactive Member Role Status Dates Dr. Ralph Nava MD Primary Care Provider, Referr ing Provider Active Dr. Ankit Paulino MD Attending Provider Active Team Status: Active Member Role Status Dates Dr. Ralph Nava MD Primary Care Provider Active Dr. Nataliya Encarnacion MD Attending Provider, Referring P rojulieth Active Team Status: Inactive Member Role Status Dates Dr. Ralph Nava MD Primary Care Provider Active Dr. Nataliya Encarnacion MD Attending Provider, Referring P rovider Active Team Status: Inactive Member Role Status Dates Dr. Ralph Nava MD Primary Care Provider Active Dr. Ankit Paulino MD Attending Provider, Referring Provider Active Team Status: Active Member Role Status Dates Dr. Ralph Nava MD Primary Care Provider Active Health Risk Assessment Attending Provider Active Team Status: Inactive Member Role Status Dates Dr. Ralph Nava MD Primary Care Provider, Referr ing Provider Active Dr. Сергей Gutierrez DO Attending Provider Active Team Status: Active Member Role Status Dates Dr. Ralph Nava MD Primary Care Provider Active Dr. Costa Bee MD Attending Provider Active Dr. Nataliya Encarnacion MD Referring Provider Active Team Status: Inactive Member Role Status Dates Dr. Ralph Nava MD Primary Care Provider Active Dr. Nataliya Encarnacion MD Attending Provider, Referring P anselmo Active Dr. Benny Ornelas MD Other Provider Active Team Status: Inactive Member Role Status Dates Dr. Ralph Nava MD Primary Care Provider Active Dr. Сергей Gutierrez DO Attending Provider, Referring Provider Active Team Status: Active Member Role Status Dates Dr. Ralph Nava MD Primary Care Provider Active Team Status: Inactive Member Role Status Dates Dr. Ralph Nava MD Primary Care Provider Active Start: June 14, 2024 End: June 14, 2024 Dr. Ralph Nava MD Referring Provider Active Start: June 14, 2024 End: June 14, 2024 Dr. Сергей Gutierrez DO Attending Provider Active Start: June 14, 2024 End: June 14, 2024 Team Status: Inactive Member Role Status Dates Dr. Ralph Nava MD Primary Care Provider Active Start: June 16, 2024 End: June 16, 2024 Dr. Ralph Nava MD Attending Provider Active Start: June 16, 2024 End: June 16, 2024 Dr. Ralph Nava MD Referring Provider Active Start: June 16, 2024 End: June 16, 2024 Team Status: Active Member Role Status Dates Dr. Ralph Nava MD Primary Care Provider Active Start: September 28, 2024 Dr. Ralph Nava MD Attending Provider Active Start: September 28, 2024 Dr. Ralph Nava MD Referring Provider Active Start: September 28, 2024 Team Status: Inactive Member Role Status Dates Dr. Ralph Nava MD Primary Care Provider Active Start: September 29, 2024 End: September 29, 2024 Dr. Ralph Nava MD Referring Provider Active Start: September 29, 2024 End: September 29, 2024 Dr. Сергей Gutierrez DO Attending Provider Active Start: September 29, 2024 End: September 29, 2024 FOR RECORDS PERTAINING TO PATIENTS WHO ARE OR HAVE BEEN ENROLLED IN A CHEMICAL DEPENDENCY/SUBSTANCEABUSE PROGRAM, SOME INFORMATION MAY BE OMITTED. This clinical summary was aggregated from multiple sources. Caution should be exercised in using it in the provision of clinical care. This summary normalizes information from multiple sources, and as a consequence, information in this document may materially change the coding, format and clinical context of patient data. In addition, data may be omitted in some cases. CLINICAL DECISIONS SHOULD BE BASED ON THE PRIMARY CLINICAL RECORDS. [employer] provides no warranty or guarantee of the accuracy or completeness of information in this document.
== END 2025-01-27 23:59 | disposition home or self-care (01) ==
LOC: MFPLAB 16:27
PROVIDERS: PCP Family Medicine; Visit Provider Family Medicine
DX: E78.00 Pure hypercholesterolemia, unspecified (principal); E03.8 Other specified hypothyroidism; R73.02 Impaired glucose tolerance (oral); E55.9 Vitamin D deficiency, unspecified
CPT/HCPCS: 36415; 80053; 80061; 82306; 83036; 84439; 84443; 85025

== ENCOUNTER → 2025-01-27 | Outpatient (CLI) | payer OTHER, SELFPAY ==
--- NOTE | 2025-01-27 16:45 | RAD_ITS ---
PROCEDURE: HIPS B/L MIN 2 VIEWS W/ PELVIS 01/27/2025 REASON FOR EXAM: PAIN TECHNIQUE: Procedure Code: RADHPELP Modality: DX Procedure: HIPS B/L MIN 2 VIEWS W/ PELVIS Laterality: Bilateral FINDINGS: Bones: No acute bony abnormalities. Joints: Unremarkable. Soft tissues: Calcified phleboliths in the pelvis. Other: RAD/Hips B/L min 2 views w/ Pelvis IMPRESSION: No acute osseous abnormalities. Reading Location: [id number]
--- NOTE | 2025-01-27 16:45 | RAD_ITS ---
PROCEDURE: SHOULDER MIN 2 VIEWS 01/27/2025 REASON FOR EXAM: PAIN TECHNIQUE: Procedure Code: RADSH Modality: DX Procedure: SHOULDER MIN 2 VIEWS Laterality: COMPARISON: None. FINDINGS: Bones: No acute bony abnormalities. Joints: No dislocations. Soft tissues: No soft tissue abnormalities. RAD/Shoulder min 2 Views IMPRESSION: No acute osseous abnormalities. Reading Location: [id number]
--- NOTE | 2025-01-27 16:47 | RAD_ITS ---
PROCEDURE: SHOULDER MIN 2 VIEWS 01/27/2025 REASON FOR EXAM: PAIN TECHNIQUE: Procedure Code: RADSH Modality: DX Procedure: SHOULDER MIN 2 VIEWS Laterality: Right COMPARISON: None. FINDINGS: Bones: No acute bony abnormalities. Joints: No dislocations. Soft tissues: No soft tissue abnormalities. Other: RAD/Shoulder min 2 Views IMPRESSION: No acute osseous abnormalities. Reading Location: [id number]
== END | disposition home or self-care (01) ==
LOC: MTRAD 16:33
PROVIDERS: PCP Family Medicine; Referring Provider Family Medicine; Visit Provider Family Medicine
DX: M25.551 Pain in right hip (principal); M25.552 Pain in left hip; M25.511 Pain in right shoulder; M25.512 Pain in left shoulder
CPT/HCPCS: 73030; 73521

== ENCOUNTER → 2025-02-17 | Outpatient (CLI) | payer OTHER, SELFPAY | END | disposition home or self-care (01) | LOC: OPBI 15:30 | PROVIDERS: PCP Family Medicine; Referring Provider Family Medicine; Visit Provider Family Medicine | DX: Z12.31 Encounter for screening mammogram for malignant neoplasm of breast (principal) | CPT/HCPCS: 77063; 77067 ==

== ENCOUNTER 2025-03-09 15:43 | Outpatient (RCR) | payer OTHER, SELFPAY | END 2025-03-11 23:59 | LOC: NS 15:43 | PROVIDERS: PCP Family Medicine; Referring Provider Family Medicine; Visit Provider Family Medicine | DX: Z71.3 Dietary counseling and surveillance (principal); E66.9 Obesity, unspecified; R73.02 Impaired glucose tolerance (oral) | CPT/HCPCS: 97803 ==